=== PATIENT | male | born 1940 | race Caucasian/White ===

== ENCOUNTER 2019-06-22 11:25 | Outpatient (CLI) | payer MEDICARE, OTHER, SELFPAY ==
[2019-06-22 12:07] LABS: Alanine Aminotransferase 13 U/L (0-41); Albumin Level 4.4 g/dL (3.5-5.2); Alkaline Phosphatase 106 IU/L (40-130); Anion Gap 17.8 (5-19); Aspartate Amino Transferase 15 U/L (0-40); Blood Urea Nitrogen 29 mg/dL (8-23); Calcium 11.6 mg/Dl (8.8-10.2); Carbon Dioxide 26 mmol/L (22-29); Chloride 102 mmol/L (98-107); Globulin 2.3 g/dL (1.3-4.6); Glucose 126 mg/dL (74-106); Potassium 4.8 mmol/L (3.5-5.1); Sodium 141 mmol/L (136-145); Total Bilirubin 0.5 mg/dL (0.15-1.2); Total Protein 6.7 g/dL (6.6-8.7)
== END 2019-06-22 11:26 | disposition home or self-care (01) ==
LOC: LAB 11:32
PROVIDERS: Family Provider Family Medicine; PCP Family Medicine; Visit Provider Internal Medicine Critical Care Medicine
DX: J44.9 Chronic obstructive pulmonary disease, unspecified (principal)
CPT/HCPCS: 80053

== ENCOUNTER 2019-06-30 13:15 | Outpatient (CLI) | payer MEDICARE, SELFPAY ==
--- NOTE | 2019-06-30 13:30 | USCV_ITS ---
Henrik Kraus Age: 79 Gender: M : 1940 Exam Date: 06/30/2019 13:41 Ordering Phys: Jody Mendosa MD ([email or web address]) Technologist: GINO MIRANDA [place] [facility] [place]: ATHERSCLEROSIS OF [place] CORONARY ARTERY BP: 117 / 50 HR: 70 Rhythm: Sinus Technical Quality: Technically difficult study MEASUREMENTS (Male / Female) Normal Values 2D ECHO LVOT Diameter 2.0 cm LV Ejection Fraction MOD 2C 62.7 % LV Ejection Fraction 2C AL 62.1 % LA Diameter 4.9 cm LA Width 4.4 cm LA Height 6.8 cm RA Width 4.1 cm RA Height 6.4 cm M-MODE Aortic Annulus Diameter 3.0 cm LA Ao Ratio MM 1.6 DOPPLER AV Peak Velocity 191.0 cm/s LVOT Peak Velocity 85.0 cm/s AV Area Cont Eq vti 1.6 cm squared AV Area Cont Eq pk 1.4 cm squared MV Peak Velocity 147.0 cm/s MV Area PHT 3.5 cm squared Mitral E to A Ratio 1.1 MV E' Velocity 9.0 cm/s Mitral E to MV E' Ratio 17.6 Mitral E to LV E' Lateral Ratio 16.4 Mitral E to LV E' Septal Ratio 19.2 TV Peak E Velocity 68.0 cm/s Right Atrial Pressure 3.0 mmHg FINDINGS Left Ventricle Normal left ventricular size and systolic function, EF 61 %. No regional wall motion abnormalities. Grade II/IV diastolic dysfunction, moderately elevated filling pressures. Right Ventricle Normal right ventricular size and systolic function. Right Atrium Mildly increased right atrial size. Left Atrium Mildly increased left atrial size. Mitral Valve Moderate mitral annular calcification. Mild-moderate mitral valve regurgitation. Aortic Valve Thickened aortic valve. Tricuspid Valve Trace tricuspid valve regurgitation. Pulmonic Valve Pulmonic valve not well visualized. Pericardium No pericardial effusion. Aorta Normal aortic annulus size. CONCLUSIONS Normal left ventricular size and systolic function, EF 61 %. No regional wall motion abnormalities. Grade II/IV diastolic dysfunction, moderately elevated filling pressures. Mild biatrial enlargement Moderate mitral annular calcification. Mild-moderate mitral valve regurgitation. Features of aortic valve sclerosis Trace tricuspid valve regurgitation. There is no pericardial effusion. There are no intracardiac masses. No previous study is available for comparison. Dr Jody Mendosa MD [facility] (Electronically Signed) Final Date: 01 July 2019 00:29 S
--- NOTE | 2019-06-30 14:15 | USCV_ITS ---
Henrik Kraus Age: 79 Gender: M : 1940 Exam Date: 06/30/2019 14:42 Ordering Phys: Jody Mendosa MD ([email or web address]) Technologist: Mary Ellen Day Exam Location: [facility] [place] Indication: CAROTID STENOSIS Risk Factors: Previous Vascular Surgery: R CEA, L CEA Right Brachial BP: / Left Brachial BP: / Right Left Velocity (cm/s) Spectral Plaque Velocity (cm/s) Spectral Plaque Syst/Diast Broadening Syst/Diast Broadening 78.30/ 7.70 Prox CCA 83.60 / 12.30 87.10/ 13.20 Mid CCA 97.00 / 12.10 80.50/ 12.10 Distal CCA 87.10 / 14.30 65.10/ 18.70 Prox ICA 53.80 / 11.10 89.30/ 22.10 Mid ICA 74.30 / 21.40 87.10/ 23.20 Distal ICA 59.30 / 13.00 118.00 ECA 150.80 1.03 ICA/CCA 0.77 Not Vertebral Antegrade Visualized / cm/s 85.30/ 17.80 cm/s Bi Subclavian Bi 101.1 96.20 0 FINDINGS Moderate heterogeneous plaques at the bifurcations and proximal internal carotid arteries bilaterally. Mild diffuse plaques in the common carotid arteries bilaterally. Antegrade flow in the vertebral arteries bilaterally. 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 Mild diffuse plaques in the common carotid arteries bilaterally. 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
--- NOTE | 2019-06-30 15:00 | USCV_ITS ---
EfraHenrik cabezas Age: 79 Gender: M : 1940 Exam Date: 06/30/2019 14:14 Ordering Phys: Jody Mendosa MD ([email or web address]) Technologist: Mary Ellen Day [place] [facility] [place]: LEG PAIN, BILATERAL Risk Factors: Previous Vascular Surgery: RIGHT LEFT BP: 148.0 / BP: 153.0/ 0 0 Waveform Velocity (cm/s) Velocity (cm/s) Waveform Monophasic 44.5 Iliac Prox 107.4 Triphasic Monophasic 38.9 Iliac Mid 109.6 Triphasic Monophasic 32.6 Iliac Distal 99.5 Triphasic Monophasic 52.0 AGENT TICKETING GATE 88.3 Biphasic Monophasic 38.1 SFA Prox 40.4 Biphasic Monophasic 38.1 SFA Mid 37.3 Triphasic Monophasic 33.0 SFA Dist 132.2 Biphasic Monophasic 38.8 POP 29.7 Monophasic COMPONENT INSPECTOR 44.3 Monophasic Monophasic DPA 36.3 Monophasic KOFI 0.6 0.5 FINDINGS Monophasic Doppler waveforms in the right side. No Doppler flow signals in the right posterior tibial artery. Monophasic, low velocity continuous Doppler waveforms in the popliteal and dorsalis pedis artery on the right side. Diminished resting KOFI of 0.5 on the right and 0.6 in the left side. CONCLUSIONS 1. Abnormal resting ABIs bilaterally, consistent with the peripheral artery disease, in the range of exertional claudication. 2. Features of total occlusion of the posterior tibial artery on the right side. 3. Abnormal Doppler waveforms in the right popliteal and dorsalis pedis artery, suggestive of collateral filling 4. Appears to have some progression of disease on the right side, compared to the study from 01/23/2014 Dr Jody Mendosa MD [facility] (Electronically Signed) Final Date: 01 July 2019 00:36 S
== END 2019-06-30 13:16 | disposition home or self-care (01) ==
LOC: RAD 13:16
PROVIDERS: Family Provider Family Medicine; PCP Family Medicine; Visit Provider Internal Medicine Cardiovascular Disease
DX: I65.23 Occlusion and stenosis of bilateral carotid arteries (principal); M79.604 Pain in right leg; M79.605 Pain in left leg; I25.10 Atherosclerotic heart disease of native coronary artery without angina pectoris; I08.3 Combined rheumatic disorders of mitral, aortic and tricuspid valves
CPT/HCPCS: 93306; 93880; 93925

== ENCOUNTER 2019-07-05 09:13 | Inpatient (IN) | payer MEDICARE, SELFPAY ==
[2019-07-05] VITALS (10 sets, daily range): BP systolic 113–156; BP diastolic 54–72; PULSE 69–75; RESP 16–20; TEMP 26.5–37.1; O2SAT 94–97; BMI 33.4
--- NOTE | 2019-07-05 09:30 | ED_ITS ---
Entered by Darleen Romo, acting as scribe for HPI - Extremity Problem General: Chief complaint: Extremity Injury, Lower Stated complaint: right foot pain Time Seen by Provider: 07/05/19 09:19 History of Present Illness: HPI Narrative: 79 yo male presents with right foot injury. Pt states that he has been dealing with this pain in his right foot for 6 months, he had an US last week. Pt states that he hasn't heard the results. Pt states that his foot is red. Pt states that he has issues with ingrown toe nails. MD Complaint: extremity pain Associated symptoms: Reports rash; Deny chest pain or fever(s) Review of Systems General: Reports: 10 or more systems reviewed and unremarkable except in HPI and below Const: Denies: fever, chills, body aches or change in appetite Eyes: Denies: change in vision, blurry vision, blind spots or photophobia ENMT: Denies: throat pain, uvular edema, enlarged tonsils or painful swallowing Card: Denies: chest pain, palpitations, irregular heart rhythm or edema Resp: Denies: shortness of breath, productive cough or non-productive cough GI: Denies: abdominal pain, nausea, vomiting or vomiting blood : Denies: flank pain, difficulty urinating or painful urination Musc: Reports: extremity pain, extremity swelling and redness; Denies: neck pain or back pain Skin/Breast: Reports: rash and sores; Denies: redness or skin tenderness Neuro: Denies: headache or numbness in extremities Psych: Denies: anxiety, depression or mood swings Endo: Denies: excessive urination or excessive thirst Oj/Lymph: Denies: easy bruising, easy bleeding or tender lymph nodes All/Imm: Denies: throat swelling, tongue swelling, seasonal allergies or food intolerance PFSH ED PFSH: Statuses (acute, chronic, etc) shown below reflect problem list status as previously entered and may not be historically accurate Medical History Afib (Acute) 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) Chronic hypoxemic respiratory failure (Acute) COPD (chronic obstructive pulmonary disease) (Acute) Diabetes (Acute) Hyperlipemia (Acute) Hypoxemia (Acute) Non-pressure chronic ulcer of other part of right foot with fat layer exposed (Acute) Obesity (Acute) ZEHRA (obstructive sleep apnea) (Acute) Pacemaker (Acute) PVD (peripheral vascular disease) (Acute) 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) Surgical History H/O eye surgery (Acute) H/O prior ablation treatment (Acute) H/O rotator cuff surgery (Acute) H/O total knee replacement (Acute) History of appendectomy (Acute) History of back surgery (Acute) Social History Smoking and tobacco status: former smoker Quit status (tobacco): has quit using tobacco Year quit tobacco: 2008 Year 1.5 PPD Hx Alcohol intake: never History of recent travel: No Current gender identity: Male Physical Exam Const: COMMON NORMALS: no apparent distress, average body habitus, oriented x3, no limitations, healthy appearing, alert and well nourished HENMT: COMMON NORMALS: normocephalic, head/scalp atraumatic, hearing grossly normal bilaterally, external ears normal, EAC's normal, TM's normal bilaterally, external nose normal, nasal mucous membranes and turbinates normal, moist oral mucous membranes, oropharynx normal, dentition normal and gingiva normal HEAD & SCALP: normocephalic and atraumatic NOSE: external nose normal and nasal mucous membranes and turbinates normal EXTERNAL EAR: Yes external ears normal EXTERNAL AUDITORY CANAL: EAC's normal TYMPANIC MEMBRANE: TM's normal bilaterally THROAT: no uvular edema Eye: COMMON NORMALS: PERRL, EOMs intact bilaterally, conjunctivae normal, no scleral icterus, no papilledema, normal visual adrian by confrontation and fundi normal bilaterally CONJUNCTIVA: Yes conjunctivae normal PUPIL: Yes PERRL DIRECT OPHTHALMOSCOPY: Yes no papilledema and Yes fundi normal bilaterally Neck/C-Spine: COMMON NORMALS: full ROM, no lymphadenopathy, supple, no meningeal signs, no JVD, thyroid normal and no carotid bruits THYROID: thyroid normal Chest: COMMONS NORMALS: inspection of chest normal and palpation of chest normal Resp: COMMON NORMALS: normal respiratory effort, no retractions, no use of accessory muscles, clear to auscultation bilaterally and percussion normal AUSCULTATION: clear to auscultation bilaterally PERCUSSION: percussion normal Cardio: COMMON NORMALS: no JVD, regular rate, regular rhythm, S1 normal heart sound, S2 normal heart sound, no gallops, no clicks, no murmurs, no rub and peripheral pulses 2+ throughout RATE: regular rate RHYTHM: regular rhythm HEART SOUNDS: S1 normal and S2 normal PERIPHERAL PULSES: pulses 2+ throughout GI: COMMON NORMALS: normal to inspection, nondistended, normoactive bowel sounds, soft to palpation, non-tender, no hepatosplenomegaly, no masses and no bruits PALPATION: Yes soft and Yes no hepatosplenomegaly : COMMON NORMALS: Yes no CVA tenderness BLADDER/KIDNEY EXAM: Yes no CVA tenderness Back/Pelvis: COMMON NORMALS: no CVA tenderness, thoracic and lumbar spine normal to inspection, no thoracic nor lumbar tenderness, thoraco-lumbar ROM normal and straight leg raise negative bilaterally Extremity: COMMON NORMALS: full ROM; negative for normal to inspection, negative for normal capillary refill and negative for no clubbing, cyanosis or edema GENERAL: Yes cyanosis RIGHT LOWER EXTREMITY: Yes foot & digits Neuro: COMMON NORMALS: oriented x3 SENSORIUM/ORIENTATION: Yes alert MENINGEAL SIGNS: Yes no meningeal signs Skin: COMMON NORMALS: no rashes or lesions noted, no wounds, skin turgor normal, no jaundice, no petechiae and no mottling GENERAL SKIN EXAM: no rashes or lesions noted and turgor normal Course Vital Signs: Vital signs: Vital Signs Temperature 79.7 F L 07/05/19 09:19 Pulse Rate 71 07/05/19 09:19 Respiratory Rate 20 H 07/05/19 09:19 Blood Pressure 136/54 07/05/19 09:19 Pulse Oximetry 94 07/05/19 09:19 Discharge Plan Discharge Clinical Impression: Arterial occlusion, lower extremity, PVD (peripheral vascular disease) Condition: Fair Prescriptions: No Action azithromycin 250 mg tablet 250 mg PO DAILY 90 Days Qty: 90 RF: 1 albuterol sulfate [ProAir HFA] 90 mcg/actuation HFA aerosol inhaler 2 puff INHALATION Q6H PRNRF: 0 hydrocodone-acetaminophen [[place]] 7.5-325 mg tablet 1 tab PO Q6H PRNRF: 0 nitroglycerin [Nitrostat] 0.4 mg tablet, sublingual 0.4 mg SUBLINGUAL Q5M PRNRF: 0 metformin 500 mg tablet 500 mg PO BID RF: 0 Eliquis 5 mg tablet 5 mg PO BID RF: 0 Brovana 15 mcg/2 mL solution for nebulization 2 ml INHALATION BID RF: 0 Yupelri 175 mcg/3 mL solution for nebulization 175 mcg INHALATION ONCE RF: 0 budesonide 0.5 mg/2 mL suspension for nebulization 0.25 mg INHALATION BID RF: 0 alfuzosin 10 mg tablet extended release 24 hr 10 mg PO ONCE RF: 0 finasteride 5 mg tablet 5 mg PO ONCE RF: 0 atorvastatin 20 mg tablet 20 mg PO ONCE RF: 0 pantoprazole 40 mg tablet,delayed release (DR/EC) 40 mg PO ONCE RF: 0 cholecalciferol (vitamin D3) 50 mcg (2,000 unit) capsule 50 mcg PO ONCE RF: 0 furosemide 40 mg tablet 40 mg PO BID RF: 0 Referrals: Bernice Acevedo MD [Primary Care Provider] - Coding Level of Care Code ED Rest Room Matron for Chg Fwd Exam Problem Focused The documentation recorded by the Demetrius kumar Kialy, accurately reflects the service I personally performed and the decisions made by Jenni dasilva Donald P, DO Jul 05, 2019 09:13
--- NOTE | 2019-07-05 09:48 | USCV_ITS ---
Henrik Kraus Age: 79 Gender: M : 1940 Exam Date: 07/05/2019 09:57 Ordering Phys: Henrik Arteaga DO Technologist: Saravanan Cohen [place] [facility] [place] Indication: ARTERIAL OCCLUSION Risk Factors: Previous Vascular Surgery: RIGHT LEFT BP: 136.0 / 67.00 BP: 134.0/ 61.00 0 0 Waveform Velocity (cm/s) Velocity (cm/s) Waveform Monophasic 28.1 Iliac Prox Monophasic 23.9 Iliac Mid Monophasic 30.3 Iliac Distal Monophasic 32.6 BUILD AUTOMATION ENGINEER Monophasic 36.1 SFA Prox Monophasic 43.8 SFA Mid Monophasic 34.2 SFA Dist Monophasic 8.0 POP Monophasic 16.0 SOLE INKER Monophasic 14.8 DPA 0.4 KOFI FINDINGS Markedly diminished resting KOFI on the right side. Monophasic and low velocity Doppler waveforms in the iliac and femoral artery Low velocity continuous waveforms in the infrapopliteal vessels. Resting KOFI was 0.4 CONCLUSIONS Features of severe obstructive arterial disease on the right side, possibly multisegmental. Features of collateral filling in the infrapopliteal vessels Dr Jody Mendosa MD [facility] (Electronically Signed) Final Date: 06 July 2019 09:08 S
--- NOTE | 2019-07-05 09:58 | PC.NURSE ---
Ultrasound at bedside.
--- NOTE | 2019-07-05 10:04 | PC.NURSE ---
PHYSICAL ASSESSMENT GENERAL / NEURO / PSYCH: Oriented X 4. Alert. EXTREMITIES: Right foot: normal ROM. Extremity pulses are within normal limits. Neuro-vascular status intact to the extremity. Some mild lower extremity edema noted. Great toe: Eschar noted on tip of toe. Patient reports this was caused by clipping the toe nail one month ago. SKIN: Skin intact. Skin is warm and dry.
--- NOTE | 2019-07-05 15:05 | PM.HP ---
Providers/Chief Complaint Admitting Physician: Mary Grace Mcclellan MD Primary Care Provider: Bernice Acevedo MD Chief Complaint: arterial occlusion R lower ext History of Present Illness Henrik Kraus is a 79 year old male with a past medical history of coronary artery disease, COPD, diabetes and atrial fibrillation that presented to the emergency department today due to increasing right lower extremity pain. He reported that the pain has been ongoing for the past 6 months, stated that he recently changed his pharmacy data analyst to our facility and has been followed by podiatry. He stated that he had some testing done last week and had not heard results of the testing and due to increased pain came into the ER for evaluation today. Patient was seen and evaluated in the emergency department noted to have concern for abnormal lower extremity arterial duplex from last week and admitted for further evaluation and treatment. Surgery Specialist, Dr. Stout was consulted from the ED. Review of Systems Const: Denies: fever or chills Eyes: Denies: change in vision ENMT: Denies: nasal congestion Card: Denies: chest pain or palpitations Resp: Denies: shortness of breath, productive cough or coughing up blood GI: Reports: black tarry stool; Denies: abdominal pain, nausea, vomiting, diarrhea, constipation or blood in stool : Denies: painful urination or blood in urine (no current blood in his urine but reported passing blood clot last week) Musc: Reports: extremity pain; Denies: muscle cramps Skin/Breast: Denies: rash or new lesion Neuro: Denies: headache or dizziness Psych: Denies: anxiety or depression Endo: Denies: excessive urination or hot flashes Oj/Lymph: Denies: easy bruising Medications/Allergies Home Medications Medication Instructions Recorded Confirmed Last Taken Type apixaban PO BID 07/05/19 07/05/19 History 07 azithromycin [Zithromax] 250 mg PO DAILY 07/05/19 07/05/19 07/05/19 History 07 Allergies Allergy/AdvReac Type Severity Reaction Status Date / Time medical tape Allergy Unknown Uncoded 06/22/19 09:47 PFSH Acute PFSH: Statuses (acute, chronic, etc) shown below reflect problem list status as previously entered and may not be historically accurate Medical History (Updated 07/05/19 @ 15:23 by Mary Grace Mcclellan, DO) Afib (Acute) 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) Chronic hypoxemic respiratory failure (Acute) COPD (chronic obstructive pulmonary disease) (Acute) Diabetes (Acute) Hyperlipemia (Acute) Hypoxemia (Acute) Non-pressure chronic ulcer of other part of right foot with fat layer exposed (Acute) Obesity (Acute) ZEHRA (obstructive sleep apnea) (Acute) Pacemaker (Acute) PVD (peripheral vascular disease) (Acute) 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) Surgical History (Updated 07/05/19 @ 15:15 by Mary Grace Mcclellan DO) H/O eye surgery (Acute) detached retina H/O prior ablation treatment (Acute) H/O rotator cuff surgery (Acute) H/O total knee replacement (Acute) Bilateral History of appendectomy (Acute) History of back surgery (Acute) Hx of CABG (Acute) Status post placement of cardiac pacemaker (Acute) Social History Smoking and tobacco status: former smoker Quit status (tobacco): has quit using tobacco Year quit tobacco: 2008 Year 1.5 PPD Hx Alcohol intake: never History of recent travel: No Current gender identity: Male Vitals/I&O/Wt Last Vital Signs Temp 98.1 F 07/05/19 12:00 Pulse 70 07/05/19 14:45 Resp 16 07/05/19 12:05 BP 156/70 07/05/19 12:05 Pulse Ox 96 07/05/19 14:45 07/05/19 07/05/19 07/05/19 06:59 14:59 22:59 Output Total 100 / 100 Balance -100 / -100 Weight last 48 hrs Weight 99.79 kg Physical Exam Const: COMMON NORMALS: oriented x3 and alert GENERAL APPEARANCE: cooperative ORIENTATION/CONSCIOUSNESS: Yes awake, Yes oriented to person, Yes oriented to place and Yes oriented to time HENMT: COMMON NORMALS: normocephalic and head/scalp atraumatic HEAD & SCALP: normocephalic and atraumatic Eye: COMMON NORMALS: PERRL PUPIL: Yes PERRL Neck/C-Spine: COMMON NORMALS: supple GENERAL: Yes normal visual inspection Resp: EFFORT & INSPECTION: Yes able to speak in complete sentences AUSCULTATION: no rhonchi and no wheezes OTHER: Diminished breath sounds bilaterally and prolonged expiratory phase Cardio: COMMON NORMALS: regular rate, regular rhythm and no murmurs RATE: regular rate RHYTHM: regular rhythm GI: COMMON NORMALS: soft to palpation and non-tender INSPECTION: No abdominal distension PALPATION: Yes soft Back/Pelvis: COMMON NORMALS: no CVA tenderness Extremity: NARRATIVE EXTREMITY EXAM: Right lower extremity with mild erythema and edema, unable to palpate dorsalis pedis pulse Neuro: COMMON NORMALS: oriented x3, CN's II-XII intact bilaterally, moves all extremities and no focal motor deficits SENSORIUM/ORIENTATION: Yes alert, Yes oriented to person, Yes oriented to place and Yes oriented to time SPEECH: speech normal Psych: COMMON NORMALS: mental status grossly normal and cooperative Data US Vascular: Radiologist's impression: Performed on 06/30/2019 CONCLUSIONS 1. Abnormal resting ABIs bilaterally, consistent with the peripheral artery disease, in the range of exertional claudication. 2. Features of total occlusion of the posterior tibial artery on the right side. 3. Abnormal Doppler waveforms in the right popliteal and dorsalis pedis artery, suggestive of collateral filling 4. Appears to have some progression of disease on the right side, compared to the study from 01/23/2014 A&P Assessment and plan (1) Arterial occlusion, lower extremity: Concern for arterial occlusion of the right lower extremity with abnormal imaging as noted above last week. ER physician discussed with Dr. Stout for consultation. Will follow up with recommendations, appreciate consultation We will continue home statin medication, start on aspirin Status: Acute Code(s): I70.209 - Unspecified atherosclerosis of [place] arteries of extremities, unspecified extremity (2) COPD (chronic obstructive pulmonary disease): Without acute exacerbation, followed in the outpatient setting by Dr. Franklin Chronic oxygen dependence of 3 to 5 L of oxygen by nasal cannula at baseline with home CPAP at night Status: Acute Code(s): J44.9 - Chronic obstructive pulmonary disease, unspecified (3) Type 2 diabetes mellitus with diabetic polyneuropathy: Scale insulin as needed and hold home metformin due to anticipated contrast use Status: Acute Code(s): E11.42 - Type 2 diabetes mellitus with diabetic polyneuropathy (4) Non-pressure chronic ulcer of other part of right foot limited to breakdown of skin: No evidence of any acute infectious process at this time, will continue to monitor closely Status: Acute Code(s): L96.105 - Non-pressure chronic ulcer of other part of right foot limited to breakdown of skin Additional A&P Information Other chronic medical problems: Coronary artery disease: Continue home atorvastatin, not on a beta-magda Atrial fibrillation: Status post pacemaker placement, hold Eliquis due to anticipated angiogram On chronic antibiotic therapy due to COPD, a azithromycin Chronic pain on daily opioids: Continue home [place] GERD: Continue home PPI DVT prophylaxis: Lovenox Diet: Carbohydrate consistent, cardiac diet CODE STATUS: Full code Attestations Medical Necessity Statement*: Patient requires hospitalization due to concern for arterial occlusion of the right lower extremity, expected stay greater than 2 midnights Coding Level of Care Code [facility] Arterial occlusion, lower extremity I70.209 COPD (chronic obstructive pulmonary disease) J44.9 Type 2 diabetes mellitus with diabetic polyneuropathy E11.42 Non-pressure chronic ulcer of other part of right foot limited to breakdown of skin L91.112
[2019-07-05] MEDS: pantoprazole DR 40 mg Tablet PO (15:51)
[2019-07-05] MEDS: HYDROcodone-acetaminophen 7.5-325 mg Tablet 1 TAB PO ×2 (15:51→20:16)
[2019-07-05 17:01] LABS: Glucose Point of Care 112 mg/dL (70-110)
[2019-07-05 17:15] LABS: Anion Gap 14.4 (5-19); Blood Urea Nitrogen 28 mg/dL (8-23); Calcium 11.2 mg/Dl (8.8-10.2); Carbon Dioxide 29 mmol/L (22-29); Chloride 100 mmol/L (98-107); Glucose 108 mg/dL (74-106); Potassium 4.4 mmol/L (3.5-5.1); Sodium 139 mmol/L (136-145)
[2019-07-05] MEDS: FUROsemide 40 mg Tablet PO (17:48)
[2019-07-05] MEDS: atorvastatin 40 mg Tablet 20 MG PO (17:48)
[2019-07-05] MEDS: docusate sodium 100 mg Capsule PO (17:48)
[2019-07-05 18:19] LABS: Add Urine Microscopic? YES; Bilirubin Urine Neg (NEGATIVE); Blood Urine 3+ (Negative); Glucose Urine UA Norm (Normal); Ketones Urine Negative (Negative); Leukocyte Esterase Urine Negative (Negative); Nitrate Urine Negative (Negative); Protein Urine Neg (Negative); Specific Gravity, Urine 1.005 (1.005-1.030); Urine Appearance SL Hazy (CLEAR); Urine Color Yellow (Yellow); Urobilinogen Urine Norm (Negative); pH Urine 7 (5-7)
[2019-07-05 18:24] LABS: Bacteria Urine 2+; RBC Urine 15-25 /hpf (0-2); Squamous Epithelial Cell Urine 0-4 (0-5)
[2019-07-05 18:25] LABS: Add Urine Culture? Yes
--- NOTE | 2019-07-05 19:31 | PM.CONSULT ---
Providers/Reason For Consult Consulting Physican/Specialty*: Cardiology Reason for Consult*: Critical limb ischemia of right leg with nonhealing toe ulcer and pain at rest Requesting Physcian: Dr. Jc Mcclellan Attending Physician: Mary Grace Mcclellan MD Primary Care Provider: Bernice Acevedo MD History of Present Illness History of Present Illness Henrik Kraus is a 79 year old male past medical history significant for ischemic cardiomyopathy status post CABG, status post pacemaker status post multiple stents, chronic kidney disease stage III, hypertension, hyperlipidemia, diabetes mellitus, history of carotid artery disease and history of carotid artery surgery presented with right leg and foot pain at rest going on for past 1 week. 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 Mendosa. Due to lifestyle limiting claudication ABIs were performed which showed moderate to severely depressed results in both legs. Patient was going through further investigation until yesterday when pain become unbearable he decided to come to ER today. He is also following up with Dr. Decker for nonhealing right toe ulcer which he contracted during doing his nail. His creatinine today is 1.3. He does not know his ejection fraction. He denies PND orthopnea presyncope or syncope. He uses diuretics as needed basis. Review of Systems General: Reports: 10 or more systems reviewed and unremarkable except in HPI and below Const: Denies: fever or chills Eyes: Denies: change in vision ENMT: Denies: throat pain, uvular edema, enlarged tonsils, painful swallowing or nasal congestion Card: Denies: chest pain, palpitations or irregular heart rhythm Resp: Reports: shortness of breath GI: Denies: abdominal pain, nausea or vomiting : Denies: flank pain, difficulty urinating, painful urination or blood in urine (no current blood in his urine but reported passing blood clot last week) Musc: Reports: extremity pain, extremity swelling and redness; Denies: neck pain, back pain or muscle cramps Skin/Breast: Reports: sores; Denies: rash, redness, skin tenderness or new lesion Neuro: Denies: headache, numbness in extremities or weakness in extremities Psych: Denies: anxiety, depression or mood swings Endo: Denies: excessive urination, excessive thirst or hot flashes Oj/Lymph: Denies: easy bruising, easy bleeding or tender lymph nodes All/Imm: Denies: throat swelling, tongue swelling, seasonal allergies or food intolerance Meds/Allergies Home Medications and Allergies Home Medications Medication Instructions Recorded Confirmed Type albuterol sulfate 90 mcg/actuation 2 puff INHALATION Q6H PRN 06/20/19 07/05/19 History aerosol inhaler alfuzosin 10 mg tablet,extended 10 mg PO ONCE 06/20/19 07/05/19 History release 24 hr arformoterol 15 mcg/2 mL solution 2 ml INHALATION BID 06/20/19 07/05/19 History for nebulization atorvastatin 20 mg tablet 20 mg PO ONCE 06/20/19 07/05/19 History budesonide 0.5 mg/2 mL suspension 0.25 mg INHALATION BID 06/20/19 07/05/19 History for nebulization cholecalciferol (vitamin D3) 50 50 mcg PO ONCE 06/20/19 07/05/19 History mcg (2,000 unit) capsule finasteride 5 mg tablet 5 mg PO ONCE 06/20/19 07/05/19 History furosemide 40 mg tablet 40 mg PO BID 06/20/19 07/05/19 History hydrocodone 7.5 mg-acetaminophen 1 tab PO Q6H PRN 06/20/19 07/05/19 History 325 mg tablet metformin 500 mg tablet 500 mg PO BID 06/20/19 07/05/19 History nitroglycerin 0.4 mg sublingual 0.4 mg SUBLINGUAL Q5M PRN 06/20/19 07/05/19 History tablet pantoprazole 40 mg tablet,delayed 40 mg PO ONCE 06/20/19 07/05/19 History release revefenacin 175 mcg/3 mL solution 175 mcg INHALATION ONCE 06/20/19 07/05/19 History for nebulization apixaban 2.5 mg PO BID 07/05/19 07/05/19 History azithromycin [Zithromax] 250 mg PO DAILY 07/05/19 07/05/19 History Allergies Allergy/AdvReac Type Severity Reaction Status Date / Time medical tape Allergy Unknown Uncoded 06/22/19 09:47 Current Medications Current Medications Generic Name Dose Route Start Last Admin Trade Name Freq PRN Reason Stop Dose Admin Hydrocodone Bitart/Acetaminophen 1 tab 07/05/19 14:50 07/05/19 15:51 Hugo 7.5-325 Mg PO 1 tab Q4H PRN Administration MODERATE PAIN Atorvastatin Calcium 20 mg 07/05/19 17:00 07/05/19 17:48 Lipitor PO 20 mg DAILY KRISTINA Administration Docusate Sodium 100 mg 07/05/19 18:00 07/05/19 17:48 Colace PO 100 mg BID KRISTINA Administration Furosemide 40 mg 07/05/19 18:00 07/05/19 17:48 Lasix PO 40 mg BID KRISTINA Administration Insulin Aspart 0 unit 07/05/19 18:00 07/05/19 18:36 Novolog SUBCUT Not Given TIDWM KRISTINA Protocol Pantoprazole Sodium 40 mg 07/05/19 16:00 07/05/19 15:51 Protonix PO 40 mg DAILY KRISTINA Administration PFSH Acute PFSH: Statuses (acute, chronic, etc) shown below reflect problem list status as previously entered and may not be historically accurate Medical History (Updated 07/05/19 @ 19:40 by Herminio Stout MD) Afib (Acute) 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) Chronic hypoxemic respiratory failure (Acute) CKD (chronic kidney disease) (Acute) COPD (chronic obstructive pulmonary disease) (Acute) Diabetes (Acute) Hyperlipemia (Acute) Hypoxemia (Acute) Non-pressure chronic ulcer of other part of right foot with fat layer exposed (Acute) Obesity (Acute) ZEHRA (obstructive sleep apnea) (Acute) Pacemaker (Acute) PVD (peripheral vascular disease) (Acute) 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) Surgical History H/O eye surgery (Acute) detached retina H/O prior ablation treatment (Acute) H/O rotator cuff surgery (Acute) H/O total knee replacement (Acute) Bilateral History of appendectomy (Acute) History of back surgery (Acute) Hx of CABG (Acute) Status post placement of cardiac pacemaker (Acute) Family History Sister Diabetes Brother Diabetes CAD (coronary artery disease) Mother Heart attack Father Heart attack Social History Smoking and tobacco status: former smoker Quit status (tobacco): has quit using tobacco Year quit tobacco: 2008 Year 1.5 PPD Hx Alcohol intake: never History of recent travel: No Current gender identity: Male Vitals/I&O/Wt Last Vital Signs Temp 98.7 F 07/05/19 18:57 Pulse 70 07/05/19 18:57 Resp 18 07/05/19 18:57 BP 119/62 07/05/19 18:57 Pulse Ox 97 07/05/19 18:57 07/05/19 07/05/19 07/05/19 06:59 14:59 22:59 Output Total 100 / 100 200 / 300 Balance -100 / -100 -200 / -300 Weight last 48 hrs Weight 220 lb Physical Exam Narrative: EXAM NARRATIVE: GENERAL: Patient is alert, awake and oriented x3. Mild discomfort NECK: No jugular vein distension. HEENT: No cyanosis. No icterus. No pallor. HEART: Regular S1 and S2. No murmur, rub or gallop. LUNGS: Decreased breath sound bilaterally. ABDOMEN: Soft, nontender and nondistended. Positive bowel sounds. No guarding, rebound or tenderness. CENTRAL NERVOUS SYSTEM: Grossly nonfocal. EXTREMITIES: Lower extremities without edema bilaterally. Pulses not palpable in both feet. Right femoral pulse minimally palpable left femoral pulse 1+. Right toe small black eschar-like wound HENMT: THROAT: no uvular edema A&P Assessment and plan (1) CKD (chronic kidney disease): Baseline creatinine 1.3. I will give patient IV fluid 100mL/h for next 12 hours. Will check Chem-7 in the morning. Patient is aware of contrast-induced nephropathy and risk of dialysis. Status: Acute Code(s): N18.9 - Chronic kidney disease, unspecified Coding Level of Care Code Acute Planning Management It Specialist for [facility] Fwd History Comprehensive Exam Detailed Medical Decision Making High Complexity Diagnoses CKD (chronic kidney disease) N18.9
[2019-07-05] MEDS: sodium chloride 0.9% 1,000 ML 100 ML IV (19:39)
[2019-07-05] MEDS: enoxaparin 100 mg/mL Syringe 90 MG SUBCUT (20:16)
[2019-07-05] MEDS: budesonide 0.5 mg/2 mL Neb INHALATION (20:29)
[2019-07-05 21:24] LABS: Glucose Point of Care 124 mg/dL (70-110)
[2019-07-06] VITALS (19 sets, daily range): BP systolic 96–179; BP diastolic 52–96; PULSE 69–95; RESP 15–24; TEMP 36.3–36.7; O2SAT 90–99
[2019-07-06] MEDS: HYDROcodone-acetaminophen 7.5-325 mg Tablet 1 TAB PO ×5 (00:50→22:04)
[2019-07-06 04:33] LABS: Anion Gap 16.3 (5-19); Blood Urea Nitrogen 28 mg/dL (8-23); Calcium 10.4 mg/Dl (8.8-10.2); Carbon Dioxide 25 mmol/L (22-29); Chloride 104 mmol/L (98-107); Glucose 101 mg/dL (74-106); Potassium 4.3 mmol/L (3.5-5.1); Sodium 141 mmol/L (136-145)
[2019-07-06] MEDS: sodium chloride 0.9% 1,000 ML 100 ML IV ×2 (05:05→15:29)
--- NOTE | 2019-07-06 06:30 | PC.NURSE ---
I pulled some morphine for patient but patient wanted to try PO medication first. Patient ended up not needing the morphine and I was unable to return it to the pyxus so me and another nurse, Ginger Brunson, brought it to the pharmacy.
[2019-07-06 06:59] LABS: Glucose Point of Care 95 mg/dL (70-110)
[2019-07-06] MEDS: budesonide 0.5 mg/2 mL Neb INHALATION ×2 (08:43→23:01)
[2019-07-06] MEDS: cholecalciferol (vitamin D3) 1,000 unit Tablet 2000 UNIT PO (09:24)
[2019-07-06] MEDS: pantoprazole DR 40 mg Tablet PO (09:24)
[2019-07-06] MEDS: docusate sodium 100 mg Capsule PO (09:24)
[2019-07-06] MEDS: azithromycin 250 mg Tablet PO (09:25)
[2019-07-06] MEDS: finasteride 5 mg Tablet PO (09:25)
[2019-07-06] MEDS: atorvastatin 40 mg Tablet 20 MG PO ×2 (09:25→22:05)
[2019-07-06 09:26] LABS: Basophils % 0.5 %; Eosinophils # 0.2 10^3/uL (0.0-0.8); Hematocrit 36.6 % (42.0-52.0); Hemoglobin 11.1 g/dL (11.7-16.6); Lymphocytes # 1.5 10^3/uL (0.8-4.8); Lymphocytes % 24.4 %; Mean Corpuscular HGB Conc 30.3 g/dL (30.0-36.0); Mean Corpuscular Hemoglobin 27.1 pg (28.0-34.0); Mean Corpuscular Volume 89.5 fL (80-94); Mean Platelet Volume 8.5 fL (7.4-10.4); Monocytes # 0.6 10^3/uL (0.2-0.9); Monocytes % 9.7 %; Neutrophils # 3.7 10^3/uL (1.8-7.7); Neutrophils % 61.1 %; Nucleated Red Blood Cells % 0 %; Platelet Count 193 10^3/cmm (130-400); Red Blood Count 4.09 10^6/uL (4.1-5.3); Red Cell Distribution Width 13.9 % (12.1-15.1); White Blood Count 6.1 10^3/uL (4.0-10.0)
[2019-07-06] MEDS: alfuzosin 10 mg ER Tablet PO (09:26)
[2019-07-06] MEDS: diphenhydrAMINE 50 mg Capsule PO ×2 (09:39→09:41)
[2019-07-06] MEDS: sodium chloride 0.9% 1,000 ML 50 ML IV (09:41)
--- NOTE | 2019-07-06 10:02 | PM.PN ---
Subjective Subjective: Interval history: Patient awake in bed at time of exam this morning. He reported some slight discomfort in the right lower extremity. Denied any chest pain or shortness of breath. Vitals/I&O/Wt Last Vital Signs Temp 97.8 F 07/06/19 07:14 Pulse 77 07/06/19 08:51 Resp 18 07/06/19 08:51 BP 98/63 07/06/19 07:14 Pulse Ox 98 07/06/19 08:51 07/05/19 07/06/19 07/06/19 22:59 06:59 14:59 Intake Total 480 / 480 943.333 / 1423.333 Output Total 200 / 300 710 / 1010 200 / 200 Balance 280 / 180 233.333 / 413.333 -200 / -200 Weight last 48 hrs Weight 102.285 kg Weight 99.79 kg Physical Exam Const: COMMON NORMALS: oriented x3 and alert GENERAL APPEARANCE: cooperative ORIENTATION/CONSCIOUSNESS: Yes awake, Yes oriented to person, Yes oriented to place and Yes oriented to time HENMT: COMMON NORMALS: normocephalic and head/scalp atraumatic HEAD & SCALP: normocephalic and atraumatic Eye: COMMON NORMALS: PERRL PUPIL: Yes PERRL Neck/C-Spine: COMMON NORMALS: supple GENERAL: Yes normal visual inspection Resp: EFFORT & INSPECTION: Yes able to speak in complete sentences AUSCULTATION: no rhonchi and no wheezes OTHER: Diminished breath sounds bilaterally and prolonged expiratory phase Cardio: COMMON NORMALS: regular rate and regular rhythm RATE: regular rate RHYTHM: regular rhythm GI: COMMON NORMALS: soft to palpation and non-tender INSPECTION: No abdominal distension PALPATION: Yes soft : COMMON NORMALS: Yes no CVA tenderness BLADDER/KIDNEY EXAM: Yes no CVA tenderness Back/Pelvis: COMMON NORMALS: no CVA tenderness Extremity: NARRATIVE EXTREMITY EXAM: Right lower extremity with mild erythema and edema, unable to palpate dorsalis pedis pulse Neuro: COMMON NORMALS: oriented x3, CN's II-XII intact bilaterally, moves all extremities and no focal motor deficits SENSORIUM/ORIENTATION: Yes alert, Yes oriented to person, Yes oriented to place and Yes oriented to time SPEECH: speech normal Psych: COMMON NORMALS: mental status grossly normal and cooperative Data : 07/06/19 04:20 07/06/19 03:20 A&P Assessment and plan (1) Arterial occlusion, lower extremity: Concern for arterial occlusion of the right lower extremity with abnormal imaging Dr. Stout consulted, appreciate recommendations and assistance in patient's care Plan for patient to undergo angiogram today Status: Acute Code(s): I70.209 - Unspecified atherosclerosis of jackson arteries of extremities, unspecified extremity (2) COPD (chronic obstructive pulmonary disease): Without acute exacerbation, followed in the outpatient setting by Dr. Franklin Chronic oxygen dependence of 3 to 5 L of oxygen by nasal cannula at baseline with home CPAP at night Status: Acute Code(s): J44.9 - Chronic obstructive pulmonary disease, unspecified (3) Type 2 diabetes mellitus with diabetic polyneuropathy: Sliding scale insulin as needed and hold home metformin due to anticipated contrast use Status: Acute Code(s): E11.42 - Type 2 diabetes mellitus with diabetic polyneuropathy (4) Non-pressure chronic ulcer of other part of right foot limited to breakdown of skin: No evidence of any acute infectious process at this time, will continue to monitor closely Continue close follow-up with podiatry Status: Acute Code(s): L97.511 - Non-pressure chronic ulcer of other part of right foot limited to breakdown of skin Additional A&P Information Other chronic medical problems: Coronary artery disease: Continue home atorvastatin, not on a beta-magda Atrial fibrillation: Status post pacemaker placement, hold Eliquis due to anticipated angiogram On chronic antibiotic therapy due to COPD, azithromycin Chronic pain on daily opioids: Continue home Roca GERD: Continue home PPI DVT prophylaxis: Lovenox Diet: Carbohydrate consistent, cardiac diet CODE STATUS: Full code Attestations Medical Necessity Statement*: Patient requires continued hospitalization due to right lower extremity arterial occlusion Coding Level of Care Code Acute 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
[2019-07-06 11:40] LABS: Glucose Point of Care 97 mg/dL (70-110)
--- NOTE | 2019-07-06 15:32 | PC.RESP ---
Patient given Pulmonary Rehab information.
--- NOTE | 2019-07-06 16:08 | XACV_ITS ---
Ht: 173 cm Wt: 100 kg BSA: 2.22 m2 Any Known Allergies: Other Gender: Male : 1940 Exam Type: Invasive Peripheral Vascular Procedure(s): Procedure Description: Peripheral Cath Diagnostic Procedure Procedure Description: Abdominal aortic angiography Procedure Description: Lower extremities' angiography Exam Priority: Routine Conclusions Severe claudication of Right leg and foot despite of optimization of medical therapySevere claudication ( Dixon grade II, category 4:Jen stage IIII. )Procedure SummaryLeft common femoral artery was used to performed peripheral angiogram.#1 Abdominal aorta: Luminal irregularities#2 Left and right renal artery has luminal irregularities. #3 Right common iliac artery has luminal irregularity#4 Left common iliac artery luminal #5 Left and right internal iliac artery has luminal irregularity#7 Right external iliac artery is 100% occluded reconstitute in the distal with collaterals#8 Left and right common femoral artery has luminal irregularity#9 Right profunda femoral artery has luminal irregularity#10 Right SFA has luminal irregularity #11 right popliteal artery has luminal irregularities#12 no below the knee arteries on the right side of visualized due to very scant flow from collaterals. Access Site Site: Left Femoral artery Sheath Size: 6 Fr Hemost... Method: Suture Hemost... Success: Successful Procedure Details Findings Hand injection X2. hand injection performed. [place] wire inserted. oxygen increasd to 6lpm. Trailblazer catheter removed. Long glide catheter inserted. glide wire removed, catheter still inserted. Right leg run off 10mL for 30 seconds. IM guide removed. [facility] time/date stamo having technical issues. All documentation and procedure done between [id number] on 07/06/2019. Procedure Consent Obtained. Admit Source: In Patient. Pre-Procedure Time Out. Identified patient by full name and date of as verbalized by the patient/guarantor. Does the consent match the physician's order: Yes. Accurate & Complete Informed Consent: Yes. Inpatient/Outpatient History & Physical on Chart: Yes. If H&P is completed, is and addenduem needed: N/A; If yes, is the addendum complete: N/A. Visualize and Verify Site with Patient/Guarantor: N/A. Relevant Radiology Images available: N/A. Pre-op teaching completed and patient verbalized understanding. The risks, benefits, and alternatives of sedation and/or procedure were discussed by physician. The patient agrees to continue. Procedure started. Correct patient, site and procedure confirmed by cath team. PERRLA. Strong, equal hand turn down worker bilaterally. Lungs clear x 5 lobes. IV Site on Arrival: 20 gauge in the left anticubital. Oxygen started at 3liters/min via nasal canula. bilateral groins was prepped with chloroprep then draped in the usual sterile fashion. Physician notified. Baseline sample Acquired. HR: 70 BPM. Physician arrived. Physician scrubbed in. Time out performed with cath team. Lidocaine 1% infiltrated to the left groin. Arterial access obtained with micropuncture set. A 6FrFr UF catheter in over wire. Abdominal aortogram performed in AP @ 10 mL/sec for a total of 30 mL. Catheter out. A 6FrFr RIM catheter in over wire. A 6FrFr IM catheter in over wire. Ginger Borden RT was relieved by Thiago Izquierdo as monitoring person. Trailblazer catheter inserted over the wire. Sheath(s) sutured into position with 2-0 silk and sterile 4x4's and Op-site applied over the site. No oozing or signs and symptoms of hematoma noted. Arterial sheath flushed and connected to tranducer and pressure bag with heparinized saline. Post Procedure: Pulses reassessed and unchanged. Medication's Wasted: Heparin = 4000 units. Total IV fluids: 100 mL. Post-op diagnosis: severe peripheral vascular disease. Complications: None. Estimated blood loss: 5mL-10mL. Procedure completed. Patient transferred by bed to 1st floor. A Suture was successful obtaining hemostatsis at the Left Femoral artery insertion site. Vital chart was stopped. Procedure Medications Start: 6:09 PM Stop: 6:09 PM Medication: Versed Amount: 1 mg Route: I.V. Start: 6:09 PM Stop: 6:09 PM Medication: Fentanyl Amount: 50 mcg Route: I.V. Start: 6:11 PM Stop: 6:11 PM Medication: Versed Amount: 1 mg Route: I.V. Start: 6:12 PM Stop: 6:12 PM Medication: Fentanyl Amount: 50 mcg Route: I.V. Start: 6:47 PM Stop: 6:47 PM Medication: Versed Amount: 1 mg Route: I.V. Start: 6:47 PM Stop: 6:47 PM Medication: Fentanyl Amount: 50 mcg Route: I.V. Start: 7:11 PM Stop: 7:11 PM Medication: Versed Amount: 1 mg Route: I.V. Start: 7:11 PM Stop: 7:11 PM Medication: Fentanyl Amount: 50 mcg Route: I.V. I, the attending physician, have reviewed and verified all procedure medications. Yes, all medications given per verbal order History/Risk Factors Hypertension: Yes Dyslipidemia: Yes Peripheral Arterial Disease (PAD): Yes Myocardial Infarction (WA): No Obesity: Yes Renal Disease: Yes Tobacco Use: Former Prior Interventions PCI: Yes CABG: No Valve Surgery: No Report Signatures Finalized by:Herminio Stout MD on 07/19/2019 8:10:14 PM
[2019-07-06 16:55] LABS: Glucose Point of Care 127 mg/dL (70-110)
--- NOTE | 2019-07-06 19:33 | PM.PN ---
Subjective Subjective: Interval history: Patient underwent peripheral angiogram found to have chronically occluded mid right external iliac SFA was filled with collaterals no flow was noted below the knee. We will try to cross the lesion from common iliac approach which remains unsuccessful due to angle of the vessel and high-grade calcified stenosis. Patient will be brought back after assessing anatomy below the knee through CTA for below the knee possible tibial approach in retrograde fashion. He is scheduled to undergo peripheral angiogram day after tomorrow since we will be reviewing CTA tomorrow. Vitals/I&O/Wt Last Vital Signs Temp 97.7 F 07/06/19 15:16 Pulse 70 07/06/19 15:16 Resp 18 07/06/19 15:16 BP 98/57 07/06/19 15:16 Pulse Ox 96 07/06/19 15:16 07/06/19 07/06/19 07/06/19 06:59 14:59 22:59 Intake Total 943.333 / 1423.333 360 / 360 1000 / 1360 Output Total 710 / 1010 440 / 440 Balance 233.333 / 413.333 -80 / -80 1000 / 920 Weight last 48 hrs Weight 225 lb 8 oz Weight 220 lb Physical Exam Narrative: EXAM NARRATIVE: GENERAL: Patient is alert, awake and oriented x3. Mild discomfort NECK: No jugular vein distension. HEENT: No cyanosis. No icterus. No pallor. HEART: Regular S1 and S2. No murmur, rub or gallop. LUNGS: Decreased breath sound bilaterally. ABDOMEN: Soft, nontender and nondistended. Positive bowel sounds. No guarding, rebound or tenderness. CENTRAL NERVOUS SYSTEM: Grossly nonfocal. EXTREMITIES: Lower extremities without edema bilaterally. Pulses not palpable in both feet. Right femoral pulse minimally palpable left femoral pulse 1+. Right toe small black eschar-like wound HENMT: THROAT: no uvular edema Data : 07/06/19 04:20 07/06/19 03:20 A&P Assessment and plan (1) CKD (chronic kidney disease): Creatinine has improved to 1.2 which is his baseline. Continue holding Lasix. Status: Acute Code(s): N18.9 - Chronic kidney disease, unspecified (2) Critical limb ischemia with history of revascularization of same extremity: As defined above we were unsuccessful in crossing right external iliac artery highly calcified totally occluded lesion. We will reassess his anatomy through CTA below the knee for retrograde approach. We will bring patient back Thursday morning for retrograde approach in order to cross the lesion. Status: Acute Code(s): I99.8 - Other disorder of circulatory system; Z95.9 - Presence of cardiac and vascular implant and graft, unspecified (3) COPD (chronic obstructive pulmonary disease): Stable. 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 Continue current Status: Acute Code(s): I25.810 - Atherosclerosis of coronary artery bypass graft(s) without angina pectoris (5) Diabetes: As per medicine. Status: Acute Code(s): E11.9 - Type 2 diabetes mellitus without complications Attestations Medical Necessity Statement*: Patient require continuation hospitalization for above defined problem. 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
[2019-07-06 21:30] LABS: Glucose Point of Care 118 mg/dL (70-110)
--- NOTE | 2019-07-06 23:14 | PC.NURSE ---
See V/S flowsheet for vital signs.
[2019-07-07] VITALS (8 sets, daily range): BP systolic 107–146; BP diastolic 49–71; PULSE 70–78; RESP 13–20; TEMP 36.6–36.9; O2SAT 92–95
[2019-07-07] MEDS: HYDROcodone-acetaminophen 7.5-325 mg Tablet 1 TAB PO ×5 (02:23→20:03)
[2019-07-07 05:58] LABS: Anion Gap 13.4 (5-19); Blood Urea Nitrogen 22 mg/dL (8-23); Carbon Dioxide 27 mmol/L (22-29); Chloride 104 mmol/L (98-107); Glucose 105 mg/dL (74-106); Osmolality Calculated 287 mOsm/kg (285-295); Potassium 4.4 mmol/L (3.5-5.1); Sodium 140 mmol/L (136-145)
[2019-07-07 06:33] LABS: Glucose Point of Care 95 mg/dL (70-110)
[2019-07-07] MEDS: budesonide 0.5 mg/2 mL Neb INHALATION ×2 (07:52→19:45)
--- NOTE | 2019-07-07 08:18 | PC.NURSE ---
Assisting patient's primary nurse ROHITH Hsu with med pass and rounding. Dr. Mcclellan is at bedside now rounding with patient. RT at bedside performing treatments at present time as well.
[2019-07-07] MEDS: finasteride 5 mg Tablet PO (08:57)
[2019-07-07] MEDS: pantoprazole DR 40 mg Tablet PO (08:57)
[2019-07-07] MEDS: alfuzosin 10 mg ER Tablet PO (08:58)
--- NOTE | 2019-07-07 08:59 | PC.NURSE ---
Call placed to dairy lab technician to verify whether Dr. Stout wants patient to have morning dose of eliquis or not. Awaiting call back.
--- NOTE | 2019-07-07 09:17 | PC.NURSE ---
Phone call with Dr. Stout. Instructions to cancel eliquis and put in orders for lovenox instead. Also received instruction to order US of right leg.
--- NOTE | 2019-07-07 09:25 | USCV_ITS ---
Henrik Kraus Age: 79 Gender: M : 1940 Exam Date: 07/07/2019 09:31 Ordering Phys: Herminio Stout MD ([email or web address]) Technologist: Gabriel Griffith Exam [place] [facility] [place]ication: POOR BLOOD FLOW IN RT LEG Risk Factors: Smoker DIABETIC Previous Vascular Surgery: RIGHT LEFT BP: 140.0 / 72.00 BP: 130.0/ 70.00 0 0 Waveform Velocity (cm/s) Velocity (cm/s) Waveform Monophasic 30.3 Iliac Prox Monophasic 30.2 Iliac Mid Monophasic 24.8 Iliac Distal Monophasic 26.6 BATTERY REPAIRER Monophasic 19.3 SFA Prox Monophasic 33.2 SFA Mid Monophasic 35.0 SFA Dist Monophasic 36.9 POP Monophasic 26.0 FISHING BOAT MATE Monophasic 12.0 DPA 0.5 KOFI FINDINGS GOOD VESSELS BELOW RT KNEE FOR ACESS Diminished resting KOFI on the right side of 0.5 Monophasic, continuous low velocity Doppler waveforms throughout the right lower extremity CONCLUSIONS The above features may suggest severe peripheral artery disease, with collateral filling of the distal vessels. Compared to the study from 07/05/2019, there may not be a significant change Dr Jody Mendosa MD [facility] (Electronically Signed) Final Date: 07 July 2019 19:30 S
--- NOTE | 2019-07-07 10:12 | P.PN_ITS ---
Subjective Subjective: Interval history: Patient awake and sitting at the edge of bed this morning. He denied any chest pain or shortness of breath. Noted continued discomfort in the right lower extremity, discussed with him plan of care and he denied any concerns or questions. Vitals/I&O/Wt Last Vital Signs Temp 98.4 F 07/07/19 07:12 Pulse 78 07/07/19 07:57 Resp 18 07/07/19 07:57 BP 107/55 07/07/19 07:12 Pulse Ox 92 07/07/19 07:57 07/06/19 07/07/19 07/07/19 22:59 06:59 14:59 Intake Total 1300 / 1660 300 / 1960 240 / 240 Output Total 375 / 815 450 / 1265 Balance 925 / 845 -150 / 695 240 / 240 Weight last 48 hrs Weight 105.052 kg Weight 104.961 kg Weight 102.285 kg Physical Exam Const: COMMON NORMALS: oriented x3 and alert GENERAL APPEARANCE: cooperative ORIENTATION/CONSCIOUSNESS: Yes awake, Yes oriented to person, Yes oriented to place and Yes oriented to time HENMT: COMMON NORMALS: normocephalic and head/scalp atraumatic HEAD & SCALP: normocephalic and atraumatic Neck/C-Spine: COMMON NORMALS: supple GENERAL: Yes normal visual inspection Resp: EFFORT & INSPECTION: Yes able to speak in complete sentences AUSCULTATION: no rhonchi and no wheezes OTHER: Diminished breath sounds bilaterally and prolonged expiratory phase Cardio: COMMON NORMALS: regular rate and regular rhythm RATE: regular rate RHYTHM: regular rhythm GI: INSPECTION: No abdominal distension Extremity: NARRATIVE EXTREMITY EXAM: Right lower extremity with mild erythema and edema, unable to palpate dorsalis pedis pulse Neuro: COMMON NORMALS: oriented x3, CN's II-XII intact bilaterally, moves all extremities and no focal motor deficits SENSORIUM/ORIENTATION: Yes alert, Yes oriented to person, Yes oriented to place and Yes oriented to time SPEECH: speech normal Psych: COMMON NORMALS: mental status grossly normal and cooperative Data : 07/06/19 04:20 07/07/19 03:58 A&P Assessment and plan (1) Arterial occlusion, lower extremity: Dr. Stout consulted, appreciate recommendations and assistance in patient's care. Patient had peripheral angiogram performed on 1-22-20, noted to have chronically occluded mid right external iliac SFA was filled with collaterals with no flow noted below the knee. Plan for CTA below the knee today and possible tibial approach tomorrow, will follow up with recommendations from cardiology. Status: Acute Code(s): I70.209 - Unspecified atherosclerosis of [place] arteries of extremities, unspecified extremity (2) COPD (chronic obstructive pulmonary disease): Without acute exacerbation, followed in the outpatient setting by Dr. Franklin Chronic oxygen dependence of 3 to 5 L of oxygen by nasal cannula at baseline with home CPAP at night Status: Acute Code(s): J44.9 - Chronic obstructive pulmonary disease, unspecified (3) Type 2 diabetes mellitus with diabetic polyneuropathy: Sliding scale insulin as needed and hold home metformin due to anticipated contrast use Status: Acute Code(s): E11.42 - Type 2 diabetes mellitus with diabetic polyneuropathy (4) Non-pressure chronic ulcer of other part of right foot limited to breakdown of skin: No evidence of any acute infectious process at this time, will continue to monitor closely Continue close follow-up with podiatry Status: Acute Code(s): L97.511 - Non-pressure chronic ulcer of other part of right foot limited to breakdown of skin Additional A&P Information Other chronic medical problems: Coronary artery disease: Continue home atorvastatin, not on a beta-magda Atrial fibrillation: Status post pacemaker placement, restart home Eliquis On chronic antibiotic therapy due to COPD, azithromycin Chronic pain on daily opioids: Continue home [place] GERD: Continue home PPI Chronic kidney disease: Creatinine appears to be at baseline DVT prophylaxis: Home Eliquis Diet: Carbohydrate consistent, cardiac diet CODE STATUS: Full code Attestations Medical Necessity Statement*: Patient requires further hospitalization due to right lower extremity pain with arterial occlusion Coding Level of Care Code Acute 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
[2019-07-07 11:22] LABS: Glucose Point of Care 108 mg/dL (70-110)
[2019-07-07 15:39] LABS: Glucose Point of Care 126 mg/dL (70-110)
--- NOTE | 2019-07-07 18:26 | P.PN_ITS ---
Subjective Subjective: Interval history: Patient right leg And foot remained warm. He has baseline pain in the leg. Vitals/I&O/Wt Last Vital Signs Temp 97.8 F 07/07/19 15:02 Pulse 70 07/07/19 15:02 Resp 13 07/07/19 15:02 BP 146/71 07/07/19 15:02 Pulse Ox 93 07/07/19 15:02 07/07/19 07/07/19 07/07/19 06:59 14:59 22:59 Intake Total 300 / 1960 600 / 600 240 / 840 Output Total 450 / 1265 200 / 200 Balance -150 / 695 400 / 400 240 / 640 Weight last 48 hrs Weight 231 lb 9.6 oz Weight 231 lb 6.4 oz Weight 225 lb 8 oz Physical Exam Narrative: EXAM NARRATIVE: GENERAL: Patient is alert, awake and oriented x3. Mild discomfort NECK: No jugular vein distension. HEENT: No cyanosis. No icterus. No pallor. HEART: Regular S1 and S2. No murmur, rub or gallop. LUNGS: Decreased breath sound bilaterally. ABDOMEN: Soft, nontender and nondistended. Positive bowel sounds. No guarding, rebound or tenderness. CENTRAL NERVOUS SYSTEM: Grossly nonfocal. EXTREMITIES: Lower extremities without edema bilaterally. Pulses not palpable in both feet. Right femoral pulse minimally palpable left femoral pulse 1+. Right toe small black eschar-like wound HENMT: THROAT: no uvular edema Data : 07/06/19 04:20 07/07/19 03:58 Micro: Microbiology 07/05/19 17:44 Urine Culture - Final Urine,Clean Catch A&P Assessment and plan (1) CKD (chronic kidney disease): Creatinine has improved to 1.2 which is his baseline. We will continue to hold Lasix. Status: Acute Code(s): N18.9 - Chronic kidney disease, unspecified (2) Critical limb ischemia with history of revascularization of same extremity: As defined above we were unsuccessful in crossing right external iliac artery highly calcified totally occluded lesion. We will try to approach from tibial vessels in the morning. Patient has been explained all risks benefits and alternative for the procedure. Would like to proceed with it. Status: Acute Code(s): I99.8 - Other disorder of circulatory system; Z95.9 - Presence of cardiac and vascular implant and graft, unspecified (3) COPD (chronic obstructive pulmonary disease): Stable. 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 Continue current Status: Acute Code(s): I25.810 - Atherosclerosis of coronary artery bypass graft(s) without angina pectoris (5) Diabetes: As per medicine. Status: Acute Code(s): E11.9 - Type 2 diabetes mellitus without complications Attestations Medical Necessity Statement*: Patient about continuation hospitalization for above defined care. 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
[2019-07-07 19:43] LABS: Anion Gap 13.5 (5-19); Blood Urea Nitrogen 23 mg/dL (8-23); Carbon Dioxide 26 mmol/L (22-29); Chloride 101 mmol/L (98-107); Glucose 142 mg/dL (74-106); Osmolality Calculated 281 mOsm/kg (285-295); Potassium 4.5 mmol/L (3.5-5.1); Sodium 136 mmol/L (136-145)
[2019-07-07] MEDS: atorvastatin 40 mg Tablet 20 MG PO (20:03)
[2019-07-07 21:34] LABS: Glucose Point of Care 132 mg/dL (70-110)
[2019-07-08] VITALS (13 sets, daily range): BP systolic 101–170; BP diastolic 51–81; PULSE 70–72; RESP 12–28; TEMP 36.6–37.1; O2SAT 88–98
--- NOTE | 2019-07-08 | USCV_ITS ---
Henrik Kraus Age: 79 Gender: M : 1940 Exam Date: 07/08/2019 07:40 Ordering Phys: Herminio Stout MD Technologist: Gabriel Griffith [place] [facility] [place]: Findings Vascular guidance provided in the laboratory apparatus glass grinder. This study was performed to identify the posterior tibial artery There was no arterial flow dictated Conclusions The posterior tibial artery patency could not be established based on the above study Dr Jody Mendosa MD [facility] (Electronically Signed) Final Date: 11 July 2019 14:06 S
[2019-07-08] MEDS: HYDROcodone-acetaminophen 7.5-325 mg Tablet 1 TAB PO ×4 (00:06→20:36)
[2019-07-08 04:24] LABS: Anion Gap 12.3 (5-19); Blood Urea Nitrogen 21 mg/dL (8-23); Calcium 10.3 mg/dL (8.5-10.5); Carbon Dioxide 26 mmol/L (22-29); Chloride 102 mmol/L (98-107); Glucose 110 mg/dL (74-106); Osmolality Calculated 279 mOsm/kg (285-295); Potassium 4.3 mmol/L (3.5-5.1); Sodium 136 mmol/L (136-145)
--- NOTE | 2019-07-08 07:00 | XACV_ITS ---
Ht: 173 cm Wt: 102 kg BSA: 2.25 m2 Any Known Allergies: Other Gender: Male : 1940 Exam Type: Invasive Peripheral Vascular Procedure(s): Procedure Description: Peripheral Cath Diagnostic Procedure Procedure Description: Lower extremities' angiography Procedure Description: Peripheral vascular Intervention Procedure Description: PV Balloon Procedure Description: PV Stent Procedure Description: PV Atherectomy Exam Priority: Routine Lower Extremity Interventional Findings Please note that patient was brought next day to approach from retrograde right common femoral artery in order to open up right 100% occluded common iliac artery which be were failed to cross from contralateral approach yesterday.Indication for procedure: Severe claudication ( [place] grade II, category 4:Jen stage IIII. ) Failed medical managementRight external iliac complete occlusion was approached through right common femoral artery. With the help of hydrophilic wire and cecum were able to cross the lesion. 2.0 bur/CSI atherectomy device was used to modified the lesion through multiple low to high speed runs ordered by balloon angioplasty. Lesion was then treated with non drug-eluting stent with stent. Please see [place] for the details of balloon and stent. Excellent angiographic result was achieved and confirmed. No complication was noted.Angiogram of right leg not showed patent right side common/internal/external iliac arteries, patent common femoral artery, patent profunda femoral artery and patent SFA from proximal to mid segment while it is subtotally occluded in the distal segment. Right popliteal artery is subtotally occluded. Tibioperoneal trunk noted to obtain collaterals. 2 vessel runoff was visualized below the knee with a sluggish flow through collaterals.Plan: Since we were able to open up right external iliac artery. Patient will be brought back in couple of weeks to go through contralateral approach for intervention on the distal right SFA and tibio peroneal trunk. Recommendations 1-Return to inpatient for close monitoring and routine cath care2-Risk factor modification for secondary prevention3-Statin and aspirin 81 mg life-long, if tolerated4-Continue Plavix 75mg p.o. daily for one month5-Continue optimal medical management, Stage intervention to distal right SFA and below the knee in two weeks6-Follow up with Dr. Stout in 2 weeks and your primary care in 10 days. Hemodynamic Data Phase:Rest AO : 66.0 mmHg / 41.0 mmHg ( 52.0 mmHg ) @ 2:36:00 AM 125.0 mmHg / 80.0 mmHg ( 104.0 mmHg ) @ 3:07:00 AM Access Site Site: Right Femoral artery Sheath Size: 6 Fr Hemost... Method: Surgical Closure Required Hemost... Success: Successful Procedure Details Findings [facility] [place] time/date stamp having techinal issues. All documentation and procedure done on 07/08/2019. start time 0705. Gabriel from ultrasound in to assist with case. Seeker removed over viper wire. 6FR sheath inserted into the posterial right tibial artery. glidewire inserted. glidewire and sheath removed. Hand injection through sheath. glide wire inserted. seeker inserted over glide wire. glide wire removed. hand injection performed. glidewire inserted seeker removed. glide wire removed. hand injection performed. OR notified of intervention. Hand injection performed. Glidewire removed. viper wire inserted. ruben inserted. orbital atherectomy performed. ruben removed. seeker inserted over viper wire. Viper wire removed. glide wire inserted. seeker removed. right leg runoff 10ml/sec for a total of 30ml. Medication's Wasted: Other = fentanyl 75 mcg. IV Fluids: 0.9% NaCl at KVO. 500 mL infused prior to seed laboratory assistant. [id number]. Procedure Consent Obtained. Pre-Procedure Time Out. Identified patient by full name and date of as verbalized by the patient/guarantor. Does the consent match the physician's order: Yes. Accurate & Complete Informed Consent: Yes. Inpatient/Outpatient History & Physical on Chart: Yes. If H&P is completed, is and addenduem needed: N/A; If yes, is the addendum complete: N/A. Visualize and Verify Site with Patient/Guarantor: N/A. Relevant Radiology Images available: Yes. Pre-op teaching completed and patient verbalized understanding. The risks, benefits, and alternatives of sedation and/or procedure were discussed by physician. The patient agrees to continue. Procedure started. PERRLA. Strong, equal hand manager paid bilaterally. Lungs clear x 5 lobes. Oxygen started at 2liters/min via nasal canula. IV Site on Arrival: 20 gauge in the left anticubital. right tibial was prepped with chloroprep then draped in the usual sterile fashion. Physician notified. Physician arrived. Baseline sample Acquired. HR: 60 BPM. Physician scrubbed in. Immediate Pre-Procedure Time Out. Correct Patient: Yes; Correct Procedure: Yes; Correct Site: Yes; Correct Patient Position: Yes; Correct Supplies: Yes; Dried Flammable Prep: Yes; Blood Products Available: No;. Lidocaine 1% infiltrated to the right tibial. Arterial access obtained with micropuncture set. right groin was prepped with chloroprep then draped in the usual sterile fashion. Lidocaine 1% infiltrated to the right groin. Patient's family unavailable. Side port of sheath attached to Normal Saline flush at KVO to maintain patency. A 5FrFr UF catheter in over wire. Catheter removed over the glide wire. A 5FrFr Trailblazer catheter in over wire. Results checked. Inflation number : 1 A AB ARMADA 35 OTW [id number] was prepped and advanced across the External Iliac, Right , then inflated to 8 JORGE for 1:00 seconds. Inflation number: 2 The AB ARMADA 35 OTW [id number] was reinflated across the External Iliac, Right, to 8 JORGE for 0:30 seconds. Balloon out. Inflation number: 3 The AB ARMADA 35 OTW [id number] was reinflated across the External Iliac, Right, to 8 JORGE for 0:08 seconds. Inflation number: 4 The AB ARMADA 35 OTW [id number] was reinflated across the External Iliac, Right, to 8 JORGE for 0:12 seconds. Inflation number: 5 The AB ARMADA 35 OTW [id number] was reinflated across the External Iliac, Right, to 8 JORGE for 0:26 seconds. Inflation number: 6 The AB ARMADA 35 OTW [id number] was reinflated across the External Iliac, Right, to 8 JORGE for 0:30 seconds. Inflation Number : 7 A AB OMNILINK STENT [id number] -Lot Number#[id number] exp 04-14-2022 was prepped and advanced across the External Iliac, Right. The stent was deployed at 11 JORGE for 0:30 seconds. Stent balloon out over wire. Wire out. A Surgical Closure Required was successful obtaining hemostatsis at the Right Femoral artery insertion site. Sheath(s) sutured into position with 2-0 silk and sterile 4x4's and Op-site applied over the site. No oozing or signs and symptoms of hematoma noted. Arterial sheath flushed and connected to tranducer and pressure bag with heparinized saline. PERRLA. Strong, equal hand manager paid bilaterally. No VTE prophylaxis required. Fluoro: 13:50. Contrast type used: Visipaque 320 mgI/mL, 200 mL bottle. Complications: none. Estimated blood loss: 5mL-10mL. Procedure completed. Patient transferred by bed to 1st floor. Post-op diagnosis: severe PAD. Total IV fluids: 140 mL. Medication's Wasted: Heparin = 4000 units. Medication's Wasted: Nitro = 49.9 mg. Medication's Wasted: Other = verapamil 4 mg. Vital chart was stopped. Procedure Medications Start: 7:33 AM Stop: 7:33 AM Medication: Versed Amount: 1 mg Route: I.V. Start: 7:33 AM Stop: 7:33 AM Medication: Fentanyl Amount: 25 mcg Route: I.V. Start: 7:44 AM Stop: 7:44 AM Medication: Fentanyl Amount: 25 mcg Route: I.V. Start: 8:01 AM Stop: 8:01 AM Medication: Versed Amount: 1 mg Route: I.V. Start: 8:02 AM Stop: 8:02 AM Medication: Versed Amount: 1 mg Route: I.V. Start: 8:02 AM Stop: 8:02 AM Medication: Fentanyl Amount: 25 mcg Route: I.V. Start: 8:20 AM Stop: 8:20 AM Medication: Versed Amount: 1 mg Route: I.V. Start: 8:20 AM Stop: 8:20 AM Medication: Fentanyl Amount: 25 mcg Route: I.V. Start: 8:50 AM Stop: 8:50 AM Medication: Heparin Amount: 5000 units Route: I.V. Start: 8:59 AM Stop: 8:59 AM Medication: Versed Amount: 1 mg Route: I.V. Start: 9:07 AM Stop: 9:07 AM Medication: Versed Amount: 1 mg Route: I.V. Start: 9:08 AM Stop: 9:08 AM Medication: Fentanyl Amount: 25 mcg Route: I.V. I, the attending physician, have reviewed and verified all procedure medications. Yes, all medications given per verbal order History/Risk Factors Hypertension: Yes Dyslipidemia: Yes Peripheral Arterial Disease (PAD): Yes Myocardial Infarction (DE): No Obesity: Yes Renal Disease: Yes Tobacco Use: Former Prior Interventions PCI: Yes CABG: No Valve Surgery: No Report Signatures Finalized by:Herminio Stout MD on 07/24/2019 10:20:32 PM
[2019-07-08 07:53] LABS: Glucose Point of Care 93 mg/dL (70-110)
--- NOTE | 2019-07-08 08:57 | PC.NURSE ---
at the rn labor and delivery
--- NOTE | 2019-07-08 09:42 | PC.NURSE ---
Patient returned to room from dental laboratory worker. Patient was educated on bedrest and post-cath activity restrictions and verbalized understanding. VSS. Dressing to right groin with sheath c/d/i. no hematoma. dressing to right lower leg c/d/i.
[2019-07-08 10:54] LABS: Glucose Point of Care 79 mg/dL (70-110)
[2019-07-08 12:01] LABS: Partial Thromboplastin Time 48.2 SECONDS (23.9-36.7)
[2019-07-08] MEDS: fentaNYL 50 mcg/mL INJ 2mL IVP (13:20)
--- NOTE | 2019-07-08 14:12 | P.PN_ITS ---
Subjective Subjective: Interval history: Patient reports slightly improved pain in the right lower extremity, denies any chest pain or shortness of breath. Noted occasional cough. Vitals/I&O/Wt Last Vital Signs Temp 987 F H 07/08/19 10:30 Pulse 70 07/08/19 10:30 Resp 21 H 07/08/19 10:30 BP 149/76 07/08/19 10:30 Pulse Ox 98 07/08/19 10:30 07/07/19 07/08/19 07/08/19 22:59 06:59 14:59 Intake Total 360 / 960 Output Total 500 / 700 400 / 400 Balance 360 / 760 -500 / 260 -400 / -400 Weight last 48 hrs Weight 101.741 kg Weight 105.143 kg Weight 105.052 kg Weight 104.961 kg Physical Exam Const: COMMON NORMALS: oriented x3 and alert GENERAL APPEARANCE: cooperative ORIENTATION/CONSCIOUSNESS: Yes awake, Yes oriented to person, Yes oriented to place and Yes oriented to time HENMT: COMMON NORMALS: normocephalic and head/scalp atraumatic HEAD & SCALP: normocephalic and atraumatic Eye: COMMON NORMALS: PERRL PUPIL: Yes PERRL Neck/C-Spine: COMMON NORMALS: supple GENERAL: Yes normal visual inspection Resp: EFFORT & INSPECTION: Yes able to speak in complete sentences AUSCULTATION: no rhonchi and no wheezes OTHER: Diminished breath sounds bilaterally and prolonged expiratory phase Cardio: COMMON NORMALS: regular rate and regular rhythm RATE: regular rate RHYTHM: regular rhythm GI: COMMON NORMALS: soft to palpation and non-tender INSPECTION: No abdominal distension PALPATION: Yes soft Extremity: NARRATIVE EXTREMITY EXAM: Right lower extremity with mild erythema Neuro: COMMON NORMALS: oriented x3, CN's II-XII intact bilaterally, moves all extremities and no focal motor deficits SENSORIUM/ORIENTATION: Yes alert, Yes oriented to person, Yes oriented to place and Yes oriented to time SPEECH: speech normal Psych: COMMON NORMALS: mental status grossly normal and cooperative Data : 07/06/19 04:20 07/08/19 03:30 Micro: Microbiology 07/05/19 17:44 Urine Culture - Final Urine,Clean Catch A&P Assessment and plan (1) Arterial occlusion, lower extremity: Dr. Stout consulted, appreciate recommendations and assistance in patient's care. Peripheral angiogram performed today with stent placement to the right iliac Loading dose of Plavix today 300 mg then start on Plavix 75 mg daily Hold off on aspirin at this time but continue on atorvastatin daily Continue home Eliquis 2.5 mg twice daily Status: Acute Code(s): I70.209 - Unspecified atherosclerosis of [place] arteries of extremities, unspecified extremity (2) COPD (chronic obstructive pulmonary disease): Without acute exacerbation, followed in the outpatient setting by Dr. Franklin Chronic oxygen dependence of 3 to 5 L of oxygen by nasal cannula at baseline with home CPAP at night Status: Acute Code(s): J44.9 - Chronic obstructive pulmonary disease, unspecified (3) Type 2 diabetes mellitus with diabetic polyneuropathy: Sliding scale insulin as needed and hold home metformin due to contrast, restart on 07/10/2019 Status: Acute Code(s): E11.42 - Type 2 diabetes mellitus with diabetic polyneuropathy (4) Non-pressure chronic ulcer of other part of right foot limited to breakdown of skin: No evidence of any acute infectious process at this time, will continue to monitor closely Continue close follow-up with podiatry Status: Acute Code(s): L97.511 - Non-pressure chronic ulcer of other part of right foot limited to breakdown of skin Additional A&P Information Other chronic medical problems: Coronary artery disease: Continue home atorvastatin, not on a beta-magda Atrial fibrillation: Status post pacemaker placement, restart home Eliquis On chronic antibiotic therapy due to COPD, azithromycin Chronic pain on daily opioids: Continue home [place] GERD: Continue home PPI Chronic kidney disease: Creatinine appears to be at baseline DVT prophylaxis: Home Eliquis Diet: Carbohydrate consistent, cardiac diet CODE STATUS: Full code Attestations Medical Necessity Statement*: Requires further hospitalization due to arterial occlusion of the right lower extremity Coding Level of Care Code Acute 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
--- NOTE | 2019-07-08 14:20 | PC.SOCIAL ---
Pg 2 IMM Explained to pt Pg 2 IMM. Pt verbally understands & signed. Provided a copy to pt. Signed, dated, & timed, then placed in chart.
[2019-07-08 15:38] LABS: Glucose Point of Care 88 mg/dL (70-110)
[2019-07-08] MEDS: clopidogrel 300 mg Tablet PO (16:06)
--- NOTE | 2019-07-08 17:15 | P.PN_ITS ---
Subjective Subjective: Interval history: Patient underwent peripheral angiogram through retrograde approach right common femoral Artery. Were able to cross right external iliac complete occlusion treated with CSI atherectomy followed by balloon angioplasty and placement of Omni link [id number] stent. It was also learned that patient has distal subtotally occluded SFA and popliteal vesse l on the right side. He was also noted to have severe stenosis of tibioperoneal trunk however there was reasonable to vessel run off noted through collaterals now up to the foot. Post intervention his foot looks better pink warm with good anterior and posterior tibial dopplerable pulses. Vitals/I&O/Wt Last Vital Signs Temp 98.7 F 07/08/19 15:17 Pulse 70 07/08/19 15:17 Resp 19 H 07/08/19 15:17 BP 170/77 07/08/19 15:17 Pulse Ox 98 07/08/19 15:17 07/08/19 07/08/19 07/08/19 06:59 14:59 22:59 Output Total 500 / 700 400 / 400 Balance -500 / 260 -400 / -400 Weight last 48 hrs Weight 224 lb 4.8 oz Weight 231 lb 12.8 oz Weight 231 lb 9.6 oz Weight 231 lb 6.4 oz Physical Exam Narrative: EXAM NARRATIVE: GENERAL: Patient is alert, awake and oriented x3. Mild discomfort NECK: No jugular vein distension. HEENT: No cyanosis. No icterus. No pallor. HEART: Regular S1 and S2. No murmur, rub or gallop. LUNGS: Decreased breath sound bilaterally. ABDOMEN: Soft, nontender and nondistended. Positive bowel sounds. No guarding, rebound or tenderness. CENTRAL NERVOUS SYSTEM: Grossly nonfocal. EXTREMITIES: Lower extremities without edema bilaterally. Dopplerable right foot anterior and posterior tibial pulse with good pinkish and warm foot HENMT: THROAT: no uvular edema Data : 07/06/19 04:20 07/08/19 03:30 Micro: Microbiology 07/05/19 17:44 Urine Culture - Final Urine,Clean Catch A&P Assessment and plan (1) CKD (chronic kidney disease): Creatinine has improved to 1.2 which is his baseline. We will continue to hold Lasix. Status: Acute Code(s): N18.9 - Chronic kidney disease, unspecified (2) Critical limb ischemia with history of revascularization of same extremity: Patient underwent peripheral angiogram through retrograde approach right c ommon femoral Artery. Were able to cross right external iliac complete occlusion treated with CSI atherectomy followed by balloon angioplasty and placement of Omni link [id number] stent. It was also learned that patient has distal subtotally occluded SFA and popliteal vessel on the right side. He was also noted to have severe stenosis of tibioperoneal trunk however there was reasonable to vessel run off noted through collaterals now up to the foot. Post intervention his foot looks better pink warm with good anterior and posterior tibial dopplerable pulses. We will bring him back in 2 weeks for distal SFA and tibial peroneal trunk intervention since now we have opened up right external iliac artery occlusion and he has good flow. I will resume Apixaban he will be loaded with 300 milligrams of Plavix Now and 75 mg of Plavix Daily For 1 month. We will not start him on aspirin Status: Acute Code(s): I99.8 - Other disorder of circulatory system; Z95.9 - Presence of cardiac and vascular implant and graft, unspecified (3) COPD (chronic obstructive pulmonary disease): Resume inhalers. 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 Continue current Status: Acute Code(s): I25.810 - Atherosclerosis of coronary artery bypass graft(s) without angina pectoris (5) Diabetes: As per medicine. Status: Acute Code(s): E11.9 - Type 2 diabetes mellitus without complications (6) CHF (congestive heart failure): Appeared to be slightly volume overloaded. Discontinue IV fluid given 40 mg of IV Lasix. 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
--- NOTE | 2019-07-08 17:49 | PC.RESP ---
Pt had been gone from room this am-then medications were dc'd. Unable to give pt any respiratory medications,nursing and dr notified.
[2019-07-08] MEDS: apixaban 5 mg Tablet 2.5 MG PO (18:41)
[2019-07-08] MEDS: FUROsemide 10 mg/mL SDV 4mL 40 MG IVP (18:42)
[2019-07-08] MEDS: atorvastatin 40 mg Tablet 20 MG PO (20:36)
[2019-07-08] MEDS: budesonide 0.5 mg/2 mL Neb INHALATION (20:47)
[2019-07-08 21:08] LABS: Glucose Point of Care 190 mg/dL (70-110)
[2019-07-09 04:00] VITALS: BP 150/73; PULSE 70; RESP 29; TEMP 36.8; O2SAT 96
[2019-07-09] MEDS: HYDROcodone-acetaminophen 7.5-325 mg Tablet 1 TAB PO ×3 (04:06→08:09)
[2019-07-09 05:48] LABS: Basophils % 0.3 %; Eosinophils # 0.2 10^3/uL (0.0-0.8); Eosinophils % 3.1 %; Hematocrit 33.3 % (42.0-52.0); Hemoglobin 10.5 g/dL (11.7-16.6); Lymphocytes # 1.2 10^3/uL (0.8-4.8); Lymphocytes % 20.3 %; Mean Corpuscular HGB Conc 31.5 g/dL (30.0-36.0); Mean Corpuscular Hemoglobin 27.1 pg (28.0-34.0); Mean Corpuscular Volume 85.8 fL (80-94); Mean Platelet Volume 8.6 fL (7.4-10.4); Monocytes # 0.8 10^3/uL (0.2-0.9); Monocytes % 13.1 %; Neutrophils # 3.6 10^3/uL (1.8-7.7); Neutrophils % 62.7 %; Nucleated Red Blood Cells % 0 %; Platelet Count 159 10^3/cmm (130-400); Red Blood Count 3.88 10^6/uL (4.1-5.3); Red Cell Distribution Width 13.8 % (12.1-15.1); White Blood Count 5.7 10^3/uL (4.0-10.0)
[2019-07-09 05:53] LABS: Anion Gap 15.1 (5-19); Blood Urea Nitrogen 20 mg/dL (8-23); Calcium 10.6 mg/dL (8.5-10.5); Carbon Dioxide 26 mmol/L (22-29); Chloride 101 mmol/L (98-107); Glucose 100 mg/dL (74-106); Osmolality Calculated 283 mOsm/kg (285-295); Potassium 4.1 mmol/L (3.5-5.1); Sodium 138 mmol/L (136-145)
[2019-07-09 07:08] VITALS: BP 95/75; PULSE 70; RESP 17; TEMP 36.6; O2SAT 92
[2019-07-09] MEDS: pantoprazole DR 40 mg Tablet PO (08:09)
[2019-07-09] MEDS: apixaban 5 mg Tablet 2.5 MG PO (08:10)
[2019-07-09] MEDS: alfuzosin 10 mg ER Tablet PO (08:10)
[2019-07-09] MEDS: azithromycin 250 mg Tablet PO (08:11)
[2019-07-09 08:12] LABS: Glucose Point of Care 100 mg/dL (70-110)
[2019-07-09] MEDS: clopidogrel 75 mg Tablet PO (08:13)
[2019-07-09] MEDS: finasteride 5 mg Tablet PO (08:16)
--- NOTE | 2019-07-09 09:07 | P.PN_ITS ---
Subjective Subjective: Interval history: Patient denies any pain in the leg and foot. He has dopplerable anterior and posterior tibial pulse. He has somewhat swelling of the right foot which is expected. Vitals/I&O/Wt Last Vital Signs Temp 97.8 F 07/09/19 07:08 Pulse 70 07/09/19 07:08 Resp 17 07/09/19 07:08 BP 95/75 07/09/19 07:08 Pulse Ox 92 07/09/19 07:08 07/08/19 07/09/19 07/09/19 22:59 06:59 14:59 Intake Total 480 / 480 150 / 630 596 / 596 Output Total 475 / 875 650 / 1525 275 / 275 Balance 5 / -395 -500 / -895 321 / 321 Weight last 48 hrs Weight 223 lb 14.4 oz Weight 224 lb 4.8 oz Weight 231 lb 12.8 oz Physical Exam Narrative: EXAM NARRATIVE: GENERAL: Patient is alert, awake and oriented x3. Mild discomfort NECK: No jugular vein distension. HEENT: No cyanosis. No icterus. No pallor. HEART: Regular S1 and S2. No murmur, rub or gallop. LUNGS: Decreased breath sound bilaterally. ABDOMEN: Soft, nontender and nondistended. Positive bowel sounds. No guarding, rebound or tenderness. CENTRAL NERVOUS SYSTEM: Grossly nonfocal. EXTREMITIES: Lower extremities without edema bilaterally. Dopplerable right foot anterior and posterior tibial pulse with good pinkish and warm foot With 1+ swelling of the right foot HENMT: THROAT: no uvular edema Data : 07/09/19 04:25 07/09/19 04:25 A&P Assessment and plan (1) CKD (chronic kidney disease): Creatinine has improved to 1.2 which is his baseline. We will continue to hold Lasix. Status: Acute Code(s): N18.9 - Chronic kidney disease, unspecified (2) Critical limb ischemia with history of revascularization of same extremity: Patient underwent peripheral angiogram through retrograde approach right common femoral Artery. Were able to cross right external iliac complete occlusion treated with CSI atherectomy followed by balloon angioplasty and placement of Omni link [id number]-[id number] stent. It was also learned that patient has distal subtotally occluded SFA and popliteal vessel on the right side. He was also noted to have severe stenosis of tibioperoneal trunk however there was reasonable two vessel run off noted through collaterals now up to the foot. 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 We will bring him back in 2 weeks for right distal SFA and tibial peroneal trunk intervention through left leg approach since now we have opened up right external iliac artery occlusion and he has good flow. I will resume Apixaban he will be loaded with 300 milligrams of Plavix Now and 75 mg of Plavix Daily For 1 month. We will not start him on aspirin for high risk of bleeding on triple therapy. As defined above patient underwent intervention yesterday. He is feeling much better he is pain-free. Right foot and leg looks good. He has dopplerable dorsalis pedis and posterior tibial arteries. I will continue Plavix for 1 month continue apixaban without aspirin. We are planning to add Protonix. He will be seen by a primary care physician Dr. Acevedo next week. He will also be seen by Dr. Decker on coming Thursday. He will see us in cardiology in 7 days. We are planning to bring him back in 2 weeks for stage percutaneous intervention of distal right SFA and tibial vessels through left leg approach since we have opened up right external iliac. 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 Continue current Status: Acute Code(s): I25.810 - Atherosclerosis of coronary artery bypass graft(s) without angina pectoris (5) Diabetes: As per medicine. Status: Acute Code(s): E11.9 - Type 2 diabetes mellitus without complications (6) CHF (congestive heart failure): Feeling better after diuresis. Status: Acute Code(s): I50.9 - Heart failure, unspecified Attestations Medical Necessity Statement*: From a vascular perspective patient can be d ischarged. Discussed with Dr. 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
[2019-07-09 09:17] VITALS: PULSE 73; RESP 18; O2SAT 92
[2019-07-09] MEDS: budesonide 0.5 mg/2 mL Neb INHALATION (09:17)
--- NOTE | 2019-07-09 09:30 | PM.DCS ---
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 ER physician discussed with Dr. Stout for consultation. Will follow up with recommendations, appreciate consultation We will continue home statin medication, start on aspirin Status: Acute Code(s): I70.209 - Unspecified atherosclerosis of [place] arteries of extremities, unspecified extremity (2) COPD (chronic obstructive pulmonary disease): Without acute exacerbation, followed in the outpatient setting by Dr. Franklin Chronic oxygen dependence of 3 to 5 L of oxygen by nasal cannula at baseline with home CPAP at night Status: Acute Code(s): J44.9 - Chronic obstructive pulmonary disease, unspecified (3) Type 2 diabetes mellitus with diabetic polyneuropathy: Scale insulin as needed and hold home metformin due to anticipated contrast use Status: Acute Code(s): E11.42 - Type 2 diabetes mellitus with diabetic polyneuropathy (4) Non-pressure chronic ulcer of other part of right foot limited to breakdown of skin: No evidence of any acute infectious process at this time, will continue to monitor closely Status: Acute Code(s): L97.511 - Non-pressure chronic ulcer of other part of right foot limited to breakdown of skin Additional A&P Information Other chronic medical problems: Coronary artery disease: Continue home atorvastatin, not on a beta-magda Atrial fibrillation: Status post pacemaker placement, hold Eliquis due to anticipated angiogram On chronic antibiotic therapy due to COPD, a azithromycin Chronic pain on daily opioids: Continue home [place] GERD: Continue home PPI DVT prophylaxis: Lovenox Diet: Carbohydrate consistent, cardiac diet CODE STATUS: Full code Patient is admitted to the hospital due to an occlusion in his lower extremity. Dr. Vizcarra was consulted. After several attempts he was successful placing a stent that provided some revascularization. Patient done well with this. He will need further procedures done on this extremity. He will have follow-up with podiatry, primary care and Dr. Vizcarra in the next week. Plan is for further attempts at revascularization in the next 2 weeks. Physical Exam Narrative: EXAM NARRATIVE: General: No acute distress, Alert. Well nourished. Heart: Regular rate and rhythm. No murmurs, rubs or gallops. Normal capillary refill. Lungs: Clear to auscultation. No wheezes, rhonchi or rales. Abdomen: Positive bowel sounds. Non-tender, non-distended. No hepatosplenomegaly. No gaurding. Extremities: Erythema in right lower extremity as expected Discharge Data Data Completed and Pending: Completed Studies During Hospitalization Category Date Time Status BEHAVIORAL PSYCHOLOGIST request for service Routin e Exams 07/06/19 16:08 [place] [id number] Rout ine Ultrasound 07/07/19 09:25 [place] [id number] Urge nt Ultrasound 07/05/19 09:48 Completed Pending at discharge Category Date Time Status BEHAVIORAL PSYCHOLOGIST request for service Routin e Exams 07/08/19 07:00 Stop Req CV guide vascular access [id number] Rout ine Ultrasound 07/08/19 07:18 Taken Labs from last 24 hours 07/09/19 07/09/19 07/09/19 07:10 04:25 04:25 WBC 5.7 RBC 3.88 L Hgb 10.5 L Hct 33.3 L MCV 85.8 MCH 27.1 L MCHC 31.5 RDW 13.8 Plt Count 159 MPV 8.6 Neut % (Auto) 62.7 Lymph % (Auto) 20.3 [place] % (Auto) 13.1 Eos % (Auto) 3.1 Baso % (Auto) 0.3 Neut # (Auto) 3.6 Lymph # (Auto) 1.2 [place] # (Auto) 0.8 Eos # (Auto) 0.2 Baso # (Auto) 0.0 Nucleated RBC % (a uto) 0 Nucleated RBCs # 0.0 APTT Sodium 138 Potassium 4.1 Chloride 101 Carbon Dioxide 26 Anion Gap 15.1 BUN 20 Creatinine 1.2 Glucose 100 POC Glucose 100 Calculated Osmolal ity 283 L Calcium 10.6 H 07/08/19 07/08/19 07/08/19 20:20 15:15 11:32 WBC RBC Hgb Hct MCV MCH MCHC RDW Plt Count MPV Neut % (Auto) Lymph % (Auto) [place] % (Auto) Eos % (Auto) Baso % (Auto) Neut # (Auto) Lymph # (Auto) [place] # (Auto) Eos # (Auto) Baso # (Auto) Nucleated RBC % (a uto) Nucleated RBCs # APTT 48.2 H Sodium Potassium Chloride Carbon Dioxide Anion Gap BUN Creatinine Glucose POC Glucose 190 88 Calculated Osmolal ity Calcium 07/08/19 10:28 WBC RBC Hgb Hct MCV MCH MCHC RDW Plt Count MPV Neut % (Auto) Lymph % (Auto) [place] % (Auto) Eos % (Auto) Baso % (Auto) Neut # (Auto) Lymph # (Auto) [place] # (Auto) Eos # (Auto) Baso # (Auto) Nucleated RBC % (a uto) Nucleated RBCs # APTT Sodium Potassium Chloride Carbon Dioxide Anion Gap BUN Creatinine Glucose POC Glucose 79 Calculated Osmolal ity Calcium Vitals: Last Vital Signs Temp 97.8 F 07/09/19 07:08 Pulse 73 07/09/19 09:17 Resp 18 07/09/19 09:17 BP 95/75 07/09/19 07:08 Pulse Ox 92 07/09/19 09:17 Discharge Plan Discharge Patient Disposition: Home, Self-Care Condition: Fair Prescriptions: New clopidogrel 75 mg Tablet 75 mg PO DAILY Qty: 30 RF: 0 pantoprazole 40 mg Tablet,Delayed Release (Dr/Ec) 40 mg PO DAILY Qty: 30 RF: 3 Continued albuterol sulfate [ProAir HFA] 90 mcg/actuation HFA aerosol inhaler 2 puff INHALATION Q6H PRN (Reason: shortness of breath) RF: 0 hydrocodone-acetaminophen [[place]] 7.5-325 mg tablet 1 tab PO Q6H PRN (Reason: Pain, Mild) RF: 0 nitroglycerin [Nitrostat] 0.4 mg tablet, sublingual 0.4 mg SUBLINGUAL Q5M PRN (Reason: Pain) RF: 0 metformin 500 mg tablet 500 mg PO BID RF: 0 Brovana 15 mcg/2 mL solution for nebulization 2 ml INHALATION BID RF: 0 Yupelri 175 mcg/3 mL solution for nebulization 175 mcg INHALATION ONCE RF: 0 budesonide [Pulmicort] 0.5 mg/2 mL suspension for nebulization 0.25 mg INHALATION BID RF: 0 alfuzosin 10 mg tablet extended release 24 hr 10 mg PO ONCE RF: 0 finasteride [Proscar] 5 mg tablet 5 mg PO ONCE RF: 0 atorvastatin 20 mg tablet 20 mg PO ONCE RF: 0 cholecalciferol (vitamin D3) [Vitamin D3] 50 mcg (2,000 unit) capsule 50 mcg PO ONCE RF: 0 furosemide 40 mg tablet 40 mg PO BID RF: 0 apixaban 2.5 mg tablet 2.5 mg PO BID RF: 0 Zithromax 250 mg tablet 250 mg PO DAILY RF: 0 Discontinued pantoprazole 40 mg tablet,delayed release (DR/EC) 40 mg PO ONCE RF: 0 Discharge Orders: Discharge Order (Routine); Ordered 07/09/19 Ordered By: Herminio Stout [facility] Bernice Acevedo MD [Primary Care Provider] - Herminio Stout MD [Physician] - 4-7 days Discharge Diet: Diabetic Discharge Activity: Increase activity as tolerated Activity Restrictions/Additional Instructions: No lifting of more than gallon of milk for next 3 days. Cover year groin wound with small Band-Aid for next 3 days. Follow-up with primary care physician Dr. Acevedo,Your muck miner blasting Dr. Decker As scheduled. You will be seen in cardiology by cardiology nurse practitioner Faviola Mckeon in 7 days. You will be scheduled for stage intervention of right distal SFA, tibioperoneal trunk and tibial arteries through left groin approach in 2 weeks. If you have any questions please call Dr. Stout's office. 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
[2019-07-09 09:37] VITALS: PULSE 72
[2019-07-09 11:40] VITALS: PULSE 72
== END 2019-07-09 10:45 | disposition home or self-care (01) | DRG 301 ==
LOC: ER 12:06 → MEDSURG 12:12 → CSU 07-06 18:23
PROVIDERS: Internal Medicine Cardiovascular Disease; Admitting Provider Family Medicine; Emergency Provider Family Medicine; Family Provider Family Medicine; PCP Family Medicine; Visit Provider Family Medicine
PROC: B4101ZZ Fluoroscopy of Abdominal Aorta using Low Osmolar Contrast (ICD-10-PCS; principal; 2019-07-06 11:30)
DX: I70.209 Unspecified atherosclerosis of native arteries of extremities, unspecified extremity (principal); J44.9 Chronic obstructive pulmonary disease, unspecified; E11.42 Type 2 diabetes mellitus with diabetic polyneuropathy; L97.511 Non-pressure chronic ulcer of other part of right foot limited to breakdown of skin; N18.3 Chronic kidney disease, stage 3 (moderate); E11.22 Type 2 diabetes mellitus with diabetic chronic kidney disease; I48.91 Unspecified atrial fibrillation; E78.5 Hyperlipidemia, unspecified; G47.33 Obstructive sleep apnea (adult) (pediatric); Z95.0 Presence of cardiac pacemaker; E11.51 Type 2 diabetes mellitus with diabetic peripheral angiopathy without gangrene; Z95.1 Presence of aortocoronary bypass graft; Z87.891 Personal history of nicotine dependence; Z99.81 Dependence on supplemental oxygen; G89.29 Other chronic pain; Z79.891 Long term (current) use of opiate analgesic
CPT/HCPCS: 12345; 36415; 36416; 37227; 75625; 75710; 76937; 80048; 81003; 82962; 85025; 85730; 87086; 93926; 94640; 94664; 96372; 96375; 99281; C1724; C1725; C1769; C1876; C1887; C1894; J1644; J1650; J1940; J2001; J2250; J3010; J3490; J7030; J7611; J7626; Q0144; Q0163; Q9967

== ENCOUNTER → 2019-07-14 14:27 | Outpatient (BNVA) | payer MEDICARE, SELFPAY | PROVIDERS: Family Provider Family Medicine; PCP Family Medicine; Visit Provider Nurse Practitioner Family | DX: I73.9 Peripheral vascular disease, unspecified (principal) | CPT/HCPCS: 80048 ==

== ENCOUNTER 2019-07-23 11:08 | Emergency (ER) | payer MEDICARE, SELFPAY ==
[2019-07-23 11:28] VITALS: BP 123/59; PULSE 72; RESP 16; TEMP 36.7; O2SAT 96; BMI 33.4
--- NOTE | 2019-07-23 11:44 | ED_ITS ---
Entered by Amanda Cunha, acting as scribe for Zulay Loomis Mata Jul 23, 2019 11:08 HPI - Male Genitourinary General: Chief complaint: Urogenital-Male Stated complaint: BLOOD IN URINE Time Seen by Provider: 07/23/19 11:44 Source: patient Mode of arrival: ambulatory Limitations: no limitations History of Present Illness: HPI Narrative: 79 yo Male presents to ED with co mplaint of blood in his urine. Pt states yesterday afternoon he had a little pink tinge to his urine. Pt stats that his urine had darker blood in it. Pt states that a couple of weeks ago he had a blood clot come out with his urine and then his urine was normal. Pt states he never fully empties his bladder. Pt states that he is taking Eliquis and Plavix because he just had a stent put in his leg . Complaint: other (hematuria) Onset (ago): day(s) Duration: intermittent Relieving factors: none Exacerbating factors: none Context: new medication Associated symptoms: Reports hematuria and urinary retention; Deny nausea or vomiting Review of Systems General: Reports: other (negative unless marked) Const: Denies: fever, chills, body aches, fatigue, malaise or diaphoresis Eyes: Denies: change in vision or blurry vision ENMT: Denies: throat pain, painful swallowing, hoarseness, ear pain, ear discharge, Change in hearing or nasal discharge Card: Denies: chest pain, palpitations, irregular heart rhythm, syncope, pre- syncope, shortness of breath on exertion or shortness of breath when lying down Resp: Denies: shortness of breath, productive cough, non-productive cough, w heezing, coughing up blood or chest congestion GI: Denies: abdominal pain, nausea, vomiting, vomiting blood, coffee grounds in vomit, diarrhea, constipation, cramping, blood in stool or black tarry stool : Reports: blood in urine Musc: Denies: neck pain, back pain, extremity pain, extremity swelling, joint pain, joint swelling, joint warmth or joint stiffness Skin/Breast: Denies: rash, skin tenderness or yellow skin Neuro: Denies: headache, numbness in extremities, weakness in extremities, changes in sensation, lack of coordination, difficulty walking, dizziness, vertigo or confusion Endo: Denies: excessive thirst, tired all the time, cold intolerance, excessiv e sweating, flushing or hot flashes Oj/Lymph: Denies: easy bruising, easy bleeding, petechiae or enlarged lymph nodes All/Imm: Denies: hives, throat swelling, tongue swelling, facial swelling or acute wheezing PFSH ED PFSH: Statuses (acute, chronic, etc) shown below reflect problem list status as previously entered and may not be historically accurate Medical History Afib (Acute) 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) CHF (congestive heart failure) (Resolved) Chronic hypoxemic respiratory failure (Acute) CKD (chronic kidney disease) (Acute) COPD (chronic obstructive pulmonary disease) (Acute) Diabetes (Acute) Hyperlipemia (Acute) Hypoxemia (Acute) Non-pressure chronic ulcer of other part of right foot with fat layer exposed (Acute) Obesity (Acute) ZEHRA (obstructive sleep apnea) (Acute) Pacemaker (Acute) PVD (peripheral vascular disease) (Resolved) 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) Surgical History H/O eye surgery (Acute) detached retina H/O prior ablation treatment (Acute) H/O rotator cuff surgery (Acute) H/O total knee replacement (Acute) Bilateral History of appendectomy (Acute) History of back surgery (Acute) Hx of CABG (Acute) Status post placement of cardiac pacemaker (Acute) Family History Sister Diabetes Brother Diabetes CAD (coronary artery disease) Mother Heart attack Father Heart attack Social History Smoking and tobacco status: former smoker Quit status (tobacco): has quit using tobacco Year quit tobacco: 2008 Year 1.5 PPD Hx Alcohol intake: never History of recent travel: No Current gender identity: Male Physical Exam Const: COMMON NORMALS: no apparent distress, oriented x3, no limitations, healthy appearing and well nourished EXAM LIMITATIONS: no altered mental status GENERAL APPEARANCE: cooperative, well kempt and well developed ORIENTATION/CONSCIOUSNESS: Yes awake HENMT: COMMON NORMALS: normocephalic, head/scalp atraumatic, hearing grossly normal bilaterally, external ears normal, EAC's normal, external nose normal and moist oral mucous membranes HEAD & SCALP: normal to inspection, normocephalic and atraumatic FACE & SINUS: normal facial exam and face symmetric NOSE: external nose normal and nares normal EXTERNAL EAR: Yes external ears normal EXTERNAL AUDITORY CANAL: EAC's normal MOUTH: oral and palatal mucosa normal and tongue normal Eye: COMMON NORMALS: PERRL, EOMs intact bilaterally, conjunctivae normal and no scleral icterus GENERAL EYE: normal appearance of both eyes and normal light reflex CONJUNCTIVA: Yes conjunctivae normal SCLERA: sclerae normal CORNEA: Yes corneas normal PUPIL: Yes PERRL DIRECT OPHTHALMOSCOPY: Yes normal light reflex Neck/C-Spine: COMMON NORMALS: full ROM, no lymphadenopathy, supple, no meningeal signs and no JVD GENERAL: Yes normal visual inspection and Yes trachea midline CERVICAL SPINE: Yes cervical ROM normal Chest: COMMONS NORMALS: inspection of chest normal and palpation of chest normal Resp: COMMON NORMALS: normal respiratory effort, no retractions, no use of accessory muscles and clear to auscultation bilaterally EFFORT & INSPECTION: Yes able to speak in complete sentences AUSCULTATION: clear to auscultation bilaterally Cardio: COMMON NORMALS: no JVD, regular rate, regular rhythm, S1 normal heart sound, S2 normal heart sound, no gallops, no clicks, no murmurs and no rub JUGULAR VENOUS DISTENTION: no JVD RATE: regular rate RHYTHM: regular rhythm HEART SOUNDS: S1 normal and S2 normal GI: COMMON NORMALS: soft to palpation, non-tender, no hepatosplenomegaly and no masses INSPECTION: Yes normal to inspection PALPATION: Yes soft and Yes no hepatosplenomegaly : COMMON NORMALS: Yes no CVA tenderness BLADDER/KIDNEY EXAM: Yes no CVA tenderness Back/Pelvis: COMMON NORMALS: no CVA tenderness, thoracic and lumbar spine normal to inspection, no thoracic nor lumbar tenderness and thoraco-lumbar ROM normal Extremity: COMMON NORMALS: normal to inspection, full ROM, normal capillary refill, no joint enlargement, no clubbing, cyanosis or edema and no calf ten derness Neuro: COMMON NORMALS: oriented x3, CN's II-XII intact bilaterally, moves all extremities, no focal motor deficits and no sensory deficits noted MENINGEAL SIGNS: Yes no meningeal signs Psych: COMMON NORMALS: mental status grossly normal, thought process normal, cooperative, affect normal, speech normal and activity/motor behavior normal APPEARANCE: Yes well kempt SPEECH: Yes normal speech THOUGHT PROCESS: normal thought process Skin: COMMON NORMALS: no rashes or lesions noted, skin turgor normal, no jaundice, no petechiae and no mottling GENERAL SKIN EXAM: no rashes or lesions noted and turgor normal Course Vital Signs: Vital signs: Vital Signs Temperature 98.0 F 07/23/19 11:28 Pulse Rate 70 07/23/19 13:23 Respiratory Rate 18 07/23/19 13:23 Blood Pressure 105/61 07/23/19 13:23 Pulse Oximetry 97 07/23/19 13:23 MDM - Male MDM Narrative: Medical decision making narrative: Henrik is a nice 79-year-old male who comes in complaining of hematuria. It started last night. He currently is on Eliquis and 2 weeks ago had Plavix added after having a stent placed in his leg. He denies any fever, hematuria, abdominal pain, back pain or otherwise. He has had similar symptoms in the past he states secondary to his prostate. He is refusing a Douglas catheter. Bladder scan reveals though he only has approximately 200 cc of urine in his bladder and he was able to freely urinate here. I think his symptoms are likely due to a mild to moderate UTI/prostatitis and the blood thinners are making the hematuria worse. The patient again declines having a catheter placed. He is not having any signs of sepsis, renal colic or otherwise. His kidney function is at its baseline and he is not anemic and actually improved from when he was most recently hospitalized. I reviewed at length with him the reasons for which to return to the ER and he understands these. He declines wanting anything further done and would like to go home. I did instruct him to not take Zithromax and Cipro at the same time but he is not believed to be on the Zithromax any longer. He will follow-up with Dr. Osborn for further evaluation and care she understands if this does not clear he may have to have more invasive studies performed. I see no evidence of acute life-threatening problem at this time. He does again agree to return though if his symptoms change or worsen Lab Data: Labs: Lab Results 07/23/19 07/23/19 07/23/19 Range/Units 12:11 12:25 12:25 WBC 5.2 (4.0-10.0) 10^3/ uL RBC 4.13 (4.1-5.3) 10^6/u L Hgb 11.2 L (11.7-16.6) g/dL Hct 35.6 L (42.0-52.0) % MCV 86.2 (80-94) fL MCH 27.1 L (28.0-34.0) pg MCHC 31.5 (30.0-36.0) g/dL RDW 14.1 (12.1-15.1) % Plt Count 198 (130-400) 10^3/c mm MPV 7.8 (7.4-10.4) fL Neut % (Auto) 68.9 % Lymph % (Auto) 19.0 % Wallace % (Auto) 7.1 % Eos % (Auto) 3.8 % Baso % (Auto) 0.6 % Neut # (Auto) 3.6 (1.8-7.7) 10^3/u L Lymph # (Auto) 1.0 (0.8-4.8) 10^3/u L Wallace # (Auto) 0.4 (0.2-0.9) 10^3/u L Eos # (Auto) 0.2 (0.0-0.8) 10^3/u L Baso # (Auto) 0.0 (0.0-0.1) 10^3/u L Nucleated RBC % (a uto) 0 % Nucleated RBCs # 0.0 /100WBC Sodium 141 (136-145) mmol/L Potassium 4.4 (3.5-5.1) mmol/L Chloride 98 (98-107) mmol/L Carbon Dioxide 31 H (22-29) mmol/L Anion Gap 16.4 (5-19) BUN 25 H (8-23) mg/dL Creatinine 1.3 H (0.7-1.2) mg/dL Glucose 125 H (65-115) mg/dL Calcium 11.4 H (8.5-10.5) mg/dL Total Bilirubin 0.4 (0.15-1.2) mg/dL AST 18 (0-40) U/L ALT 16 (0-41) U/L Alkaline Phosphata se 101 (40-130) IU/L Total Protein 7.3 (6.6-8.7) g/dL Albumin 4.2 (3.5-5.2) g/dL Globulin 3.1 (1.3-4.6) g/dL Urine Color Red (Yellow) Urine Appearance Bloody A (CLEAR) Urine pH 5 (5-7) Ur Specific Gravit y 1.015 (1.005-1.030) Urine Protein 2+ H (Negative) Urine Glucose (UA) Norm (Normal) Urine Ketones 1+ H (Negative) Urine Occult Blood 3+ H (Negative) Urine Nitrate Negative (Negative) Urine Bilirubin Neg (NEGATIVE) Urine Urobilinogen Norm (Negative) mg/dL Ur Leukocyte Sunitha ase Negative (Negative) Urine RBC >100 H (0-2) /hpf Urine WBC 5-10 H (0-5) /hpf Ur Squamous Epith Cells 5-10 H (0-5) Urine Bacteria 1+ H (NONE) Urine Mucus Trace Discharge Plan Discharge Patient Disposition: Home, Self-Care Clinical Impression: Hematuria Qualifiers: Hematuria type: gross Qualified Code(s): R31.0 - Gross hematuria Condition: Stable Prescriptions: New Cipro 500 mg tablet 500 mg PO Q12H Qty: 20 RF: 0 No Action albuterol sulfate [ProAir HFA] 90 mcg/actuation HFA aerosol inhaler 2 puff INHALATION Q6H PRN (Reason: shortness of breath) RF: 0 hydrocodone-acetaminophen [Somerset] 7.5-325 mg tablet 1 tab PO Q6H PRN (Reason: Pain, Mild) RF: 0 nitroglycerin [Nitrostat] 0.4 mg tablet, sublingual 0.4 mg SUBLINGUAL Q5M PRN (Reason: Pain) RF: 0 metformin 500 mg tablet 500 mg PO BID RF: 0 Brovana 15 mcg/2 mL solution for nebulization 2 ml INHALATION BID RF: 0 budesonide [Pulmicort] 0.5 mg/2 mL suspension for nebulization 0.25 mg INHALATION BID RF: 0 alfuzosin 10 mg tablet extended release 24 hr 10 mg PO ONCE RF: 0 finasteride [Proscar] 5 mg tablet 5 mg PO ONCE RF: 0 atorvastatin 20 mg tablet 20 mg PO ONCE RF: 0 cholecalciferol (vitamin D3) [Vitamin D3] 50 mcg (2,000 unit) capsule 50 mcg PO ONCE RF: 0 furosemide 40 mg tablet 40 mg PO BID RF: 0 Yupelri 175 mcg/3 mL solution for nebulization 175 mcg INHALATION ONCE Qty: 90 RF: 3 apixaban 2.5 mg tablet 2.5 mg PO BID RF: 0 Zithromax 250 mg tablet 250 mg PO DAILY RF: 0 clopidogrel 75 mg Tablet 75 mg PO DAILY Qty: 30 RF: 0 pantoprazole 40 mg Tablet,Delayed Release (Dr/Ec) 40 mg PO DAILY Qty: 30 RF: 3 Discharge Orders: Discharge Order (Routine); Ordered 07/23/19 Ordered By: Zulay Loomis Referrals: Bernice Acevedo MD [Primary Care Provider] - Jeffy Osborn MD [Physician] - 1-3 days Patient Instructions: Prostatitis (ED), Urinary Tract Infection in Men (ED), Acute Hematuria (ED) Activity Restrictions/Additional Instructions: Please return to the ER immediately for any of the signs or symptoms listed on your discharge instruction sheets, worsening/changing of your symptoms, you are not getting better as quickly as expected, or for ANY other cause or concerns. Be certain to follow-up with Dr. Osborn as further evaluation needs to be per formed including a possible cystoscopy or imaging to rule out a tumor or other disorder which could be causing her symptoms. Stop taking Zithromax while you are on Cipro. Return to the ER if you feel like you cannot empty your bladder, you develop abdominal pain, you develop flank or back pain, or for any other cause for concern. Discharge Date/Time: 07/23/19 13:23 Coding Level of Care Code ED Experimental Aircraft Mechanic for Chg Fwd Exam Problem Focused The documentation recorded by the Guerline kumar Carmen, accurately reflects the service I personally performed and the decisions made by , Zulay Loomis Jul 23, 2019 11:08
--- NOTE | 2019-07-23 12:17 | PC.NURSE ---
Bladder scanned patient before having patient giving urine sample. 277 mL of urine noted on scan. Patient was able to void 50mL of dark red urine. Doctor notified.
[2019-07-23 12:19] VITALS: BP 117/54; PULSE 71; RESP 18; O2SAT 95
[2019-07-23 12:35] LABS: Basophils % 0.6 %; Eosinophils # 0.2 10^3/uL (0.0-0.8); Eosinophils % 3.8 %; Hematocrit 35.6 % (42.0-52.0); Hemoglobin 11.2 g/dL (11.7-16.6); Mean Corpuscular HGB Conc 31.5 g/dL (30.0-36.0); Mean Corpuscular Hemoglobin 27.1 pg (28.0-34.0); Mean Corpuscular Volume 86.2 fL (80-94); Mean Platelet Volume 7.8 fL (7.4-10.4); Monocytes # 0.4 10^3/uL (0.2-0.9); Monocytes % 7.1 %; Neutrophils # 3.6 10^3/uL (1.8-7.7); Neutrophils % 68.9 %; Nucleated Red Blood Cells % 0 %; Platelet Count 198 10^3/cmm (130-400); Red Blood Count 4.13 10^6/uL (4.1-5.3); Red Cell Distribution Width 14.1 % (12.1-15.1); White Blood Count 5.2 10^3/uL (4.0-10.0)
[2019-07-23] MEDS: ciprofloxacin 500 mg Tablet PO (12:35)
[2019-07-23 12:51] LABS: Alanine Aminotransferase 16 U/L (0-41); Albumin Level 4.2 g/dL (3.5-5.2); Alkaline Phosphatase 101 IU/L (40-130); Anion Gap 16.4 (5-19); Aspartate Amino Transferase 18 U/L (0-40); Blood Urea Nitrogen 25 mg/dL (8-23); Calcium 11.4 mg/dL (8.5-10.5); Carbon Dioxide 31 mmol/L (22-29); Chloride 98 mmol/L (98-107); Globulin 3.1 g/dL (1.3-4.6); Glucose 125 mg/dL (65-115); Potassium 4.4 mmol/L (3.5-5.1); Sodium 141 mmol/L (136-145); Total Bilirubin 0.4 mg/dL (0.15-1.2); Total Protein 7.3 g/dL (6.6-8.7)
[2019-07-23 13:23] VITALS: BP 105/61; PULSE 70; RESP 18; O2SAT 97
[2019-07-23 13:27] LABS: Bilirubin Urine Neg (NEGATIVE); Blood Urine 3+ (Negative); Glucose Urine UA Norm (Normal); Ketones Urine 1+ (Negative); Leukocyte Esterase Urine Negative (Negative); Nitrate Urine Negative (Negative); Protein Urine 2+ (Negative); Specific Gravity, Urine 1.015 (1.005-1.030); Urine Appearance Bloody (CLEAR); Urine Color Red (Yellow); Urobilinogen Urine Norm (Negative); pH Urine 5 (5-7)
[2019-07-23 13:29] LABS: RBC Urine >100 /hpf (0-2)
[2019-07-23 13:30] LABS: Bacteria Urine 1+; Mucus Urine TRACE
[2019-07-23 13:31] LABS: Add Urine Culture? No
--- NOTE | 2019-07-25 15:50 | DCPLANNER ---
harvesting manager had message to schedule a follow up appointment for patient with Dr. Lopez office. harvesting manager called the office of Dr. Osborn, spoke with Delmis. harvesting manager gave clinic patients information, was told that patients information will be printed and given to Faviola for review. Clinic will call patient with appointment information. harvesting manager will call for appointment information.
--- NOTE | 2019-07-28 10:39 | DCPLANNER ---
Patient has an appointment scheduled for Saturday, August 10, 2019 at 2:00. Clinic will call patient with appointment information.
--- NOTE | 2019-08-12 17:26 | DCPLANNER ---
Patient did attend appointment scheduled for 08.10.[address] Osborn.
== END 2019-07-23 13:23 | disposition home or self-care (01) ==
PROVIDERS: Emergency Provider Emergency Medicine; Family Provider Family Medicine; PCP Family Medicine
DX: R31.9 Hematuria, unspecified (principal); I48.91 Unspecified atrial fibrillation; I50.9 Heart failure, unspecified; J44.9 Chronic obstructive pulmonary disease, unspecified; E11.22 Type 2 diabetes mellitus with diabetic chronic kidney disease; N18.9 Chronic kidney disease, unspecified; E78.5 Hyperlipidemia, unspecified; Z79.01 Long term (current) use of anticoagulants; Z79.02 Long term (current) use of antithrombotics/antiplatelets; Z95.820 Peripheral vascular angioplasty status with implants and grafts; Z95.1 Presence of aortocoronary bypass graft; E66.9 Obesity, unspecified; Z95.0 Presence of cardiac pacemaker; E11.51 Type 2 diabetes mellitus with diabetic peripheral angiopathy without gangrene; E11.42 Type 2 diabetes mellitus with diabetic polyneuropathy; Z87.891 Personal history of nicotine dependence; Z79.84 Long term (current) use of oral hypoglycemic drugs; Z79.51 Long term (current) use of inhaled steroids; Z68.33 Body mass index [BMI] 33.0-33.9, adult
CPT/HCPCS: 36415; 51798; 80053; 81001; 85025; 87086; 99282; 99283

== ENCOUNTER 2019-07-25 15:35 | Outpatient (CLI) | payer MEDICARE, SELFPAY ==
--- NOTE | 2019-07-25 15:44 | XR_ITS ---
WS: [id number] RIGHT FOOT: 3 VIEW(S) TECHNIQUE: PA, oblique and lateral. HISTORY: PAIN REDNESS NON HEALING ULCER COMPARISON: None available. No acute fracture or dislocation. Normal tarsal/metatarsal alignment. Soft tissue ulceration is not definitely seen radiographically. No osteomyelitis. Peripheral arterial calcification. XR/XR foot RT min 3V* [id number] IMPRESSION: Soft tissue ulceration is not seen radiographically. No osteomyelitis.
== END 2019-07-25 15:36 | disposition home or self-care (01) ==
LOC: RADWPI 15:40
PROVIDERS: Family Provider Family Medicine; PCP Family Medicine; Visit Provider Nurse Practitioner Family
DX: L98.499 Non-pressure chronic ulcer of skin of other sites with unspecified severity (principal); M79.671 Pain in right foot; L53.9 Erythematous condition, unspecified
CPT/HCPCS: 73630

== ENCOUNTER 2019-07-26 09:22 | Outpatient (CLI) | payer MEDICARE, SELFPAY ==
--- NOTE | 2019-07-26 09:36 | USCV_ITS ---
Henrik Kraus Age: 79 Gender: M : 1940 Exam Date: 07/26/2019 10:02 Ordering Phys: Hyun Morel Technologist: Gabriel Griffith [place]am Location[place] [facility] [place] Indication: HISTORY: Ulcers. PROCEDURES: Bilateral duplex Venous Insufficiency study of the Deep and Superficial systems was carried out according to normal protocol with the patient in supine positon for deep system and dependent position for the superficial system. FINDINGS: All deep veins demonstrated compressibility without evidence of intraluminal thrombus or increased echogenicity. Spectral analysis of Doppler signals demonstrates normal response to compression maneuvers indicating patency without obstruction. Reflux determinations were made with the patient in the dependent position, the weight being on the contralateral leg. Vein measurements and reflux times are listed below were applicable. MOST OF THE RT GSAPH WAS HARVESTED NO REFLUX ON RT LEG. THERE IS DEEP VENOUS REFLUX ON RT CFV AND FEMERAL VEIN AND SAPH REFLUX IN DISTAL AND BELOW KNEE. The veins were found to be easily compressible with spontaneous blood flow. Non pulsatile flow pattern. CONCLUSIONS No evidence of DVT in the above-mentioned identifiable veins. The right distal and below-knee greater saphenous vein was found to be removed for harvesting Significant venous reflux of greater than 1000 ms were noted in the left common femoral and femoral veins Significant venous reflux of greater than 500 ms were noted at the saphenofemoral junction, distal greater saphenous vein and below-knee greater saphenous vein segments. No significant venous reflux on the right side , either in the deep or superficial veins. Dr Jody Mendosa MD [facility] (Electronically Signed) Final Date: 28 July 2019 13:29 S
== END 2019-07-26 09:23 | disposition home or self-care (01) ==
PROVIDERS: Family Provider Family Medicine; PCP Family Medicine; Visit Provider Nurse Practitioner Family
DX: L98.499 Non-pressure chronic ulcer of skin of other sites with unspecified severity (principal); R52 Pain, unspecified; L53.9 Erythematous condition, unspecified
CPT/HCPCS: 93970; 99212; 99213

== ENCOUNTER 2019-08-03 10:34 | Outpatient (RCR) | payer MEDICARE, SELFPAY | END 2019-08-13 23:59 | disposition home or self-care (01) | LOC: RAD 10:34 | PROVIDERS: Family Provider Family Medicine; PCP Family Medicine; Visit Provider Nurse Practitioner Family | DX: E11.621 Type 2 diabetes mellitus with foot ulcer (principal); L97.512 Non-pressure chronic ulcer of other part of right foot with fat layer exposed | CPT/HCPCS: 11042; 87070; 87077; 87106; 87176; 87186; 87205; G0463 ==

== ENCOUNTER 2019-08-08 13:30 | Observation (INO) | payer MEDICARE, SELFPAY ==
[2019-08-08] VITALS (7 sets, daily range): BP systolic 139–164; BP diastolic 60–84; PULSE 70–78; RESP 16–22; TEMP 36.3–36.9; O2SAT 93–97; BMI 33.4
--- NOTE | 2019-08-08 09:47 | XACV_ITS ---
Wt: 100 kg BSA: 2.22 m2 Any Known Allergies: Other Gender: Male : 1940 Exam Type: Invasive Peripheral Vascular Procedure(s): Procedure Description: Peripheral Cath Diagnostic Procedure Procedure Description: Lower extremities' angiography Procedure Description: Peripheral vascular Intervention Procedure Description: PV Balloon Procedure Description: PV Atherectomy Exam Priority: Routine Lower Extremity Interventional Findings Left common femoral artery approach was adopted. After somewhat difficulty with the help of seeker and Glidewire we were able to cross SFA popliteal and tibioperoneal trunk of the right leg. Viper wire was exchanged through the seeker over which using 2.0 mm bur CSI orbital atherectomy was performed with different runs in right SFA popliteal and tibioperoneal trunk. All these lesions were treated with balloon angioplasties. Drug-coated lutonix balloon was applied in popliteal and distal SFA. Please see the inventory for all these equipments. Excellent angiographic result with good roman catholic of blood flow was achieved in the right SFA popliteal tibioperoneal trunk anterior tibial and peroneal artery up to the foot arch. Right posterior tibial artery was chronically occluded in the proximal segment. In the distal segment near the arch through collaterals. At the end of the test good anterior and posterior tibial pulse. Conclusions Peripheral Procedure Description: Lifestyle limiting claudication of both legs and foot , Hailey grade V :Jen stage IV. ProcedureLeft common femoral approach was adopted. #1 Left and right common iliac artery has luminal irregularity#2 Left external iliac artery has luminal irregularity, right common iliac artery is patent previously placed stent with good flow#3 Left and right Profunda femoral artery has luminal irregularity#5 Left and right internal iliac artery has luminal irregularities#6 Left and right common femoral artery has luminal irregularities. Right and left SFA are Mid to distal total occlusion these are highly calcified arteries which reconstitute at the distal tibioperoneal trunk with faint collaterals#9 Right and left SFA are Mid to distal total occlusion these are highly calcified arteries which reconstitute at the distal tibioperoneal trunk with faint collaterals#10 right and left Left popliteal arteries are highly calcified 100% totally occluded. #12 right tibioperoneal trunk is 100% occluded, left tibioperoneal trunk is patent and obtain supply from collaterals. Below the left knee no flow noted on the right side however left side has reasonable to vessel faint flow. Recommendations 1-Return to inpatient for close monitoring and routine cath care2-Risk factor modification for secondary prevention3-Statin and aspirin 81 mg life-long, if tolerated4-Continue Plavix 75mg p.o. daily for at least one month. 5-Continue optimal medical management, for lifestyle limiting claudication and chronically occluded mid to distal left SFA patient will be brought in for left leg intervention.6-Follow up with Dr. Stout in four weeks and your primary care in 10 days. Hemodynamic Data Phase:Rest AO : 135.0 mmHg / 52.0 mmHg ( 83.0 mmHg ) @ 5:32:00 AM 141.0 mmHg / 53.0 mmHg ( 87.0 mmHg ) @ 6:09:00 AM 127.0 mmHg / 53.0 mmHg ( 80.0 mmHg ) @ 6:45:00 AM Access Site Site: Left Femoral artery Sheath Size: 6 Fr Hemost... Method: Suture Hemost... Success: Successful Procedure Details Findings Procedure Consent Obtained. Pre-Procedure Time Out. Identified patient by full name and date of as verbalized by the patient/guarantor. Does the consent match the physician's order: Yes. Accurate & Complete Informed Consent: Yes. Inpatient/Outpatient History & Physical on Chart: Yes. If H&P is completed, is and addenduem needed: No; If yes, is the addendum complete: N/A. Visualize and Verify Site with Patient/Guarantor: N/A. Relevant Radiology Images available: N/A. Pre-op teaching completed and patient verbalized understanding. The risks, benefits, and alternatives of sedation and/or procedure were discussed by physician. The patient agrees to continue. Procedure started. Correct patient, site and procedure confirmed by cath team. PERRLA. Strong, equal hand charge aide bilaterally. Lungs clear x 5 lobes. Pre op diagnosis: PAD. IV Site on Arrival: 20 gauge in the left forearm. IV Fluids: 0.9% NaCl at KVO. 0 mL infused prior to microbiology lab assistant. Pre Procedural Pulses: bilateral dorsalis pedis was Doppled. Pre Procedural Pulses: bilateral posterior tibial was Doppled. Pre Procedural Pulses: bilateral radial was 1+. Oxygen started at 3liters/min via nasal canula. bilateral groins was prepped with chloroprep then draped in the usual sterile fashion. Physician notified. Baseline sample Acquired. HR: 40 BPM. Equipment: Peripheral. Physician arrived. Cardiac Cath Pack. ACIST Manifold Kit Model BT 2000. Heparinized Saline (2 units/mL), 1000 mL bag. Patient's family unavailable. Physician scrubbed in. Time out performed with cath team. Lidocaine 1% infiltrated to the left groin. Arterial access obtained with micropuncture set. A JJ 5F RIM 65 cm Diagnostic Catheter was advanced over the wire and used for Abdominal aortogram with runoff. RIM catheter removed. A 5Fr IM catheter in over wire. Wire out. Hand injection performed. Glidewire inserted. IM catheter out. SEEKER support catheter inserted over Glidewire. Wire and SEEKER catheter out. Glidewire out. Hand injection. Command Wire inserted. Catheter out. SEEKER catheter inserted over the Command Wire. Command Wire and Seeker catheter out. IM catheter inserted. Catheter out over glidewire. Short 6 fr sheath exchanged for long 45 cm 6fr Flexor sheath. Side port of sheath attached to Normal Saline flush at KVO to maintain patency. SEEKER support catheter inserted. Glidewire out. Hand injection performed throught the SEEKER. Glidewire out. Command wire inserted. Command wire out. VIPER wire inserted. SEEKER catheter removed over VIPER wire. 2.0 mm Diamondback 360 atherectomy device inserted over VIPER wire in right SFA.. Orbital atherectomy performed in right SFA. Atherectomy device removed over VIPER wire. Inflation number : 1 A AB [place] 35 OTW [id number] was prepped and advanced across the Tibial Peroneal Trunk, Right , then inflated to 8 JORGE for 2:02 seconds. Inflation number: 2 The AB [place] 35 OTW [id number] was reinflated across the Tibial Peroneal Trunk, Right, to 8 JORGE for 2:01 seconds. out with the balloon, Seeker going in over Viper wire. VIPER wire out. Glidewire inserted. SEEKER out over glidewire. Inflation number : 1 A AB [place] 35 MECHANICAL DESIGN ENGINEER Catheter [id number] was prepped and advanced across the Superficial Femoral, Right , then inflated to 6 JORGE for 1:03 seconds. Inflation number: 2 The AB [place] 35 MECHANICAL DESIGN ENGINEER Catheter [id number] was reinflated across the Superficial Femoral, Right, to 10 JORGE for 2:03 seconds. Inflation number: 3 The AB [place] 35 MECHANICAL DESIGN ENGINEER Catheter [id number] was reinflated across the Superficial Femoral, Right, to 10 JORGE for 2:02 seconds. balloon out. Results checked with right leg runoff. Inflation number : 4 A BARD 6FR Lutinox [id number] drug coated balloon was prepped and advanced across the Superficial Femoral, Right , then inflated to 10 JORGE for 2:00 seconds. Balloon out. Results checked. Long 45 cm 6 fr flexor sheath exchanged for short 6 fr sheath. Left leg runoff 10 ml for total of 30 ml. IV fluids stopped. Sheath upsized to a 7 Fr. Physician scrubbed out. A Suture was successful obtaining hemostatsis at the Left Femoral artery insertion site. Sheath(s) sutured into position with 2-0 silk and sterile 4x4's and Op-site applied over the site. No oozing or signs and symptoms of hematoma noted. Arterial sheath flushed and connected to tranducer and pressure bag with heparinized saline. Post Procedure: Pulses reassessed and unchanged. PERRLA. Strong, equal hand charge aide bilaterally. No VTE prophylaxis required. Medication's Wasted: Lidocaine 1% = 5 mL. Medication's Wasted: Nitro = 49.9 mg. Total IV fluids: 650 mL. Complications: none. Estimated blood loss: 5mL-10mL. Post-op diagnosis: critical limb ischemia, PVD. Procedure completed. Patient transferred by bed to ICU. Vital chart was stopped. Procedure Medications Start: 10:25 AM Stop: 10:25 AM Medication: 0.9% Saline Amount: 250 ml Route: I.V. bolus Start: 10:27 AM Stop: 10:27 AM Medication: Versed Amount: 1 mg Route: I.V. Start: 10:27 AM Stop: 10:27 AM Medication: Fentanyl Amount: 50 mcg Route: I.V. Start: 11:16 AM Stop: 11:16 AM Medication: Versed Amount: 1 mg Route: I.V. Start: 11:16 AM Stop: 11:16 AM Medication: Fentanyl Amount: 50 mcg Route: I.V. Start: 11:33 AM Stop: 11:33 AM Medication: Heparin Amount: 5000 units Route: I.V. Start: 11:46 AM Stop: 11:46 AM Medication: Versed Amount: 1 mg Route: I.V. Start: 11:46 AM Stop: 11:46 AM Medication: Fentanyl Amount: 50 mcg Route: I.V. Start: 11:57 AM Stop: 11:57 AM Medication: Versed Amount: 1 mg Route: I.V. Start: 11:57 AM Stop: 11:57 AM Medication: Fentanyl Amount: 50 mcg Route: I.V. Start: 12:01 PM Stop: 12:01 PM Medication: Heparin Amount: 2000 units Route: I.V. Start: 12:08 PM Stop: 12:08 PM Medication: Versed Amount: 2 mg Route: I.V. Start: 12:13 PM Stop: 12:13 PM Medication: Fentanyl Amount: 50 mcg Route: I.V. Start: 12:25 PM Stop: 12:25 PM Medication: Versed Amount: 1 mg Route: I.V. Start: 12:27 PM Stop: 12:27 PM Medication: Heparin Amount: 2000 units Route: I.V. Start: 12:29 PM Stop: 12:29 PM Medication: Morphine Amount: 2 mg Route: I.V. Start: 12:47 PM Stop: 12:47 PM Medication: Morphine Amount: 2 mg Route: I.V. Start: 12:56 PM Stop: 12:56 PM Medication: Versed Amount: 1 mg Route: I.V. Start: 12:56 PM Stop: 12:56 PM Medication: Fentanyl Amount: 50 mcg Route: I.V. Start: 1:04 PM Stop: 1:04 PM Medication: Versed Amount: 1 mg Route: I.V. Start: 1:04 PM Stop: 1:04 PM Medication: Morphine Amount: 2 mg Route: I.V. Start: 1:15 PM Stop: 1:15 PM Medication: Versed Amount: 1 mg Route: I.V. Start: 1:15 PM Stop: 1:15 PM Medication: Morphine Amount: 2 mg Route: I.V. I, the attending physician, have reviewed and verified all procedure medications. Yes, all medications given per verbal order History/Risk Factors Hypertension: Yes Dyslipidemia: Yes Diabetic Therapy: Oral Peripheral Arterial Disease (PAD): Yes Myocardial Infarction (IN): Yes Obesity: Yes Renal Disease: Yes Tobacco Use: Former Prior Interventions PCI: Yes CABG: Yes Valve Surgery: No Report Signatures Finalized by:Herminio Stout MD on 08/23/2019 1:53:34 PM
[2019-08-08] MEDS: diphenhydrAMINE 50 mg Capsule PO (09:52)
--- NOTE | 2019-08-08 14:37 | PC.NURSE ---
Recieived patient from cathlab awake and alert, research laboratory specialist report received saying plavix given in research laboratory specialist and orderd to PIID IV and stop all fluids.
[2019-08-08 16:13] LABS: Partial Thromboplastin Time 37.2 SECONDS (23.9-36.7)
[2019-08-08 17:14] LABS: Glucose Point of Care 90 mg/dL (70-110)
[2019-08-08] MEDS: FUROsemide 40 mg Tablet PO (18:29)
[2019-08-08] MEDS: HYDROcodone-acetaminophen 7.5-325 mg Tablet 1 TAB PO (20:09)
[2019-08-08] MEDS: albuterol 8 gm MDI 2 PUFF INHALATION (20:36)
[2019-08-09] MEDS: HYDROcodone-acetaminophen 7.5-325 mg Tablet 1 TAB PO ×2 (02:25→09:25)
[2019-08-09 04:10] LABS: Basophils % 0.5 %; Eosinophils # 0.1 10^3/uL (0.0-0.8); Eosinophils % 1.9 %; Hematocrit 30.8 % (42.0-52.0); Hemoglobin 9.6 g/dL (11.7-16.6); Lymphocytes # 0.9 10^3/uL (0.8-4.8); Lymphocytes % 15.9 %; Mean Corpuscular HGB Conc 31.2 g/dL (30.0-36.0); Mean Corpuscular Hemoglobin 26.7 pg (28.0-34.0); Mean Corpuscular Volume 85.8 fL (80-94); Mean Platelet Volume 8.1 fL (7.4-10.4); Monocytes # 0.6 10^3/uL (0.2-0.9); Monocytes % 9.9 %; Neutrophils # 4.2 10^3/uL (1.8-7.7); Neutrophils % 71.5 %; Nucleated Red Blood Cells % 0 %; Platelet Count 145 10^3/cmm (130-400); Red Blood Count 3.59 10^6/uL (4.1-5.3); Red Cell Distribution Width 14.1 % (12.1-15.1); White Blood Count 5.8 10^3/uL (4.0-10.0)
[2019-08-09 04:25] LABS: Anion Gap 15.5 (5-19); Blood Urea Nitrogen 16 mg/dL (8-23); Calcium 10.1 mg/dL (8.5-10.5); Carbon Dioxide 27 mmol/L (22-29); Chloride 101 mmol/L (98-107); Creatinine Clr Calc Pharmacy 69.7121; Glucose 98 mg/dL (65-115); Osmolality Calculated 284 mOsm/kg (285-295); Potassium 4.5 mmol/L (3.5-5.1); Sodium 139 mmol/L (136-145)
[2019-08-09] MEDS: apixaban 5 mg Tablet 2.5 MG PO (08:03)
[2019-08-09] MEDS: atorvastatin 40 mg Tablet 20 MG PO (08:04)
[2019-08-09] MEDS: FUROsemide 40 mg Tablet PO (08:04)
[2019-08-09] MEDS: pantoprazole DR 40 mg Tablet PO (08:04)
[2019-08-09] MEDS: finasteride 5 mg Tablet PO (08:04)
[2019-08-09] MEDS: clopidogrel 75 mg Tablet PO (08:04)
[2019-08-09] MEDS: albuterol 8 gm MDI 2 PUFF INHALATION (08:39)
[2019-08-09 08:40] VITALS: PULSE 70; RESP 18; O2SAT 93
--- NOTE | 2019-08-09 08:44 | P.SS_ITS ---
Short Stay Summary Providers Date of Admit/Discharge: 08/09/19 Attending Provider: Herminio Stout MD Primary Care Provider: Bernice Acevedo MD HPI History of Present Illness Henrik Kraus is a 79 year old male who is patient of Dr. Mendosa past medical history significant for ischemic cardiomyopathy, CHF, hypertension, hyperlipidemia, severe peripheral vascular disease with critical limb ischemia and gangrenous right foot with toes. He underwent stage percutaneous intervention of right totally occluded highly calcified SFA, popliteal, tibioperoneal trunk. CSI atherectomy followed by balloon angioplasty with compliant [id number] and lutonix drug-eluting balloon angioplasties. Patient has been explained in detail all risk benefit and alternative for the procedure. Patient has been explained warning for potential side effects increase in mortality in regards to using drug coated balloon. He gave us permission to proceed with it. Post procedure course was uneventful. Both dorsalis pedis and posterior tibial pulse are dopplerable in the right foot. He has good left groin wound, No hematoma. His creatinine is normal at 1.0 pos tprocedure. He was hydrated with IV fluid before and during procedure. He is being discharged home. He is going to follow-up with Faviola Arauz in [address] Mendosa as scheduled. He will brought back in 2 to 3 weeks for left SFA intervention for critical limb ischemia. He is instructed to follow-up with wound care regularly Review of Systems Eyes: Denies: photophobia ENMT: Denies: enlarged tonsils Musc: Denies: joint warmth All/Imm: Denies: acute wheezing Home Meds/Allergies Home Medications and Allergies Home Medications Medication Instructions Recorded Confirmed Type albuterol sulfate 90 mcg/actuation 2 puff INHALATION Q6H PRN 06/20/19 08/08/19 History aerosol inhaler alfuzosin 10 mg tablet,extended 10 mg PO DAILY 06/20/19 08/08/19 History release 24 hr arformoterol 15 mcg/2 mL solution 2 ml INHALATION BID 06/20/19 08/08/19 History for nebulization atorvastatin 20 mg tablet 20 mg PO DAILY 06/20/19 08/08/19 History budesonide 0.5 mg/2 mL suspension 0.25 mg INHALATION BID 06/20/19 08/08/19 H istory for nebulization cholecalciferol (vitamin D3) 50 50 mcg PO DAILY 06/20/19 08/08/19 History mcg (2,000 unit) capsule finasteride 5 mg tablet 5 mg PO DAILY 06/20/19 08/08/19 History hydrocodone 7.5 mg-acetaminophen 1 tab PO Q6H PRN 06/20/19 08/05/19 History 325 mg tablet metformin 500 mg tablet 500 mg PO BID 06/20/19 08/08/19 History apixaban 2.5 mg PO BID 07/05/19 08/08/19 History azithromycin [Zithromax] 250 mg PO DAILY 07/05/19 08/08/19 History furosemide 40 mg tablet 40 mg PO BID tab 07/14/19 08/08/19 History calcium carbonate 500 mg calcium 500 mg PO BID 08/03/19 08/08/19 History (1,250 mg) capsule ferrous sulfate 325 mg (65 mg 325 mg PO BID 08/03/19 08/08/19 History iron) tablet magnesium oxide 400 mg PO BID 08/03/19 08/08/19 History vitamin B complex 1 tab PO DAILY 08/03/19 08/08/19 History Yupelri 175 mcg INHALATION DAILY 08/05/19 08/08/19 History Allergies Allergy/AdvReac Type Severity Reaction Status Date / Time medical tape Allergy Unknown Uncoded 06/22/19 09:47 PFSH Acute PFSH: Medical History Afib 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 CHF (congestive heart failure) Chronic hypoxemic respiratory failure CKD (chronic kidney disease) COPD (chronic obstructive pulmonary disease) Diabetes Hypercalcemia Hyperlipemia Hypoxemia Microscopic hematuria Non-pressure chronic ulcer of other part of right foot with fat layer exposed Obesity ZEHRA (obstructive sleep apnea) Pacemaker PVD (peripheral vascular disease) Type 2 diabetes mellitus with diabetic polyneuropathy Surgical History H/O eye surgery detached retina H/O prior ablation treatment H/O rotator cuff surgery H/O total knee replacement Bilateral History of appendectomy History of back surgery Hx of CABG Status post placement of cardiac pacemaker Family History Sister Diabetes Brother Diabetes CAD (coronary artery disease) Mother Heart attack Father Heart attack Social History Smoking and tobacco status: former smoker Quit status (tobacco): has quit using tobacco Year quit tobacco: 2008 Year 1.5 PPD Hx Alcohol intake: never History of recent travel: No Current gender identity: Male Dietary Habits: Current diet type/program: regular Exercise: What type of physical activity do you participate in?: none Safety: Seatbelt use: never Home Safety: Working smoke detector in home: Yes Fire extinguisher in home: Yes Carbon monoxide detector in home: No Vitals/I&O/Wt Last Vital Signs Temp 97.3 F L 08/08/19 13:57 Pulse 78 08/08/19 20:36 Resp 18 08/08/19 20:36 BP 161/77 08/08/19 14:30 Pulse Ox 93 08/08/19 20:36 08/08/19 08/09/19 08/09/19 22:59 06:59 14:59 Intake Total 480 / 480 480 / 960 Output Total 1500 / 1500 200 / 200 Balance -1020 / -1020 480 / -540 -200 / -200 Weight last 48 hrs Weight 220 lb Physical Exam Narrative: EXAM NARRATIVE: GENERAL: Patient is alert, awake and oriented x3. NECK: No jugular vein distension. HEENT: No cyanosis. No icterus. No pallor. HEART: Regular S1 and S2. No murmur, rub or gallop. LUNGS: Decreased breath sound bilaterally. CENTRAL NERVOUS SYSTEM: Grossly nonfocal. EXTREMITIES: Lower extremities with 1+ edema right leg. No dopplerable dorsalis pedis and posterior tibial. Right foot toes has dry gangrene. Hospital Course Admission Diagnoses: Critical limb ischemia of right foot with gangrenous toe Ischemic cardiomyopathy Heart failure Hypertension Hyperlipidemia Hospital Course: As above Discharge Summary: As above SSS Data Data Completed and Pending: Pending at discharge Category Date Time Status BOILER TESTER request for service Routin e Exams 08/08/19 09:47 Taken Discharge Plan Discharge Patient Disposition: Home, Self-Care Condition: Stable Prescriptions: Continued albuterol sulfate [ProAir HFA] 90 mcg/actuation HFA aerosol inhaler 2 puff INHALATION Q6H PRN (Reason: shortness of breath) RF: 0 hydrocodone-acetaminophen [[place]] 7.5-325 mg tablet 1 tab PO Q6H PRN (Reason: Pain, Mild) RF: 0 metformin 500 mg tablet 500 mg PO BID RF: 0 Brovana 15 mcg/2 mL solution for nebulization 2 ml INHALATION BID RF: 0 budesonide [Pulmicort] 0.5 mg/2 mL suspension for nebulization 0.25 mg INHALATION BID RF: 0 alfuzosin 10 mg tablet extended release 24 hr 10 mg PO DAILY RF: 0 finasteride [Proscar] 5 mg tablet 5 mg PO DAILY RF: 0 atorvastatin 20 mg tablet 20 mg PO DAILY RF: 0 cholecalciferol (vitamin D3) [Vitamin D3] 50 mcg (2,000 unit) capsule 50 mcg PO DAILY RF: 0 furosemide 40 mg tablet 40 mg PO BID RF: 0 magnesium oxide 400 mg magnesium tablet 400 mg PO BID RF: 0 calcium carbonate 500 mg calcium (1,250 mg) capsule 500 mg PO BID RF: 0 ferrous sulfate 325 mg (65 mg iron) tablet 325 mg PO BID RF: 0 vitamin B complex [B Complex-Vitamin B12] Tablet 1 tab PO DAILY RF: 0 clopidogrel 75 mg tablet 75 mg PO DAILY Qty: 30 RF: 0 apixaban 2.5 mg tablet 2.5 mg PO BID RF: 0 azithromycin [Zithromax] 250 mg tablet 250 mg PO DAILY RF: 0 pantoprazole 40 mg Tablet,Delayed Release (Dr/Ec) 40 mg PO DAILY Qty: 30 RF: 3 Yupelri 175 mcg/3 mL Solution For Nebulization 175 mcg INHALATION DAILY RF: 0 Discharge Orders: Discharge Order (Routine); Ordered 08/09/19 Ordered By: Herminio Stout Discharge Diet: Cardiac and Low Salt Discharge Activity: Resume usual activity Patient Instructions: Peripheral Vascular Angioplasty (DC) Activity Restrictions/Additional Instructions: No lifting of more than gallon of milk for next 3 days. Faviola Arauz cardiology nurse practitioner in 7 days. Please schedule for left lower extremity intervention for chronically occluded mid left SFA for critical limb ischemia in 2 to 3 weeks. Follow-up with Dr. Mendosa as scheduled. Follow-up with wound care as scheduled Attestations Medical Necessity Statement*: Patient can be discharged home today. Time Spent in Patient Care*: greater than 30 min Specific Discharge Activities: Specific discharge activities: educating patient Quality Metrics Clinical Quality Measures: During this hospital stay, did patient experience: None Coding Level of Care Code New Pt Acute Registered Nurses for Chg Fwd Patient Type New History Expanded Problem Focused Exam Expanded Problem Focused Medical Decision Making Moderate Complexity
[2019-08-09 08:53] VITALS: PULSE 76
--- NOTE | 2019-08-09 10:02 | PC.CHAP ---
Pastoral Care Encounter/Spiritual Assessment Type of Contact [] Declined dehydrogenation supervisor visit [] Patient/Family/Request visit [] Outpatient visit [] Follow-up visit [] Physician referral [] Code/Alert [x] Routine visit [] Staff referral [] Actively dying [] Patient sleeping [] Family support [] [] Out of room [] Palliative care [] [] Receiving care in room [] Pre-surgical visit [] Trauma [] Long length of stay [x] ICU visit [] Other: Relational/Emotional Strength [] Patient feels connected with others/family/visitors/staff [] Distress [] Loneliness/isolation [] Abandonment Spirituality of Patient [] Person of Miranda [] Attends Restorationist of their Miranda [x] Believes in Prayer [] Reads Bible or Scientologist materials [] There are Spiritual issues to be addressed Thermoscrew Operator Interventions [x] Prayer [] Active listening [] Non-anxious presence [] Spiritual/emotional support [] Crisis/trauma care [] Spiritual counseling [] Bereavement support [] Provided bereavement packet [] Provided Bible/devotional materials [] Provided toy/stuffed animal, coloring book to patient or family member [] Provided Communion [] Anointing/[place] [] Salvation [x] Completed spiritual assessment [] Other: Impact on Illness or Injury [] Angry [] Fearful [] Anxious [] Often cries [] Exhaustion [] Unable to work [] Unable to attend mandaen [] Unable to walk/stand [] Unable to read [] Unable to drive [] Unable to eat/drink [] Unable to sleep [] Unable to be with family [] Patient intubated [] Other: Summary patient has a desire for food. patient trying to relax. Time spent with patient 10min
== END 2019-08-09 10:31 | disposition home or self-care (01) ==
LOC: ICU 14:12
PROVIDERS: Admitting Provider Internal Medicine Cardiovascular Disease; Family Provider Family Medicine; PCP Family Medicine; Visit Provider Internal Medicine Cardiovascular Disease
DX: I70.261 Atherosclerosis of native arteries of extremities with gangrene, right leg (principal); I25.5 Ischemic cardiomyopathy; I11.0 Hypertensive heart disease with heart failure; I50.9 Heart failure, unspecified; E78.5 Hyperlipidemia, unspecified; I48.91 Unspecified atrial fibrillation; Z95.1 Presence of aortocoronary bypass graft; I25.10 Atherosclerotic heart disease of native coronary artery without angina pectoris; E11.22 Type 2 diabetes mellitus with diabetic chronic kidney disease; N18.9 Chronic kidney disease, unspecified; J44.9 Chronic obstructive pulmonary disease, unspecified; G47.33 Obstructive sleep apnea (adult) (pediatric); Z95.0 Presence of cardiac pacemaker; E11.42 Type 2 diabetes mellitus with diabetic polyneuropathy; Z82.49 Family history of ischemic heart disease and other diseases of the circulatory system; Z83.3 Family history of diabetes mellitus; Z87.891 Personal history of nicotine dependence
CPT/HCPCS: 12345; 36415; 36416; 37225; 75716; 80048; 82962; 85025; 85730; 94640; C1724; C1725; C1769; C1887; C1894; C2623; G0378; J1644; J2001; J2250; J2270; J3010; J3490; J3535; J7030; Q0163; Q9967

== ENCOUNTER → 2019-08-15 15:40 | Outpatient (BNVA) | payer MEDICARE, SELFPAY | PROVIDERS: Family Provider Family Medicine; PCP Family Medicine; Visit Provider Nurse Practitioner Family | DX: I73.9 Peripheral vascular disease, unspecified (principal) | CPT/HCPCS: 80048 ==

== ENCOUNTER 2019-08-19 13:58 | Outpatient (CLI) | payer MEDICARE, SELFPAY ==
--- NOTE | 2019-08-19 14:38 | PFTS_ITS ---
Date of Study:08/19/2019 Date of Dictation: MECHANICS: Forced vital capacity (FVC) is normal. Forced expiratory volume in one second (FEV1) is reduced. FEV1/FVC is reduced. FLOW VOLUME LOOP: Reduced flow at all lung volumes with significant scooping. LUNG VOLUMES: Total lung capacity (TLC) is normal. Residual volume (RV) is increased. DIFFUSING CAPACITY FOR CARBON MONOXIDE: Severely reduced. INTERPRETATION: The pulmonary function tests are consistent with moderate airflow obstruction. There is air trapping. Gas exchange (DLCO) is severely reduced. MTDD
== END 2019-08-19 13:59 | disposition home or self-care (01) ==
LOC: RT 14:03
PROVIDERS: Family Provider Family Medicine; PCP Family Medicine; Visit Provider Internal Medicine Critical Care Medicine
DX: J44.9 Chronic obstructive pulmonary disease, unspecified (principal); F17.210 Nicotine dependence, cigarettes, uncomplicated
CPT/HCPCS: 94010; 94060; 94726; 94729

== ENCOUNTER 2019-08-24 09:46 | Outpatient (CLI) | payer MEDICARE, SELFPAY ==
[2019-08-24] MEDS: iodixanol 320 mg/mL 100mL Btl IV (10:17)
--- NOTE | 2019-08-24 11:00 | CT_ITS ---
WS: [id number] CT ABDOMEN PELVIS TECHNIQUE: Noncontrast CT of the abdomen and contrast-enhanced CT of the abdomen and pelvis with nilda nal and sagittal reformatted images. CLINICAL INFORMATION: Bladder mass COMPARISON: None. DLP: 2621.[address] scans at [facility] use at least one of these dose optimization techniques: automat ed exposure control; mA and/or kV adjustment per patient size (includes targeted exams where dose is matched to clinical indication); or iterative reconstruction. FINDINGS: Heterogeneously enhancing mass involving the right lateral bladder wall measuring 4.0 x 1.5 x 3.3 cm AP x transverse x craniocaudal. Mild associated bladder wall thickening along the peripheral margins of the mass. Bladder is otherwise normal in appearance. Normal seminal vesicles. No perirectal or pelvic sidewall lymphadenopathy. Peripheral enhancing low-a ttenuation inguinal lymph nodes slightly enlarged measuring 11 mm in the right and 13 mm on the left with some surrounding inflammation. These are nonspecific and may be reactive but metastatic disease not excluded. No abdominal or pelvis lymphadenopathy. Normal renal parenchymal enhancement. No hydronephrosis. Normal adrenal glands. Tiny left renal cysts . Ureters are decompressed. Pelvic phleboliths. Normal liver. Normal portal vein and splenic vein. Normal spleen. Normal GE junction. Calcified granu chai left lung base. Diffuse fatty atrophy of the pancreas. Normal caliber abdominal aorta. Dense vas cular calcification. Sigmoid diverticulosis. No evidence of acute diverticulitis. Incidental fat-cont aining umbilical hernia. CT/CT abdomen pelvis [id number] IMPRESSION: 1. Heterogeneous enhancing right bladder wall mass measuring 4.0 x 1.5 x 3.3cm . Findings consistent with known bladder carcinoma. 2. Peripheral enhancing low-attenuation inguinal lymph nodes slightly enlarged with some surrounding inflammation measuring 11 mm in the right and 13 mm on t he left. These are nonspecific and may be reactive but metastatic disease not e xcluded. 3. Normal seminal vesicles. No evidence of periprosthetic or pelvic sidewall l ymphadenopathy. 4. Normal renal parenchymal enhancement. No hydronephrosis. Tiny left renal cy sts. 5. Fatty atrophy of the pancreas. 6. Small esophageal hiatal hernia. 7. Sigmoid diverticulosis.
== END 2019-08-24 09:47 | disposition home or self-care (01) ==
LOC: CT 09:47
PROVIDERS: Family Provider Family Medicine; PCP Family Medicine; Visit Provider Urology
DX: N32.89 Other specified disorders of bladder (principal); K86.89 Other specified diseases of pancreas; K44.9 Diaphragmatic hernia without obstruction or gangrene; K57.30 Diverticulosis of large intestine without perforation or abscess without bleeding
CPT/HCPCS: 74178; 81001; 99212

== ENCOUNTER 2019-08-25 09:17 | Outpatient (RCR) | payer MEDICARE, SELFPAY | END 2019-09-13 23:59 | disposition home or self-care (01) | LOC: WOUND 09:17 | PROVIDERS: Family Provider Family Medicine; PCP Family Medicine; Visit Provider Nurse Practitioner Family | DX: Z09 Encounter for follow-up examination after completed treatment for conditions other than malignant neoplasm (principal) | CPT/HCPCS: 74178; 81001; 99212; 99213; A6545 ==

== ENCOUNTER 2019-09-02 15:09 | Observation (INO) | payer MEDICARE, SELFPAY ==
[2019-09-01 11:38] VITALS: BMI 34.4
--- NOTE | 2019-09-01 11:43 | ECG_ITS ---
Measurements Intervals [place] Rate: 70 P: 149 FL: 242 QRS: -69 QRSD: 182 T: 62 QT: 457 QTc: 494 ELECTRONIC ATRIAL PACEMAKER AV axel pacing with normal capture ELECTRONIC VENTRICULAR PACEMAKER ABNORMAL RHYTHM ECG Compared to ECG 05/13/2019 18:56:58 No significant changes Electronically Signed On 09-01-2019 12:44:46 CDT by Wang Stout [id number]
--- NOTE | 2019-09-01 12:06 | ANES.PREANE2 ---
Pre-Anesthetic Assessment Pre-Anesthetic Assessment: Height/Weight: Height 1.7 m Weight 99.79 kg Preop Diagnosis: Newly diagnosed bladder tumor (lateral) Proposed Procedure: Operation Date: 09/02/19 13:10 Proposed Procedures s Transurethral Resection Bladder Tumor 18267 C67.2(Not Applicable) - Jeffy Osborn MD p Cystoscopy 92093 C67.2(Not Applicable) - Jeffy Osborn MD Social: Social History: Tobacco (quit 2008) and No alcohol Exam: Pre-Anes Outpt Exam: alert, oriented x 3, clear to auscultation bilaterally (bilat wheezes) and regular rate & rhythm (paced) Airway: Submandibular: WNL Cervical ROM: Other (limited) MP: 2 Dentition: Other (ok) History/ROS: No significant history except as noted Pulmonary: Pulmonary: COPD, [place], Orthopnea and Sleep apnea Comments: O2 dep CV/HEM: CV/HEM: Afib, CAD, CHF, HTN, TN and PVD : : Chronic renal Insufficiency Hepatic: Hepatic: None reported GI: GI: None reported Metabolic: Metabolic: DM and Hyperlipidemia Musc/skel: Musc/skel: OA/DJD and Weakness (gen) Neuropsych: Neuropsych: CVA (1994 No risidual) and Neuropathy (hands and feet) Anesthetic Plan: ASA status: 4 Anesthesia: Anesthesia Evaluation and General Risk of > 500 ml blood loss (7ml/kg in children): No PFSH Anesthesia PFSH: Medical History Afib 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 Atherosclerotic heart disease of [place] coronary artery without angina pectoris CHF (congestive heart failure) Chronic hypoxemic respiratory failure CKD (chronic kidney disease) COPD (chronic obstructive pulmonary disease) Diabetes Gross hematuria Hypercalcemia Hyperlipemia Hypoxemia 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 Obesity ZEHRA (obstructive sleep apnea) Pacemaker PVD (peripheral vascular disease) Type 2 diabetes mellitus with diabetic polyneuropathy Surgical History H/O eye surgery detached retina H/O prior ablation treatment H/O rotator cuff surgery H/O total knee replacement Bilateral History of appendectomy History of back surgery Hx of CABG Status post placement of cardiac pacemaker Family History Sister Diabetes Brother Diabetes CAD (coronary artery disease) Mother , AT AGE 81 Heart attack Father , AT AGE 82 Heart attack Social History Smoking and tobacco status: former smoker Quit status (tobacco): has quit using tobacco Year quit tobacco: 2008 Year 1.5 PPD Hx Alcohol intake: never Lives independently: Yes Household members: significant other Marital status: / Current occupational status: retired History of recent travel: No Current gender identity: Male Data Anesthesia Cardiac Studies: No Data to Display
[2019-09-01 12:24] LABS: Basophils % 0.6 %; Eosinophils # 0.2 10^3/uL (0.0-0.8); Eosinophils % 3.1 %; Hematocrit 33.6 % (42.0-52.0); Hemoglobin 10.3 g/dL (11.7-16.6); Lymphocytes # 1.3 10^3/uL (0.8-4.8); Mean Corpuscular HGB Conc 30.7 g/dL (30.0-36.0); Mean Corpuscular Hemoglobin 27.2 pg (28.0-34.0); Mean Corpuscular Volume 88.9 fL (80-94); Monocytes # 0.5 10^3/uL (0.2-0.9); Monocytes % 8.3 %; Neutrophils # 4.3 10^3/uL (1.8-7.7); Neutrophils % 67.4 %; Nucleated Red Blood Cells % 0 %; Platelet Count 174 10^3/cmm (130-400); Red Blood Count 3.78 10^6/uL (4.1-5.3); Red Cell Distribution Width 14.4 % (12.1-15.1); White Blood Count 6.4 10^3/uL (4.0-10.0)
[2019-09-01 12:41] LABS: Alanine Aminotransferase 15 U/L (0-41); Alkaline Phosphatase 90 IU/L (40-130); Anion Gap 14.3 (5-19); Aspartate Amino Transferase 16 U/L (0-40); Blood Urea Nitrogen 32 mg/dL (8-23); Calcium 11.3 mg/dL (8.5-10.5); Carbon Dioxide 33 mmol/L (22-29); Chloride 99 mmol/L (98-107); Globulin 2.8 g/dL (1.3-4.6); Glucose 122 mg/dL (65-115); Osmolality Calculated 293 mOsm/kg (285-295); Potassium 4.3 mmol/L (3.5-5.1); Sodium 142 mmol/L (136-145); Total Bilirubin 0.3 mg/dL (0.15-1.2); Total Protein 6.8 g/dL (6.6-8.7)
[2019-09-02] VITALS (14 sets, daily range): BP systolic 123–167; BP diastolic 58–84; PULSE 68–72; RESP 16–23; TEMP 36.4–37; O2SAT 84–100
--- NOTE | 2019-09-02 12:48 | ANES.PAUD2 ---
Pre-Anesthetic Update Pre-Anesthetic Assessment: Date of Surgery/Procedure: 09/02/19 Preop Diagnosis: Newly diagnosed bladder tumor (lateral) Proposed Procedure: Operation Date: 09/02/19 13:10 Proposed Procedures s Transurethral Resection Bladder Tumor 79328 C67.2(Not Applicable) - Jeffy Osborn MD p Cystoscopy 06648 C67.2(Not Applicable) - Jeffy Osborn MD Last Intake: Intake Last Liquid Date 09/02/19 Last Liquid Time 08:00 Last Solid Date 09/01/19 Last Solid Time 21:00 Labs Last 48hrs: Laboratory Results - last 48 hr 09/01/19 09/01/19 11:42 11:42 WBC 6.4 RBC 3.78 L Hgb 10.3 L Hct 33.6 L MCV 88.9 MCH 27.2 L MCHC 30.7 RDW 14.4 Plt Count 174 MPV 8.0 Neut % (Auto) 67.4 Lymph % (Auto) 20.0 [place] % (Auto) 8.3 Eos % (Auto) 3.1 Baso % (Auto) 0.6 Neut # (Auto) 4.3 Lymph # (Auto) 1.3 [place] # (Auto) 0.5 Eos # (Auto) 0.2 Baso # (Auto) 0.0 Nucleated RBC % (a uto) 0 Nucleated RBCs # 0.0 Sodium 142 Potassium 4.3 Chloride 99 Carbon Dioxide 33 H Anion Gap 14.3 BUN 32 H Creatinine 1.3 H Glucose 122 H Calculated Osmolal ity 293 Calcium 11.3 H Total Bilirubin 0.3 AST 16 ALT 15 Alkaline Phosphata se 90 Total Protein 6.8 Albumin 4.0 Globulin 2.8 Vitals: Temperature 98.6 F 09/02/19 12:30 Temperature Source Temporal Artery S can 09/02/19 12:30 Pulse Rate 71 09/02/19 12:30 Pulse Rhythm 09/02/19 12:33 Pulse Strength 3+ Normal 09/02/19 12:33 Respiratory Rate 22 H 09/02/19 12:30 Blood Pressure 123/58 09/02/19 12:30 Blood Pressure Jennifer n 79 09/02/19 12:30 Pulse Oximetry 98 09/02/19 12:30 Oxygen Delivery Me thod 09/02/19 12:33 Oxygen Flow Rate 4 09/02/19 12:33 Cardiac Studies: No Data to Display
[2019-09-02] MEDS: sodium chloride 0.9% 1,000 ML 30 ML IV ×2 (13:04→17:49)
--- NOTE | 2019-09-02 14:06 | W.PM.OPSUD ---
Surgery/Procedure H&P Update DATE OF PROCEDURE: September 02, 2019 DATE H&P PERFORMED: 08/24/19 H&P UPDATE INFORMATION: I have reviewed H&P completed within last 30 days, I have examined patient prior to procedure and No changes to prior documentation PREOP DIAGNOSIS: Newly diagnosed bladder tumor (lateral) PLANNED PROCEDURE: Operation Date: 09/02/19 13:10 Proposed Procedures s Transurethral Resection Bladder Tumor 04534 C67.2(Not Applicable) - Jeffy Osborn MD p Cystoscopy 22684 C67.2(Not Applicable) - Jeffy Osborn MD
--- NOTE | 2019-09-02 14:07 | PM.OP ---
Operative Report Date of procedure: September 02, 2019 Pre-op Diagnosis: Newly diagnosed bladder tumor (lateral) Post-op diagnosis: same Procedure Done: Cystoscopy, transurethral resection of bladder tumor large Pathology: Bladder tumor resection chips Surgeon: Anurag Anesthesia: General Estimated blood loss: <50 cc Urine output: Not measured Complications: None
--- NOTE | 2019-09-02 15:06 | SUR.PHASEI ---
SITE IDENTIFICATION SPECIALIST STATES NO BOBBY STRAP FOR CATHETER
--- NOTE | 2019-09-02 15:07 | PM.OP ---
Operative Report Date of procedure: September 02, 2019 Pre-op Diagnosis: Newly diagnosed bladder tumor (lateral) Post-op diagnosis: same Procedure Done: Cystoscopy, transurethral resection of bladder tumor medium Pathology: other Pathology: Draw String Knotter sample of bladder tumor and deep resection Surgeon: Anurag Anesthesia: General Estimated blood loss: Less than 50 cc Urine output: Not measured Complications: None Findings: Large wide-based nodular right lateral wall bladder tumor with extensive very friable. Partial resection completed primarily to obtain tissue and staging depth assessment. Due to the friable characteristics significant fulguration around the edges of the resection area was performed for hemostatic purposes. Patient's overall poor health due to multiple comorbidities felt to be a significant impediment to curative therapy options. Has had radiation therapy in the past for prostate cancer Condition: stable Disposition: PACU Brief History: Mr. Kraus is a very pleasant 79-year-old white male recently evaluated for hematuria and was found to have a large right lateral bladder wall mass suspicious for muscle invasive disease. Nodular component, deeply invasive characteristics, and friable. CT scan showed findings consistent with that but no evidence of obvious metastatic disease. Admitted now for TURBT for primarily diagnostic purposes and to assess the depth of penetration. He is status post previous radiation therapy for prostate cancer which apparently was effective. Has significant comorbidities including diminished pulmonary function and previously was told that he would not be a good candidate for back surgery due to significant comorbidities. We did review the option of simply holding on any further diagnostic or therapeutic approach due to the above variables but the patient and family carefully consider these options and wanted to have diagnostic information to help understand his choices. Procedure: After routine preoperative evaluation examination and obtaining of informed consent he was taken to the operating suite on 09/02/2019 where general anesthesia was administered without difficulty after appropriate timeout was performed, SCDs confirmed to be functioning, preoperative antibiotics administered, beta-magda protocol confirmed. Prepped and draped in the usual sterile fashion in dorsolithotomy position pain careful attention to avoiding pressure points. 21 [place] cystoscope with 30 degree lens introduced into urethral meatus and advanced to the bladder under videoscopy. Bladder was systematically examined. The above findings were identified consistent with what was seen in the clinic. This was a very aggressive appearing tumor involving almost all of the right lateral wall with nodular wide-based infiltrative appearance. Did not involve the right ureteral orifice. The urethra was calibrated with [place] sounds and easily accommodated 30 [place]. 25 [place] continuous flow resectoscope sheath with visual obturator in place was advanced into the well-lubricated urethra into the bladder without difficulty. The gyrus bipolar system with super loop was utilized for the resection that was performed. Hemostasis was obtained with button probe. The tumor was actively bleeding but not severely so. The nodular most invasive appearing area was deeply resected in the middle aspect of the tumor deep into the muscle wall. Even at that level hemostasis was not easily obtained. Adequate resection for what was felt to be diagnostic both as an tissue characteristic and depth of penetration was performed. The button probe was then utilized to fulgurate the deep resected areas and even with the button probe it with took us some work to have meticulous hemostasis. The friable edges around the resection site were also fulgurated for hemostatic purposes. The specimens were evacuated from the bladder with an Ell[place] evacuator. The area of resection and previous bleeding was carefully inspected and found to be hemostatic. The bladder was then drained with a 22 [place] three-way Douglas catheter with 20 cc placed in the balloon and efflux was clear. Low flow continuous bladder irrigation with normal saline was initiated prophylactically. He tolerated the procedure well without complications. He was extubated easily. Returned to recovery room in stable condition. PLANS: 1. Maintain Douglas catheter overnight with tapering off of CBI as capable. 2. Anticipate discharge from hospital tomorrow most likely with Douglas catheter in place for further healing 3. I have consulted Dr. Patel of the hospitalist service for assistance with medical management as needed given his multiple comorbidities. 4. Results discussed with family.
--- NOTE | 2019-09-02 15:10 | SUR.PHASEI ---
RN IN OR REPORTS NO BOBBY STRAP TO SECURE CATHETER
--- NOTE | 2019-09-02 15:48 | P.CONIM_ITS ---
Providers/Reason For Consult Consulting Physican/Specialty*: Gertrude Patel MD, Hospitalist Reason for Consult*: Medical management Requesting Physcian: Dr. Osborn Attending Physician: Jeffy Osborn MD Primary Care Provider: Bernice Acevedo MD History of Present Illness History of Present Illness Henrik Kraus is a 79 year old male with PMHx of Oxygen dependent COPD (3 L at rest, 5 L with exertion), Morbid obesity, HTN, Atrial fibrillation/flutter, s/p ablation (previously on AC with Eliquis), NIDDM type II complicated by peripheral neuropathy, PVD with recent critical RLE ischemia s/p balloon angioplasty, CKD stage 2, Multiple pulmonary nodules (stable per last imaging), Chronic intermittent normocytic anemia, ZEHRA (on CPAP qhs), Prostate cancer s/p radiation therapy, CAD s/p stenting, CABG, Chronic back pain; presents from home for scheduled cystoscopy and TURP for newly diagnosed R bladder wall mass. Patient is known to me from previous admission. Hospitalist consult is requested for medical management given patient's underlying multiple comorbidities. He is seen following procedure, sitting up in bed, no apparent distress, family at bedside, CBI started. VSS. Has some pain in his legs, otherwise comfortable. Reports having been off his blood thinners x 2 weeks. Review of Systems Const: Denies: fever or chills Eyes: Denies: change in vision ENMT: Reports: dry mouth Card: Denies: chest pain, swelling of feet/ankles or lightheadedness Resp: Denies: shortness of breath GI: Denies: abdominal pain, nausea, vomiting, vomiting blood or blood in stool : Reports: urinary frequency and blood in urine; Denies: painful urination Musc: Reports: extremity pain (bilateral lower extremities); Denies: back pain Skin/Breast: Denies: rash Neuro: Denies: numbness in extremities or weakness in extremities Psych: Denies: anxiety Meds/Allergies Home Medications and Allergies Home Medications Medication Instructions Recorded Confirmed Type albuterol sulfate 90 mcg/actuation 2 puff INHALATION Q6H PRN 06/20/19 09/02/19 History aerosol inhaler alfuzosin 10 mg tablet,extended 10 mg PO DAILY 06/20/19 09/02/19 History release 24 hr arformoterol 15 mcg/2 mL solution 2 ml INHALATION BID 06/20/19 09/02/19 History for nebulization atorvastatin 20 mg tablet 20 mg PO DAILY 06/20/19 09/02/19 History budesonide 0.5 mg/2 mL suspension 0.25 mg INHALATION BID 06/20/19 09/02/19 History for nebulization cholecalciferol (vitamin D3) 50 50 mcg PO DAILY 06/20/19 09/02/19 History mcg (2,000 unit) capsule finasteride 5 mg tablet 5 mg PO DAILY 06/20/19 09/02/19 History hydrocodone 7.5 mg-acetaminophen 1 tab PO Q6H PRN 06/20/19 09/02/19 History 325 mg tablet metformin 500 mg tablet 500 mg PO BID 06/20/19 09/02/19 History pantoprazole 40 mg PO DAILY #30 tab 07/09/19 09/02/19 Rx furosemide 40 mg tablet 40 mg PO BID tab 07/14/19 09/02/19 History calcium carbonate 500 mg calcium 500 mg PO BID 08/03/19 09/02/19 History (1,250 mg) capsule ferrous sulfate 325 mg (65 mg 325 mg PO BID 08/03/19 09/02/19 History iron) tablet magnesium oxide 400 mg PO BID 08/03/19 09/02/19 History vitamin B complex 1 tab PO DAILY 08/03/19 09/02/19 History Yupelri 175 mcg INHALATION DAILY 08/05/19 09/02/19 History acetylcysteine (bulk) 1,000 each MISCELLANEOUS BID gm 08/10/19 09/02/19 History Allergies Allergy/AdvReac Type Severity Reaction Status Date / Time adhesive tape Allergy ALGY-Rash Verified 09/01/19 11:30 perfume Allergy ALGY-Difficulty Verified 09/01/19 11:30 Breathing PFSH Acute PFSH: Medical History (Updated 09/02/19 @ 16:03 by Gertrude Patel MD) Afib 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 Atherosclerotic heart disease of [place] coronary artery without angina pectoris CHF (congestive heart failure) Chronic hypoxemic respiratory failure CKD (chronic kidney disease) COPD (chronic obstructive pulmonary disease) oxygen dependent, 3-5 L at baseline Diabetes Gross hematuria Hypercalcemia Hyperlipemia Hypoxemia 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 Stout on 08/08/19 for LLE PVD with balloon angioplasty Status post placement of cardiac pacemaker Family History Sister Diabetes Brother Diabetes CAD (coronary artery disease) Mother , AT AGE 81 Heart attack Father , AT AGE 82 Heart attack Social History Smoking and tobacco status: former smoker Quit status (tobacco): has quit using tobacco Year quit tobacco: 2008 Year 1.5 PPD Hx Alcohol intake: never Lives independently: Yes Household members: significant other Marital status: / Current occupational status: retired History of recent travel: No Current gender identity: Male Vitals/I&O/Wt Last Vital Signs Temp 98 F 09/02/19 15:15 Pulse 72 09/02/19 15:15 Resp 16 09/02/19 15:15 BP 144/72 09/02/19 15:15 Pulse Ox 97 09/02/19 15:15 09/02/19 09/02/19 09/02/19 06:59 14:59 22:59 Intake Total 0 / 0 Output Total 0 / 0 Balance 0 / 0 Weight last 48 hrs Weight 99.79 kg Physical Exam Const: COMMON NORMALS: no apparent distress and oriented x3 GENERAL APPEARANCE: cooperative and comfortable NUTRITIONAL APPEARANCE: obese ORIENTATION/CONSCIOUSNESS: Yes awake HENMT: COMMON NORMALS: normocephalic, head/scalp atraumatic, hearing grossly normal bilaterally and moist oral mucous membranes HEAD & SCALP: normocephalic and atraumatic Eye: COMMON NORMALS: PERRL, EOMs intact bilaterally and conjunctivae normal CONJUNCTIVA: Yes conjunctivae normal PUPIL: Yes PERRL Neck/C-Spine: COMMON NORMALS: full ROM GENERAL: Yes normal visual inspection and Yes trachea midline Resp: COMMON NORMALS: normal respiratory effort, no retractions and no use of accessory muscles EFFORT & INSPECTION: Yes able to speak in complete sentences, Yes symmetric chest movement, No tachypneic and Yes pursed lip breathing AUSCULTATION: diminished lung sounds bilateral OTHER: -on 4 L NC, saturating at 95% Cardio: COMMON NORMALS: regular rate, regular rhythm, S1 normal heart sound, S2 normal heart sound and no murmurs RATE: regular rate RHYTHM: regular rhythm HEART SOUNDS: S1 normal and S2 normal GI: COMMON NORMALS: normal to inspection, nondistended, normoactive bowel sounds, soft to palpation and non-tender INSPECTION: Yes central obesity PALPATION: Yes soft : BLADDER/KIDNEY EXAM: Yes catheter in place OTHER: -noted hematuria Extremity: COMMON NORMALS: normal to inspection, full ROM and no clubbing, cyanosis or edema; negative for no pedal edema Neuro: COMMON NORMALS: oriented x3, moves all extremities, no focal motor deficits and no sensory deficits noted Psych: COMMON NORMALS: mental status grossly normal, thought process normal, cooperative, affect normal and speech normal SPEECH: Yes normal speech THOUGHT PROCESS: normal thought process Skin: COMMON NORMALS: no rashes or lesions noted, no jaundice, no petechiae and no mottling GENERAL SKIN EXAM: no rashes or lesions noted Urinary Catheter Management^: 3-way Urethral CBI: Cath Placed During This Visit: yes Urethral Indwelling: Yes Reason for Continuing Indwelling Catheter: Other (s/p TURP) Urinary Catheter Date of Insertion: 09/02/19 Urinary Catheter Time of Insertion: 14:45 A&P Assessment and plan (1) Malignant neoplasm of lateral wall of bladder: -initially presented with hematuria, noted R bladder wall mass -s/p cystoscopy and TURP by Dr. Osborn today -has Douglas catheter in place, CBI, monitor output -EBL <50 mL -has had chronic normocytic anemia, baseline Hg 10-11; monitor H/H post-op -received dose of Levaquin periop -pain control, antiemetics as needed Status: Acute Code(s): C67.2 - Malignant neoplasm of lateral wall of bladder (2) COPD (chronic obstructive pulmonary disease): -has known oxygen-dependent COPD, 3-5 L NC requirement at baseline -has been following up with Dr. Rigoberto -monitor respiratory status, supplemental oxygen as needed, wean to baseline as tolerated -Neb treatments as needed -no evidence of exacerbation currently -had recent PFTs earlier this month, severely reduced DLCO, consistent with moderate airflow obstruction Status: Chronic Qualifiers: COPD type: unspecified COPD Qualified Code(s): J44.9 - Chronic obstructive pulmonary disease, unspecified Code(s): J44.9 - Chronic obstructive pulmonary disease, unspecified (3) Type 2 diabetes mellitus with diabetic polyneuropathy: -last A1c-6.3 -Acchecks, ISS -cardiac diabetic diet as tolerated Status: Chronic Qualifiers: Diabetes mellitus terminal supervisor insulin use: without terminal supervisor use Qualified Code(s): E11.42 - Type 2 diabetes mellitus with diabetic polyneuropathy Code(s): E11.42 - Type 2 diabetes mellitus with diabetic polyneuropathy (4) Peripheral arterial disease: -has known PVD with RLE critical limb ischemia in 07/2019 now s/p peripheral angiography with balloon angioplasty, done by Dr. Stout -resume statin -may need to hold Plavix, ASA due to recent procedure and hematuria Status: Chronic Code(s): I73.9 - Peripheral vascular disease, unspecified (5) ZEHRA (obstructive sleep apnea): -CPAP qhs Status: Acute Code(s): G47.33 - Obstructive sleep apnea (adult) (pediatric) Additional A&P Information -Former smoker -hx of ischemic cardiomyopathy, CAD s/p CABG; has pacemaker -Chronic diastolic CHF; Echo (06/2019): EF=61%, G2DD, no RWMA, mild-moderate MR, trace TR, mild biatrial enlargement; no exacerbation -HTN; monitor vital signs, continue antihypertensives -Hyperlipidemia; continue statin -Morbid obesity: BMI-35 kg/m2 -Chronic atrial fibrillation s/p ablation, previously on AC with Eliquis, now discontinued likely due to hematuria; telemetry monitoring -Chronic back pain -known hx of pulmonary nodules, stable per last imaging -PRAMOD on CKD stage 2; baseline Cr wnl; monitor renal function -GI ppx with PPI -DVT ppx with SCDs, no AC due to bleeding risk -Dispo: home -Code status: FULL code -Thank you for this consult, will continue to follow along with you. Consult Attestations Medical Necessity Statement: Henrik Kraus's hospital stay will be less than 2 midnights for management of newly diagnosed R bladder wall mass s/p TURP. Time Spent in Patient Care: Greater than 35 minutes (>than 50% of time spent in counselling and/or direct pt care on unit) . Coding Level of Care Code Acute Head Banquet Waiter/Waitress for Chg Fwd Exam Comprehensive Diagnoses Malignant neoplasm of lateral wall of bladder C67.2 COPD (chronic obstructive pulmonary disease) J44.9 COPD type: unspecified COPD Type 2 diabetes mellitus with diabetic polyneuropathy E11.42 Diabetes mellitus custodial insulin use: without custodial use Peripheral arterial disease I73.9 ZEHRA (obstructive sleep apnea) G47.33
[2019-09-02] MEDS: HYDROcodone-acetaminophen 7.5-325 mg Tablet 1 TAB PO ×2 (15:54→21:36)
[2019-09-02] MEDS: albuterol 8 gm MDI 2 PUFF INHALATION ×2 (16:03→20:01)
[2019-09-02 17:50] LABS: Glucose Point of Care 92 mg/dL (70-110)
--- NOTE | 2019-09-02 17:58 | PC.NURSE ---
[place] color is light pink with 1300ml out of [place]
[2019-09-02] MEDS: metformin 500 mg Tablet PO (18:23)
[2019-09-02] MEDS: magnesium oxide 400 mg tablet PO (18:23)
[2019-09-02] MEDS: FUROsemide 40 mg Tablet PO (18:23)
[2019-09-02] MEDS: budesonide 0.5 mg/2 mL Neb 0.25 MG INHALATION (20:01)
[2019-09-02 21:45] LABS: Glucose Point of Care 136 mg/dL (70-110)
[2019-09-03 00:20] VITALS: BP 126/60; PULSE 68; RESP 18; TEMP 36.8; O2SAT 96
[2019-09-03] MEDS: HYDROcodone-acetaminophen 7.5-325 mg Tablet 1 TAB PO ×2 (03:28→08:24)
[2019-09-03 04:00] VITALS: BP 99/50; PULSE 68; RESP 18; TEMP 37.1; O2SAT 91
--- NOTE | 2019-09-03 05:36 | PC.NURSE ---
CBI Pt. has had CBI running extremely slowly all shift. Only 250mL CBI fluid ran through tonight. Urine is light yellow to clear with occasional light pink tinge, though very little pink this AM. No clots out in catheter this shift. Patient has received two Hydrocodone for complaints of leg pain, no complaints of lower abdominal pain.
[2019-09-03 06:27] LABS: Basophils % 0.1 %; Eosinophils # 0.2 10^3/uL (0.0-0.8); Eosinophils % 2.7 %; Hematocrit 32.8 % (42.0-52.0); Hemoglobin 10.1 g/dL (11.7-16.6); Lymphocytes # 1.1 10^3/uL (0.8-4.8); Lymphocytes % 16.2 %; Mean Corpuscular HGB Conc 30.8 g/dL (30.0-36.0); Mean Corpuscular Hemoglobin 26.8 pg (28.0-34.0); Mean Platelet Volume 8.2 fL (7.4-10.4); Monocytes # 0.7 10^3/uL (0.2-0.9); Monocytes % 9.6 %; Neutrophils % 71.1 %; Nucleated Red Blood Cells % 0 %; Platelet Count 172 10^3/cmm (130-400); Red Blood Count 3.77 10^6/uL (4.1-5.3); Red Cell Distribution Width 14.1 % (12.1-15.1)
[2019-09-03 06:38] LABS: Glucose Point of Care 104 mg/dL (70-110)
[2019-09-03 06:43] LABS: Estmated Average Glucose 117; Hemoglobin A1C 5.7 % (4.0-6.0)
[2019-09-03 06:48] LABS: Anion Gap 10.5 (5-19); Blood Urea Nitrogen 24 mg/dL (8-23); Calcium 10.5 mg/dL (8.5-10.5); Carbon Dioxide 35 mmol/L (22-29); Chloride 99 mmol/L (98-107); Glucose 99 mg/dL (65-115); Osmolality Calculated 287 mOsm/kg (285-295); Potassium 4.5 mmol/L (3.5-5.1); Sodium 140 mmol/L (136-145)
[2019-09-03 07:22] VITALS: BP 151/71; PULSE 70; RESP 17; TEMP 37.2; O2SAT 93
[2019-09-03] MEDS: atorvastatin 40 mg Tablet 20 MG PO (08:18)
[2019-09-03] MEDS: finasteride 5 mg Tablet PO (08:18)
[2019-09-03] MEDS: metformin 500 mg Tablet PO (08:18)
[2019-09-03] MEDS: magnesium oxide 400 mg tablet PO (08:19)
[2019-09-03] MEDS: FUROsemide 40 mg Tablet PO (08:19)
[2019-09-03] MEDS: alfuzosin 10 mg ER Tablet PO (08:19)
--- NOTE | 2019-09-03 08:22 | P.PN_ITS ---
Subjective Subjective: Interval history: Patient seen and examined, with Dr. Osborn, required little CBI overnight, urine cleared. Will be going home with Douglas catheter. On 2 L NC and saturating at 92%, no apparent distress. Eager to go home. Medications: Reviewed: Yes Medication Review Details: Active Medications Generic Name Dose Route Start Last Admin Trade Name Freq PRN Reason Stop Dose Admin Hydrocodone Bitart /Acetaminophen 1 tab 09/02/19 15:39 09/03/19 03:28 [place] 7.5-325 Mg PO 1 tab Q6H PRN Administration Pain, Mild Albuterol Sulfate 2 puff 09/02/19 15:39 09/02/19 20:01 Ventolin INHALATION 2 puff Q6H PRN Administration shortness of david th Alfuzosin HCl 10 mg 09/03/19 09:00 09/03/19 08:19 Uroxatral PO 10 mg DAILY KRISTINA Administration Atorvastatin Calci um 20 mg 09/03/19 09:00 09/03/19 08:18 Lipitor PO 20 mg DAILY KRISTINA Administration Budesonide 0.25 mg 09/02/19 18:00 09/02/19 20:01 Pulmicort INHALATION 0.25 mg BID KRISTINA Administration Dextrose 25 ml 09/02/19 16:07 D50w IVP ONCE PRN hypoglycemia prot ocol Protocol Dextrose 50 ml 09/02/19 16:07 D50w IVP PRN PRN hypoglycemia prot ocol Protocol Finasteride 5 mg 09/03/19 09:00 09/03/19 08:18 Proscar PO 5 mg DAILY KRISTINA Administration Furosemide 40 mg 09/02/19 18:00 09/03/19 08:19 Lasix PO 40 mg BID KRISTINA Administration Glucagon 1 mg 09/02/19 16:07 Glucagen IM ONCE PRN Adult Acute Hypog lycemia Prot. Protocol Sodium Chloride 1,000 mls @ 30 ml s/hr 09/02/19 15:39 09/02/19 17:49 Sodium Chloride 0.9% IV 30 mls/hr .Q24H KRISTINA Administration Dextrose 500 mls @ 100 mls /hr 09/02/19 16:07 D5w IV ONCE PRN Adult Acute Hypog lycemia Prot Protocol Insulin Aspart 0 unit 09/02/19 18:00 09/03/19 07:44 Novolog SUBCUT Not Given WM&BEDTIME KRISTINA Protocol Magnesium Oxide 400 mg 09/02/19 18:00 09/03/19 08:19 Magox PO 400 mg BID KRISTINA Administration Metformin HCl 500 mg 09/02/19 18:00 09/03/19 08:18 Glucophage PO 500 mg BID KRISTINA Administration Non-Formulary Medi cation 1,000 each 09/02/19 18:00 09/03/19 08:21 Acetylcysteine ( Bulk) miscellaneous Not Given BID KRISTINA Non-Formulary Medi cation 2 ml 09/02/19 18:00 09/02/19 20:02 Arformoterol [Br ovana] INHALATION 2 ml BID KRISTINA Administration Non-Formulary Medi cation 175 mcg 09/03/19 09:00 Revefenacin [Yup elri] INHALATION DAILY [facility] Pantoprazole Sodiu m 40 mg 09/03/19 09:00 Protonix PO DAILY [facility] adhesive tape Allergy (Verified 09/01/19 11:30) ALGY-Rash perfume Allergy (Verified 09/01/19 11:30) ALGY-Difficulty Breathing Vitals/I&O/Wt Last Vital Signs Temp 99.0 F 09/03/19 07:22 Pulse 70 09/03/19 07:22 Resp 17 09/03/19 07:22 BP 151/71 09/03/19 07:22 Pulse Ox 93 09/03/19 07:22 09/02/19 09/03/19 09/03/19 22:59 06:59 14:59 Intake Total 480 / 480 370 / 850 Output Total 1300 / 1300 2550 / 3850 Balance -820 / -820 -2180 / -3000 Weight last 48 hrs Weight 99.79 kg Physical Exam Const: COMMON NORMALS: no apparent distress and oriented x3 GENERAL APPEARANCE: cooperative and comfortable NUTRITIONAL APPEARANCE: obese OR IENTATION/CONSCIOUSNESS: Yes awake HENMT: COMMON NORMALS: normocephalic, head/scalp atraumatic, hearing grossly normal bilaterally and moist oral mucous membranes HEAD & SCALP: normoc ephalic and atraumatic Eye: COMMON NORMALS: PERRL, EOMs intact bilaterally and conjunctivae normal CONJUNCTIVA: Yes conjunctivae normal PUPIL: Yes PERRL Neck/C-Spine: COMMON NORMALS: full ROM GENERAL: Yes normal visual inspection and Yes trachea midline Resp: COMMON NORMALS: normal respiratory effort, no retractions and no use of accessory muscles EFFORT & INSPECTION: Yes able to speak in complete sentences, Yes symmetric chest movement, No tachypneic and Yes pursed lip breathing AUSCULTATION: diminished lung sounds bilateral OTHER: -on 2 L NC, saturating at 92% Cardio: COMMON NORMALS: regular rate, regular rhythm, S1 normal heart sound, S2 normal heart sound and no murmurs RATE: regular rate RHYTHM: regular rhythm HEART SOUNDS: S1 normal and S2 normal GI: COMMON NORMALS: normal to inspection, nondistended, normoactive bowel sounds, soft to palpation and non-tender INSPECTION: Yes central obesity PALPATION: Yes soft : BLADDER/KIDNEY EXAM: Yes catheter in place OTHER: -urine with no noted hematuria/clots Extremity: COMMON NORMALS: normal to inspection, full ROM and no clubbing, cyanosis or edema; negative for no pedal edema Neuro: COMMON NORMALS: oriented x3, moves all extremities, no focal motor deficits and no sensory deficits noted Psych: COMMON NORMALS: mental status grossly normal, thought process normal, cooperative, affect normal and speech normal SPEECH: Yes normal speech THOUGHT PROCESS: normal thought process Skin: COMMON NORMALS: no rashes or lesions noted, no jaundice, no petechiae and no mottling GENERAL SKIN EXAM: no rashes or lesions noted Urinary Catheter Management^: 3-way Urethral CBI: Cath Placed During This Visit: yes Urethral Indwelling: Yes Reason for Continuing Indwelling Catheter: Perioperative Use in Selected Surgeries Urinary Catheter Date of Insertion: 09/02/19 Urinary Catheter Time of Insertion: 14:45 Data : 09/03/19 05:19 09/03/19 05:19 A&P Assessment and plan (1) Malignant neoplasm of lateral wall of bladder: -initially presented with hematuria, noted R bladder wall mass -s/p cystoscopy and TURP by Dr. Osborn; POD # 1 -has Douglas catheter in place, CBI, monitor output; will be discharged with Douglas catheter in place. Follow up with Dr. Osborn on 09/07/19 -EBL <50 mL -has had chronic normocytic anemia, baseline Hg 10-11; H/H post-op stable -received dose of Levaquin periop -pain control, antiemetics as needed Status: Acute Code(s): C67.2 - Malignant neoplasm of lateral wall of bladder (2) COPD (chronic obstructive pulmonary disease): -has known oxygen-dependent COPD, 3-5 L NC requirement at baseline -has been following up with Dr. Franklin -monitor respiratory status, supplemental oxygen as needed, wean to baseline as tolerated -Neb treatments as needed -no evidence of exacerbation currently -had recent PFTs earlier this month, severely reduced DLCO, consistent with moderate airflow obstruction Status: Chronic Qualifiers: COPD type: unspecified COPD Qualified Code(s): J44.9 - Chronic obstructive pulmonary disease, unspecified Code(s): J44.9 - Chronic obstructive pulmonary disease, unspecified (3) Type 2 diabetes mellitus with diabetic polyneuropathy: -last A1c-6.3 -Acchecks, ISS -cardiac diabetic diet as tolerated Status: Chronic Qualifiers: Diabetes mellitus chcf insulin use: without continuous churn buttermaker use Qualified Code(s): E11.42 - Type 2 diabetes mellitus with diabetic polyneuropathy Code(s): E11.42 - Type 2 diabetes mellitus with diabetic polyneuropathy (4) Peripheral arterial disease: -has known PVD with RLE critical limb ischemia in 07/2019 now s/p peripheral angiography with balloon angioplasty, done by Dr. Stout -resume statin -may need to hold Plavix, ASA due to recent procedure and hematuria Status: Chronic Code(s): I73.9 - Peripheral vascular disease, unspecified (5) ZEHRA (obstructive sleep apnea): -CPAP qhs Status: Acute Code(s): G47.33 - Obstructive sleep apnea (adult) (pediatric) Additional A&P Information -Former smoker -hx of ischemic cardiomyopathy, CAD s/p CABG; has pacemaker -Chronic diastolic CHF; Echo (06/2019): EF=61%, G2DD, no RWMA, mild-moderate MR, trace TR, mild biatrial enlargement; no exacerbation -HTN; monitor vital signs, continue antihypertensives -Hyperlipidemia; continue statin -Morbid obesity: BMI-35 kg/m2 -Chronic atrial fibrillation s/p ablation, previously on AC with Eliquis, now discontinued likely due to hematuria; telemetry monitoring -Chronic back pain -known hx of pulmonary nodules, stable per last imaging -PRAMOD on CKD stage 2; baseline Cr wnl; stable renal function -GI ppx with PPI -DVT ppx with SCDs, no AC due to bleeding risk -Dispo: home -Code status: FULL code Attestations Medical Necessity Statement*: Discharge home today. Time Spent in Patient Care: 16 - 35 minutes (>than 50% of time spent in counselling and/or direct pt care on unit) . Coding Level of Care Code Acute Mobile Application Development Lead for Chg Fwd Diagnoses Malignant neoplasm of lateral wall of bladder C67.2 COPD (chronic obstructive pulmonary disease) J44.9 COPD type: unspecified COPD Type 2 diabetes mellitus with diabetic polyneuropathy E11.42 Diabetes mellitus chcf insulin use: without continuous churn buttermaker use Peripheral arterial disease I73.9 ZEHRA (obstructive sleep apnea) G47.33
--- NOTE | 2019-09-03 08:45 | P.DS_ITS ---
Discharge Providers Date of Admission: 09/02/19 15:09 Date of Discharge: September 03, 2019 Attending Provider at Admission: Jeffy Osborn MD Attending Provider at Discharge: Jeffy Osborn MD Consults: Dr. Patel Primary Care Provider: Bernice Acevedo MD Diagnoses at Discharge Discharge Diagnosis (1) Malignant neoplasm of lateral wall of bladder: Status: Acute Problem details: Clinically consistent with muscle invasive disease and cystoscopic exam. TURBT on 09/02/2019. 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 The resection was not complete due to the extensive nature of the disease, its friable characteristics putting him at increased risk for significant bleeding, and the certainty on examination that this could not be cured with transurethral section alone. Postoperatively his course was unremarkable. He was maintained on light CBI which was weaned off on hospital day #1 and by postoperative day #1 his status was adequate for continued convalescence at home. Due to the depth of resection it was decided to maintain Douglas catheter in place for further healing prior to removal. Was discharged with Douglas catheter in place. Leg and night bag provided with instructions. Plan for return to clinic on 09/07/2019 for path check, voiding trial, SCIC instruction for as needed usage. Physical Exam Const: COMMON NORMALS: no apparent distress and alert Resp: COMMON NORMALS: no retractions OTHER: O2 per nasal cannula Neuro: SENSORIUM/ORIENTATION: Yes alert Psych: COMMON NORMALS: mental status grossly normal, thought process normal and cooperative ATTITUDE: Yes calm and Yes engaged THOUGHT PROCESS: normal thought process Urinary Catheter Management^: 3-way Urethral CBI: Cath Placed During This Visit: yes Urethral Indwelling: Yes Reason for Continuing Indwelling Catheter: Perioperative Use in Selected Surgeries Urinary Catheter Date of Insertion: 09/02/19 Urinary Catheter Time of Insertion: 14:45 Discharge Data Data Completed and Pending: Pending at discharge Category Date Time Status Pathology: Surgic al [PTH] Routine Pth 09/02/19 15:06 Ordered Labs from last 24 hours 09/03/19 09/03/19 09/03/19 06:33 05:19 05:19 WBC RBC Hgb Hct MCV MCH MCHC RDW Plt Count MPV Neut % (Auto) Lymph % (Auto) [place] % (Auto) Eos % (Auto) Baso % (Auto) Neut # (Auto) Lymph # (Auto) [place] # (Auto) Eos # (Auto) Baso # (Auto) Nucleated RBC % (a uto) Nucleated RBCs # Sodium 140 Potassium 4.5 Chloride 99 Carbon Dioxide 35 H Anion Gap 10.5 BUN 24 H Creatinine 1.4 H Glucose 99 POC Glucose 104 Estimat Average Gl ucose 117 Hemoglobin A1c 5.7 Calculated Osmolal ity 287 Calcium 10.5 09/03/19 09/02/19 09/02/19 05:19 21:32 17:41 WBC 7.0 RBC 3.77 L Hgb 10.1 L Hct 32.8 L MCV 87.0 MCH 26.8 L MCHC 30.8 RDW 14.1 Plt Count 172 MPV 8.2 Neut % (Auto) 71.1 Lymph % (Auto) 16.2 [place] % (Auto) 9.6 Eos % (Auto) 2.7 Baso % (Auto) 0.1 Neut # (Auto) 5.0 Lymph # (Auto) 1.1 [place] # (Auto) 0.7 Eos # (Auto) 0.2 Baso # (Auto) 0.0 Nucleated RBC % (a uto) 0 Nucleated RBCs # 0.0 Sodium Potassium Chloride Carbon Dioxide Anion Gap BUN Creatinine Glucose POC Glucose 136 92 Estimat Average Gl ucose Hemoglobin A1c Calculated Osmolal ity Calcium Vitals: Last Vital Signs Temp 99.0 F 09/03/19 07:22 Pulse 70 09/03/19 07:22 Resp 17 09/03/19 07:22 BP 151/71 09/03/19 07:22 Pulse Ox 93 09/03/19 07:22 Discharge Plan Discharge Patient Disposition: Home, Self-Care Condition: Stable Prescriptions: Continued albuterol sulfate [ProAir HFA] 90 mcg/actuation HFA aerosol inhaler 2 puff INHALATION Q6H PRN (Reason: shortness of breath) RF: 0 hydrocodone-acetaminophen [[place]] 7.5-325 mg tablet 1 tab PO Q6H PRN (Reason: Pain, Mild) RF: 0 metformin 500 mg tablet 500 mg PO BID RF: 0 Brovana 15 mcg/2 mL solution for nebulization 2 ml INHALATION BID RF: 0 budesonide [Pulmicort] 0.5 mg/2 mL suspension for nebulization 0.25 mg INHALATION BID RF: 0 alfuzosin 10 mg tablet extended release 24 hr 10 mg PO DAILY RF: 0 finasteride [Proscar] 5 mg tablet 5 mg PO DAILY RF: 0 atorvastatin 20 mg tablet 20 mg PO DAILY RF: 0 cholecalciferol (vitamin D3) [Vitamin D3] 50 mcg (2,000 unit) capsule 50 mcg PO DAILY RF: 0 furosemide 40 mg tablet 40 mg PO BID RF: 0 magnesium oxide 400 mg magnesium tablet 400 mg PO BID RF: 0 calcium carbonate 500 mg calcium (1,250 mg) capsule 500 mg PO BID RF: 0 ferrous sulfate 325 mg (65 mg iron) tablet 325 mg PO BID RF: 0 vitamin B complex [B Complex-Vitamin B12] Tablet 1 tab PO DAILY RF: 0 lidocaine HCl 2 % jelly 1 applic INTRA-URET ONCE Qty: 1 RF: 0 acetylcysteine (bulk) Powder 1,000 each miscellaneous BID RF: 0 pantoprazole 40 mg Tablet,Delayed Release (Dr/Ec) 40 mg PO DAILY Qty: 30 RF: 3 Yupelri 175 mcg/3 mL Solution For Nebulization 175 mcg INHALATION DAILY RF: 0 Discharge Orders: Discharge Order (Routine); Ordered 09/03/19 Ordered By: Jeffy Osborn Referrals: Jeffy Osborn MD [Physician] - 09/07/19 (PLEASE CALL THURSDAY TO SET UP A FOLLOW UP APPOINTMENT FOR A VOIDING TRIAL, SELF CATH TRAINING, AND PATHOLOGY CHECK.) Discharge Diet: Usual diet Discharge Activity: Limit activity as instructed Activity Restrictions/Additional Instructions: No lifting over 10 lbs. Thursday appt to be arranged for cath removal, pathology check and self cath training. 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
[2019-09-03] MEDS: pantoprazole DR 40 mg Tablet PO (08:56)
[2019-09-03] MEDS: REVEFENACIN 175 MCG 175 EACH INHALATION (08:57)
[2019-09-03] MEDS: albuterol 8 gm MDI 2 PUFF INHALATION (08:57)
[2019-09-03] MEDS: budesonide 0.5 mg/2 mL Neb 0.25 MG INHALATION (08:57)
[2019-09-03 08:58] VITALS: PULSE 70; RESP 17; O2SAT 92
[2019-09-03 09:04] VITALS: PULSE 72
--- NOTE | 2019-09-03 09:21 | PC.NURSE ---
EDUCATION EDUCATED PT TO CARE OF CHANG, EMPTYING CHANG AND CHANGING INTO LEG BAG - VERBALIZED UNDERSTANDING
[2019-09-03 10:10] VITALS: PULSE 72
== END 2019-09-03 10:27 | disposition home or self-care (01) ==
LOC: MEDSURG 15:09
PROVIDERS: Family Medicine; Admitting Provider Urology; Family Provider Family Medicine; PCP Family Medicine; Visit Provider Urology
PROC: 0TBB8ZZ Excision of Bladder, Via Natural or Artificial Opening Endoscopic (ICD-10-PCS; CPT 52235; principal; 2019-09-02 13:10)
PROC: 0TJB8ZZ Inspection of Bladder, Via Natural or Artificial Opening Endoscopic (ICD-10-PCS; CPT 52000; 2019-09-02 13:10)
DX: C67.2 Malignant neoplasm of lateral wall of bladder (principal); J44.9 Chronic obstructive pulmonary disease, unspecified; Z99.81 Dependence on supplemental oxygen; I73.9 Peripheral vascular disease, unspecified; E11.42 Type 2 diabetes mellitus with diabetic polyneuropathy; G47.33 Obstructive sleep apnea (adult) (pediatric); Z79.84 Long term (current) use of oral hypoglycemic drugs; Z87.891 Personal history of nicotine dependence; Z95.1 Presence of aortocoronary bypass graft; Z95.0 Presence of cardiac pacemaker; I13.0 Hypertensive heart and chronic kidney disease with heart failure and stage 1 through stage 4 chronic kidney disease, or unspecified chronic kidney disease; I50.42 Chronic combined systolic (congestive) and diastolic (congestive) heart failure; N18.2 Chronic kidney disease, stage 2 (mild); E11.22 Type 2 diabetes mellitus with diabetic chronic kidney disease; E78.5 Hyperlipidemia, unspecified; E66.01 Morbid (severe) obesity due to excess calories; Z68.35 Body mass index [BMI] 35.0-35.9, adult; I48.20 Chronic atrial fibrillation, unspecified
CPT/HCPCS: 52235; 12345; 36415; 36416; 80048; 80053; 82962; 83036; 85025; 88305; 93005; 93010; 94640; G0378; J1100; J2001; J2405; J2704; J2710; J3010; J3490; J3535; J7030; J7626

== ENCOUNTER 2019-09-19 08:24 | Outpatient (CLI) | payer MEDICARE, SELFPAY ==
--- NOTE | 2019-09-19 10:27 | ONC CON_ITS ---
Dr. Mann New Patient Note Patient: Henrik Kraus Unit #: [id number]: [id number] Dicatated By: Robert Mann M.D.Date of Visit: Sep 19, 2019 Onc MED New Patient/Consult Referring Physician: Dr. Jeffy Osborn M.D. History of Present Illness: Mr. 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 Follow-up with urology, confirmed no recurrence. But about 4 years ago noted hematuria, underwent cystoscopy, as per patient, he was found to have enlarged prostate and was given prostrate medicine probably finasteride. Patient continued to have hematuria off and on, and but recently more often since he was started on anticoagulation with Eliquis and Plavix due to peripheral vascular stent placement. And on 09/02/2019, he underwent cystoscopy which showed right lateral bladder wall tumor, underwent partial TURBT and pathology confirmed papillary urothelial carcinoma, high-grade. Invasion to lamina propria and muscularis propria. Patient was evaluated by Dr. Osborn, as per his note, due to patient's comorbid conditions including severe COPD, patient is on home oxygen. And atherosclerotic coronary vascular disease, hypertension, diabetes mellitus, peripheral vascular disease, patient was not a candidate for cystectomy and as patient has already received radiation therapy to pelvic for prostrate cancer, not a candidate for further radiation therapy. Now being evaluated for palliative systemic therapy. Patient denies any specific complaints, except chronic constipation, and generalized weakness and fatigue. Otherwise No fever or chills, no nausea or vomiting, no recent hematuria. Use urinary catheter on as-needed basis per obstruction. Also has peripheral neuropathy involving lower extremities. Past Medical History: Mr. Kraus'marylou medical history consists of arthritis, chronic kidney disease, chronic obstructive pulmonary disease, congestive heart failure, coronary vascular disease, hypercholesterolemia, hypertension, obstructive sleep apnea, peripheral vascular disease, stroke, and type II diabetes. Past Surgical History: Mr. Vela surgical/procedural history consists of appendectomy, back surgery, bilateral total knee replacement, carotid endarterectomy, coronary artery bypass, pacemaker placement, peripheral artery angioplasty, repair of detached retina, rotator cuff repair, and TURBT. Medications: Albuterol Sulfate (sensor) 2 Puff(s) (of 108 (90 base) mcg/act) Aerosol Powder, Breath Activated Inhalation PRN, Albuterol Sulfate (sensor) 1 (108 (90 base) mcg/act) Aerosol Powder, Breath Activated Inhalation daily, Alfuzosin HCl ER 1 Tablet (of 10 mg) Tablet SR 24 HR Oral daily, Atorvastatin Calcium 1 Tablet (of 20 mg) Oral daily, Azithromycin 1 Tablet (of 250 mg) Oral on Every Other Day, B-12 1 Tablet (of 50 mcg) Oral daily, Brovana 1 Inhalation (of 15 mcg/2mL) Nebulization solution Inhalation b.i.d., Budesonide 1 Inhalation (of 0.5 mg/2mL) Suspension Inhalation b.i.d., Calcium 1 Capsule (of 500 mg) Oral b.i.d., Docusate Calcium 1 Capsule (of 240 mg) Oral daily, DULoxetine HCl 1 Capsule (of 60 mg) Capsule Delayed Release Particles Oral b.i.d., Eliquis 0.5 Tablet (of 5 mg) Oral on Every Other Day, Finasteride 1 Tablet (of 5 mg) Oral daily, HYDROcodone-Acetaminophen 1 Tablet (of 7.5-325 mg) Oral t.i.d., Magnesium 1 Capsule (of 400 mg) Oral daily, metFORMIN HCl 1 Tablet (of 500 mg) Oral b.i.d., NAC 2 Capsule (of 500 mg) Oral b.i.d., Pantoprazole Sodium 1 Tablet (of 40 mg) Tablet, enteric coated Oral daily, Revefenacin 1 (175 mcg/3mL) Solution Inhalation daily, Vitamin D3 1 Tablet (of 2000 Units) Oral daily Allergies: No Known Allergies. Social History: Mr. Kraus is single and he is retired. Mr. Kraus quit smoking 10 years ago but had smoked for 30 years. He has no history of drinking. Mr. Kraus reports the following support systems: lives with spouse, significant other, family, or friends, lives in own house, supportive family/friends willing to assist with needs, and adequate transportation available for expected visits. His diet consists of regular meals. He indicates his activity level as: light exercise. Family History: Mr. Kraus's mother at age 81: myocardial infarction. Mr. Kraus's father at age 82: myocardial infarction. Mr. Kraus's maternal grandmother is : cancer of unknown primary. His maternal grandfather is : cancer of unknown primary. Review Of Symptoms: Constitutional - Appetite is diminished and weight is stable. No fever, chills, hot flashes, or night sweats. Energy level is poor, ENMT - No sinus congestion/drainage. No mouth sores. No sore throat or difficulty swallowing, Hematologic/Lymphatic - Positive for easy bruising and bleeding, Respiratory - Positive for shortness of breath and cough. No pleuritic pain or hemoptysis, Cardiovascular - No angina pain. No palpitations, Gastrointestinal - No nausea or vomiting. No heartburn or acid reflux. No diarrhea. Positive for constipation. Positive for dark stools (Pt is on iron supplements), Genitourinary (M) - No dysuria or hematuria. Positive for urinary frequency. No urgency or incontinence, Musculoskeletal - Positive for joint pain, Neurologic - No headache or dizziness. Positive for numbness and tingling in hands and feet, Psychiatric - No anxiety or depression. No insomnia. Vital Signs: Performed on Sep 19, 2019 08:30: 3, 33.92 (HIGH), 2.09 sq.m, 67.00 in, 94 % (LOW), 70 /min, 24 /min, 140/57 mm(hg), 97.8 F (LOW), and 216.6 lbs (HIGH). Performance Status: 2 - Ambulatory/capable of all self-care, unable to perform any work activities. Up and about more than 50% of waking hours. (ECOG) Physical Examination: ENMT - No oral exudates, ulcers, masses, thrush or mucositis. Oropharynx clear. Tongue normal, Respiratory - Lungs are clear to auscultation without rhonchi or wheezing, Cardiovascular - Regular rate and rhythm of heart, Abdomen - Non-tender, non-distended, Good bowel sounds. No guarding or rebound tenderness. No pulsatile masses, Extremities - 1+ edema bilaterally. Lab/Imaging: Most recent lab results are not available for this patient. 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 History of low risk prostrate cancer e.g. small volume, Ted score 3+2, PSA 3.1, diagnosed in 2002 status post radiation therapy Severe COPD, on home oxygen Peripheral neuropathy involving lower extremities Peripheral vascular disease status post peripheral vascular stent placement , On anticoagulation with Eliquis/Plavix Plan: Discussed with patient regarding his disease status and treatment options. Considering patient's age, comorbid conditions and associated complications, as per urology note, patient is not a candidate for surgical option and patient has received pelvic radiation therapy for prostrate cancer in 2002, may not be a candidate for radiation therapy. As far as systemic therapy is concern, considering his comorbid condition and risk versus benefits, he is not a candidate for chemotherapy and moreover patient is not interested in chemotherapy but may consider immunotherapy. In that case we will consider trial with immunotherapy and goal is to improve quality of life, minimize risk of hematuria/clots thus urinary obstruction. We will consider pembrolizumab 200 mg every 3 weeks. All the side effects possible benefits associated with pembrolizumab including but not limited to risk of pneumonitis, colitis, endocrinopathy, skin rash, generalized weakness and fatigue, mentioned further teaching will be done by chemotherapy nurse. We will also consider next generation sequencing to find targetable tumor expression for target therapy Patient will return to clinic 1 week after initiation of immunotherapy with CBC CMP and TSH Signed By: Robert Mann M.D. <<Signature on File>>
== END 2019-09-19 08:25 | disposition home or self-care (01) ==
LOC: ONCMED 08:24
PROVIDERS: Family Provider Family Medicine; PCP Family Medicine; Referring Provider Urology; Visit Provider Internal Medicine Hematology & Oncology
DX: C67.2 Malignant neoplasm of lateral wall of bladder (principal); J44.9 Chronic obstructive pulmonary disease, unspecified; M19.90 Unspecified osteoarthritis, unspecified site; N18.9 Chronic kidney disease, unspecified; I50.9 Heart failure, unspecified; I25.10 Atherosclerotic heart disease of native coronary artery without angina pectoris; E78.00 Pure hypercholesterolemia, unspecified; I13.0 Hypertensive heart and chronic kidney disease with heart failure and stage 1 through stage 4 chronic kidney disease, or unspecified chronic kidney disease; G47.33 Obstructive sleep apnea (adult) (pediatric); Z86.73 Personal history of transient ischemic attack (TIA), and cerebral infarction without residual deficits; E11.42 Type 2 diabetes mellitus with diabetic polyneuropathy; E11.51 Type 2 diabetes mellitus with diabetic peripheral angiopathy without gangrene; E11.22 Type 2 diabetes mellitus with diabetic chronic kidney disease; Z99.81 Dependence on supplemental oxygen; Z79.01 Long term (current) use of anticoagulants; Z79.02 Long term (current) use of antithrombotics/antiplatelets; Z79.51 Long term (current) use of inhaled steroids; Z79.891 Long term (current) use of opiate analgesic; Z79.899 Other long term (current) drug therapy; Z87.891 Personal history of nicotine dependence; Z85.46 Personal history of malignant neoplasm of prostate; Z92.3 Personal history of irradiation; Z95.828 Presence of other vascular implants and grafts; Z96.653 Presence of artificial knee joint, bilateral; Z95.1 Presence of aortocoronary bypass graft; Z95.0 Presence of cardiac pacemaker; Z98.62 Peripheral vascular angioplasty status
CPT/HCPCS: 99205

== ENCOUNTER 2019-09-25 22:57 | Emergency (ER) | payer OTHER, SELFPAY ==
[2019-09-25 23:01] VITALS: BP 138/44; PULSE 89; RESP 20; TEMP 36.7; O2SAT 94; BMI 32.8
--- NOTE | 2019-09-25 23:15 | ED_ITS ---
HPI - Male Genitourinary General: Chief complaint: Urogenital-Male Stated complaint: unable to pee Time Seen by Provider: 09/25/19 23:11 History of Present Illness: HPI Narrative: Patient with history of bladder cancer recently seen by Dr. Osborn. Patient been placed on self cath. Patient tried 610 times a night to try to cath himself and just kept getting blood back and no urine coming out he said his bladder feels full and desires relief. Complaint: other (Bladder distention) Onset (ago): hour(s) Duration: constant and progressively worsening Severity: moderate Severity scale (1-10): 5 Quality: aching Relieving factors: none Associated symptoms: Reports hematuria; Deny nausea or vomiting Review of Systems Const: Denies: fever, chills or body aches Eyes: Denies: change in vision or blurry vision ENMT: Denies: throat pain or nasal congestion Card: Denies: chest pain or shortness of breath on exertion Resp: Denies: shortness of breath, productive cough or non-productive cough GI: Denies: abdominal pain, nausea or vomiting : Reports: difficulty urinating (Unable to self cath and drain bladder due to blood clots), decreased urine ouput and blood in urine Musc: Denies: extremity pain Skin/Breast: Denies: rash Neuro: Denies: headache Psych: Denies: anxiety or depression Oj/Lymph: Denies: easy bruising PFSH ED PFSH: Social History Smoking and tobacco status: former smoker Quit status (tobacco): has quit using tobacco Year quit tobacco: 2008 Year 1.5 PPD Hx Alcohol intake: never Lives independently: Yes Household members: significant other Marital status: / Current occupational status: retired History of recent travel: No Current gender identity: Male Physical Exam Const: COMMON NORMALS: no apparent distress, average body habitus and oriented x3 HENMT: COMMON NORMALS: normocephalic HEAD & SCALP: normal to inspection and normocephalic FACE & SINUS: normal facial exam Eye: COMMON NORMALS: conjunctivae normal GENERAL EYE: normal appearance of both eyes CONJUNCTIVA: Yes conjunctivae normal Neck/C-Spine: COMMON NORMALS: no JVD Chest: COMMONS NORMALS: inspection of chest normal Resp: COMMON NORMALS: normal respiratory effort and clear to auscultation bilaterally AUSCULTATION: clear to auscultation bilaterally Cardio: COMMON NORMALS: no JVD, regular rate and regular rhythm RATE: regular rate RHYTHM: regular rhythm GI: COMMON NORMALS: normal to inspection, nondistended, normoactive bowel sounds AUSCULTATION: Yes normoactive bowel sounds OTHER: Tenderness bladder area distention Extremity: COMMON NORMALS: normal to inspection and full ROM Neuro: COMMON NORMALS: oriented x3 Course Vital Signs: Vital signs: Vital Signs Temperature 98.0 F 09/25/19 23:01 Pulse Rate 91 09/26/19 01:33 Respiratory Rate 18 09/26/19 01:33 Blood Pressure 92/52 09/26/19 01:33 Pulse Oximetry 98 09/26/19 01:33 MDM - Male MDM Narrative: Medical decision making narrative: On 3 different kinds size catheters were attempted in the left and #22 CBI and hand irrigation was per formed and Return clots and Clotting off. Spoke with the urologist up at [facility] and said that he would accept the patient on consult who probably have to go to surgery to get the bleeding stopped. Spoke with hospitalist they agreed to accept patient with consult urology patient will be transferred as a life- threatening cause of the bleeding and urinary retention to [facility] by ground ambulance. Lab Data: Labs: Lab Results 09/25/19 09/26/19 09/26/19 Range/Units 23:28 00:53 00:53 WBC 7.3 (4.0-10.0) 10^3/ uL RBC 3.83 L (4.1-5.3) 10^6/u L Hgb 10.0 L (11.7-16.6) g/dL Hct 33.1 L (42.0-52.0) % MCV 86.4 (80-94) fL MCH 26.1 L (28.0-34.0) pg MCHC 30.2 (30.0-36.0) g/dL RDW 14.0 (12.1-15.1) % Plt Count 192 (130-400) 10^3/c mm MPV 8.1 (7.4-10.4) fL Neut % (Auto) 67.3 % Lymph % (Auto) 20.6 % [place] % (Auto) 8.2 % Eos % (Auto) 3.0 % Baso % (Auto) 0.4 % Neut # (Auto) 4.9 (1.8-7.7) 10^3/u L Lymph # (Auto) 1.5 (0.8-4.8) 10^3/u L [place] # (Auto) 0.6 (0.2-0.9) 10^3/u L Eos # (Auto) 0.2 (0.0-0.8) 10^3/u L Baso # (Auto) 0.0 (0.0-0.1) 10^3/u L Nucleated RBC % (a uto) 0 % Nucleated RBCs # 0.0 /100WBC PT 14.10 H (10.5-13.3) SECO NDS INR 1.08 (0.8-1.2) APTT 31.0 (23.9-36.7) SECO NDS Sodium (136-145) mmol/L Potassium (3.5-5.1) mmol/L Chloride (98-107) mmol/L Carbon Dioxide (22-29) mmol/L Anion Gap (5-19) BUN (8-23) mg/dL Creatinine (0.7-1.2) mg/dL Glucose (65-115) mg/dL Calculated Osmolal ity (285-295) mOsm/k g Calcium (8.5-10.5) mg/dL Total Bilirubin (0.15-1.2) mg/dL AST (0-40) U/L ALT (0-41) U/L Alkaline Phosphata se (40-130) IU/L Total Protein (6.6-8.7) g/dL Albumin (3.5-5.2) g/dL Globulin (1.3-4.6) g/dL Urine Color Red (Yellow) Urine Appearance Cloudy (CLEAR) Urine pH 8 H (5-7) Ur Specific Gravit y 1.015 (1.005-1.030) Urine Protein 3+ H (Negative) Urine Glucose (UA) Norm (Normal) Urine Ketones Negative (Negative) Urine Blood 3+ H (Negative) Urine Nitrate Negative (Negative) Urine Bilirubin Neg (NEGATIVE) Urine Urobilinogen Norm (Negative) mg/dL Ur Leukocyte Sunitha ase Negative (Negative) Urine RBC >100 H (0-2) /hpf Urine WBC 0-4 H (0-5) /hpf Ur Squamous Epith Cells 0-4 H (0-5) Urine Bacteria 2+ H (NONE) 09/26/19 Range/Units 00:53 WBC (4.0-10.0) 10^3/ uL RBC (4.1-5.3) 10^6/u L Hgb (11.7-16.6) g/dL Hct (42.0-52.0) % MCV (80-94) fL MCH (28.0-34.0) pg MCHC (30.0-36.0) g/dL RDW (12.1-15.1) % Plt Count (130-400) 10^3/c mm MPV (7.4-10.4) fL Neut % (Auto) % Lymph % (Auto) % [place] % (Auto) % Eos % (Auto) % Baso % (Auto) % Neut # (Auto) (1.8-7.7) 10^3/u L Lymph # (Auto) (0.8-4.8) 10^3/u L [place] # (Auto) (0.2-0.9) 10^3/u L Eos # (Auto) (0.0-0.8) 10^3/u L Baso # (Auto) (0.0-0.1) 10^3/u L Nucleated RBC % (a uto) % Nucleated RBCs # /100WBC PT (10.5-13.3) SECO NDS INR (0.8-1.2) APTT (23.9-36.7) SECO NDS Sodium 137 (136-145) mmol/L Potassium 4.6 (3.5-5.1) mmol/L Chloride 94 L (98-107) mmol/L Carbon Dioxide 26 (22-29) mmol/L Anion Gap 21.6 H (5-19) BUN 26 H (8-23) mg/dL Creatinine 1.8 H (0.7-1.2) mg/dL Glucose 161 H (65-115) mg/dL Calculated Osmolal ity 284 L (285-295) mOsm/k g Calcium 11.9 H (8.5-10.5) mg/dL Total Bilirubin 0.7 (0.15-1.2) mg/dL AST 15 (0-40) U/L ALT 10 (0-41) U/L Alkaline Phosphata se 124 (40-130) IU/L Total Protein 7.5 (6.6-8.7) g/dL Albumin 4.1 (3.5-5.2) g/dL Globulin 3.4 (1.3-4.6) g/dL Urine Color (Yellow) Urine Appearance (CLEAR) Urine pH (5-7) Ur Specific Gravit y (1.005-1.030) Urine Protein (Negative) Urine Glucose (UA) (Normal) Urine Ketones (Negative) Urine Blood (Negative) Urine Nitrate (Negative) Urine Bilirubin (NEGATIVE) Urine Urobilinogen (Negative) mg/dL Ur Leukocyte Sunitha ase (Negative) Urine RBC (0-2) /hpf Urine WBC (0-5) /hpf Ur Squamous Epith Cells (0-5) Urine Bacteria (NONE) Discharge Plan Discharge Patient Disposition: Xfer Other Clinical Impression: Acute urinary retention, Acute UTI Hematuria Qualifiers: Hematuria type: gross Qualified Code(s): R31.0 - Gross hematuria Bladder cancer Qualifiers: Bladder location: posterior wall Qualified Code(s): C67.4 - Malignant neoplasm of posterior wall of bladder Condition: Stable Referrals: Bernice Acevedo MD [Primary Care Provider] - Discharge Diet: Usual diet Discharge Activity: Resume usual activity Patient Instructions: Urinary Retention in Men (ED) Activity Restrictions/Additional Instructions: Follow-up Dr. Osborn when he re turns. Keep keep catheter clean with soap and water. Attempt to remove catheter. Follow-up PCP if unable to get into Dr. Osborn's office. Coding Level of Care Code ED Home Care Nurse for Chg Fwd Exam Comprehensive
[2019-09-25 23:56] LABS: Add Urine Culture? Yes; Add Urine Microscopic? YES; Bacteria Urine 2+; Bilirubin Urine Neg (NEGATIVE); Blood Urine 3+ (Negative); Glucose Urine UA Norm (Normal); Ketones Urine Negative (Negative); Leukocyte Esterase Urine Negative (Negative); Nitrate Urine Negative (Negative); Protein Urine 3+ (Negative); RBC Urine >100 /hpf (0-2); Specific Gravity, Urine 1.015 (1.005-1.030); Squamous Epithelial Cell Urine 0-4 (0-5); Urine Appearance Cloudy (CLEAR); Urine Color Red (Yellow); Urobilinogen Urine Norm (Negative); WBC Urine 0-4 /hpf (0-5); pH Urine 8 (5-7)
--- NOTE | 2019-09-26 00:02 | PC.NURSE ---
Catheter flushed, with no return. Spoke with provider, instructed to replace current catheter with bigger size one.
[2019-09-26 01:14] VITALS: RESP 16
[2019-09-26] MEDS: HYDROmorphone 1 mg/mL INJ 1 mL 0.5 MG IVP ×2 (01:14→03:15)
[2019-09-26] MEDS: cephALEXin 500 mg Capsule PO (01:14)
[2019-09-26 01:15] LABS: Basophils % 0.4 %; Eosinophils # 0.2 10^3/uL (0.0-0.8); Hematocrit 33.1 % (42.0-52.0); Lymphocytes # 1.5 10^3/uL (0.8-4.8); Lymphocytes % 20.6 %; Mean Corpuscular HGB Conc 30.2 g/dL (30.0-36.0); Mean Corpuscular Hemoglobin 26.1 pg (28.0-34.0); Mean Corpuscular Volume 86.4 fL (80-94); Mean Platelet Volume 8.1 fL (7.4-10.4); Monocytes # 0.6 10^3/uL (0.2-0.9); Monocytes % 8.2 %; Neutrophils # 4.9 10^3/uL (1.8-7.7); Neutrophils % 67.3 %; Nucleated Red Blood Cells % 0 %; Platelet Count 192 10^3/cmm (130-400); Red Blood Count 3.83 10^6/uL (4.1-5.3); White Blood Count 7.3 10^3/uL (4.0-10.0)
[2019-09-26 01:29] LABS: Alanine Aminotransferase 10 U/L (0-41); Albumin Level 4.1 g/dL (3.5-5.2); Alkaline Phosphatase 124 IU/L (40-130); Anion Gap 21.6 (5-19); Aspartate Amino Transferase 15 U/L (0-40); Blood Urea Nitrogen 26 mg/dL (8-23); Calcium 11.9 mg/dL (8.5-10.5); Carbon Dioxide 26 mmol/L (22-29); Chloride 94 mmol/L (98-107); Globulin 3.4 g/dL (1.3-4.6); Glucose 161 mg/dL (65-115); Osmolality Calculated 284 mOsm/kg (285-295); Potassium 4.6 mmol/L (3.5-5.1); Sodium 137 mmol/L (136-145); Total Bilirubin 0.7 mg/dL (0.15-1.2); Total Protein 7.5 g/dL (6.6-8.7)
[2019-09-26 01:33] VITALS: BP 92/52; PULSE 91; RESP 18; O2SAT 98
[2019-09-26 01:33] LABS: INR 1.08 (0.8-1.2)
--- NOTE | 2019-09-26 02:15 | PC.NURSE ---
Patient catheter clogged with blood clots, manually pulled 60ml of fluid and clots out of bladder. Patient hatfield catheter draining at this time.
[2019-09-26 02:17] VITALS: BP 187/98; PULSE 87; RESP 18; O2SAT 98
[2019-09-26 02:49] VITALS: BP 131/71; PULSE 98; RESP 22; TEMP 36.7; O2SAT 98
[2019-09-26 03:15] VITALS: RESP 20
--- NOTE | 2019-09-27 12:57 | DCPLANNER ---
medical laboratory manager had message to schedule a follow up appointment for patient with Dr. Osborn. medical laboratory manager called the office of Dr. Osborn, spoke with [facility]. medical laboratory manager gave clinic patients information, was told that patients information would be printed and given to Faviola for review. Clinic will call patient with appointment information. medical laboratory manager will call for appointment information.
--- NOTE | 2019-10-06 09:42 | DCPLANNER ---
Patient had a follow up appointment scheduled for 10.05.[address] Osborn, and patient did attend the appointment.
== END 2019-09-26 03:16 | disposition other institution (70) ==
PROVIDERS: Emergency Provider Nurse Practitioner Family; Family Provider Family Medicine; PCP Family Medicine
DX: C67.4 Malignant neoplasm of posterior wall of bladder (principal); N39.0 Urinary tract infection, site not specified; R31.0 Gross hematuria; J44.9 Chronic obstructive pulmonary disease, unspecified; E11.42 Type 2 diabetes mellitus with diabetic polyneuropathy; E11.22 Type 2 diabetes mellitus with diabetic chronic kidney disease; N18.9 Chronic kidney disease, unspecified; E83.52 Hypercalcemia; I25.10 Atherosclerotic heart disease of native coronary artery without angina pectoris; I73.9 Peripheral vascular disease, unspecified; Z87.891 Personal history of nicotine dependence
CPT/HCPCS: 12345; 51702; 80053; 81001; 85025; 85610; 85730; 87086; 96374; 96375; 99283; J1170

== ENCOUNTER 2019-10-02 12:28 | Emergency (ER) | payer OTHER, MEDICARE, SELFPAY ==
[2019-10-02 12:34] VITALS: BP 129/56; PULSE 73; RESP 18; TEMP 36.7; O2SAT 93; BMI 32.8
--- NOTE | 2019-10-02 12:42 | W.ED.MALEGU ---
HPI - Male Genitourinary General: Chief complaint: Urogenital-Male Stated complaint: urination probs Time Seen by Provider: 10/02/19 12:34 History of Present Illness: HPI Narrative: Patient states he got back from [place] on Thursday they cauterize a bleeding S area in his bladder and is now having to self cath to get urine out and he feels that he did not want take a chance of interview and infections would like to have a Douglas put in place and he will follow-up with Dr. Osborn tomorrow and he is scheduled for radiation or chemotherapy on Thursday for his bladder cancer. Denies any blood in his urine denies any pain Complaint: other (Urinary retention) Onset (ago): day(s) Duration: constant Associated symptoms: Reports urinary retention; Deny nausea or vomiting Review of Systems Const: Denies: fever, chills or body aches Eyes: Denies: change in vision or blurry vision ENMT: Denies: throat pain or nasal congestion Card: Denies: chest pain or shortness of breath on exertion Resp: Reports: shortness of breath (Chronic); Denies: productive cough or non-productive cough GI: Denies: abdominal pain, nausea or vomiting : Reports: difficulty urinating (Having to self cath last couple days) Musc: Denies: extremity pain Skin/Breast: Denies: rash Neuro: Denies: headache Psych: Denies: anxiety or depression Oj/Lymph: Denies: easy bruising PFSH ED PFSH: Social History Smoking and tobacco status: former smoker Quit status (tobacco): has quit using tobacco Year quit tobacco: 2008 Year 1.5 PPD Hx Alcohol intake: never Lives independently: Yes Household members: significant other Marital status: / Current occupational status: retired History of recent travel: No Current gender identity: Male Physical Exam Const: COMMON NORMALS: no apparent distress, average body habitus and oriented x3 HENMT: COMMON NORMALS: normocephalic HEAD & SCALP: normal to inspection and normocephalic FACE & SINUS: normal facial exam Eye: COMMON NORMALS: conjunctivae normal GENERAL EYE: normal appearance of both eyes CONJUNCTIVA: Yes conjunctivae normal Neck/C-Spine: COMMON NORMALS: no JVD Chest: COMMONS NORMALS: inspection of chest normal Resp: COMMON NORMALS: normal respiratory effort AUSCULTATION: diminished lung sounds Cardio: COMMON NORMALS: no JVD, regular rate and regular rhythm RATE: regular rate RHYTHM: regular rhythm GI: COMMON NORMALS: normal to inspection, nondistended, normoactive bowel sounds Extremity: COMMON NORMALS: normal to inspection and full ROM Neuro: COMMON NORMALS: oriented x3 Course Vital Signs: Vital signs: Vital Signs Temperature 98.1 F 10/02/19 12:34 Pulse Rate 70 10/02/19 13:57 Respiratory Rate 18 10/02/19 13:57 Blood Pressure 134/61 10/02/19 13:57 Pulse Oximetry 97 10/02/19 13:57 MDM - Male Lab Data: Labs: Lab Results 10/02/19 Range/Units 13:06 Urine Color Yellow (Yellow) Urine Appearance Hazy A (CLEAR) Urine pH 7 (5-7) Ur Specific Gravit y 1.005 (1.005-1.030) Urine Protein 1+ H (Negative) Urine Glucose (UA) Norm (Normal) Urine Ketones Negative (Negative) Urine Blood 3+ H (Negative) Urine Nitrate Negative (Negative) Urine Bilirubin Neg (NEGATIVE) Urine Urobilinogen Norm (Negative) mg/dL Ur Leukocyte Sunitha ase 2+ H (Negative) Urine RBC >100 H (0-2) /hpf Urine WBC 55-80 H (0-5) /hpf Ur Squamous Epith Cells Rare (0-5) Urine Bacteria 1+ H (NONE) Urine Mucus Trace Discharge Plan Discharge Patient Disposition: Home, Self-Care Clinical Impression: Acute urinary retention Condition: Stable Prescriptions: No Action albuterol sulfate [ProAir HFA] 90 mcg/actuation HFA aerosol inhaler 2 puff INHALATION Q6H PRN (Reason: shortness of breath) RF: 0 hydrocodone-acetaminophen [[place]] 7.5-325 mg tablet 1 tab PO Q6H PRN (Reason: Pain, Mild) RF: 0 metformin 500 mg tablet 500 mg PO BID RF: 0 Brovana 15 mcg/2 mL solution for nebulization 2 ml INHALATION BID RF: 0 budesonide [Pulmicort] 0.5 mg/2 mL suspension for nebulization 0.25 mg INHALATION BID RF: 0 alfuzosin 10 mg tablet extended release 24 hr 10 mg PO DAILY RF: 0 finasteride [Proscar] 5 mg tablet 5 mg PO DAILY RF: 0 atorvastatin 20 mg tablet 20 mg PO DAILY RF: 0 cholecalciferol (vitamin D3) [Vitamin D3] 50 mcg (2,000 unit) capsule 50 mcg PO DAILY RF: 0 furosemide 40 mg tablet 40 mg PO BID RF: 0 magnesium oxide 400 mg magnesium tablet 400 mg PO BID RF: 0 calcium carbonate 500 mg calcium (1,250 mg) capsule 500 mg PO BID RF: 0 ferrous sulfate 325 mg (65 mg iron) tablet 325 mg PO BID RF: 0 vitamin B complex [B Complex-Vitamin B12] Tablet 1 tab PO DAILY RF: 0 lidocaine HCl 2 % jelly 1 applic INTRA-URET ONCE Qty: 1 RF: 0 acetylcysteine (bulk) Powder 1,000 each miscellaneous BID RF: 0 Keflex 500 mg capsule 500 mg PO TID 7 Days Qty: 21 RF: 0 pantoprazole 40 mg Tablet,Delayed Release (Dr/Ec) 40 mg PO DAILY Qty: 30 RF: 3 Yupelri 175 mcg/3 mL Solution For Nebulization 175 mcg INHALATION DAILY RF: 0 Discharge Orders: Discharge Order (Routine); Ordered 10/02/19 Ordered By: Ashvin Stuart Referrals: Bernice Acevedo MD [Primary Care Provider] - Discharge Diet: Usual diet Discharge Activity: Resume usual activity Patient Instructions: Douglas Catheter Placement and Care (ED) Activity Restrictions/Additional Instructions: Follow-up with appointments as scheduled Discharge Date/Time: 10/02/19 13:59 Coding Level of Care Code ED Deputy Treasurer for Chg Fwd Exam Comprehensive
[2019-10-02 13:28] LABS: Add Urine Microscopic? YES; Bilirubin Urine Neg (NEGATIVE); Blood Urine 3+ (Negative); Glucose Urine UA Norm (Normal); Ketones Urine Negative (Negative); Leukocyte Esterase Urine 2+ (Negative); Nitrate Urine Negative (Negative); Protein Urine 1+ (Negative); Specific Gravity, Urine 1.005 (1.005-1.030); Urine Appearance Hazy (CLEAR); Urine Color Yellow (Yellow); Urobilinogen Urine Norm (Negative); pH Urine 7 (5-7)
[2019-10-02 13:31] LABS: RBC Urine >100 /hpf (0-2); WBC Urine 55-80 /hpf (0-5)
[2019-10-02 13:32] LABS: Add Urine Culture? Yes; Bacteria Urine 1+; Mucus Urine TRACE; Squamous Epithelial Cell Urine RARE (0-5)
[2019-10-02 13:57] VITALS: BP 134/61; PULSE 70; RESP 18; O2SAT 97
--- NOTE | 2019-10-02 16:39 | ED_ITS ---
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 Stout on 08/08/19 for LLE PVD with balloon angioplasty Status post placement of cardiac pacemaker Social History Smoking and tobacco status: former smoker Quit status (tobacco): has quit using tobacco Year quit tobacco: 2008 Year 1.5 PPD Hx Alcohol intake: never Lives independently: Yes Household members: significant other Marital status: / Current occupational status: retired History of recent travel: No Current gender identity: Male Course Vital Signs: Vital signs: Vital Signs Temperature 98.1 F 10/02/19 12:34 Pulse Rate 70 10/02/19 13:57 Respiratory Rate 18 10/02/19 13:57 Blood Pressure 134/61 10/02/19 13:57 Pulse Oximetry 97 10/02/19 13:57 MDM - Male Lab Data: Labs: Lab Results 10/02/19 Range/Units 13:06 Urine Color Yellow (Yellow) Urine Appearance Hazy A (CLEAR) Urine pH 7 (5-7) Ur Specific Gravit y 1.005 (1.005-1.030) Urine Protein 1+ H (Negative) Urine Glucose (UA) Norm (Normal) Urine Ketones Negative (Negative) Urine Blood 3+ H (Negative) Urine Nitrate Negative (Negative) Urine Bilirubin Neg (NEGATIVE) Urine Urobilinogen Norm (Negative) mg/dL Ur Leukocyte Sunitha ase 2+ H (Negative) Urine RBC >100 H (0-2) /hpf Urine WBC 55-80 H (0-5) /hpf Ur Squamous Epith Cells Rare (0-5) Urine Bacteria 1+ H (NONE) Urine Mucus Trace Discharge Plan Discharge Patient Disposition: Home, Self-Care Clinical Impression: Acute urinary retention Condition: Stable Prescriptions: No Action albuterol sulfate [ProAir HFA] 90 mcg/actuation HFA aerosol inhaler 2 puff INHALATION Q6H PRN (Reason: shortness of breath) RF: 0 hydrocodone-acetaminophen [[place]] 7.5-325 mg tablet 1 tab PO Q6H PRN (Reason: Pain, Mild) RF: 0 metformin 500 mg tablet 500 mg PO BID RF: 0 Brovana 15 mcg/2 mL solution for nebulization 2 ml INHALATION BID RF: 0 budesonide [Pulmicort] 0.5 mg/2 mL suspension for nebulization 0.25 mg INHALATION BID RF: 0 alfuzosin 10 mg tablet extended release 24 hr 10 mg PO DAILY RF: 0 finasteride [Proscar] 5 mg tablet 5 mg PO DAILY RF: 0 atorvastatin 20 mg tablet 20 mg PO DAILY RF: 0 cholecalciferol (vitamin D3) [Vitamin D3] 50 mcg (2,000 unit) capsule 50 mcg PO DAILY RF: 0 furosemide 40 mg tablet 40 mg PO BID RF: 0 magnesium oxide 400 mg magnesium tablet 400 mg PO BID RF: 0 calcium carbonate 500 mg calcium (1,250 mg) capsule 500 mg PO BID RF: 0 ferrous sulfate 325 mg (65 mg iron) tablet 325 mg PO BID RF: 0 vitamin B complex [B Complex-Vitamin B12] Tablet 1 tab PO DAILY RF: 0 acetylcysteine (bulk) Powder 1,000 each miscellaneous BID RF: 0 duloxetine 30 mg capsule,delayed release(DR/EC) 90 mg PO DAILY RF: 0 Keytruda 25 mg/mL solution IVP RF: 0 pantoprazole 40 mg Tablet,Delayed Release (Dr/Ec) 40 mg PO DAILY Qty: 30 RF: 3 Yupelri 175 mcg/3 mL Solution For Nebulization 175 mcg INHALATION DAILY RF: 0 Discharge Orders: Discharge Order (Routine); Ordered 10/02/19 Ordered By: Ashvin Stuart Referrals: Bernice Acevedo MD [Primary Care Provider] - Discharge Diet: Usual diet Discharge Activity: Resume usual activity Patient Instructions: Douglas Catheter Placement and Care (ED) Activity Restrictions/Additional Instructions: Follow-up with appointments as scheduled Discharge Date/Time: 10/02/19 13:59 Coding Level of Care Code ED Supervisor [employer] for Chan Álvarez
== END 2019-10-02 13:59 | disposition home or self-care (01) ==
PROVIDERS: Emergency Provider Nurse Practitioner Family; Family Provider Family Medicine; PCP Family Medicine
DX: R33.9 Retention of urine, unspecified (principal); C67.9 Malignant neoplasm of bladder, unspecified; Z87.891 Personal history of nicotine dependence
CPT/HCPCS: 12345; 51702; 81001; 87077; 87086; 87186; 99282; 99283; A9270

== ENCOUNTER 2019-10-04 14:11 | Outpatient (CLI) | payer MEDICARE, SELFPAY | END 2019-10-04 14:12 | disposition home or self-care (01) | LOC: ONCMED 14:12 | PROVIDERS: Family Provider Family Medicine; PCP Family Medicine; Visit Provider Internal Medicine Hematology & Oncology | DX: Z51.12 Encounter for antineoplastic immunotherapy (principal); C67.2 Malignant neoplasm of lateral wall of bladder; Z85.46 Personal history of malignant neoplasm of prostate | CPT/HCPCS: 96413; J7050; J9271 ==

== ENCOUNTER 2019-10-12 14:15 | Outpatient (CLI) | payer MEDICARE, SELFPAY ==
[2019-10-12 20:08] LABS: Basophils % 0.4 %; Eosinophils # 0.2 10^3/uL (0.0-0.8); Eosinophils % 3.5 %; Hematocrit 26.5 % (42.0-52.0); Hemoglobin 7.7 g/dL (11.7-16.6); Lymphocytes % 18.2 %; Mean Corpuscular HGB Conc 29.1 g/dL (30.0-36.0); Mean Corpuscular Hemoglobin 26.1 pg (28.0-34.0); Mean Corpuscular Volume 89.8 fL (80-94); Monocytes # 0.6 10^3/uL (0.2-0.9); Monocytes % 9.7 %; Neutrophils # 3.8 10^3/uL (1.8-7.7); Neutrophils % 67.7 %; Nucleated Red Blood Cells % 0 %; Platelet Count 261 10^3/cmm (130-400); Red Blood Count 2.95 10^6/uL (4.1-5.3); Red Cell Distribution Width 14.3 % (12.1-15.1); White Blood Count 5.7 10^3/uL (4.0-10.0)
[2019-10-12 21:22] LABS: Alanine Aminotransferase 22 U/L (0-41); Albumin Level 3.4 g/dL (3.5-5.2); Alkaline Phosphatase 106 IU/L (40-130); Anion Gap 16.5 (5-19); Aspartate Amino Transferase 16 U/L (0-40); Blood Urea Nitrogen 22 mg/dL (8-23); Calcium 10.9 mg/dL (8.5-10.5); Carbon Dioxide 28 mmol/L (22-29); Chloride 99 mmol/L (98-107); Globulin 3.3 g/dL (1.3-4.6); Glucose 104 mg/dL (65-115); Osmolality Calculated 285 mOsm/kg (285-295); Potassium 4.5 mmol/L (3.5-5.1); Sodium 139 mmol/L (136-145); Thyroid Stimulating Hormone 1.52 uIU/mL (0.27-4.20); Total Bilirubin 0.3 mg/dL (0.15-1.2); Total Protein 6.7 g/dL (6.6-8.7)
== END 2019-10-12 14:16 | disposition home or self-care (01) ==
LOC: ONCMED 16:23
PROVIDERS: Family Provider Family Medicine; PCP Family Medicine; Visit Provider Internal Medicine Hematology & Oncology
DX: C67.2 Malignant neoplasm of lateral wall of bladder (principal); E07.9 Disorder of thyroid, unspecified; Z85.46 Personal history of malignant neoplasm of prostate
CPT/HCPCS: 36415; 80053; 84443; 85025

== ENCOUNTER → 2019-10-19 14:23 | Outpatient (BNVA) | payer MEDICARE, SELFPAY | PROVIDERS: Family Provider Family Medicine; PCP Family Medicine; Visit Provider Urology | DX: C67.2 Malignant neoplasm of lateral wall of bladder (principal); N30.01 Acute cystitis with hematuria | CPT/HCPCS: 80053; 81001 ==

== ENCOUNTER 2019-11-01 06:43 | Outpatient (RCR) | payer MEDICARE, SELFPAY ==
--- NOTE | 2019-10-14 12:32 | ONC FU_ITS ---
Dr. Mann follow up note Patient: Henrik Kraus Unit #: [id number]: 1940 Dicatated By: Robert Mann M.D.Date of Visit:October 14, 2019 Onc Med Follow-up/Prog Note History of Present Illness: Mr. 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 Follow-up with urology, confirmed no recurrence. But about 4 years ago noted hematuria, underwent cystoscopy, as per patient, he was found to have enlarged prostate and was given prostrate medicine probably finasteride. Patient continued to have hematuria off and on, and but recently more often since he was started on anticoagulation with Eliquis and Plavix due to peripheral vascular stent placement. And on 09/02/2019, he underwent cystoscopy which showed right lateral bladder wall tumor, underwent partial TURBT and pathology confirmed papillary urothelial carcinoma, high-grade. Invasion to lamina propria and muscularis propria. Patient was evaluated by Dr. Osborn, as per his note, due to patient's comorbid conditions including severe COPD, patient is on home oxygen. And atherosclerotic coronary vascular disease, hypertension, diabetes mellitus, peripheral vascular disease, patient was not a candidate for cystectomy and as patient has already received radiation therapy to pelvic for prostrate cancer, not a candidate for further radiation therapy. Now being evaluated for palliative systemic therapy. Patient denies any specific complaints, except chronic constipation, and generalized weakness and fatigue. Otherwise No fever or chills, no nausea or vomiting, no recent hematuria. Use urinary catheter on as-needed basis per obstruction. Also has peripheral neuropathy involving lower extremities.Started on 3 weekly Keytruda on 10/04/2019 Came for follow-up, denies any specific complaints except chronic constipation, epigastric discomfort , now with progressive dyspnea on exertion and patient on home oxygen and his oxygen requirement has gone up. Denies any melena or hematochezia but off and on hematuria. And occasionally lower abdominal pain. No lightheadedness or dizziness, no chest pain. No melena or hematochezia. No wheezing, no skin rash, no jaundice. Tolerated first cycle of immunotherapy with Keytruda well Medications: Albuterol Sulfate (sensor) 2 Puff(s) (of 108 (90 base) mcg/act) Aerosol Powder, Breath Activated Inhalation PRN, Alfuzosin HCl ER 1 Tablet (of 10 mg) Tablet SR 24 HR Oral daily, Atorvastatin Calcium 1 Tablet (of 20 mg) Oral daily, Azithromycin 1 Tablet (of 250 mg) Oral on Every Other Day, B-12 1 Tablet (of 50 mcg) Oral daily, Brovana 1 Inhalation (of 15 mcg/2mL) Nebulization solution Inhalation b.i.d., Budesonide 1 Inhalation (of 0.5 mg/2mL) Suspension Inhalation b.i.d., Calcium 1 Capsule (of 500 mg) Oral b.i.d., Docusate Calcium 1 Capsule (of 240 mg) Oral daily, DULoxetine HCl 1 Capsule (of 60 mg) Capsule Delayed Release Particles Oral b.i.d., Ferrous Sulfate 2 Tablet (of 325 (65 fe) mg) Oral daily, Finasteride 1 Tablet (of 5 mg) Oral daily, Furosemide 1 Tablet (of 40 mg) Oral daily, HYDROcodone-Acetaminophen 1 Tablet (of 7.5-325 mg) Oral t.i.d., Magnesium 1 Capsule (of 400 mg) Oral daily, metFORMIN HCl 1 Tablet (of 500 mg) Oral b.i.d., NAC 2 Capsule (of 500 mg) Oral b.i.d., Pantoprazole Sodium 1 Tablet (of 40 mg) Tablet, enteric coated Oral daily, Potassium Gluconate 2 Capsule (of 595 mg) Oral daily, ProAir HFA Aerosol, solution Inhalation, Vitamin D3 1 Tablet (of 2000 Units) Oral daily, Yupelri Solution Inhalation Allergies: No Known Allergies. Review of Systems: Constitutional - Appetite is diminished and weight is stable. No fever, chills, hot flashes, or night sweats. Energy level is poor, ENMT - No sinus congestion/drainage. No mouth sores. No sore throat or difficulty swallowing, Hematologic/Lymphatic - Positive for easy bruising and bleeding, Respiratory - Positive for shortness of breath and cough. No pleuritic pain or hemoptysis, Cardiovascular - No angina pain. No palpitations, Gastrointestinal - No nausea or vomiting. No heartburn or acid reflux. No diarrhea. Positive for constipation. Positive for dark stools (Pt is on iron supplements), Genitourinary (M) - No dysuria. Occasional hematuria. Positive for urinary frequency. No urgency or incontinence, Musculoskeletal - Positive for joint pain, Neurologic - No headache or dizziness. Positive for numbness and tingling in hands and feet, Psychiatric - No anxiety or depression. No insomnia. Vital Signs: Performed on October 14, 2019 11:23 Height - 67.00 in Weight - 218.6 lbs (HIGH) BSA - 2.10 sq.m BMI - 34.24 (HIGH) Temperature - 98.5 F Pulse - 69 /min Respiration - 20 /min BP - 123/47 mm(hg) O2 Sat - 92 % (LOW) Pain - 5 Performance Status: 2 - Ambulatory/capable of all self-care, unable to perform any work activities. Up and about more than 50% of waking hours. (ECOG) Physical Examination: ENMT - no mouth sores, Respiratory - Lungs are clear, Cardiovascular - Regular rate and rhythm of heart, Abdomen - bowel sounds present, nontender, Extremities - no visible edema. Lab/Imaging: Most recent lab results are not available for this patient. 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 History of low risk prostrate cancer e.g. small volume, Ted score 3+2, PSA 3.1, diagnosed in 2002 status post radiation therapy Severe COPD, on home oxygen Peripheral neuropathy involving lower extremities Peripheral vascular disease status post peripheral vascular stent placement , On anticoagulation with Eliquis/Plavix Plan: Discussed with patient regarding his labs white blood count 5.7 hemoglobin 7.7 hematocrit 26.5 platelets 261,000 CMP within normal limits TSH 1.5 Clinically, patient is doing reasonably well, now symptomatic probably due to progressive anemia, hemoglobin is 7.7 g today compared to around 11 g in April 2019. Probably due to recurrent hematuria. Patient is on oral iron 2 tablets daily for long time now with constipation and epigastric discomfort, could be noncompliant. Patient was advised to discontinue oral iron, we'll check his iron studies if he has persistent iron deficiency, may consider parenteral iron. As patient is symptomatic due to aggressive anemia, and his hemoglobin is below 8 g, we will consider packed RBC. Patient return to clinic on Thursday for type and cross and for 2 units of packed RBC. Hopefully that will improve his symptoms and reduce his oxygen consumption. He will return to clinic in 2 weeks for next dose of Keytruda. Signed By: Robert Mann M.D. <<Signature on File>>
[2019-10-14 12:44] LABS: Ferritin 159 ng/mL (30-400); Iron 20 ug/dL (59-158); Percent Saturation 8.5 % (20-50); Total Iron Binding Capacity 233 mcg/dl; Unsaturated Iron Binding 213 ug/dL (112-347)
[2019-10-14 12:58] LABS: Vitamin B12 1037 pg/mL (232-1245)
[2019-10-17] VITALS (11 sets, daily range): BP systolic 102–163; BP diastolic 56–70; PULSE 69–71; RESP 18; TEMP 36.4–36.9; O2SAT 92–98
[2019-10-17 08:38] LABS: Basophils % 0.6 %; Eosinophils # 0.3 10^3/uL (0.0-0.8); Eosinophils % 4.3 %; Hematocrit 26.5 % (42.0-52.0); Hemoglobin 7.7 g/dL (11.7-16.6); Mean Corpuscular HGB Conc 29.1 g/dL (30.0-36.0); Mean Corpuscular Hemoglobin 25.3 pg (28.0-34.0); Mean Corpuscular Volume 87.2 fL (80-94); Mean Platelet Volume 7.7 fL (7.4-10.4); Monocytes # 0.5 10^3/uL (0.2-0.9); Monocytes % 8.1 %; Neutrophils # 4.5 10^3/uL (1.8-7.7); Neutrophils % 70.5 %; Nucleated Red Blood Cells % 0 %; Platelet Count 224 10^3/cmm (130-400); Red Blood Count 3.04 10^6/uL (4.1-5.3); Red Cell Distribution Width 14.2 % (12.1-15.1); White Blood Count 6.3 10^3/uL (4.0-10.0)
[2019-10-17] MEDS: diphenhydrAMINE 25 mg Capsule PO (11:45)
[2019-10-17] MEDS: acetaminophen 325 mg Tablet 650 MG PO (11:45)
[2019-10-17] MEDS: sodium chloride 0.9% 250 ML 999 ML IV (11:52)
[2019-10-17] MEDS: FUROsemide 10 mg/mL SDV 2mL 20 MG IV (13:36)
[2019-10-25 15:27] LABS: Basophils % 0.5 %; Eosinophils # 0.2 10^3/uL (0.0-0.8); Hematocrit 29.8 % (42.0-52.0); Hemoglobin 8.8 g/dL (11.7-16.6); Lymphocytes # 1.1 10^3/uL (0.8-4.8); Lymphocytes % 17.2 %; Mean Corpuscular HGB Conc 29.5 g/dL (30.0-36.0); Mean Corpuscular Hemoglobin 25.7 pg (28.0-34.0); Mean Corpuscular Volume 86.9 fL (80-94); Mean Platelet Volume 7.8 fL (7.4-10.4); Monocytes # 0.5 10^3/uL (0.2-0.9); Monocytes % 8.2 %; Neutrophils # 4.5 10^3/uL (1.8-7.7); Neutrophils % 70.2 %; Nucleated Red Blood Cells % 0 %; Platelet Count 239 10^3/cmm (130-400); Red Blood Count 3.43 10^6/uL (4.1-5.3); Red Cell Distribution Width 15.2 % (12.1-15.1); White Blood Count 6.3 10^3/uL (4.0-10.0)
[2019-10-25 16:10] LABS: Alanine Aminotransferase 19 U/L (0-41); Albumin Level 3.7 g/dL (3.5-5.2); Alkaline Phosphatase 132 IU/L (40-130); Aspartate Amino Transferase 19 U/L (0-40); Blood Urea Nitrogen 24 mg/dL (8-23); Calcium 11.3 mg/dL (8.5-10.5); Carbon Dioxide 27 mmol/L (22-29); Chloride 96 mmol/L (98-107); Ferritin 297 ng/mL (30-400); Globulin 3.3 g/dL (1.3-4.6); Glucose 100 mg/dL (65-115); Iron 36 ug/dL (59-158); Osmolality Calculated 283 mOsm/kg (285-295); Percent Saturation 14.8 % (20-50); Sodium 138 mmol/L (136-145); Total Bilirubin 0.4 mg/dL (0.15-1.2); Total Iron Binding Capacity 243 mcg/dl; Unsaturated Iron Binding 207 ug/dL (112-347); Vitamin B12 863 pg/mL (232-1245)
--- NOTE | 2019-10-26 18:17 | ONC FU_ITS ---
Dr. Mann follow up note Patient: Henrik Kraus Unit #: [id number]: [id number] Dicatated By: Robert Mann M.D.Date of Visit:October 26, 2019 Onc Med Follow-up/Prog Note History of Present Illness: Mr. 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 Follow-up with urology, confirmed no recurrence. But about 4 years ago noted hematuria, underwent cystoscopy, as per patient, he was found to have enlarged prostate and was given prostrate medicine probably finasteride. Patient continued to have hematuria off and on, and but recently more often since he was started on anticoagulation with Eliquis and Plavix due to peripheral vascular stent placement. And on 09/02/2019, he underwent cystoscopy which showed right lateral bladder wall tumor, underwent partial TURBT and pathology confirmed papillary urothelial carcinoma, high-grade. Invasion to lamina propria and muscularis propria. Patient was evaluated by Dr. Osborn, as per his note, due to patient's comorbid conditions including severe COPD, patient is on home oxygen. And atherosclerotic coronary vascular disease, hypertension, diabetes mellitus, peripheral vascular disease, patient was not a candidate for cystectomy and as patient has already received radiation therapy to pelvic for prostrate cancer, not a candidate for further radiation therapy. Now being evaluated for palliative systemic therapy. Patient denies any specific complaints, except chronic constipation, and generalized weakness and fatigue. Otherwise No fever or chills, no nausea or vomiting, no recent hematuria. Use urinary catheter on as-needed basis per obstruction. Also has peripheral neuropathy involving lower extremities.Started on 3 weekly Keytruda on 10/04/2019 Came for follow-up, denies any specific complaint except feeling better since blood transfusion otherwise still having gross hematuria, now scheduled to see Dr. Osborn on 11/04/2019. Denies any fever chills denies any nausea vomiting denies any skin rash denies any diarrhea constipation denies any wheezing, now on home oxygen far advanced stage COPD being monitored by pulmonology. Also take Lasix 40 mg twice a day along with potassium for congestive heart failure. Otherwise tolerating immunotherapy with Keytruda well Medications: Albuterol Sulfate (sensor) 2 Puff(s) (of 108 (90 base) mcg/act) Aerosol Powder, Breath Activated Inhalation PRN, Alfuzosin HCl ER 1 Tablet (of 10 mg) Tablet SR 24 HR Oral daily, Atorvastatin Calcium 1 Tablet (of 20 mg) Oral daily, Azithromycin 1 Tablet (of 250 mg) Oral on Every Other Day, B-12 1 Tablet (of 50 mcg) Oral daily, Brovana 1 Inhalation (of 15 mcg/2mL) Nebulization solution Inhalation b.i.d., Budesonide 1 Inhalation (of 0.5 mg/2mL) Suspension Inhalation b.i.d., Calcium 1 Capsule (of 500 mg) Oral b.i.d., Docusate Calcium 1 Capsule (of 240 mg) Oral daily, DULoxetine HCl 1 Capsule (of 60 mg) Capsule Delayed Release Particles Oral b.i.d., Ferrous Sulfate 2 Tablet (of 325 (65 fe) mg) Oral daily, Finasteride 1 Tablet (of 5 mg) Oral daily, Furosemide 1 Tablet (of 40 mg) Oral daily, HYDROcodone-Acetaminophen 1 Tablet (of 10-325 mg) Oral four times a day, Levaquin 1 Tablet (of 250 mg) Oral daily for 10 days, Magnesium 1 Capsule (of 400 mg) Oral daily, metFORMIN HCl 1 Tablet (of 500 mg) Oral b.i.d., NAC 2 Capsule (of 500 mg) Oral b.i.d., Pantoprazole Sodium 1 Tablet (of 40 mg) Tablet, enteric coated Oral daily, Potassium Gluconate 2 Capsule (of 595 mg) Oral daily, ProAir HFA Aerosol, solution Inhalation, Vitamin D3 1 Tablet (of 2000 Units) Oral daily, Yupelri Solution Inhalation Allergies: No Known Allergies. Review of Systems: Constitutional - Appetite is diminished and weight is stable. No fever, chills, hot flashes, or night sweats. Energy level is poor, ENMT - No sinus congestion/drainage. No mouth sores. No sore throat or difficulty swallowing, Hematologic/Lymphatic - Positive for easy bruising and bleeding, Respiratory - Positive for shortness of breath and cough. Pt is on portable Oxygen today. No pleuritic pain or hemoptysis, Cardiovascular - No angina pain. No palpitations, Gastrointestinal - No nausea or vomiting. No heartburn or acid reflux. No diarrhea. Positive for constipation. Positive for dark stools (Pt is on iron supplements), Genitourinary (M) - Pt states that he has an indwelling catheter now, Musculoskeletal - Positive for joint pain, as well as bladder/stomach pain that Pt states is almost constant, Neurologic - No headache or dizziness. Positive for numbness and tingling in hands and feet, Psychiatric - No anxiety or depression. No insomnia. Vital Signs: Performed on October 26, 2019 08:13 Height - 67.00 in Weight - 217.2 lbs (LOW) BSA - 2.09 sq.m BMI - 34.02 (HIGH) Temperature - 97.8 F (LOW) Pulse - 93 /min Respiration - 16 /min BP - 142/60 mm(hg) (HIGH) O2 Sat - 96 % Pain - 5 Performance Status: 2 - Ambulatory/capable of all self-care, unable to perform any work activities. Up and about more than 50% of waking hours. (ECOG) Physical Examination: ENMT - no mouth sores, no jaundice, no thrush, Respiratory - poor air entry, mild wheezing, Cardiovascular - Regular rate and rhythm of heart, Abdomen - soft, bowel sounds present, Extremities - 1+ edema bilaterally. Lab/Imaging: Test performed on October 25, 2019 11:00 Ferritin 297 ng/mL Iron 36 mcg/dL Sodium 138 mmol/L TSH 1.40 uIU/mL Vitamin B12 863 pg/mL Iron Binding Capacity (TIBC) 243 mcg/dl Potassium 5.0 mmol/L % Iron Saturation 14.8 % Chloride 96 mmol/L CO2 27 mmol/L UIBC 207 mcg/dL Anion Gap 20.0 BUN 24 mg/dL Creatinine 1.8 mg/dL Cr Clearance (Est) 47.13 mL/min Glucose 100 mg/dL Calcium 11.3 mg/dL Protein, Total 7.0 g/dL Albumin 3.7 g/dL Globulin 3.3 g/dL Bilirubin, Total 0.4 mg/dL ALT (SGPT) 19 U/L AST (SGOT) 19 U/L Alkaline Phosphatase 132 IU/L WBC 6.3 10 3/uL RBC 3.43 10 6/uL HGB 8.8 g/dL HCT 29.8 % MCV 86.9 fL MCH 25.7 pg MCHC 29.5 g/dL RDW 15.2 % Platelet Count 239 10 3/cmm MPV 7.8 fL Neutrophils 4.5 10 3/uL Lymphocytes 1.1 10 3/uL Monocytes 0.5 10 3/uL Eosinophils 0.2 10 3/uL Basophils 0.0 10 3/uL Neutrophil % 70.2 % Lymphocyte % 17.2 % Monocyte % 8.2 % Eosinophil % 3.0 % Basophils % 0.5 % Impression: Papillary urothelial carcinoma, high-grade with invasion into lamina propria and muscularis propria status post TURBT with partial resection done on 09/02/2019. History of low risk prostrate cancer e.g. small volume, Ted score 3+2, PSA 3.1, diagnosed in 2002 status post radiation therapy Severe COPD, on home oxygen Peripheral neuropathy involving lower extremities Peripheral vascular disease status post peripheral vascular stent placement , On anticoagulation with Eliquis/Plavix Plan: Discussed with patient regarding his labs white blood count 6.3 hemoglobin 8.8 hematocrit 29.8 platelets 239,000 CMP within normal limit except creatinine 1.8 compared to 1.2 on 10/12/2019 and iron 36, iron saturation 14.8, both are low, ferritin 297, TSH 1.40, B12 863 Clinically, patient doing reasonably well, tolerating Keytruda well, we'll proceed with next 3 weekly dose today and then return to clinic in 3 weeks with CBC CMP and Keytruda. As far as persistent gross hematuria is concern, patient is scheduled see Dr. Osborn next week. Progressive renal insufficiency could be due to dehydration due to diuretics, patient will discuss with Dr. Mendosa, his sanitor regarding dose adjustment. Chronic back pain and pelvic pain, on narcotics Narco 10/325 Constipation, is improving since he is off oral iron supplements, we will consider parenteral iron Injectafer 750 mg IV weekly ???2 as his anemia workup shows low iron and saturation but ferritin is elevated that could be due to acute phase reactant. Signed By: Robert Mann M.D. <<Signature on File>>
[2019-11-01] MEDS: ferric carboxy (IVPB) 750 MG in sodium chloride 0.9% (100 ml) 100 ML 460 MG IV (10:21)
[2019-11-01] MEDS: sodium chloride 0.9% (100 ml) 100 ML 300 ML (10:21)
[2019-11-01 10:48] LABS: Basophils % 0.6 %; Eosinophils # 0.3 10^3/uL (0.0-0.8); Eosinophils % 4.8 %; Hematocrit 29.8 % (42.0-52.0); Hemoglobin 8.7 g/dL (11.7-16.6); Lymphocytes # 1.1 10^3/uL (0.8-4.8); Mean Corpuscular HGB Conc 29.2 g/dL (30.0-36.0); Mean Corpuscular Hemoglobin 25.4 pg (28.0-34.0); Mean Corpuscular Volume 86.9 fL (80-94); Mean Platelet Volume 7.8 fL (7.4-10.4); Monocytes # 0.5 10^3/uL (0.2-0.9); Monocytes % 7.2 %; Neutrophils # 4.7 10^3/uL (1.8-7.7); Neutrophils % 70.4 %; Nucleated Red Blood Cells % 0 %; Platelet Count 204 10^3/cmm (130-400); Red Blood Count 3.43 10^6/uL (4.1-5.3); Red Cell Distribution Width 15.5 % (12.1-15.1); White Blood Count 6.7 10^3/uL (4.0-10.0)
[2019-11-01 11:48] LABS: Add Urine Culture? Yes; Add Urine Microscopic? YES; Bacteria Urine 1+; Bilirubin Urine Neg (NEGATIVE); Blood Urine 3+ (Negative); Glucose Urine UA Norm (Normal); Ketones Urine Negative (Negative); Leukocyte Esterase Urine 2+ (Negative); Nitrate Urine Negative (Negative); Protein Urine 2+ (Negative); RBC Urine >100 /hpf (0-2); Specific Gravity, Urine 1.015 (1.005-1.030); Squamous Epithelial Cell Urine 0-4 (0-5); Urine Appearance Cloudy (CLEAR); Urine Color Red (Yellow); Urobilinogen Urine Norm (Negative); WBC Urine 15-25 /hpf (0-5)
== END 2019-11-13 23:59 | disposition home or self-care (01) ==
LOC: ONCMED 06:43
PROVIDERS: Family Provider Family Medicine; PCP Family Medicine; Visit Provider Internal Medicine Hematology & Oncology
DX: Z51.12 Encounter for antineoplastic immunotherapy (principal); C67.2 Malignant neoplasm of lateral wall of bladder; D64.9 Anemia, unspecified; Z85.46 Personal history of malignant neoplasm of prostate; I73.9 Peripheral vascular disease, unspecified; J44.9 Chronic obstructive pulmonary disease, unspecified; G62.9 Polyneuropathy, unspecified; Z92.3 Personal history of irradiation; Z79.01 Long term (current) use of anticoagulants; Z95.828 Presence of other vascular implants and grafts; Z79.899 Other long term (current) drug therapy; Z99.81 Dependence on supplemental oxygen
CPT/HCPCS: 36415; 36430; 80053; 81001; 82607; 82728; 83540; 83550; 84443; 85025; 86850; 86900; 86920; 87086; 96365; 96413; 99214; J1439; J1940; J7050; J9271; P9016

== ENCOUNTER 2019-12-13 06:52 | Outpatient (RCR) | payer OTHER, MEDICARE, SELFPAY ==
[2019-11-15 09:28] LABS: Basophils % 0.6 %; Eosinophils # 0.4 10^3/uL (0.0-0.8); Hematocrit 28.5 % (42.0-52.0); Hemoglobin 8.2 g/dL (11.7-16.6); Lymphocytes # 1.1 10^3/uL (0.8-4.8); Lymphocytes % 15.4 %; Mean Corpuscular HGB Conc 28.8 g/dL (30.0-36.0); Mean Corpuscular Hemoglobin 25.5 pg (28.0-34.0); Mean Corpuscular Volume 88.5 fL (80-94); Mean Platelet Volume 7.9 fL (7.4-10.4); Monocytes # 0.6 10^3/uL (0.2-0.9); Monocytes % 8.5 %; Neutrophils # 4.9 10^3/uL (1.8-7.7); Neutrophils % 69.9 %; Nucleated Red Blood Cells % 0 %; Platelet Count 195 10^3/cmm (130-400); Red Blood Count 3.22 10^6/uL (4.1-5.3); Red Cell Distribution Width 16.4 % (12.1-15.1)
[2019-11-15 10:00] LABS: Alanine Aminotransferase 10 U/L (0-41); Albumin Level 3.3 g/dL (3.5-5.2); Alkaline Phosphatase 112 IU/L (40-130); Anion Gap 16.6 (5-19); Aspartate Amino Transferase 13 U/L (0-40); Blood Urea Nitrogen 32 mg/dL (8-23); Carbon Dioxide 27 mmol/L (22-29); Chloride 96 mmol/L (98-107); Globulin 3.5 g/dL (1.3-4.6); Glucose 151 mg/dL (65-115); Osmolality Calculated 280 mOsm/kg (285-295); Potassium 4.6 mmol/L (3.5-5.1); Sodium 135 mmol/L (136-145); Thyroid Stimulating Hormone 1.75 uIU/mL (0.27-4.20); Total Bilirubin 0.3 mg/dL (0.15-1.2); Total Protein 6.8 g/dL (6.6-8.7)
[2019-11-15] MEDS: ferric carboxy (IVPB) 750 MG in sodium chloride 0.9% (100 ml) 100 ML 460 MG IV (12:05)
--- NOTE | 2019-11-15 16:46 | ONC FU_ITS ---
Dr. aMnn follow up note Patient: Henrik Kraus Unit #: [id number]: 1940 Dicatated By: Robert Mann M.D.Date of Visit:Nov 15, 2019 Onc Med Follow-up/Prog Note History of Present Illness: Mr. 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 Follow-up with urology, confirmed no recurrence. But about 4 years ago noted hematuria, underwent cystoscopy, as per patient, he was found to have enlarged prostate and was given prostrate medicine probably finasteride. Patient continued to have hematuria off and on, and but recently more often since he was started on anticoagulation with Eliquis and Plavix due to peripheral vascular stent placement. And on 09/02/2019, he underwent cystoscopy which showed right lateral bladder wall tumor, underwent partial TURBT and pathology confirmed papillary urothelial carcinoma, high-grade. Invasion to lamina propria and muscularis propria. Patient was evaluated by Dr. Osborn, as per his note, due to patient's comorbid conditions including severe COPD, patient is on home oxygen. And atherosclerotic coronary vascular disease, hypertension, diabetes mellitus, peripheral vascular disease, patient was not a candidate for cystectomy and as patient has already received radiation therapy to pelvic for prostrate cancer, not a candidate for further radiation therapy. Now being evaluated for palliative systemic therapy. Patient denies any specific complaints, except chronic constipation, and generalized weakness and fatigue. Otherwise No fever or chills, no nausea or vomiting, no recent hematuria. Use urinary catheter on as-needed basis per obstruction. Also has peripheral neuropathy involving lower extremities.Started on 3 weekly Keytruda on 10/04/2019 Came for follow-up, denies any specific complaint except persistent hematuria, has seen Dr. Osborn recently, as per patient he urinary cath was replaced but no cystoscopy was done, maybe next time, patient is scheduled to see follow with on 11/21/2019 Denies any fever chills, denies any nausea or vomiting denies diarrhea constipation denies any skin rash denies any shortness of breath denies any melena or hematochezia. Tolerating Keytruda well otherwise Medications: Albuterol Sulfate (sensor) 2 Puff(s) (of 108 (90 base) mcg/act) Aerosol Powder, Breath Activated Inhalation PRN, Alfuzosin HCl ER 1 Tablet (of 10 mg) Tablet SR 24 HR Oral daily, Atorvastatin Calcium 1 Tablet (of 20 mg) Oral daily, Azithromycin 1 Tablet (of 250 mg) Oral on Every Other Day, B-12 1 Tablet (of 50 mcg) Oral daily, Brovana 1 Inhalation (of 15 mcg/2mL) Nebulization solution Inhalation b.i.d., Budesonide 1 Inhalation (of 0.5 mg/2mL) Suspension Inhalation b.i.d., Calcium 1 Capsule (of 500 mg) Oral b.i.d., Docusate Calcium 1 Capsule (of 240 mg) Oral daily, DULoxetine HCl 1 Capsule (of 60 mg) Capsule Delayed Release Particles Oral b.i.d., Ferrous Sulfate 2 Tablet (of 325 (65 fe) mg) Oral daily, Finasteride 1 Tablet (of 5 mg) Oral daily, Furosemide 1 Tablet (of 40 mg) Oral daily, HYDROcodone-Acetaminophen 1 Tablet (of 10-325 mg) Oral four times a day, Levaquin 1 Tablet (of 250 mg) Oral daily for 10 days, Magnesium 1 Capsule (of 400 mg) Oral daily, metFORMIN HCl 1 Tablet (of 500 mg) Oral b.i.d., NAC 2 Capsule (of 500 mg) Oral b.i.d., Pantoprazole Sodium 1 Tablet (of 40 mg) Tablet, enteric coated Oral daily, Potassium Gluconate 2 Capsule (of 595 mg) Oral daily, ProAir HFA Aerosol, solution Inhalation, Vitamin D3 1 Tablet (of 2000 Units) Oral daily, Yupelri Solution Inhalation Allergies: No Known Allergies. Review of Systems: Constitutional - Appetite is diminished and weight is stable. No fever, chills, hot flashes, or night sweats. Energy level is poor, ENMT - No sinus congestion/drainage. No mouth sores. No sore throat or difficulty swallowing, Hematologic/Lymphatic - Positive for easy bruising and bleeding, Respiratory - Positive for shortness of breath and cough. Pt is on portable Oxygen today. No pleuritic pain or hemoptysis, Cardiovascular - No angina pain. No palpitations, Gastrointestinal - No nausea or vomiting. No heartburn or acid reflux. No diarrhea. Positive for constipation. Positive for dark stools (Pt is on iron supplements), Genitourinary (M) - Pt states that he has an indwelling catheter now, Musculoskeletal - Positive for joint pain, as well as bladder/stomach pain that Pt states is almost constant, Neurologic - No headache or dizziness. Positive for numbness and tingling in hands and feet, Psychiatric - No anxiety or depression. No insomnia. Vital Signs: Vitals are not available for this patient. Performance Status: 2 - Ambulatory/capable of all self-care, unable to perform any work activities. Up and about more than 50% of waking hours. (ECOG) Physical Examination: ENMT - , no mouth sores, Respiratory - poor air entry otherwise clear, Cardiovascular - Regular rate and rhythm of heart, Abdomen - soft, bowel sounds present, Extremities - 1+ edema bilaterally. Lab/Imaging: Test performed on November 01, 2019 11:09 Ua Micro: WBC 15-25 /hpf Ua Micro: RBC >100 /hpf Ua Micro: Squam Epith Cells 0-4 Ua Micro: Bacteria 1+ Test performed on November 01, 2019 10:10 WBC 6.7 10 3/uL RBC 3.43 10 6/uL HGB 8.7 g/dL HCT 29.8 % MCV 86.9 fL MCH 25.4 pg MCHC 29.2 g/dL RDW 15.5 % Platelet Count 204 10 3/cmm MPV 7.8 fL Neutrophils 4.7 10 3/uL Lymphocytes 1.1 10 3/uL Monocytes 0.5 10 3/uL Eosinophils 0.3 10 3/uL Basophils 0.0 10 3/uL Neutrophil % 70.4 % Lymphocyte % 16.0 % Monocyte % 7.2 % Eosinophil % 4.8 % Basophils % 0.6 % Test performed on October 25, 2019 11:00 Ferritin 297 ng/mL Iron 36 mcg/dL Sodium 138 mmol/L TSH 1.40 uIU/mL Vitamin B12 863 pg/mL Iron Binding Capacity (TIBC) 243 mcg/dl Potassium 5.0 mmol/L % Iron Saturation 14.8 % Chloride 96 mmol/L CO2 27 mmol/L UIBC 207 mcg/dL Anion Gap 20.0 BUN 24 mg/dL Creatinine 1.8 mg/dL Cr Clearance (Est) 47.13 mL/min Glucose 100 mg/dL Calcium 11.3 mg/dL Protein, Total 7.0 g/dL Albumin 3.7 g/dL Globulin 3.3 g/dL Bilirubin, Total 0.4 mg/dL ALT (SGPT) 19 U/L AST (SGOT) 19 U/L Alkaline Phosphatase 132 IU/L Impression: Papillary urothelial carcinoma, high-grade with invasion into lamina propria and muscularis propria status post TURBT with partial resection done on 09/02/2019. History of low risk prostrate cancer e.g. small volume, Ted score 3+2, PSA 3.1, diagnosed in 2002 status post radiation therapy Severe COPD, on home oxygen Peripheral neuropathy involving lower extremities Peripheral vascular disease status post peripheral vascular stent placement , On anticoagulation with Eliquis/Plavix Plan: Discussed with patient regarding her labs white blood count 7, hemoglobin 8.2 hematocrit 28.5 platelets 195,000 CMP within normal limits TSH 1.75 Clinically, patient is doing well, tolerating Keytruda well but with expected side effects. We'll proceed with the next 3 weekly dose of Keytruda and also second and final weekly dose of Injectafer oral iron deficiency anemia due to persistent hematuria. His follow-up CBC shows stable hemoglobin around 8 gm As for his persistent hematuria is concern, if there is a no improvement with Keytruda, and patient required frequent blood transfusion, we may consult radiation oncology for evaluation for possible palliative radiation therapy to the bladder to control this persistent hematuria.Return to clinic in 3 weeks with CBC and CMP Signed By: Robert Mann M.D. <<Signature on File>>
[2019-12-05 18:45] LABS: Basophils % 0.4 %; Eosinophils # 0.4 10^3/uL (0.0-0.8); Hematocrit 29.9 % (42.0-52.0); Hemoglobin 8.8 g/dL (11.7-16.6); Lymphocytes # 1.2 10^3/uL (0.8-4.8); Lymphocytes % 17.2 %; Mean Corpuscular HGB Conc 29.4 g/dL (30.0-36.0); Mean Corpuscular Hemoglobin 25.9 pg (28.0-34.0); Mean Corpuscular Volume 87.9 fL (80-94); Mean Platelet Volume 7.8 fL (7.4-10.4); Monocytes # 0.5 10^3/uL (0.2-0.9); Monocytes % 7.8 %; Neutrophils # 4.7 10^3/uL (1.8-7.7); Nucleated Red Blood Cells % 0 %; Platelet Count 208 10^3/cmm (130-400); Red Cell Distribution Width 16.2 % (12.1-15.1)
[2019-12-05 19:11] LABS: Alanine Aminotransferase 14 U/L (0-41); Albumin Level 3.6 g/dL (3.5-5.2); Alkaline Phosphatase 116 IU/L (40-130); Anion Gap 19.1 (5-19); Aspartate Amino Transferase 14 U/L (0-40); Blood Urea Nitrogen 31 mg/dL (8-23); Calcium 10.5 mg/dL (8.5-10.5); Carbon Dioxide 28 mmol/L (22-29); Chloride 97 mmol/L (98-107); Globulin 3.5 g/dL (1.3-4.6); Glucose 107 mg/dL (65-115); Osmolality Calculated 286 mOsm/kg (285-295); Potassium 5.1 mmol/L (3.5-5.1); Sodium 139 mmol/L (136-145); Thyroid Stimulating Hormone 1.32 uIU/mL (0.27-4.20); Total Bilirubin 0.3 mg/dL (0.15-1.2); Total Protein 7.1 g/dL (6.6-8.7)
--- NOTE | 2019-12-06 18:26 | ONC FU_ITS ---
Dr. Mann follow up note Patient: Henrik Kraus Unit #: [id number]: 1940 Dicatated By: Robert Mann M.D.Date of Visit:Dec 06, 2019 Onc Med Follow-up/Prog Note History of Present Illness: Mr. 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 Follow-up with urology, confirmed no recurrence. But about 4 years ago noted hematuria, underwent cystoscopy, as per patient, he was found to have enlarged prostate and was given prostrate medicine probably finasteride. Patient continued to have hematuria off and on, and but recently more often since he was started on anticoagulation with Eliquis and Plavix due to peripheral vascular stent placement. And on 09/02/2019, he underwent cystoscopy which showed right lateral bladder wall tumor, underwent partial TURBT and pathology confirmed papillary urothelial carcinoma, high-grade. Invasion to lamina propria and muscularis propria. Patient was evaluated by Dr. Osborn, as per his note, due to patient's comorbid conditions including severe COPD, patient is on home oxygen. And atherosclerotic coronary vascular disease, hypertension, diabetes mellitus, peripheral vascular disease, patient was not a candidate for cystectomy and as patient has already received radiation therapy to pelvic for prostrate cancer, not a candidate for further radiation therapy. Now being evaluated for palliative systemic therapy. Patient denies any specific complaints, except chronic constipation, and generalized weakness and fatigue. Otherwise No fever or chills, no nausea or vomiting, no recent hematuria. Use urinary catheter on as-needed basis per obstruction. Also has peripheral neuropathy involving lower extremities.Started on 3 weekly Keytruda on 10/04/2019 Came for follow-up, still complaining of persistent gross hematuria, not much improvement, recently seen by Dr. Osborn, underwent cystoscopy and found to have extensive gross hematuria, no further evaluation was possible. Patient was given parenteral Injectafer, tolerated well. Otherwise no fever chills no nausea vomiting, no abdominal pain Tolerating Keytruda well otherwise Medications: Albuterol Sulfate (sensor) 2 Puff(s) (of 108 (90 base) mcg/act) Aerosol Powder, Breath Activated Inhalation PRN, Alfuzosin HCl ER 1 Tablet (of 10 mg) Tablet SR 24 HR Oral daily, Atorvastatin Calcium 1 Tablet (of 20 mg) Oral daily, Azithromycin 1 Tablet (of 250 mg) Oral on Every Other Day, B-12 1 Tablet (of 50 mcg) Oral daily, Brovana 1 Inhalation (of 15 mcg/2mL) Nebulization solution Inhalation b.i.d., Budesonide 1 Inhalation (of 0.5 mg/2mL) Suspension Inhalation b.i.d., Calcium 1 Capsule (of 500 mg) Oral b.i.d., Docusate Calcium 1 Capsule (of 240 mg) Oral daily, DULoxetine HCl 1 Capsule (of 60 mg) Capsule Delayed Release Particles Oral b.i.d., Ferrous Sulfate 2 Tablet (of 325 (65 fe) mg) Oral daily, Finasteride 1 Tablet (of 5 mg) Oral daily, Furosemide 1 Tablet (of 40 mg) Oral daily, HYDROcodone-Acetaminophen 1 Tablet (of 10-325 mg) Oral four times a day, Levaquin 1 Tablet (of 250 mg) Oral daily for 10 days, Magnesium 1 Capsule (of 400 mg) Oral daily, metFORMIN HCl 1 Tablet (of 500 mg) Oral b.i.d., NAC 2 Capsule (of 500 mg) Oral b.i.d., Pantoprazole Sodium 1 Tablet (of 40 mg) Tablet, enteric coated Oral daily, Potassium Gluconate 2 Capsule (of 595 mg) Oral daily, ProAir HFA Aerosol, solution Inhalation, Vitamin D3 1 Tablet (of 2000 Units) Oral daily, Yupelri Solution Inhalation Allergies: No Known Allergies. Review of Systems: Constitutional - Appetite is diminished and weight is stable. No fever, chills, hot flashes, or night sweats. Energy level is poor, ENMT - No sinus congestion/drainage. No mouth sores. No sore throat or difficulty swallowing, Hematologic/Lymphatic - Positive for easy bruising and bleeding, Respiratory - Positive for shortness of breath and cough. Pt is on portable Oxygen today. No pleuritic pain or hemoptysis, Cardiovascular - No angina pain. No palpitations, Gastrointestinal - No nausea or vomiting. No heartburn or acid reflux. No diarrhea. Positive for constipation. Positive for dark stools (Pt is on iron supplements), Genitourinary (M) - Pt states that he has an indwelling catheter now, Musculoskeletal - Positive for joint pain, as well as bladder/stomach pain that Pt states is almost constant, Neurologic - No headache or dizziness. Positive for numbness and tingling in hands and feet, Psychiatric - No anxiety or depression. No insomnia. Vital Signs: Performed on Dec 06, 2019 13:03 Height - 67.00 in Weight - 214.0 lbs (LOW) BSA - 2.08 sq.m BMI - 33.52 (HIGH) Temperature - 98.2 F (LOW) Pulse - 70 /min Respiration - 24 /min BP - 123/56 mm(hg) O2 Sat - 97 % Pain - 3 Performance Status: 2 - Ambulatory/capable of all self-care, unable to perform any work activities. Up and about more than 50% of waking hours. (ECOG) Physical Examination: ENMT - No mouth sores, no thrush, no jaundice, Respiratory - Lungs are clear, Cardiovascular - Regular rate and rhythm of heart, Abdomen - Soft, bowel sounds present, Extremities - 1+ edema bilaterally. Lab/Imaging: Test performed on Nov 15, 2019 08:57 Sodium 135 mmol/L TSH 1.75 uIU/mL Potassium 4.6 mmol/L Chloride 96 mmol/L CO2 27 mmol/L Anion Gap 16.6 BUN 32 mg/dL Creatinine 1.5 mg/dL Cr Clearance (Est) 56.5600 mL/min Glucose 151 mg/dL Calcium 11.0 mg/dL Protein, Total 6.8 g/dL Albumin 3.3 g/dL Globulin 3.5 g/dL Bilirubin, Total 0.3 mg/dL ALT (SGPT) 10 U/L AST (SGOT) 13 U/L Alkaline Phosphatase 112 IU/L WBC 7.0 10 3/uL RBC 3.22 10 6/uL HGB 8.2 g/dL HCT 28.5 % MCV 88.5 fL MCH 25.5 pg MCHC 28.8 g/dL RDW 16.4 % Platelet Count 195 10 3/cmm MPV 7.9 fL Neutrophils 4.9 10 3/uL Lymphocytes 1.1 10 3/uL Monocytes 0.6 10 3/uL Eosinophils 0.4 10 3/uL Basophils 0.0 10 3/uL Neutrophil % 69.9 % Lymphocyte % 15.4 % Monocyte % 8.5 % Eosinophil % 5.0 % Basophils % 0.6 % Test performed on November 01, 2019 11:09 Ua Micro: WBC 15-25 /hpf Ua Micro: RBC >100 /hpf Ua Micro: Squam Epith Cells 0-4 Ua Micro: Bacteria 1+ Test performed on October 25, 2019 11:00 Ferritin 297 ng/mL Iron 36 mcg/dL Vitamin B12 863 pg/mL Iron Binding Capacity (TIBC) 243 mcg/dl % Iron Saturation 14.8 % UIBC 207 mcg/dL Impression: Papillary urothelial carcinoma, high-grade with invasion into lamina propria and muscularis propria status post TURBT with partial resection done on 09/02/2019. History of low risk prostrate cancer e.g. small volume, Ted score 3+2, PSA 3.1, diagnosed in 2002 status post radiation therapy Severe COPD, on home oxygen Peripheral neuropathy involving lower extremities Peripheral vascular disease status post peripheral vascular stent placement , On anticoagulation with Eliquis/Plavix Plan: Discussed with patient regarding his labs white blood count 7 hemoglobin 8.8 hematocrit 29.9 platelets 208,000 CMP within normal limit except creatinine 1.8 calcium 10.5 TSH 1.32. Clinically, patient doing reasonably well, and mild to moderate distress due to persistent gross hematuria and generalized weakness and fatigue. Otherwise tolerating immunotherapy with Keytruda well. Case was discussed with Dr. Osborn today, as patient recently underwent cystoscopy to assess tumor response to immunotherapy but due to gross hematuria evaluation was not possible. And clinically it appears immunotherapy is not controlling his hematuria, case was discussed with radiation oncology today and we will refer him to radiation oncology for evaluation regarding palliative radiation therapy to control persistent gross hematuria. Patient has history of external beam radiation therapy to prostate gland for history of prostate cancer in 2002. And if with radiation therapy he has gross hematuria improves then will request Dr. Osborn to consider cystoscopy to assess tumor response to immunotherapy and if there is response then will continue otherwise we will discontinue immunotherapy and may consider palliative chemo if patient wishes to. We will proceed with his next dose of immunotherapy with Keytruda today and then he will return to clinic in 3 weeks with CBC CMP. Signed By: Robert Mann M.D. <<Signature on File>>
--- NOTE | 2019-12-08 16:32 | N.ONRAD NP_ITS ---
Radiation Oncology New Patient Visit Patient: Henrik Kraus MR#: [id number] : 1940> Age: 79> Sex: Male> Dictated by: Dr. Manuel Mcnamara Date of Service: 12/08/2019 Referring Physician(s) : Dr. Jeffy Osborn Diagnosis: C67.2 - malignant neoplasm of lateral wall of bladder, Diagnosed 09/19/2019 (active) and Z85.46 - personal history of malignant neoplasm of prostate, Diagnosed 09/19/2019 (active). Radiotherapy to date: Summary > No prior radiation therapy at [facility] [place]. Prior radiation for prostate cancer in [place]. We are in the process of trying to identify the institution and obtain records. [facility] 7300 [facility] at 180 cGy per treatment. These treatments occurred in the late summer 2002. The patient cannot tell us the institution where he received the radiation. Chief Complaint / History of Present Illness: Mr. Kraus is a 79-year-old man referred for evaluation for palliative radiation because of a bleeding, highly vascular tumor involving the right wall of the bladder. Mr. Kraus was found to have prostate cancer in 2002. The specific path report is not available but the summary in his record indicates that he had a [place] 3+3 cancer involving the left lobe and a [place] 3+2 cancer involving the right lobe. He was treated through the [place] at an institution in [place]. As noted above we are trying to identify the institution and get records. Mr. Kraus has done well with the prostate cancer. However, he presented with intermittent hematuria because of anticoagulation related to cardiovascular disease. He developed worsening hematuria and on 09/02/2019 he underwent a cystoscopy. He was discovered to have a very vascular tumor involving the right lateral wall of the bladder. Because of the bleeding and highly vascular nature of the tumor a complete TURBT was not accomplished. Invasion into muscle was documented. The pathology shows a papillary urothelial carcinoma. Dr. Osborn has evaluated Mr. Kraus. He does not feel that he is a candidate for surgery because of his numerous medical problems. His performance status is very poor and the patient indicates that he sometimes sleeps up to 20 hours/day. He is also a very questionable candidate for additional radiation. Certainly additional radiation would entail risk that is difficult to estimate in terms of a percentage risk, but it is known that complications could be severe and even deadly in a feeble chronically ill patient. Mr. Kraus has undergone immunotherapy. He has continued to have bleeding and has required a large bore catheter be placed. He underwent a repeat cystoscopy and continues to have fairly bulky tumor on the right lateral wall of the bladder. He is referred to discuss palliative radiation, with all realizing it is a risky option. Current Medications: Albuterol Sulfate (sensor), alfuzosin HCl ER, atorvastatin Calcium, azithromycin, b-12, brovana, budesonide, calcium, docusate Calcium, dULoxetine HCl, ferrous Sulfate, finasteride, furosemide, hYDROcodone-Acetaminophen, keytruda, levaquin, magnesium, metFORMIN HCl, nAC, pantoprazole Sodium, potassium Gluconate, proAir HFA, vitamin D3, yupelri. Allergies: No Known Allergies Medical History: - Arthritis, - chronic kidney disease, - chronic obstructive pulmonary disease, - congestive heart failure, - coronary vascular disease, - hypercholesterolemia, - hypertension, - obstructive sleep apnea, - peripheral vascular disease, - stroke, - type II diabetes. No history of collagen vascular disease. No previous radiation therapy. Surgical History: Appendectomy, back surgery, bilateral total knee replacement, carotid endarterectomy, coronary artery bypass, pacemaker placement, peripheral artery angioplasty, repair of detached retina, rotator cuff repair and tURBT. Family History: Father is at age 82 having experienced myocardial infarction. Mother is at age 81 having experienced myocardial infarction. Maternal Grandmother is having experienced cancer of unknown primary. Maternal Grandfather is having experienced cancer of unknown primary. Social History: Last screened on 12/06/2019 - Yes - but has quit for 10 years. Smoked for 30 years. Last screened on 12/06/2019 - Never drank. Patient indicated access to the following support systems: lives with spouse, significant other, family, or friends, lives in own house, supportive family/friends willing to assist with needs, and adequate transportation available for expected visits. Patient indicated the following nutritional habits: regular meals. Patient indicated participation in the following forms of activity: light exercise. Current Complaints / Review of Systems: . Vital Signs: Physical Exam: Alert, oriented, no acute distress. He is confined to a wheelchair. He appears chronically ill. Although he cannot remember the institution where he received radiation for the prostate cancer, he is very coherent and discusses his disease with good incite. No cervical or supraclavicular lymphadenopathy. Lungs clear to percussion. On auscultation breath sounds are diminished bilaterally but completely clear with no rales rhonchi or wheezes. Heart sounds were distant. The rhythm was difficult to evaluate due to the the distant sounds, but no irregular beats were heard. No murmur or gallop noted. Abdomen no distention. No organomegaly or mass or tenderness. He has mild tenderness over the bladder. Performance Status: KPS: 40 Pathology: Primary, c67.2 - malignant neoplasm of lateral wall of bladder, Diagnosed 09/19/2019 (active) and Primary, z85.46 - personal history of malignant neoplasm of prostate, Diagnosed 09/19/2019 (active). Lab: Test performed on 10/25/2019 11:00 AM Iron - 36 mcg/dl (low), % Iron Saturation - 14.8 % (low), Test performed on 11/15/2019 8:57 AM RBC - 3.22 10 6/ul (low), HGB - 8.2 g/dl (low), HCT - 28.5 % (low), MCH - 25.5 pg (low), MCHC - 28.8 g/dl (low), RDW - 16.4 % (high), Sodium - 135 mmol/l (low), Chloride - 96 mmol/l (low), BUN - 32 mg/dl (high), Creatinine - 1.5 mg/dl (high), Cr Clearance (Est) - 56.5600 ml/min (low), Glucose - 151 mg/dl (high), Calcium - 11.0 mg/dl (high) and Albumin - 3.3 g/dl (low). Imaging: See HPI Impression: Bleeding bladder cancer in a patient who is a poor candidate for surgery because of his poor performance status and multiple medical problems, and at the same time a poor candidate for radiation because of previously receiving radiation for prostate cancer. I discussed the situation with Mr. Kraus. I told him if radiation is done we will need to give enough treatment to have a chance to be of benefit to him. I told him that giving radiation in an area that has already received a full course of treatment can be very hazardous. I discussed that he could develop scarring of the bladder wall that could be painful and that the damaged tissue could bleed as much as the tumor is bleeding. I discussed he could experience a perforation in the wall that could spill urine into the pelvis and possibly even be deadly. Under the best of circumstances he would wind up with a permanent ileostomy. Also discussed that the bowel in the pelvis received radiation in the past. Even if we are able to obtain accurate records with good dosimetry, there would still be significant risk for chronic pain, bleeding, perforation, and emergency surgery requiring an ostomy. I reviewed these issues in detail with Mr. Kraus. He was not alarmed by the possibility. He said what is being done now is not working and he would like to go through a course of palliative radiation. I discussed 5 weeks of treatment. He says he would not have trouble getting to the radiation center. He does live about 25 miles away. Plan: We will schedule simulation. Signed by: 12/08/2019 4:31:42 PM <<Signature on File>> Time spent with patient: CPT Code: CPT Code:
--- NOTE | 2019-12-12 | CT_ITS ---
Radiation Therapy Planning CT images; total exam DLP: 804.20 mGy-cm MTDD
== END 2019-12-13 23:59 | disposition home or self-care (01) ==
LOC: ONCMED 06:52
PROVIDERS: Internal Medicine Hematology & Oncology; Family Provider Family Medicine; PCP Family Medicine; Visit Provider Specialist
DX: Z51.12 Encounter for antineoplastic immunotherapy (principal); Z51.0 Encounter for antineoplastic radiation therapy; C67.2 Malignant neoplasm of lateral wall of bladder; D64.9 Anemia, unspecified; N13.5 Crossing vessel and stricture of ureter without hydronephrosis; N13.30 Unspecified hydronephrosis; I50.30 Unspecified diastolic (congestive) heart failure; G47.33 Obstructive sleep apnea (adult) (pediatric); I25.10 Atherosclerotic heart disease of native coronary artery without angina pectoris
CPT/HCPCS: 77334; 80053; 84443; 85025; 96367; 96413; 99204; 99214; J1439; J7050; J9271

== ENCOUNTER 2019-12-16 22:04 | Inpatient (IN) | payer OTHER, MEDICARE, SELFPAY ==
[2019-12-16 22:16] VITALS: BP 159/75; PULSE 104; RESP 20; TEMP 36.8; O2SAT 97; BMI 32.8
[2019-12-16 22:54] LABS: Basophils # 0.1 10^3/uL (0.0-0.1); Basophils % 0.5 %; Hematocrit 27.4 % (42.0-52.0); Hemoglobin 8.1 g/dL (11.7-16.6); Lymphocytes # 1.2 10^3/uL (0.8-4.8); Lymphocytes % 9.3 %; Mean Corpuscular HGB Conc 29.6 g/dL (30.0-36.0); Mean Corpuscular Hemoglobin 25.6 pg (28.0-34.0); Mean Corpuscular Volume 86.4 fL (80-94); Mean Platelet Volume 7.7 fL (7.4-10.4); Monocytes # 0.9 10^3/uL (0.2-0.9); Monocytes % 6.7 %; Neutrophils # 10.5 10^3/uL (1.8-7.7); Neutrophils % 82.9 %; Nucleated Red Blood Cells % 0 %; Platelet Count 233 10^3/cmm (130-400); Red Blood Count 3.17 10^6/uL (4.1-5.3); Red Cell Distribution Width 15.9 % (12.1-15.1); White Blood Count 12.7 10^3/uL (4.0-10.0)
[2019-12-16 23:11] LABS: Alanine Aminotransferase 14 U/L (0-41); Albumin Level 3.7 g/dL (3.5-5.2); Alkaline Phosphatase 113 IU/L (40-130); Anion Gap 19.3 (5-19); Aspartate Amino Transferase 15 U/L (0-40); Blood Urea Nitrogen 39 mg/dL (8-23); Calcium 11.1 mg/dL (8.5-10.5); Carbon Dioxide 24 mmol/L (22-29); Chloride 96 mmol/L (98-107); Globulin 3.6 g/dL (1.3-4.6); Glucose 172 mg/dL (65-115); Osmolality Calculated 280 mOsm/kg (285-295); Potassium 5.3 mmol/L (3.5-5.1); Sodium 134 mmol/L (136-145); Total Bilirubin 0.3 mg/dL (0.15-1.2); Total Protein 7.3 g/dL (6.6-8.7)
[2019-12-17] VITALS (26 sets, daily range): BP systolic 89–148; BP diastolic 18–65; PULSE 62–92; RESP 16–20; TEMP 36.4–37.3; O2SAT 91–100
[2019-12-17] MEDS: HYDROcodone-acetaminophen 10-325 mg Tablet 1 TAB PO ×4 (01:54→22:33)
--- NOTE | 2019-12-17 02:08 | ECG_ITS ---
[facility] Test Date: 2019-12-17 Pat Name: Henrik Kraus Department: Room: Gender: Male Reimbursement Director: : 1940 Requested By: Dany Conway Order Number: [id number] Jac MD: Jody Mendosa M.D. Measurements Intervals [place] Rate: 76 P: ID: [id number] QRS: -88 QRSD: 194 T: 75 QT: 439 QTc: 495 Interpretive Statements ELECTRONIC VENTRICULAR PACEMAKER ABNORMAL RHYTHM ECG INTERPRETATION BASED ON A DEFAULT AGE OF 40 YEARS Compared to ECG 09/01/2019 12:00:19 Atrial-paced complex(es) or rhythm no longer present Electronically Signed On 12-17-2019 13:52:43 CDT by Jody Mendosa M.D. [email or web address]
--- NOTE | 2019-12-17 02:51 | CTR_ITS ---
PROCEDURE INFORMATION: Exam: CT Abdomen And Pelvis Without Contrast Exam date and time: 12/17/2019 3:29 AM Age: 79 years old Clinical indication: Other: Hematuria; Abdominal pain; Generalized; Prior surgery; Surgery type: Appy; Patient HX: PT has bladder CA, HX prostate CA; Additional info: Abd pain hematuria TECHNIQUE: Imaging protocol: Computed tomography of the abdomen and pelvis without contrast. Radiation optimization: All CT scans at this facility use at least one of these dose optimization techniques: automated exposure control; mA and/or kV adjustment per patient size (includes targeted exams where dose is matched to clinical indication); or iterative reconstruction. COMPARISON: CT abdomen pelvis wo/w [id number] 2019-08-24 10:31 RADIATION DOSE METRICS: Total DLP (mGy-cm): 1781.38 FINDINGS: Tubes, catheters and devices: A balloon bladder catheter is present. Lungs: Fibrosis in the lung bases with left posterior basilar consolidation. Scattered bronchial wall thickening. The interstitial thickening, bronchial wall thickening is increased since the comparison study. Heart: Mitral annulus calcifications, cardiac enlargement, and ICD leads are noted. Mild cardiac enlargement. Mediastinal space: Small gastroesophageal sliding type hiatal hernia. Liver: Small, less than 5 mm, liver hypodensity. Highly likely to be benign and does not require follow-up imaging or biopsy per ACR. Gallbladder and bile ducts: Normal. No calcified stones. No ductal dilation. Pancreas: Pancreas atrophy. Pancreas atrophy. Spleen: Borderline mild splenic enlargement. Adrenals: Normal. No mass. Kidneys and ureters: Moderate right hydronephrosis and hydroureter, likely related to obstruction at the right vesicoureteral junction due to mass, recommend urology follow-up. Unchanged 1 cm left renal simple cyst in the superior pole. Stomach and bowel: Moderate diverticulosis coli. Appendix: No evidence of appendicitis. Intraperitoneal space: Unremarkable. No free air. No significant fluid collection. Vasculature: Moderate aortic and iliac artery atherosclerotic calcification. Lymph nodes: Unremarkable. No enlarged lymph nodes. Bladder: Irregular bladder wall thickening with suspected mass involving the bladder wall. There is some frothy gas foci within the bladder. Bladder wall thickening and mild adjacent stranding. Question associated cystitis or emphysematous cystitis versus gas introduced from [place]. Bladder mass appears to extend outside of the bladder wall along the right posterior lateral margin where it measures approximately 3.5 cm. Mild bladder distension. Reproductive: Unremarkable as visualized. Bones/joints: Moderate to severe bilateral hip degenerative joint disease. Chronic L3 mild compression fracture deformity. Multilevel moderate to severe lumbar spinal stenosis. Evidence of suspected laminotomy in the lower lumbar spine. No visualized lytic or blastic bone lesions. Moderate left sacroiliac degenerative joint disease. Chronic healed rib fractures. Soft tissues: Appears more advanced than the comparison study with loss of fat planes between the obturator internus indicating tumor. Small fat protruding umbilical hernia. Small fat protruding inguinal hernias. CT/CT kidney stone 93601 IMPRESSION: 1. Irregular bladder wall thickening with suspected mass involving the bladder wall. Moderate right hydronephrosis and hydroureter, likely related to obstruction at the right vesicoureteral junction due to mass, recommend urology follow-up. 2. Bladder mass appears to extend outside of the bladder wall along the right posterior lateral margin where it measures approximately 3.5 cm. Appears more advanced than the comparison study with loss of fat planes between the obturator internus indicating tumor. 3. There is some frothy gas foci within the bladder. Bladder wall thickening and mild adjacent stranding. Question associated cystitis or emphysematous cystitis versus gas introduced from [place]. 4. Fibrosis in the lung bases with left posterior basilar consolidation. Scattered bronchial wall thickening. The interstitial thickening, bronchial wall thickening is increased since the comparison study. Left posterior basilar consolidation could reflect infection, or scarring and round atelectasis. Radiation Dose CTDIVOL = (mGy): DLP = 1781.38 (mGy-cm)
--- NOTE | 2019-12-17 02:54 | PM.HP ---
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 Status post large bore catheter placement. He is currently waiting for initiation of palliative radiotherapy. Not a surgical candidate because of multiple comorbid conditions. Because of vascular nature/high-grade invasive bladder tumor he has been having gross hematuria with clots. Dr. Osborn did cystoscopy on 09/01 which showed very friable extensive nature of the disease hence resection was withheld. Since then he has a chronic indwelling catheter. 22 [place] catheter gets changed every month. Patient decided to come to the hospital today because of urine retention and abdominal discomfort. At baseline he experiences a lot of passage of clots on daily basis, today after supper he started experiencing urinary retention with worsening of abdominal discomfort. He tried to irrigate himself for 2 to 3 hours but was unable to do so. He did not experience any nausea, vomiting, fever at home. In the ED he was irrigated profusely, after first 2 L lots of clots were retracted in the bag, when I saw him he was on second bag, his urinary bag contained blood-tinged urine without any clots. Patient was not complaining of any abdominal discomfort at that point. Diagnosis in the ER revealed leukocytosis, PRAMOD, anemia, I have requested CT with out contrast Review of Systems Const: Reports: change in appetite, fatigue and malaise; Denies: fever(s), chills or body aches Eyes: Denies: change in vision ENMT: Denies: throat pain Card: Denies: chest pain Resp: Denies: dyspnea GI: Reports: abdominal pain; Denies: nausea, vomiting, diarrhea or constipation : Reports: difficulty urinating, urinary dribbling and difficulty starting urination; Denies: flank pain, dysuria or urinary urgency Musc: Denies: neck pain Skin/Breast: Denies: rash Neuro: Denies: headache(s) Psych: Denies: anxiety Endo: Denies: polyuria Oj/Lymph: Denies: easy bruising All/Imm: Denies: urticaria Medications/Allergies Home Medications Medication Instructions Recorded Confirmed Last Taken Type albuterol sulfate 90 mcg/actuation 2 puff INHALATION Q6H PRN 06/20/19 11/23/19 09/02/19 08:00 History aerosol inhaler alfuzosin 10 mg tablet,extended 10 mg PO DAILY 06/20/19 11/23/19 09/02/19 08:00 History release 24 hr arformoterol 15 mcg/2 mL solution 2 ml INHALATION BID 06/20/19 11/23/19 09/02/19 08:00 History for nebulization atorvastatin 20 mg tablet 20 mg PO DAILY 06/20/19 11/23/19 09/01/19 20:00 History budesonide 0.5 mg/2 mL suspension 0.25 mg INHALATION BID 06/20/19 11/23/19 09/02/19 08:00 History for nebulization cholecalciferol (vitamin D3) 50 50 mcg PO DAILY 06/20/19 11/23/19 09/02/19 08:00 History mcg (2,000 unit) capsule finasteride 5 mg tablet 5 mg PO DAILY 06/20/19 11/23/19 09/02/19 08:00 History metformin 500 mg tablet 500 mg PO BID 06/20/19 11/23/19 09/01/19 20:00 History pantoprazole 40 mg PO DAILY #30 tab 07/09/19 11/23/19 09/02/19 08:00 Rx furosemide 40 mg tablet 40 mg PO BID tab 07/14/19 11/23/19 09/02/19 08:00 History calcium carbonate 500 mg calcium 500 mg PO BID 08/03/19 11/23/19 09/02/19 08:00 History (1,250 mg) capsule ferrous sulfate 325 mg (65 mg 325 mg PO BID 08/03/19 11/23/19 09/02/19 08:00 History iron) tablet magnesium oxide 400 mg PO BID 08/03/19 11/23/19 09/02/19 08:00 History vitamin B complex 1 tab PO DAILY 08/03/19 11/23/19 09/02/19 08:00 History acetylcysteine (bulk) 1,000 each MISCELLANEOUS BID gm 08/10/19 11/23/1920 History duloxetine 30 mg capsule,delayed 90 mg PO DAILY cap 10/05/19 11/23/19 Unknown History release pembrolizumab 25 mg/mL intravenous IVP 10/05/19 11/23/19 Unknown History solution levofloxacin 500 mg tablet 500 mg PO DAILY #10 tab 10/24/19 11/23/19 Unknown Rx revefenacin 175 mcg/3 mL solution 175 mcg INHALATION DAILY #90 ml 11/09/19 11/23/19 Unknown Rx for nebulization hydrocodone-acetaminophen 1 tab PO Q6H PRN 12/17/19 12/17/19 12/17/19 01:56 History Allergies Allergy/AdvReac Type Severity Reaction Status Date / Time adhesive tape Allergy ALGY-Rash Verified 11/23/19 10:16 perfume Allergy ALGY-Difficulty Verified 11/23/19 10:16 Breathing PFSH Acute PFSH: Medical History Afib 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 Stout on 08/08/19 for LLE PVD with balloon angioplasty Status post placement of cardiac pacemaker Family History Sister Diabetes Brother Diabetes CAD (coronary artery disease) Mother , AT AGE 81 Heart attack Father , AT AGE 82 Heart attack Social History Smoking and tobacco status: former smoker Quit status (tobacco): has quit using tobacco Year quit tobacco: 2008 Year 1.5 PPD Hx Alcohol intake: never Lives independently: Yes Household members: significant other Marital status: / Current occupational status: retired History of recent travel: No Current gender identity: Male Vitals/I&O/Wt Last Vital Signs Temp 98.2 F 12/16/19 22:16 Pulse 82 12/17/19 02:09 Resp 18 12/17/19 02:09 BP 117/55 12/17/19 02:09 Pulse Ox 98 12/17/19 02:09 Weight last 48 hrs Weight 95.254 kg Physical Exam Narrative: EXAM NARRATIVE: Head to toe examination Patient lying comfortably in his bed without any active discomfort Elderly frail male S1, S2 no tachycardia Abdomen soft nontender nondistended bowel sounds present no CVA tenderness Douglas catheter draining blood-tinged urine without any clots Lower extremity without any signs of edema gangrene ulcer Neurologically nonfocal exam EOMI, PERRLA Appropriate mood and affect Alert oriented x3 GCS 15 Data : 12/16/19 22:31 12/16/19 22:31 A&P Assessment and plan (1) Clot retention of urine: Status: Acute (2) ZEHRA (obstructive sleep apnea): Status: Acute (3) Malignant neoplasm of lateral wall of bladder: Status: Acute (4) Type 2 diabetes mellitus with diabetic polyneuropathy: Status: Chronic Qualifiers: 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 Osborn is consulted might plan to resect tumor to control bleeding Patient has a large bore [place] catheter, which gets changed every month No signs of UTI Acute on chronic kidney disease stage II progressing to 3 Hyperkalemia 5.3 with creatinine 2.2, baseline creatinine seems to be around 1.5-1.8 This seems secondary to post renal obstructive uropathy Acute on chronic blood loss anemia due to hematuria We will order 2 units of PRBC Obstructive sleep apnea: CPAP overnight Chronic hypoxic respiratory failure currently saturating well on 3 to nasal cannula DNR/DNI npo No need of DVT prophylaxis as a contraindicated because of persistent hematuria: Would use SCDs Attestations Medical Necessity Statement*: During stay in the hospital cross more than 2 midnight currently might need urological intervention to control bleeding currently need blood transfusion as well Time Spent in Patient Care: (>than 50% of time spent in counselling and/or direct pt care on unit). 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
--- NOTE | 2019-12-17 04:32 | PM.CONSULT ---
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 His story: I first evaluated Mr. Kraus in January 2015 approximately 12 years post completion of radiation therapy for prostate cance; no evidence of recurrence. He was placed on a return to clinic as needed basis. In July of this year he presented with gross hematuria and clots and was seen in the emergency department. He was on both Eliquis and Plavix for peripheral vascular disease with planned interventions. (He reported a previous cystoscopy about 4 years prior for gross hematuria and it was felt apparently according to his report, that this was related to prostate bleeding. He was placed on FINASTERIDE and apparently did well until July 2019 with recurrent gross hematuria and clot passage.) Work-up in July included: - PSA of 0.32 with no evidence of prostate cancer recurrence - Severe lower urinary tract symptoms with symptom score of 26, and overall debilitated state due to chronic pulmonary disease and vascular disease. - CYSTOSCOPY revealed a large right lateral wall bladder tumor consistent with muscle invasion with significant intramural thickening and edema. Tumor was wide based, sessile, and nodular. There was not a lot of papillary component to it. - CT scan confirmed these findings but did not appear to be extravesical at that point. Acknowledging significant risk he was allowed by cardiology to stop both the Plavix and Eliquis due to the significant bleeding and because of the impending nerve ablation procedure for chronic lower extremity pain. A TURBT was planned. On 09/02/2019 he underwent TURBT. Cystoscopic findings confirmed previous impression of obvious muscle involvement. The tumor was extremely vascular and even with just partial resection it was hard to control bleeding at the base of the resection site. Was discharged with Douglas catheter in place and due to failing voiding trial, was placed on a SCIC program which he conducted for a while until he could no longer manage due to discomfort and difficulty draining his bladder because of clots intermittently He also had one transfer from [facility] to [place] [facility] due to my out-of-town status and underwent what sounds to be a difficult partial resection to control bleeding; it was described as severe. Since that time he has been managed with a large bore hematuria catheter with ongoing intermittent bleeding and clots. He is considered an extremely high risk for severe life-threatening bleeding with recurrent instrumentation based on the previous findings. For that reason, Oncology was consulted and initiated systemic therapy with pembrolizumab and follow-up outpatient cystoscopy did NOT show any noticeable local control and it actually appeared that the tumor was larger. Recent consultation with Radiation oncology was conducted looking for any type of palliative measures due to all of the above issues. He is considered a high risk for radiation based on his prior treatment for BELL TIER, but was willing to consider that risk as a reluctantly acceptable given the limited options otherwise. He is not considered a candidate for extirpative therapy. This is based on his severely debilitated state and very poor pulmonary function. Radiation oncology CT scan simulation was performed on 12/12/19. I did review that CT scan and compared with the August CT scan. There has been significant change with increase in tumor size and now what is a clearly an extravesical component. Dilation of the venous drainage from this area consistent with the highly friable nature of this tumor. His last visit in my office was on 11/23/19. He continued to decline clinically, sleeping up to 20 hours a day but thankfully had not required catheter irrigation at that time for a while. A 20 Green[place] catheter was replaced as part of routine management. Unfortunately that did not last and he presented to the emergency department last night with increasing hematuria and catheter occlusion despite the large bore hematuria catheter that was chronically in place. Management with manual irrigation was conducted in the emergency department with some improvement. He was placed on CBI and was admitted for evaluation and treatment. STONE PROTOCOL CT scan (personally reviewed): Air in the bladder consistent with instrumentation. There is evidence of increased RIGHT SIDED HYDRONEPHROSIS consistent with invasion of the ureter from the bladder tumor. I was consulted to assist with local management of this problem. Upon evaluation upon the floor his urine was much better than expected with CBI running it was relatively clear. As the CBI was backed down to an off position urine became more red. Restarted at a lower rate and maintained acceptable status. He has been typed and screened. I expect that if this continues he will require transfusion. Certainly if he undergoes surgery that would be likely required. I reviewed with him in detail his options as follows: 1. Continue conservative management initially with manual irrigation, CBI, blood transfusion as needed, continuation of radiation therapy as the least invasive of all options for managing this tumor 2. Cystoscopy, clot evacuation, transurethral resection of bladder tumor here. If this is done prior to any other intervention endovascularly as described below there is a significant chance of uncontrolled bleeding based on his prior vascularity of the tumor at 2 resections, increased size since initial resection, and obvious increased vascularity on the CT scan. 3. Consider catheterization of the internal iliac artery on the right with endo-coil placement for embolization of the vessels feeding the tumor with potentially follow-up TURBT. This would probably make more sense before TURBT given the findings above. I can check with Dr. Stout to see if he is comfortable with that kind of procedure and if not then consider transfer to [place] if that became necessary for interventional radiology. 4. Palliative care only, hospice consultation and no further attempt at bladder tumor management for control or bleeding. No decisions were made today beyond continuing conservative therapy for now given that after manual irrigation his urine has been relatively easy to keep clear with CBI. I will speak with his family as well. Review of Systems Const: Reports: fatigue, malaise and daytime sleepiness; Denies: fever(s) or chills Eyes: Denies: change in vision or eye discomfort ENMT: Denies: throat pain or odynophagia Card: Reports: swelling of feet/ankles; Denies: chest pain or palpitations Resp: Reports: dyspnea and wheezing GI: Reports: abdominal pain, diarrhea (Alternating with constipation), constipation and other (Painful defecation) : Reports: hematuria and other (Chronic urinary retention with indwelling Douglas catheter); Denies: flank pain Musc: Reports: joint pain, muscle weakness and decrease in muscle mass Skin/Breast: Denies: rash or erythema Neuro: Reports: difficulty walking; Denies: Slurred speech present or seizure-like activity Psych: Reports: depression and sleeping more Endo: Reports: tired all the time; Denies: cold intolerance Oj/Lymph: Reports: easy bruising and easy bleeding; Denies: tender lymph nodes All/Imm: Reports: throat swelling; Denies: urticaria Meds/Allergies Home Medications and Allergies Home Medications Medication Instructions Recorded Confirmed Last Taken Type albuterol sulfate 90 mcg/actuation 2 puff INHALATION Q6H PRN 06/20/19 11/23/19 09/02/19 08:00 History aerosol inhaler alfuzosin 10 mg tablet,extended 10 mg PO DAILY 06/20/19 11/23/19 09/02/19 08:00 History release 24 hr arformoterol 15 mcg/2 mL solution 2 ml INHALATION BID 06/20/19 11/23/19 09/02/19 08:00 History for nebulization atorvastatin 20 mg tablet 20 mg PO DAILY 06/20/19 11/23/19 09/01/19 20:00 History budesonide 0.5 mg/2 mL suspension 0.25 mg INHALATION BID 06/20/19 11/23/19 09/02/19 08:00 History for nebulization cholecalciferol (vitamin D3) 50 50 mcg PO DAILY 06/20/19 11/23/19 09/02/19 08:00 History mcg (2,000 unit) capsule finasteride 5 mg tablet 5 mg PO DAILY 06/20/19 11/23/19 09/02/19 08:00 History metformin 500 mg tablet 500 mg PO BID 06/20/19 11/23/19 09/01/19 20:00 History pantoprazole 40 mg PO DAILY #30 tab 07/09/19 11/23/19 09/02/19 08:00 Rx furosemide 40 mg tablet 40 mg PO BID tab 07/14/19 11/23/19 09/02/19 08:00 History calcium carbonate 500 mg calcium 500 mg PO BID 08/03/19 11/23/19 09/02/19 08:00 History (1,250 mg) capsule ferrous sulfate 325 mg (65 mg 325 mg PO BID 08/03/19 11/23/19 09/02/19 08:00 History iron) tablet magnesium oxide 400 mg PO BID 08/03/19 11/23/19 09/02/19 08:00 History vitamin B complex 1 tab PO DAILY 08/03/19 11/23/19 09/02/19 08:00 History acetylcysteine (bulk) 1,000 each MISCELLANEOUS BID gm 08/10/19 11/23/19 08/31/19 History duloxetine 30 mg capsule,delayed 90 mg PO DAILY cap 10/05/19 11/23/19 Unknown History release pembrolizumab 25 mg/mL intravenous IVP 10/05/19 11/23/19 Unknown History solution levofloxacin 500 mg tablet 500 mg PO DAILY #10 tab 10/24/19 11/23/19 Unknown Rx revefenacin 175 mcg/3 mL solution 175 mcg INHALATION DAILY #90 ml 11/09/19 11/23/19 Unknown Rx for nebulization hydrocodone-acetaminophen 1 tab PO Q6H PRN 12/17/19 12/17/19 12/17/19 01:56 History Allergies Allergy/AdvReac Type Severity Reaction Status Date / Time adhesive tape Allergy ALGY-Rash Verified 11/23/19 10:16 perfume Allergy ALGY-Difficulty Verified 11/23/19 10:16 Breathing PFSH Acute PFSH: Medical History Afib 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 Stout on 08/08/19 for LLE PVD with balloon angioplasty Status post placement of cardiac pacemaker Family History Sister Diabetes Brother Diabetes CAD (coronary artery disease) Mother , AT AGE 81 Heart attack Father , AT AGE 82 Heart attack Social History Smoking and tobacco status: former smoker Quit status (tobacco): has quit using tobacco Year quit tobacco: 2008 Year 1.5 PPD Hx Alcohol intake: never Lives independently: Yes Household members: significant other Marital status: / Current occupational status: retired History of recent travel: No Current gender identity: Male Vitals/I&O/Wt Last Vital Signs Temp 98.2 F 12/16/19 22:16 Pulse 81 12/17/19 04:01 Resp 16 12/17/19 04:01 BP 113/57 12/17/19 04:01 Pulse Ox 100 12/17/19 04:01 12/16/19 12/16/19 12/17/19 14:59 22:59 06:59 Intake Total 8100 / 8100 Output Total 9000 / 9000 Balance -900 / -900 Weight last 48 hrs Weight 210 lb Physical Exam Const: COMMON NORMALS: no acute distress, alert and well nourished GENERAL APPEARANCE: well kempt and well developed ORIENTATION/CONSCIOUSNESS: not confused HENMT: COMMON NORMALS: normocephalic and atraumatic HEAD & SCALP: normocephalic and atraumatic Eye: COMMON NORMALS: conjunctivae normal and no scleral icterus CONJUNCTIVA: Yes conjunctivae normal Neck/C-Spine: COMMON NORMALS: full ROM GENERAL: Yes normal visual inspection Lymph: LYMPHATIC: No no lymphadenopathy noted and No no lymphedema noted Resp: COMMON NORMALS: normal respiratory effort EFFORT & INSPECTION: No labored and No Actively coughing Cardio: RATE: not tachycardic : BLADDER/KIDNEY EXAM: Yes catheter in place SCROTUM: No scrotal swelling Extremity: COMMON NORMALS: negative for full ROM NARRATIVE EXTREMITY EXAM: Nonambulatory Neuro: SENSORIUM/ORIENTATION: Yes alert Psych: COMMON NORMALS: mental status grossly normal APPEARANCE: Yes grossly normal and Yes well kempt ATTITUDE: Yes calm and Yes engaged Skin: COMMON NORMALS: no rashes or lesions noted and no jaundice GENERAL SKIN EXAM: no rashes or lesions noted A&P Assessment and plan (1) Malignant neoplasm of lateral wall of bladder: Status: Acute (2) Clot retention of urine: Increased exacerbation of bleeding recently with onset of clot retention yesterday Status: Acute (3) Acute on chronic anemia: Status: Acute (4) Extrinsic ureteral obstruction: Fairly new onset of hydronephrosis likely from local invasion and obstruction of the intramural ureter on the right Status: Acute (5) CKD (chronic kidney disease): Creatinine this visit is 2.2. Status: Acute Qualifiers: Chronic kidney disease stage: stage 3 (moderate) Qualified Code(s): N18.3 - Chronic kidney disease, stage 3 (moderate) (6) Chronic hypoxemic respiratory failure: Status: Acute (7) Diabetic peripheral neuropathy associated with type 2 diabetes mellitus: Status: Acute (8) Diabetes: Status: Acute Consult Attestations Medical Necessity Statement: Patient is critically ill with severe potentially life-threatening bleeding from a nonresectable bladder tumor with local progression. I expect that he will require several days in the hospital at a minimum for management of this difficult problem. Time Spent in Patient Care: (>than 50% of time spent in counselling and/or direct pt care on unit). 90 minutes Coding Level of Care Code Acute Stock Control Supervisor for g Fwd Exam Comprehensive Diagnoses Malignant neoplasm of lateral wall of bladder C67.2 Clot retention of urine R33.8 Acute on chronic anemia D64.9 Extrinsic ureteral obstruction N13.5 CKD (chronic kidney disease) N18.3 Chronic kidney disease stage: stage 3 (moderate) Chronic hypoxemic respiratory failure J96.11 Diabetic peripheral neuropathy associated with type 2 diabetes mellitus E11.42 Diabetes E11.9 Time Spent (min) 90 Comment Chart review, radiographic imaging review, history physical obtaining, counseling of patient
--- NOTE | 2019-12-17 07:55 | P.MISC_ITS ---
Miscellaneous Note Purpose of Documentation: I reviewed with his daughter Courtney the options outlined in the consult note. She would like to speak with him just to help clarify his wishes moving forward. We did agree that if there was a catastrophic bleed that could not be adequately controlled at taking him to the operating room with not be a good idea. It is likely that he will have significant tumor erosion into large pelvic vessels which could be the precipitating event for the above. We also talked about more subacute ongoing bleeding under which conditions the CBI could not be stopped and if that did continue then consider the more palliative issues such as interventional radiology embolization, possible po stembolization resection, continued radiation therapy etc. She expressed good understanding and will be conversing with him today.
[2019-12-17] MEDS: alfuzosin 10 mg ER Tablet PO (09:28)
[2019-12-17] MEDS: levoFLOXacin 500 mg Tablet PO (09:28)
[2019-12-17] MEDS: finasteride 5 mg Tablet PO (09:28)
[2019-12-17] MEDS: atorvastatin 40 mg Tablet 20 MG PO (09:28)
[2019-12-17] MEDS: pantoprazole DR 40 mg Tablet PO (09:28)
[2019-12-17] MEDS: sodium chloride 0.9% (100 ml) 200 ML (11:29)
--- NOTE | 2019-12-17 12:54 | PC.CHAP ---
Pastoral Care Encounter/Spiritual Assessment Type of Contact [] Declined career technical education instructor visit [] Patient/Family/Request visit [] Outpatient visit [] Follow-up visit [] Physician referral [] Code/Alert [X] Routine visit [] Staff referral [] Actively dying [] Patient sleeping [] Family support [] [] Out of room [] Palliative care [] [] Receiving care in room [] Pre-surgical visit [] Trauma [] Long length of stay [] ICU visit [] Other: Relational/Emotional Strength [] Patient feels connected with others/family/visitors/staff [] Distress [] Loneliness/isolation [] Abandonment Spirituality of Patient [] Person of Miranda [] Attends Methodist of their Miranda [] Believes in Prayer [] Reads Bible or Congregation materials [] There are Spiritual issues to be addressed Mattress Renovator Interventions [] Prayer [] Active listening [] Non-anxious presence [] Spiritual/emotional support [] Crisis/trauma care [] Spiritual counseling [] Bereavement support [] Provided bereavement packet [] Provided Bible/devotional materials [] Provided toy/stuffed animal, coloring book to patient or family member [] Provided Communion [] Anointing/Glade [] Salvation [] Completed spiritual assessment [] Other: Impact on Illness or Injury [] Angry [] Fearful [] Anxious [] Often cries [] Exhaustion [] Unable to work [] Unable to attend taoism [] Unable to walk/stand [] Unable to read [] Unable to drive [] Unable to eat/drink [] Unable to sleep [] Unable to be with family [] Patient intubated [] Other: Summary Time spent with patient
--- NOTE | 2019-12-17 16:27 | PM.PN ---
Vitals/I&O/Wt Last Vital Signs Temp 98.2 F 12/17/19 16:14 Pulse 70 12/17/19 16:14 Resp 20 H 12/17/19 16:14 BP 119/54 12/17/19 16:14 Pulse Ox 97 12/17/19 16:14 12/17/19 12/17/19 12/17/19 06:59 14:59 22:59 Intake Total 70978 / 58688 5710 / 5710 Output Total 68214 / 00225 5000 / 5000 Balance -1300 / -1300 710 / 710 Weight last 48 hrs Weight 95.254 kg Data : 12/16/19 22:31 12/16/19 22:31 A&P Assessment and plan (1) Clot retention of urine: Status: Acute (2) Malignant neoplasm of lateral wall of bladder: Status: Acute (3) Type 2 diabetes mellitus with diabetic polyneuropathy: Status: Chronic Qualifiers: Diabetes mellitus terminal makeup operator insulin use: without fpc use Qualified Code(s): E11.42 - Type 2 diabetes mellitus with diabetic polyneuropathy (4) Chronic hypoxemic respiratory failure: Status: Acute (5) COPD (chronic obstructive pulmonary disease): Status: Chronic Qualifiers: COPD type: unspecified COPD Qualified Code(s): J44.9 - Chronic obstructive pulmonary disease, unspecified (6) Diabetic peripheral neuropathy associated with type 2 diabetes mellitus: Status: Acute (7) CKD (chronic kidney disease): Status: Acute Qualifiers: Chronic kidney disease stage: stage 3 (moderate) Qualified Code(s): N18.3 - Chronic kidney disease, stage 3 (moderate) (8) ZEHRA (obstructive sleep apnea): Status: Acute (9) Non-pressure chronic ulcer of other part of right foot limited to breakdown of skin: Status: Acute (10) Hydronephrosis of right kidney: Status: Acute (11) Peripheral arterial disease: Status: Chronic (12) Diastolic heart failure: Status: Acute Additional A&P Information Clot retention of urine:Advanced malignant cancer of lateral wall of the bladder with persistent gross hematuria and clot formation: Right hydrouretronephrosis due to localized spread: Appreciate Dr. Osborn's recommendations. As per his discussions with patient and daughter Courtney for now plan is to manage conservatively with CBI. Family deciding about possible hospice vs embolization. Currently not on any anticoagulation No active signs of UTI. Home medication states he is supposed on levofloxacin but not really sure if patient is on that right now or not. On review of old urine culture patient has staph epidermidis which was resistant to levofloxacin. We will stop levofloxacin at present because of ongoing acute on chronic kidney disease. Will restart home medication like alfuzosin and finasteride. Dilaudid and Nichols for pain. Acute on chronic kidney disease stage II progressing to 3 Hyperkalemia 5.3 with creatinine 2.2, baseline creatinine seems to be around 1.5-1.8 Most likely due to post obstructive renal disease along with dehydration and levofloxacin. Medical reconciliation done for nephrotoxic drugs. Continue to monitor BMP daily. Severe peripheral vascular disease: Follows with Dr. Stout. Patient is on statin. Will continue. Patient is supposed to be on Plavix but looks like have been withheld as an outpatient because of chronic hematuria. Diastolic dysfunction: Last echo from June 2019 shows an EF of 61% grade 2 diastolic dysfunction. Patient is on Lasix at home which is been withheld right now. We will continue to monitor for fluid overload. At present patient is 500 cc negative. Acute on chronic blood loss anemia due to hematuria: Baseline hemoglobin around 8. 2 units PRBC already ordered. Restarted on home dose of iron supplementation. Obstructive sleep apnea: CPAP overnight Chronic hypoxic respiratory failure currently saturating well on 3 to nasal cannula DuoNeb's every 6 hours, budesonide twice daily. Continue chronic medication like duloxetine. DNR/DNI Clear liquid cardiac diet. No DVT prophylaxis due to ongoing hematuria. SCDs. Attestations Medical Necessity Statement*: Acute on chronic anemia, malignant neoplasm of bladder, hematuria, CBI acute on chronic kidney disease Time Spent in Patient Care: Greater than 35 minutes Coding Level of Care Code Acute Sports Recruiter for [facility] Fwd Diagnoses Clot retention of urine R33.8 Malignant neoplasm of lateral wall of bladder C67.2 Type 2 diabetes mellitus with diabetic polyneuropathy E11.42 Diabetes mellitus terminal makeup operator insulin use: without terminal makeup operator use Chronic hypoxemic respiratory failure J96.11 COPD (chronic obstructive pulmonary disease) J44.9 COPD type: unspecified COPD Diabetic peripheral neuropathy associated with type 2 diabetes mellitus E11.42 CKD (chronic kidney disease) N18.3 Chronic kidney disease stage: stage 3 (moderate) ZEHRA (obstructive sleep apnea) G47.33 Non-pressure chronic ulcer of other part of right foot limited to breakdown of skin L97.511 Hydronephrosis of right kidney N13.30 Peripheral arterial disease I73.9 Diastolic heart failure I50.30
[2019-12-17] MEDS: ferrous sulfate EC 325 mg Tablet PO (17:56)
--- NOTE | 2019-12-17 19:08 | PC.NURSE ---
note Pts CBI has improved this evening, color is pink with sm clots at times with occasional big clot. Pt stated his pain has improved with his legs which I placed on pillow with heel boots. Pt completed his 2nd unit of prbc and is waiting for lab to draw his blood. pt tolerated it well with no reactions. Earlier Inés helped me irrigate pts [place] when is stopped flowing. Dr Osborn is aware. I gave report to Erik on nights regarding using the coude if unable to irrigate the [place]
[2019-12-17 19:39] LABS: Hematocrit 26.9 % (42.0-52.0)
[2019-12-17] MEDS: budesonide 0.5 mg/2 mL Neb INHALATION (20:20)
[2019-12-17] MEDS: ipratropium-albuterol 3 mL Neb INHALATION (20:21)
[2019-12-18] VITALS (15 sets, daily range): BP systolic 92–124; BP diastolic 46–64; PULSE 66–88; RESP 16–81; TEMP 36.9–37.2; O2SAT 85–98
[2019-12-18] MEDS: HYDROmorphone 1 mg/mL INJ 1 mL IVP ×2 (01:18→09:17)
[2019-12-18] MEDS: ipratropium-albuterol 3 mL Neb INHALATION ×4 (02:04→20:38)
[2019-12-18 04:17] LABS: Basophils % 0.4 %; Eosinophils % 0.1 %; Hemoglobin 8.2 g/dL (11.7-16.6); Lymphocytes # 1.7 10^3/uL (0.8-4.8); Lymphocytes % 16.1 %; Mean Corpuscular HGB Conc 30.4 g/dL (30.0-36.0); Mean Corpuscular Hemoglobin 26.6 pg (28.0-34.0); Mean Corpuscular Volume 87.7 fL (80-94); Mean Platelet Volume 8.7 fL (7.4-10.4); Neutrophils # 7.6 10^3/uL (1.8-7.7); Neutrophils % 72.9 %; Nucleated Red Blood Cells % 0 %; Platelet Count 220 10^3/cmm (130-400); Red Blood Count 3.08 10^6/uL (4.1-5.3); Red Cell Distribution Width 15.7 % (12.1-15.1); White Blood Count 10.4 10^3/uL (4.0-10.0)
[2019-12-18 04:39] LABS: Anion Gap 17.4 (5-19); Blood Urea Nitrogen 32 mg/dL (8-23); Calcium 10.2 mg/dL (8.5-10.5); Carbon Dioxide 27 mmol/L (22-29); Chloride 95 mmol/L (98-107); Glucose 107 mg/dL (65-115); Osmolality Calculated 276 mOsm/kg (285-295); Potassium 5.4 mmol/L (3.5-5.1); Sodium 134 mmol/L (136-145)
[2019-12-18] MEDS: budesonide 0.5 mg/2 mL Neb INHALATION ×2 (08:18→20:37)
[2019-12-18] MEDS: ferrous sulfate EC 325 mg Tablet PO ×2 (08:19→17:14)
[2019-12-18] MEDS: HYDROcodone-acetaminophen 10-325 mg Tablet 1 TAB PO ×2 (08:19→21:19)
[2019-12-18] MEDS: alfuzosin 10 mg ER Tablet PO (08:20)
[2019-12-18] MEDS: finasteride 5 mg Tablet PO (08:21)
[2019-12-18] MEDS: duloxetine 30 mg Capsule PO (08:21)
[2019-12-18] MEDS: atorvastatin 40 mg Tablet 20 MG PO (08:21)
[2019-12-18] MEDS: pantoprazole DR 40 mg Tablet PO (08:22)
--- NOTE | 2019-12-18 09:05 | P.PN_ITS ---
Subjective Subjective: Interval history: Urology follow-up: Still requiring brisk CBI but decreasing manual irrigation required. Hemoglobin hematocrit stable. No fever or chills. Complaining of significant increase in neuropathy pain which is chronic for him. He believes that he is not getting his usual home medications for his neuropathy. We will pursue that information. I believe a family member is bring his home medications. For now we will continue the CBI with hopes of being able to wean it. Manual irrigation as needed. If no significant improvement may consider bedside cystoscopy tomorrow and if persistent clot consider change to a Couvelaire catheter. Medications: Reviewed: Yes Vitals/I&O/Wt Last Vital Signs Temp 98.4 F 12/18/19 07:12 Pulse 73 12/18/19 08:25 Resp 18 12/18/19 08:25 BP 124/64 12/18/19 07:12 Pulse Ox 93 12/18/19 08:25 12/17/19 12/18/19 12/18/19 22:59 06:59 14:59 Intake Total 600 / 6310 600 / 600 Balance 600 / 1310 600 / 600 Weight last 48 hrs Weight 210 lb Physical Exam Const: COMMON NORMALS: no acute distress, alert and well nourished GENERAL APPEARANCE: well kempt and well developed ORIENTATION/CONSCIOUSNESS: not confused HENMT: COMMON NORMALS: normocephalic and atraumatic HEAD & SCALP: normocephalic and atraumatic Eye: COMMON NORMALS: conjunctivae normal and no scleral icterus CONJUNCTIVA: Yes conjunctivae normal Neck/C-Spine: COMMON NORMALS: full ROM GENERAL: Yes normal visual inspection Resp: EFFORT & INSPECTION: No labored OTHER: O2 per nasal cannula. Some coughing up of phlegm : OTHER: CBI running. Urine mostly clear with pink tinge. Neuro: COMMON NORMALS: no focal motor deficits SENSORIUM/ORIENTATION: Yes alert Psych: COMMON NORMALS: mental status grossly normal APPEARANCE: Yes grossly normal and Yes well kempt ATTITUDE: Yes calm and Yes engaged Skin: COMMON NORMALS: no rashes or lesions noted GENERAL SKIN EXAM: no rashes or lesions noted Data : 12/18/19 03:10 12/18/19 03:10 A&P Assessment and plan (1) Malignant neoplasm of lateral wall of bladder: Reduce requirement for manual irrigation but still requiring CBI fairly briskly. Continue CBI, with manual irrigation as needed. Consider bedside cystoscopy tomorrow if no further improvement and inability to wean back on CBI. Status: Acute (2) Clot retention of urine: Status: Acute (3) Extrinsic ureteral obstruction: Status: Acute Attestations Medical Necessity Statement*: See attending Coding Level of Care Code Acute Substitute School Nurse for [facility] Fwd Diagnoses Malignant neoplasm of lateral wall of bladder C67.2 Clot retention of urine R33.8 Extrinsic ureteral obstruction N13.5
[2019-12-18] MEDS: duloxetine 30 mg Capsule 90 MG PO (11:35)
[2019-12-18] MEDS: gabapentin 100 mg Capsule PO ×3 (11:36→21:20)
--- NOTE | 2019-12-18 14:29 | PM.PN ---
Subjective Subjective: Interval history: No acute events overnight. On examination today patient's urine looking a lot more clear. Still requiring CBI. Complaining of numbness and pain in all his limbs. He is states he thinks he is not at his home dose of his nerve medications. Reconciled his home medications. There is a discrepancy in the medications. He states he is on 90 mg of Cymbalta while in the system at 30 mg daily. Medications: Reviewed: Yes Vitals/I&O/Wt Last Vital Signs Temp 98.5 F 12/18/19 12:00 Pulse 73 12/18/19 12:00 Resp 18 12/18/19 12:00 BP 92/46 12/18/19 12:00 Pulse Ox 93 12/18/19 08:25 12/17/19 12/18/19 12/18/19 22:59 06:59 14:59 Intake Total 600 / 6310 600 / 600 Balance 600 / 1310 600 / 600 Weight last 48 hrs Weight 95.254 kg Physical Exam Narrative: EXAM NARRATIVE: Patient lying comfortably in his bed without any active discomfort Elderly frail male S1, S2 no tachycardia Abdomen soft nontender nondistended bowel sounds present no CVA tenderness Douglas catheter draining blood-tinged urine without any clots Lower extremity without any signs of edema gangrene ulcer Neurologically nonfocal exam EOMI, PERRLA Appropriate mood and affect Alert oriented x3 GCS 15 Data : 12/18/19 03:10 12/18/19 03:10 A&P Assessment and plan (1) Clot retention of urine: Status: Acute (2) Malignant neoplasm of lateral wall of bladder: Status: Acute (3) Type 2 diabetes mellitus with diabetic polyneuropathy: Status: Chronic Qualifiers: Diabetes mellitus retirement insulin use: without retirement use Qualified Code(s): E11.42 - Type 2 diabetes mellitus with diabetic polyneuropathy (4) Chronic hypoxemic respiratory failure: Status: Acute (5) COPD (chronic obstructive pulmonary disease): Status: Chronic Qualifiers: COPD type: unspecified COPD Qualified Code(s): J44.9 - Chronic obstructive pulmonary disease, unspecified (6) Diabetic peripheral neuropathy associated with type 2 diabetes mellitus: Status: Acute (7) CKD (chronic kidney disease): Status: Acute Qualifiers: Chronic kidney disease stage: stage 3 (moderate) Qualified Code(s): N18.3 - Chronic kidney disease, stage 3 (moderate) (8) ZEHRA (obstructive sleep apnea): Status: Acute (9) Non-pressure chronic ulcer of other part of right foot limited to breakdown of skin: Status: Acute (10) Hydronephrosis of right kidney: Status: Acute (11) Peripheral arterial disease: Status: Chronic (12) Diastolic heart failure: Status: Acute Additional A&P Information Clot retention of urine:Advanced malignant cancer of lateral wall of the bladder with persistent gross hematuria and clot formation: Right hydrouretronephrosis due to localized spread: Appreciate Dr. Osborn's recommendations. As per his discussions with patient and daughter Courtney for now plan is to manage conservatively with CBI. Family deciding about possible hospice vs embolization. As per my discussion with Dr. Osborn if patient continues to require CBI tomorrow will most likely do a bedside flex cystoscopy for possible clot removal. Currently not on any anticoagulation No active signs of UTI. Home medication states he is supposed on levofloxacin but not really sure if patient is on that right now or not. On review of old urine culture patient has staph epidermidis which was resistant to levofloxacin. We will stop levofloxacin at present because of ongoing acute on chronic kidney disease. Will restart home medication like alfuzosin and finasteride. Dilaudid and [place] for pain. Peripheral neuropathy: There was a discrepancy medication list. We will start him on home dose of Cymbalta at 90 mg daily. We will also add gabapentin 100 mg 3 times daily. Acute on chronic kidney disease stage II progressing to 3 Still having hyperkalemia. Creatinine slightly better. Baseline creatinine seems to be around 1.5-1.8 Most likely due to post obstructive renal disease along with dehydration and levofloxacin. Medical reconciliation done for nephrotoxic drugs. Will avoid IV fluids because of history of grade 2 diastolic dysfunction. We will continue to monitor BMP daily. Calcium is already high, D50 with insulin 10 units for hyperkalemia. Severe peripheral vascular disease: Follows with Dr. Stout. Patient is on statin. Will continue. Patient is supposed to be on Plavix but looks like have been withheld as an outpatient because of chronic hematuria. Diastolic dysfunction: Last echo from June 2019 shows an EF of 61% grade 2 diastolic dysfunction. Patient is on Lasix at home which is been withheld right now. We will continue to monitor for fluid overload. At present patient is 500 cc negative. Acute on chronic blood loss anemia due to hematuria: Baseline hemoglobin around 8. 2 units PRBC already ordered. Restarted on home dose of iron supplementation. Obstructive sleep apnea: CPAP overnight Chronic hypoxic respiratory failure currently saturating well on 3 to nasal cannula DuoNeb's every 6 hours, budesonide twice daily. Continue chronic medication like duloxetine. DNR/DNI Clear liquid cardiac diet. No DVT prophylaxis due to ongoing hematuria. SCDs. Updated daughter at length regarding patient's status. Also discussed regarding goals of care. She states for now patient will be DNR/DNI. She states if required patient and and Ms. Valdez, both are okay with him having coiling procedure for embolization. Attestations Medical Necessity Statement*: Malignant neoplasm of bladder with localized spread causing right-sided hydronephrosis, hematuria, blood loss anemia Time Spent in Patient Care: Greater than 35 minutes (>than 50% of time spent in counselling and/or direct pt care on unit). 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
[2019-12-18] MEDS: dextrose 50% syringe 50 mL IVP (14:57)
[2019-12-18] MEDS: insulin regular-human 10 UNIT in SYRINGE 1 EACH IVP (15:10)
[2019-12-18] MEDS: sennosides-docusate Tablet 1 TAB PO (21:20)
[2019-12-19] VITALS (10 sets, daily range): BP systolic 92–136; BP diastolic 50–70; PULSE 67–78; RESP 16–24; TEMP 36.5–37.1; O2SAT 89–98
--- NOTE | 2019-12-19 01:19 | W.ED.MALEGU ---
HPI - Male Genitourinary General: Chief complaint: Urogenital-Male Stated complaint: cath problems Time Seen by Provider: 12/17/19 00:37 History of Present Illness: HPI Narrative: 79-year-old male with a history of bladder cancer. He has a chronic Douglas in place. It quit draining. He had tried to flush it at home and got quite a bit of clot through the tubing, but his Douglas still would not drain. He began to feel distended and very tender. He had some blood clotting from around the Douglas at the urethra as well. Complaint: other Onset (ago): hour(s) Duration: constant Location: penis, right inguinal region, left inguinal region and abdomen Severity: moderate Quality: aching and stabbing Relieving factors: urination Exacerbating factors: none Context: other (See above) Associated symptoms: Reports hematuria, nausea and urinary retention; Deny swelling or vomiting Review of Systems Const: Denies: fever(s) or chills Eyes: Denies: change in vision ENMT: Denies: swelling of lips/tongue Card: Denies: chest pain or palpitations Resp: Denies: dyspnea, productive cough or wheezing GI: Reports: abdominal pain and nausea; Denies: vomiting : Reports: hematuria PFSH ED PFSH: Medical History (Updated 12/19/19 @ 04:39 by Dany Fierro DO) Afib 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 Not a candidate for extirpative therapy. Prior severe bleeding with TURBT x2. Undergoing radiation therapy as an attempt at palliative therapy. Non-pressure chronic ulcer of other part of right foot with fat layer exposed Obesity ZEHRA (obstructive sleep apnea) Pacemaker Prostate cancer s/p radiation therapy PVD (peripheral vascular disease) Type 2 diabetes mellitus with diabetic polyneuropathy Surgical History H/O eye surgery detached retina H/O prior ablation treatment H/O rotator cuff surgery H/O total knee replacement Bilateral History of appendectomy History of back surgery Hx of CABG S/P peripheral artery angioplasty done by Dr. Stout on 08/08/19 for LLE PVD with balloon angioplasty Status post placement of cardiac pacemaker Family History Sister Diabetes Brother Diabetes CAD (coronary artery disease) Mother , AT AGE 81 Heart attack Father , AT AGE 82 Heart attack Social History Smoking and tobacco status: former smoker Quit status (tobacco): has quit using tobacco Year quit tobacco: 2008 Year 1.5 PPD Hx Alcohol intake: never Lives independently: Yes Household members: significant other Marital status: / Current occupational status: retired History of recent travel: No Current gender identity: Male Physical Exam Const: GENERAL APPEARANCE: well developed ORIENTATION/CONSCIOUSNESS: Yes oriented to person, Yes oriented to place and Yes oriented to time HENMT: COMMON NORMALS: normocephalic, external ears normal and Normal external nose present HEAD & SCALP: normocephalic FACE & SINUS: normal facial exam NOSE: Normal external nose present and No nasal discharge present EXTERNAL EAR: Yes external ears normal MOUTH: tongue normal THROAT: posterior oropharynx normal; no peritonsillar mass Eye: COMMON NORMALS: Equal, round and reactive pupils present, EOMs intact bilaterally and conjunctivae normal EYELID: eyelids normal CONJUNCTIVA: Yes conjunctivae normal PUPIL: Yes Equal, round and reactive pupils present Neck/C-Spine: GENERAL: No tracheal deviation Chest: COMMONS NORMALS: normal inspection of the chest CHEST: No tenderness Resp: COMMON NORMALS: clear to auscultation bilaterally EFFORT & INSPECTION: No tachypneic, No respiratory distress, No retractions, No uses accessory muscles and No tracheal deviation AUSCULTATION: clear to auscultation bilaterally, no rhonchi, no wheezes and lung sounds not diminished Cardio: HEART SOUNDS: no murmurs PERIPHERAL PULSES: radial pulses present GI: INSPECTION: No abdominal distension AUSCULTATION: No Hyperactive bowel sounds present and No Hypoactive bowel sounds present PALPATION: Yes Tenderness to palpation present (GI) Details: LLQ and RLQ, Yes Guarding due to palpation present (GI) and No Rigid due to palpation PERCUSSION: no dullness to percussion and no tympanic to percussion Neuro: SENSORIUM/ORIENTATION: Yes oriented to person, Yes oriented to place and Yes oriented to time Psych: COMMON NORMALS: mental status grossly normal Skin: COMMON NORMALS: no rashes or lesions noted GENERAL SKIN EXAM: no rashes or lesions noted Course Consultations: Consultation #1: [place]lin Consultation #2: syed Vital Signs: Vital signs: Vital Signs Temperature 98.4 F 12/18/19 23:43 Pulse Rate 75 12/19/19 02:52 Respiratory Rate 16 12/19/19 02:44 Blood Pressure 109/63 12/18/19 23:43 Pulse Oximetry 89 L 12/19/19 02:44 MDM - Male MDM Narrative: Medical decision making narrative: 79-year-old male presents with a nondraining Douglas catheter, bladder distention. He had made several attempts to flush the Douglas at home with no improvement. He is placed on continuous bladder irrigation in the ER. Multiple large clots have been removed. His creatinine is increased. He has mild hyperkalemia. His hemoglobin is 8. He will be admitted to the hospitalist service. Urology has been consulted from the ER, and will see in consult as well. Lab Data: Labs: Lab Results 12/16/19 12/16/19 Range/Units 22:31 22:31 WBC 12.7 H (4.0-10.0) 10^3/ uL RBC 3.17 L (4.1-5.3) 10^6/u L Hgb 8.1 L (11.7-16.6) g/dL Hct 27.4 L (42.0-52.0) % MCV 86.4 (80-94) fL MCH 25.6 L (28.0-34.0) pg MCHC 29.6 L (30.0-36.0) g/dL RDW 15.9 H (12.1-15.1) % Plt Count 233 (130-400) 10^3/c mm MPV 7.7 (7.4-10.4) fL Neut % (Auto) 82.9 % Lymph % (Auto) 9.3 % [place] % (Auto) 6.7 % Eos % (Auto) 0.0 % Baso % (Auto) 0.5 % Neut # (Auto) 10.5 H (1.8-7.7) 10^3/u L Lymph # (Auto) 1.2 (0.8-4.8) 10^3/u L [place] # (Auto) 0.9 (0.2-0.9) 10^3/u L Eos # (Auto) 0.0 (0.0-0.8) 10^3/u L Baso # (Auto) 0.1 (0.0-0.1) 10^3/u L Nucleated RBC % (a uto) 0 % Nucleated RBCs # 0.0 /100WBC Sodium 134 L (136-145) mmol/L Potassium 5.3 H (3.5-5.1) mmol/L Chloride 96 L (98-107) mmol/L Carbon Dioxide 24 (22-29) mmol/L Anion Gap 19.3 H (5-19) BUN 39 H (8-23) mg/dL Creatinine 2.2 H (0.7-1.2) mg/dL Glucose 172 H (65-115) mg/dL Calculated Osmolal ity 280 L (285-295) mOsm/k g Calcium 11.1 H (8.5-10.5) mg/dL Total Bilirubin 0.3 (0.15-1.2) mg/dL AST 15 (0-40) U/L ALT 14 (0-41) U/L Alkaline Phosphata se 113 (40-130) IU/L Total Protein 7.3 (6.6-8.7) g/dL Albumin 3.7 (3.5-5.2) g/dL Globulin 3.6 (1.3-4.6) g/dL Discharge Plan Discharge Patient Disposition: Admitted As Inpatient Admit Provider: Herminio Smith Clinical Impression: Clot retention of urine, Acute on chronic anemia, Malignant neoplasm of lateral wall of bladder Condition: Stable Referrals: Caroline [Outside] Interventions: ED Discharge Assessment Last Done: 12/17/19 05:11 ED Charges Last Done: 12/17/19 05:11 Discharge Date/Time: 12/17/19 05:38 Coding Level of Care Code ED [employer] Storage Architect for g Fwd Exam Comprehensive
[2019-12-19] MEDS: ipratropium-albuterol 3 mL Neb INHALATION ×4 (02:44→21:08)
[2019-12-19 05:15] LABS: Basophils % 0.4 %; Eosinophils # 0.5 10^3/uL (0.0-0.8); Eosinophils % 6.2 %; Hematocrit 25.1 % (42.0-52.0); Hemoglobin 7.6 g/dL (11.7-16.6); Lymphocytes # 1.1 10^3/uL (0.8-4.8); Mean Corpuscular HGB Conc 30.3 g/dL (30.0-36.0); Mean Corpuscular Hemoglobin 26.6 pg (28.0-34.0); Mean Corpuscular Volume 87.8 fL (80-94); Mean Platelet Volume 7.8 fL (7.4-10.4); Monocytes # 0.8 10^3/uL (0.2-0.9); Monocytes % 10.1 %; Neutrophils # 5.2 10^3/uL (1.8-7.7); Neutrophils % 68.4 %; Nucleated Red Blood Cells % 0 %; Platelet Count 177 10^3/cmm (130-400); Red Blood Count 2.86 10^6/uL (4.1-5.3); Red Cell Distribution Width 15.7 % (12.1-15.1); White Blood Count 7.6 10^3/uL (4.0-10.0)
[2019-12-19 05:32] LABS: Alanine Aminotransferase 15 U/L (0-41); Albumin Level 3.1 g/dL (3.5-5.2); Alkaline Phosphatase 93 IU/L (40-130); Anion Gap 13.6 (5-19); Aspartate Amino Transferase 17 U/L (0-40); Blood Urea Nitrogen 40 mg/dL (8-23); Calcium 10.1 mg/dL (8.5-10.5); Carbon Dioxide 27 mmol/L (22-29); Chloride 97 mmol/L (98-107); Glucose 101 mg/dL (65-115); Osmolality Calculated 274 mOsm/kg (285-295); Potassium 4.6 mmol/L (3.5-5.1); Sodium 133 mmol/L (136-145); Total Bilirubin 0.3 mg/dL (0.15-1.2); Total Protein 6.1 g/dL (6.6-8.7)
[2019-12-19] MEDS: polyethylene glycol 3350 Pkt 17 gm PO (08:03)
[2019-12-19] MEDS: finasteride 5 mg Tablet PO (08:04)
[2019-12-19] MEDS: pantoprazole DR 40 mg Tablet PO (08:05)
[2019-12-19] MEDS: ferrous sulfate EC 325 mg Tablet PO ×2 (08:05→17:34)
[2019-12-19] MEDS: gabapentin 100 mg Capsule PO ×3 (08:05→21:46)
[2019-12-19] MEDS: atorvastatin 40 mg Tablet 20 MG PO (08:05)
[2019-12-19] MEDS: duloxetine 30 mg Capsule 90 MG PO (08:06)
[2019-12-19] MEDS: alfuzosin 10 mg ER Tablet PO (08:07)
[2019-12-19] MEDS: budesonide 0.5 mg/2 mL Neb INHALATION ×2 (09:04→21:08)
--- NOTE | 2019-12-19 09:08 | PC.CHAP ---
Pastoral Care Encounter/Spiritual Assessment Type of Contact [] Declined physical therapy aide visit [] Patient/Family/Request visit [] Outpatient visit [] Follow-up visit [] Physician referral [] Code/Alert [x] Routine visit [] Staff referral [] Actively dying [] Patient sleeping [] Family support [] [] Out of room [] Palliative care [] [] Receiving care in room [] Pre-surgical visit [] Trauma [] Long length of stay [] ICU visit [] Other: Relational/Emotional Strength [] Patient feels connected with others/family/visitors/staff [] Distress [] Loneliness/isolation [] Abandonment Spirituality of Patient [] Person of Miranda [] Attends [employer] of their Miranda [] Believes in Prayer [] Reads Bible or Adventism materials [] There are Spiritual issues to be addressed Drill Sergeant Interventions [x] Prayer [x] Active listening [x] Non-anxious presence [x] Spiritual/emotional support [] Crisis/trauma care [] Spiritual counseling [] Bereavement support [] Provided bereavement packet [] Provided Bible/devotional materials [] Provided toy/stuffed animal, coloring book to patient or family member [] Provided Communion [] Anointing/[place] [] Salvation [x] Completed spiritual assessment [] Other: Impact on Illness or Injury [] Angry [] Fearful [] Anxious [] Often cries [] Exhaustion [] Unable to work [] Unable to attend episcopal [] Unable to walk/stand [] Unable to read [] Unable to drive [] Unable to eat/drink [] Unable to sleep [] Unable to be with family [] Patient intubated [] Other: Summary Patient trying to rest. Time spent with patient 5 min
--- NOTE | 2019-12-19 11:24 | P.PN_ITS ---
Subjective Subjective: Interval history: No acute events overnight. On examination today patient's urine looking a lot more clear. Still requiring CBI. Nerve pain is better today. Denies of any nausea, vomiting, headache. Vitals and labs noted. Medications: Reviewed: Yes Vitals/I&O/Wt Last Vital Signs Temp 98.2 F 12/19/19 07:44 Pulse 73 12/19/19 09:06 Resp 18 12/19/19 09:06 BP 92/54 12/19/19 07:44 Pulse Ox 93 12/19/19 09:06 12/18/19 12/19/19 12/19/19 22:59 06:59 14:59 Intake Total 750.1 / 1590.1 240 / 240 Balance 750.1 / 1590.1 240 / 240 Physical Exam Narrative: EXAM NARRATIVE: Patient lying comfortably in his bed without any active discomfort Elderly frail male S1, S2 no tachycardia Abdomen soft nontender nondistended bowel sounds present no CVA tenderness Douglas catheter draining blood-tinged urine without any clots Lower extremity without any signs of edema gangrene ulcer Neurologically nonfocal exam EOMI, PERRLA Appropriate mood and affect Alert oriented x3 GCS 15 Data : 12/19/19 04:15 12/19/19 04:15 A&P Assessment and plan (1) Clot retention of urine: Status: Acute (2) Malignant neoplasm of lateral wall of bladder: Status: Acute (3) Type 2 diabetes mellitus with diabetic polyneuropathy: Status: Chronic Qualifiers: Diabetes mellitus remote computer terminal operator insulin use: without remote computer terminal operator use Qualified Code(s): E11.42 - Type 2 diabetes mellitus with diabetic polyneuropathy (4) Chronic hypoxemic respiratory failure: Status: Acute (5) COPD (chronic obstructive pulmonary disease): Status: Chronic Qualifiers: COPD type: unspecified COPD Qualified Code(s): J44.9 - Chronic obstructive pulmonary disease, unspecified (6) Diabetic peripheral neuropathy associated with type 2 diabetes mellitus: Status: Acute (7) CKD (chronic kidney disease): Status: Acute Qualifiers: Chronic kidney disease stage: stage 3 (moderate) Qualified Code(s): N18.3 - Chronic kidney disease, stage 3 (moderate) (8) ZEHRA (obstructive sleep apnea): Status: Acute (9) Non-pressure chronic ulcer of other part of right foot limited to breakdown of skin: Status: Acute (10) Hydronephrosis of right kidney: Status: Acute (11) Peripheral arterial disease: Status: Chronic (12) Diastolic heart failure: Status: Acute Additional A&P Information Clot retention of urine: Advanced malignant cancer of lateral wall of the bladder with persistent gross hematuria and clot formation: Right hydrouretronephrosis due to localized spread: Appreciate Dr. Osborn's recommendations. As per his discussions with patient and daughter Courtney for now plan is to manage conservatively with CBI. Assessment by discussion with Dr. Osborn if patient is continuing to require CBI will most likely change the catheter to facilitate better CBI. As per my discussion with daughter Ms. Valdez both patient and daughter are okay with him going for embolization if needed. Currently not on any anticoagulation No active signs of UTI. Home medication states he is supposed on levofloxacin but not really sure if patient is on that right now or not. On review of old urine culture patient has staph epidermidis which was resistant to levofloxacin. We will stop levofloxacin at present because of ongoing acute on chronic kidney disease. Continue with alfuzosin and finasteride. Dilaudid and [place] for pain. Peripheral neuropathy: Continue with Cymbalta 90 mg daily, gabapentin 100 mg every 8 hours. Acute on chronic kidney disease stage II progressing to 3 Baseline creatinine 1.5-1.8. Creatinine 2 today. Hyper kalemia has resolved. Most likely due to post obstructive renal disease along with dehydration and levofloxacin. Medical reconciliation done for nephrotoxic drugs. Will avoid IV fluids because of history of grade 2 diastolic dysfunction. We will continue to monitor BMP daily. Acute on chronic blood loss anemia due to hematuria: Baseline hemoglobin around 8. Hemoglobin 7.6 today. Baseline 8. Patient is already received 2 units of PRBC during this admission. Check hemoglobin again at 3 PM if trending down will transfuse 1 more unit of PRBC. Continue with oral iron supplementation. Severe peripheral vascular disease: Follows with Dr. Stout. Patient is on statin. Will continue. Patient is supposed to be on Plavix but looks like have been withheld as an outpatient because of chronic hematuria. Diastolic dysfunction: Last echo from June 2019 shows an EF of 61% grade 2 diastolic dysfunction. Patient is on Lasix at home which is been withheld right now. We will continue to monitor for fluid overload. At present patient is 500 cc negative. Obstructive sleep apnea: CPAP overnight Chronic hypoxic respiratory failure currently saturating well on 3 to nasal cannula DuoNeb's every 6 hours, budesonide twice daily. Continue chronic medication like duloxetine. DNR/DNI Clear liquid cardiac diet. No DVT prophylaxis due to ongoing hematuria. SCDs. Attestations Medical Necessity Statement*: Advanced malignancy of urinary bladder with localized spread, clot retention, acute on chronic blood loss anemia because of hematuria, CBI Time Spent in Patient Care: Greater than 35 minutes (>than 50% of time spent in counselling and/or direct pt care on unit) . Coding Level of Care Code Acute Cut Off Machine Operator for Chg Fwd Diagnoses Clot retention of urine R33.8 Malignant neoplasm of lateral wall of bladder C67.2 Type 2 diabetes mellitus with diabetic polyneuropathy E11.42 Diabetes mellitus jail insulin use: without remote computer terminal operator use Chronic hypoxemic respiratory failure J96.11 COPD (chronic obstructive pulmonary disease) J44.9 COPD type: unspecified COPD Diabetic peripheral neuropathy associated with type 2 diabetes mellitus E11.42 CKD (chronic kidney disease) N18.3 Chronic kidney disease stage: stage 3 (moderate) ZEHRA (obstructive sleep apnea) G47.33 Non-pressure chronic ulcer of other part of right foot limited to breakdown of skin L97.511 Hydronephrosis of right kidney N13.30 Peripheral arterial disease I73.9 Diastolic heart failure I50.30
--- NOTE | 2019-12-19 15:32 | PC.RESP ---
Pulmonary Rehab information sent to patient.
[2019-12-19] MEDS: HYDROcodone-acetaminophen 10-325 mg Tablet 1 TAB PO (15:48)
--- NOTE | 2019-12-19 16:52 | PM.PN ---
Subjective Subjective: Interval history: Urology follow-up Spoke with Dr. Stout this weekend regarding the potential for embolization technique. He felt that that would be possible here and has procured the equipment necessary for that in the case of proceeding to embolization of the vesicle arteries off of the right internal spermatic. Thankfully the patient's urine has continued to clear and the CBI has been able to be weaned down significantly. Currently it is yellow with light CBI running. This may allow us to forego any intervention and potentially continue radiation therapy as early as tomorrow. I reviewed with Dr. Stout and he is willing to be available as needed for this. This is good news. We will continue to try to taper back on the CBI and if he does well then consider discharge after persistence of hematuria resolution and no recurrence We will advance his diet to diabetic tonight. Medications: Reviewed: Yes Vitals/I&O/Wt Last Vital Signs Temp 97.7 F 12/19/19 15:36 Pulse 67 12/19/19 15:36 Resp 16 12/19/19 15:36 BP 108/50 12/19/19 15:36 Pulse Ox 95 12/19/19 13:54 12/19/19 12/19/19 12/19/19 06:59 14:59 22:59 Intake Total 960 / 960 Balance 960 / 960 Physical Exam Const: COMMON NORMALS: no acute distress, alert and well nourished GENERAL APPEARANCE: well kempt and well developed ORIENTATION/CONSCIOUSNESS: not confused HENMT: COMMON NORMALS: normocephalic and atraumatic HEAD & SCALP: normocephalic and atraumatic Resp: EFFORT & INSPECTION: No labored and No Actively coughing OTHER: O2 per nasal cannula Neuro: SENSORIUM/ORIENTATION: Yes alert Psych: COMMON NORMALS: mental status grossly normal APPEARANCE: Yes grossly normal and Yes well kempt ATTITUDE: Yes calm and Yes engaged Data : 12/19/19 04:15 12/19/19 04:15 A&P Assessment and plan (1) Clot retention of urine: Substantial improvement in his hematuria today with light CBI and lowering rate throughout the day. Had made plans for potential embolization sometime this week but that may be able to be held off if his urine remains in this same vein. Appreciate Dr. Stout's willingness to work with us on this matter. Status: Acute (2) Malignant neoplasm of lateral wall of bladder: Nonresectable. Status: Acute Attestations Medical Necessity Statement*: Still requiring CBI. Coding Level of Care Code Acute System Integration Engineer for [facility] Fwd Diagnoses Clot retention of urine R33.8 Malignant neoplasm of lateral wall of bladder C67.2
[2019-12-19 17:11] LABS: Basophils % 0.3 %; Eosinophils # 0.2 10^3/uL (0.0-0.8); Eosinophils % 1.7 %; Hematocrit 24.8 % (42.0-52.0); Hemoglobin 7.7 g/dL (11.7-16.6); Lymphocytes # 0.8 10^3/uL (0.8-4.8); Lymphocytes % 8.6 %; Mean Corpuscular Hemoglobin 27.1 pg (28.0-34.0); Mean Corpuscular Volume 87.3 fL (80-94); Mean Platelet Volume 7.7 fL (7.4-10.4); Monocytes # 0.7 10^3/uL (0.2-0.9); Monocytes % 7.7 %; Neutrophils # 7.8 10^3/uL (1.8-7.7); Neutrophils % 81.2 %; Nucleated Red Blood Cells % 0 %; Platelet Count 184 10^3/cmm (130-400); Red Blood Count 2.84 10^6/uL (4.1-5.3); Red Cell Distribution Width 15.8 % (12.1-15.1); White Blood Count 9.6 10^3/uL (4.0-10.0)
[2019-12-20] VITALS (16 sets, daily range): BP systolic 115–147; BP diastolic 56–78; PULSE 62–82; RESP 16–24; TEMP 36.6–37.1; O2SAT 88–98
[2019-12-20] MEDS: ipratropium-albuterol 3 mL Neb INHALATION ×4 (02:58→20:38)
[2019-12-20] MEDS: HYDROmorphone 1 mg/mL INJ 1 mL IVP ×2 (03:15→19:53)
[2019-12-20 04:29] LABS: Basophils % 0.2 %; Eosinophils % 0.2 %; Hematocrit 27.8 % (42.0-52.0); Hemoglobin 8.3 g/dL (11.7-16.6); Lymphocytes # 1.1 10^3/uL (0.8-4.8); Lymphocytes % 10.1 %; Mean Corpuscular HGB Conc 29.9 g/dL (30.0-36.0); Mean Corpuscular Hemoglobin 25.9 pg (28.0-34.0); Mean Corpuscular Volume 86.6 fL (80-94); Monocytes # 0.7 10^3/uL (0.2-0.9); Monocytes % 6.5 %; Neutrophils # 8.5 10^3/uL (1.8-7.7); Neutrophils % 82.5 %; Nucleated Red Blood Cells % 0 %; Platelet Count 230 10^3/cmm (130-400); Red Blood Count 3.21 10^6/uL (4.1-5.3); Red Cell Distribution Width 15.7 % (12.1-15.1); White Blood Count 10.4 10^3/uL (4.0-10.0)
[2019-12-20 05:25] LABS: Alanine Aminotransferase 23 U/L (0-41); Albumin Level 3.1 g/dL (3.5-5.2); Alkaline Phosphatase 101 IU/L (40-130); Anion Gap 15.7 (5-19); Aspartate Amino Transferase 23 U/L (0-40); Blood Urea Nitrogen 38 mg/dL (8-23); Carbon Dioxide 25 mmol/L (22-29); Chloride 95 mmol/L (98-107); Creatinine Clr Calc Pharmacy 35.2428; Globulin 3.5 g/dL (1.3-4.6); Glucose 143 mg/dL (65-115); Osmolality Calculated 272 mOsm/kg (285-295); Potassium 4.7 mmol/L (3.5-5.1); Sodium 131 mmol/L (136-145); Total Bilirubin 0.4 mg/dL (0.15-1.2); Total Protein 6.6 g/dL (6.6-8.7)
--- NOTE | 2019-12-20 07:24 | PM.PN ---
Subjective Subjective: Interval history: Urology follow-up: Urine looks much clearer today. CBI still running. Turned off while in the room. Have nursing staff follow closely and restart if necessary. If urine stays clear without CBI we will consider discharge later today or tomorrow. More to follow on afternoon rounds After decreasing his CBI this morning his urine became redder. One irrigation manually revealed a few small clots but not many. He did undergo his radiation treatment to the right bladder wall tumor. This afternoon his urine is cleared again more appropriately. I talked to Dr. Stout on several occasions regarding options for potential embolization. We had a tentative plan for tomorrow but with improvement in his urine appearance I think it would make sense to postpone that. We are pursuing options for embolization though if it appears that current conservative course fails. Vitals/I&O/Wt Last Vital Signs Temp 98.4 F 12/20/19 04:00 Pulse 70 12/20/19 04:00 Resp 24 H 12/20/19 04:00 BP 115/56 12/20/19 04:00 Pulse Ox 97 12/20/19 04:00 12/19/19 12/20/19 12/20/19 22:59 06:59 14:59 Intake Total 360 / 1320 100 / 1420 Output Total 1999 Balance -1640 / -680 100 / -580 Physical Exam Const: COMMON NORMALS: no acute distress, alert and well nourished GENERAL APPEARANCE: well kempt and well developed ORIENTATION/CONSCIOUSNESS: not confused HENMT: COMMON NORMALS: normocephalic and atraumatic HEAD & SCALP: normocephalic and atraumatic Neck/C-Spine: GENERAL: Yes normal visual inspection Resp: EFFORT & INSPECTION: No labored and No Actively coughing OTHER: O2 per nasal cannula. Some lip pursing. No laboring : OTHER: Catheter is functioning well. Urine is light pink it worse. With low rates of CBI he has been pretty stable from that perspective but have not been able to successfully wean it off entirely. Neuro: SENSORIUM/ORIENTATION: Yes alert Psych: COMMON NORMALS: mental status grossly normal APPEARANCE: Yes grossly normal and Yes well kempt ATTITUDE: Yes calm and Yes engaged Data : 12/20/19 03:16 12/20/19 03:16 A&P Assessment and plan (1) Malignant neoplasm of lateral wall of bladder: Status: Acute (2) Clot retention of urine: Status: Acute (3) Hydronephrosis of right kidney: Status: Acute (4) Extrinsic ureteral obstruction: Status: Acute Attestations Medical Necessity Statement*: Unable to wean the CBI off yet. Coding Level of Care Code Acute Pickling Solution Maker for g Fwd Diagnoses Malignant neoplasm of lateral wall of bladder C67.2 Clot retention of urine R33.8 Hydronephrosis of right kidney N13.30 Extrinsic ureteral obstruction N13.5
[2019-12-20] MEDS: duloxetine 30 mg Capsule 90 MG PO (08:37)
[2019-12-20] MEDS: pantoprazole DR 40 mg Tablet PO (08:37)
[2019-12-20] MEDS: gabapentin 100 mg Capsule PO ×3 (08:37→22:04)
[2019-12-20] MEDS: atorvastatin 40 mg Tablet 20 MG PO (08:37)
[2019-12-20] MEDS: finasteride 5 mg Tablet PO (08:37)
[2019-12-20] MEDS: ferrous sulfate EC 325 mg Tablet PO ×2 (08:37→17:35)
[2019-12-20] MEDS: alfuzosin 10 mg ER Tablet PO (08:42)
[2019-12-20] MEDS: polyethylene glycol 3350 Pkt 17 gm PO (08:42)
[2019-12-20] MEDS: budesonide 0.5 mg/2 mL Neb INHALATION ×2 (09:08→20:38)
--- NOTE | 2019-12-20 10:31 | PC.SOCIAL ---
Patient received Important Message from Medicare. Original is in the chart and Copy gave to patient.
--- NOTE | 2019-12-20 10:33 | PC.SOCIAL ---
*IMM* Patient received Important Message from Medicare. Original is in the chart and Copy gave to patient.
--- NOTE | 2019-12-20 16:04 | PM.PN ---
Subjective Subjective: Interval history: No acute events overnight. Patient's CBI was discontinued today morning as the ER clear. During my examination patient's urine returned red again. Catheter was flushed again and 2 clots were removed. Case was discussed with Dr. Osborn. Most likely will have to see his catheter and restart CBI. Medications: Reviewed: Yes Vitals/I&O/Wt Last Vital Signs Temp 98.4 F 12/20/19 15:17 Pulse 68 12/20/19 15:17 Resp 18 12/20/19 15:17 BP 117/62 12/20/19 15:17 Pulse Ox 95 12/20/19 15:17 12/20/19 12/20/19 12/20/19 06:59 14:59 22:59 Intake Total 100 / 1420 720 / 720 Balance 100 / -580 720 / 720 Physical Exam Narrative: EXAM NARRATIVE: Patient lying comfortably in his bed without any active discomfort Elderly frail male S1, S2 no tachycardia Abdomen soft nontender nondistended bowel sounds present no CVA tenderness Douglas catheter draining blood-tinged urine without any clots Lower extremity without any signs of edema gangrene ulcer Neurologically nonfocal exam EOMI, PERRLA Appropriate mood and affect Alert oriented x3 GCS 15 Data : 12/20/19 03:16 12/20/19 03:16 A&P Assessment and plan (1) Clot retention of urine: Status: Acute (2) Malignant neoplasm of lateral wall of bladder: Status: Acute (3) Type 2 diabetes mellitus with diabetic polyneuropathy: Status: Chronic Qualifiers: Diabetes mellitus terminal carman insulin use: without [place] [facility] use Qualified Code(s): E11.42 - Type 2 diabetes mellitus with diabetic polyneuropathy (4) Chronic hypoxemic respiratory failure: Status: Acute (5) COPD (chronic obstructive pulmonary disease): Status: Chronic Qualifiers: COPD type: unspecified COPD Qualified Code(s): J44.9 - Chronic obstructive pulmonary disease, unspecified (6) Diabetic peripheral neuropathy associated with type 2 diabetes mellitus: Status: Acute (7) CKD (chronic kidney disease): Status: Acute Qualifiers: Chronic kidney disease stage: stage 3 (moderate) Qualified Code(s): N18.3 - Chronic kidney disease, stage 3 (moderate) (8) ZEHRA (obstructive sleep apnea): Status: Acute (9) Non-pressure chronic ulcer of other part of right foot limited to breakdown of skin: Status: Acute (10) Hydronephrosis of right kidney: Status: Acute (11) Peripheral arterial disease: Status: Chronic (12) Diastolic heart failure: Status: Acute Additional A&P Information Clot retention of urine: Advanced malignant cancer of lateral wall of the bladder with persistent gross hematuria and clot formation: Right hydrouretronephrosis due to localized spread: Appreciate Dr. Osborn's recommendations. We will discuss further plan with Dr. Osborn. Continue CBI for now. Currently not on any anticoagulation No active signs of UTI. Home medication states he is supposed on levofloxacin but not really sure if patient is on that right now or not. On review of old urine culture patient has staph epidermidis which was resistant to levofloxacin. We will stop levofloxacin at present because of ongoing acute on chronic kidney disease. Continue with alfuzosin and finasteride. Dilaudid and [place] for pain. Peripheral neuropathy: Continue with Cymbalta 90 mg daily, gabapentin 100 mg every 8 hours. Acute on chronic kidney disease stage II progressing to 3 Baseline creatinine 1.5-1.8. Creatinine at baseline. Hyper kalemia has resolved. Most likely due to post obstructive renal disease along with dehydration and levofloxacin. Medical reconciliation done for nephrotoxic drugs. Will avoid IV fluids because of history of grade 2 diastolic dysfunction. We will continue to monitor BMP daily. Acute on chronic blood loss anemia due to hematuria: Baseline hemoglobin around 8. Hemoglobin at baseline. 8.3 today. Patient is already received 2 units of PRBC during this admission. Continue with oral iron supplementation. Severe peripheral vascular disease: Follows with Dr. Stout. Patient is on statin. Will continue. Patient is supposed to be on Plavix but looks like have been withheld as an outpatient because of chronic hematuria. Diastolic dysfunction: Last echo from June 2019 shows an EF of 61% grade 2 diastolic dysfunction. Patient is on Lasix at home which is been withheld right now. We will continue to monitor for fluid overload. At present patient is 500 cc negative. Obstructive sleep apnea: CPAP overnight Chronic hypoxic respiratory failure currently saturating well on 3 to nasal cannula DuoNeb's every 6 hours, budesonide twice daily. Patient wants to be started back on his home nebulizers. He has them with him in the back. We will ask respiratory therapist to start him back on his home respiratory treatment. DNR/DNI Clear liquid cardiac diet. No DVT prophylaxis due to ongoing hematuria. SCDs. Attestations Medical Necessity Statement*: Blood loss anemia, hematuria, malignant cancer of lateral wall of bladder. Time Spent in Patient Care: Greater than 35 minutes (>than 50% of time spent in counselling and/or direct pt care on unit). Coding Level of Care Code Acute Insulation Cutter for g Fwd Diagnoses Clot retention of urine R33.8 Malignant neoplasm of lateral wall of bladder C67.2 Type 2 diabetes mellitus with diabetic polyneuropathy E11.42 Diabetes mellitus [place] [facility] insulin use: without terminal carman use Chronic hypoxemic respiratory failure J96.11 COPD (chronic obstructive pulmonary disease) J44.9 COPD type: unspecified COPD Diabetic peripheral neuropathy associated with type 2 diabetes mellitus E11.42 CKD (chronic kidney disease) N18.3 Chronic kidney disease stage: stage 3 (moderate) ZEHRA (obstructive sleep apnea) G47.33 Non-pressure chronic ulcer of other part of right foot limited to breakdown of skin L97.511 Hydronephrosis of right kidney N13.30 Peripheral arterial disease I73.9 Diastolic heart failure I50.30
[2019-12-20] MEDS: HYDROcodone-acetaminophen 10-325 mg Tablet 1 TAB PO ×2 (16:10→22:04)
[2019-12-20] MEDS: lidocaine 2% Urojet 20 mL TOPICAL (22:16)
[2019-12-21] VITALS (18 sets, daily range): BP systolic 93–146; BP diastolic 44–63; PULSE 48–82; RESP 16–20; TEMP 36.6–37.9; O2SAT 90–98
[2019-12-21] MEDS: ipratropium-albuterol 3 mL Neb INHALATION ×4 (02:34→20:49)
[2019-12-21] MEDS: HYDROcodone-acetaminophen 10-325 mg Tablet 1 TAB PO ×3 (06:22→21:25)
--- NOTE | 2019-12-21 08:15 | PM.MISC ---
Miscellaneous Note Purpose of Documentation: Increased bleeding last night. Switched out catheters to [place] catheter which helped evacuate some clots but not completely. I think there is more active bleeding as well. I tried to manually irrigate and put out a few clots but appears it is more just active bleeding but possibly still a bladder full of old clot. Options reviewed: 1. To the OR for clot evacuation when time available. 2. If go to the OR consider transurethral resection but risks associated with significant bleeding possibly uncontrolled bleeding are not insignificant 3. Hospice with supportive care and comfort care only 4. Potential embolization. I do not think that we are ready for that here yet but it would be may be possible to get transfer approval for that to 1 of the interventional radiologist in [place]. No decision yet. He will talk to his family to make a decision. I will speak with him as well. In the meantime we will work hard to keep catheter functioning and then make a decision moving for this morning.
[2019-12-21 08:49] LABS: Basophils % 0.4 %; Eosinophils # 0.7 10^3/uL (0.0-0.8); Eosinophils % 7.3 %; Hematocrit 25.4 % (42.0-52.0); Hemoglobin 7.7 g/dL (11.7-16.6); Lymphocytes # 0.8 10^3/uL (0.8-4.8); Lymphocytes % 8.9 %; Mean Corpuscular HGB Conc 30.3 g/dL (30.0-36.0); Mean Corpuscular Hemoglobin 26.7 pg (28.0-34.0); Mean Corpuscular Volume 88.2 fL (80-94); Mean Platelet Volume 7.7 fL (7.4-10.4); Monocytes # 0.7 10^3/uL (0.2-0.9); Monocytes % 7.9 %; Neutrophils # 6.8 10^3/uL (1.8-7.7); Neutrophils % 74.5 %; Nucleated Red Blood Cells % 0 %; Platelet Count 206 10^3/cmm (130-400); Red Blood Count 2.88 10^6/uL (4.1-5.3); Red Cell Distribution Width 15.7 % (12.1-15.1); White Blood Count 9.2 10^3/uL (4.0-10.0)
[2019-12-21 09:05] LABS: Alanine Aminotransferase 28 U/L (0-41); Albumin Level 3.1 g/dL (3.5-5.2); Alkaline Phosphatase 104 IU/L (40-130); Anion Gap 13.8 (5-19); Aspartate Amino Transferase 25 U/L (0-40); Blood Urea Nitrogen 46 mg/dL (8-23); Calcium 9.8 mg/dL (8.5-10.5); Carbon Dioxide 27 mmol/L (22-29); Chloride 97 mmol/L (98-107); Globulin 3.5 g/dL (1.3-4.6); Glucose 112 mg/dL (65-115); Osmolality Calculated 275 mOsm/kg (285-295); Potassium 4.8 mmol/L (3.5-5.1); Sodium 133 mmol/L (136-145); Total Bilirubin 0.3 mg/dL (0.15-1.2); Total Protein 6.6 g/dL (6.6-8.7)
[2019-12-21] MEDS: budesonide 0.5 mg/2 mL Neb INHALATION ×2 (09:20→20:49)
--- NOTE | 2019-12-21 09:28 | PM.MISC ---
Miscellaneous Note Purpose of Documentation: I spoke with his daughter Courtney. She had a conversation with him this morning and he stated he made up his mind and prefers to be put on hospice rather than go through surgery embolization etc. We will cancel surgery, advance his diet, and pursue choices related to hospice care. Discussed with Dr. Wilder.
--- NOTE | 2019-12-21 09:30 | PC.NURSE ---
Per this patient's primary nurse, ROHITH Miller, Dr. Osborn has approved for the patient's family member, Eduardo Evans, to visit today to assist in progressing the patient's plan of care. I spoke with DARRIUS Brewer, Production Line Welder, and provided the patient's information, the room number, and visitor information to alleviate any issues with allowing the visitor access post COVID-19 screening.
--- NOTE | 2019-12-21 11:09 | PM.PN ---
Subjective Subjective: Interval history: No acute events overnight. Patient started having bloody urine again. CBI was started. Patient had discussion with Dr. Osborn today regarding further goals of care and plan of treatment. Options for patient were to either go back to the OR for cystoscopy and embolization versus hospice. Patient decided to go hospice route. On examination patient states he is comfortable denies of having any pain, nausea, vomiting and states his breathing is at his baseline. Medications: Reviewed: Yes Vitals/I&O/Wt Last Vital Signs Temp 98.5 F 12/21/19 07:43 Pulse 77 12/21/19 09:21 Resp 18 12/21/19 09:21 BP 93/58 12/21/19 07:43 Pulse Ox 93 12/21/19 09:21 12/20/19 12/21/19 12/21/19 22:59 06:59 14:59 Intake Total 240 / 960 200 / 1160 Balance 240 / 960 200 / 1160 Physical Exam Narrative: EXAM NARRATIVE: Patient lying comfortably in his bed without any active discomfort Elderly frail male S1, S2 no tachycardia Abdomen soft nontender nondistended bowel sounds present no CVA tenderness Douglas catheter draining blood-tinged urine without any clots Lower extremity without any signs of edema gangrene ulcer Neurologically nonfocal exam EOMI, PERRLA Appropriate mood and affect Alert oriented x3 GCS 15 Data : 12/21/19 08:33 12/21/19 08:33 A&P Assessment and plan (1) Clot retention of urine: Status: Acute (2) Malignant neoplasm of lateral wall of bladder: Status: Acute (3) Type 2 diabetes mellitus with diabetic polyneuropathy: Status: Chronic Qualifiers: Diabetes mellitus manager long term care insulin use: without retirement use Qualified Code(s): E11.42 - Type 2 diabetes mellitus with diabetic polyneuropathy (4) Chronic hypoxemic respiratory failure: Status: Acute (5) COPD (chronic obstructive pulmonary disease): Status: Chronic Qualifiers: COPD type: unspecified COPD Qualified Code(s): J44.9 - Chronic obstructive pulmonary disease, unspecified (6) Diabetic peripheral neuropathy associated with type 2 diabetes mellitus: Status: Acute (7) CKD (chronic kidney disease): Status: Acute Qualifiers: Chronic kidney disease stage: stage 3 (moderate) Qualified Code(s): N18.3 - Chronic kidney disease, stage 3 (moderate) (8) ZEHRA (obstructive sleep apnea): Status: Acute (9) Non-pressure chronic ulcer of other part of right foot limited to breakdown of skin: Status: Acute (10) Hydronephrosis of right kidney: Status: Acute (11) Peripheral arterial disease: Status: Chronic (12) Diastolic heart failure: Status: Acute (13) Hospice care: Status: Acute Additional A&P Information Clot retention of urine: Advanced malignant cancer of lateral wall of the bladder with persistent gross hematuria and clot formation: Right hydrouretronephrosis due to localized spread: Appreciate Dr. Osborn's recommendations. Due to continuing hematuria even after stopping CBI patient today has decided to go for hospice route because of advanced malignant cancer of lateral wall of bladder with localized spread. Given this goals of care will start patient on morphine 2 mg IV every 4 hours along with [place] 10 mg every 6 hours as needed which he is already getting. We will confirm with care coordination regarding hospice care. Patient's hemoglobin today 7.7. We will transfuse him 1 unit of PRBC. No further lab checks. Hospice care DNR/DNI Clear liquid cardiac diet. No DVT prophylaxis due to ongoing hematuria. SCDs. Attestations Medical Necessity Statement*: Hospice care, advanced malignant cancer of lateral wall of the bladder Time Spent in Patient Care: Greater than 35 minutes (>than 50% of time spent in counselling and/or direct pt care on unit). Coding Level of Care Code Acute Student Support Advisor for [employer] Diagnoses Clot retention of urine R33.8 Malignant neoplasm of lateral wall of bladder C67.2 Type 2 diabetes mellitus with diabetic polyneuropathy E11.42 Diabetes mellitus manager long term care insulin use: without manager long term care use Chronic hypoxemic respiratory failure J96.11 COPD (chronic obstructive pulmonary disease) J44.9 COPD type: unspecified COPD Diabetic peripheral neuropathy associated with type 2 diabetes mellitus E11.42 CKD (chronic kidney disease) N18.3 Chronic kidney disease stage: stage 3 (moderate) ZEHRA (obstructive sleep apnea) G47.33 Non-pressure chronic ulcer of other part of right foot limited to breakdown of skin L97.511 Hydronephrosis of right kidney N13.30 Peripheral arterial disease I73.9 Diastolic heart failure I50.30 Hospice care Z51.5
[2019-12-21] MEDS: sodium chloride 0.9% (100 ml) 100 ML 50 ML (13:39)
[2019-12-21] MEDS: gabapentin 100 mg Capsule PO ×2 (14:07→21:25)
[2019-12-21] MEDS: morphine 4 mg/mL SDV 1 mL 2 MG IVP (15:46)
[2019-12-21] MEDS: sodium chloride 0.9% 1,000 ML 50 ML IV (15:48)
[2019-12-21] MEDS: ferrous sulfate EC 325 mg Tablet PO (17:10)
[2019-12-22] VITALS (11 sets, daily range): BP systolic 97–118; BP diastolic 52–65; PULSE 53–79; RESP 16–20; TEMP 36.5–37.7; O2SAT 92–94
[2019-12-22] MEDS: morphine 4 mg/mL SDV 1 mL 2 MG IVP ×3 (00:26→11:28)
[2019-12-22] MEDS: ipratropium-albuterol 3 mL Neb INHALATION ×2 (02:53→08:23)
[2019-12-22] MEDS: finasteride 5 mg Tablet PO (08:04)
[2019-12-22] MEDS: gabapentin 100 mg Capsule PO (08:04)
[2019-12-22] MEDS: duloxetine 30 mg Capsule 90 MG PO (08:04)
[2019-12-22] MEDS: ferrous sulfate EC 325 mg Tablet PO (08:04)
[2019-12-22] MEDS: atorvastatin 40 mg Tablet 20 MG PO (08:04)
[2019-12-22] MEDS: polyethylene glycol 3350 Pkt 17 gm PO (08:06)
[2019-12-22] MEDS: pantoprazole DR 40 mg Tablet PO (08:14)
[2019-12-22] MEDS: alfuzosin 10 mg ER Tablet PO (08:14)
[2019-12-22] MEDS: budesonide 0.5 mg/2 mL Neb INHALATION (08:23)
--- NOTE | 2019-12-22 09:45 | PC.SOCIAL ---
IMM Updated Page 2 of IMM updated and given to patient. Initialed, dated, and timed and placed back in chart. Copy provided to patient.
[2019-12-22] MEDS: HYDROcodone-acetaminophen 10-325 mg Tablet 1 TAB PO (09:55)
--- NOTE | 2019-12-22 10:19 | PM.DCS ---
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 Not a candidate for extirpative therapy. Prior severe bleeding with TURBT x2. Undergoing radiation therapy as an attempt at palliative therapy. (3) Type 2 diabetes mellitus with diabetic polyneuropathy: Status: Chronic Qualifiers: Diabetes mellitus longterm insulin use: without equipment operator intermodal yard use Qualified Code(s): E11.42 - Type 2 diabetes mellitus with diabetic polyneuropathy (4) Chronic hypoxemic respiratory failure: Status: Acute (5) COPD (chronic obstructive pulmonary disease): Status: Chronic Problem details: oxygen dependent, 3-5 L at baseline Qualifiers: COPD type: unspecified COPD Qualified Code(s): J44.9 - Chronic obstructive pulmonary disease, unspecified (6) Diabetic peripheral neuropathy associated with type 2 diabetes mellitus: Status: Acute (7) CKD (chronic kidney disease): Status: Acute Qualifiers: Chronic kidney disease stage: stage 3 (moderate) Qualified Code(s): N18.3 - Chronic kidney disease, stage 3 (moderate) (8) ZEHRA (obstructive sleep apnea): Status: Acute (9) Non-pressure chronic ulcer of other part of right foot limited to breakdown of skin: Status: Acute (10) Hydronephrosis of right kidney: Status: Acute (11) Peripheral arterial disease: Status: Chronic (12) Diastolic heart failure: Status: Acute (13) Hospice care: Status: Acute Reason for Visit Reason for Visit: cath problems Discharge Data Data Completed and Pending: Completed Studies During Hospitalization Category Date Time Status CT kidney stone [id number] Urgent Cat Scan 12/17/19 02:51 Completed Labs from last 24 hours 12/21/19 08:33 Blood Type O Positive Rho(D) Type Positive Antibody Screen Negative Crossmatch See Detail Vitals: Last Vital Signs Temp 97.7 F 12/22/19 07:47 Pulse 70 12/22/19 08:36 Resp 18 12/22/19 08:24 BP 115/52 12/22/19 07:47 Pulse Ox 93 12/22/19 08:24 Discharge Plan Discharge Patient Disposition: Hospice - Home Condition: Fair Prescriptions: Continued albuterol sulfate [ProAir HFA] 90 mcg/actuation HFA aerosol inhaler 2 puff INHALATION Q6H PRN (Reason: shortness of breath) RF: 0 Brovana 15 mcg/2 mL solution for nebulization 2 ml INHALATION BID RF: 0 budesonide [Pulmicort] 0.5 mg/2 mL suspension for nebulization 0.25 mg INHALATION BID RF: 0 alfuzosin 10 mg tablet extended release 24 hr 10 mg PO DAILY RF: 0 finasteride [Proscar] 5 mg tablet 5 mg PO DAILY RF: 0 duloxetine 30 mg capsule,delayed release(DR/EC) 30 mg PO TID RF: 0 Yupelri 175 mcg/3 mL solution for nebulization 175 mcg INHALATION DAILY Qty: 90 RF: 3 hydrocodone-acetaminophen 10-325 mg tablet 1 tab PO Q6H PRN (Reason: Pain) RF: 0 pantoprazole 40 mg Tablet,Delayed Release (Dr/Ec) 40 mg PO DAILY Qty: 30 RF: 3 Discontinued metformin 500 mg tablet 500 mg PO BID RF: 0 atorvastatin 20 mg tablet 20 mg PO DAILY RF: 0 cholecalciferol (vitamin D3) [Vitamin D3] 50 mcg (2,000 unit) capsule 2,000 mcg PO DAILY RF: 0 furosemide 40 mg tablet 40 mg PO BID RF: 0 magnesium oxide 400 mg magnesium tablet 400 mg PO DAILY RF: 0 calcium carbonate 500 mg calcium (1,250 mg) capsule 500 mg PO BID RF: 0 ferrous sulfate 325 mg (65 mg iron) tablet 325 mg PO BID RF: 0 vitamin B complex [B Complex-Vitamin B12] Tablet 1 tab PO DAILY RF: 0 acetylcysteine (bulk) Powder 1,000 each miscellaneous BID RF: 0 Keytruda 25 mg/mL solution IVP RF: 0 levofloxacin [Levaquin] 500 mg tablet 500 mg PO DAILY Qty: 10 RF: 0 pantoprazole 40 mg tablet,delayed release (DR/EC) PO DAILY RF: 0 Discharge Orders: Discharge Order (Routine); Ordered 12/22/19 Ordered By: Priya Johansen Referrals: [facility] [Outside] Discharge Diet: Usual diet Discharge Activity: Resume usual activity Discharge Attestations Time Spent in Discharge Care*: less than 30 min Quality Metrics Clinical Quality Measures During this hospital stay, did patient experience: None Coding Level of Care Code Acute Gyro Mechanic for Chg Fwd Diagnoses Clot retention of urine R33.8 Malignant neoplasm of lateral wall of bladder C67.2 Type 2 diabetes mellitus with diabetic polyneuropathy E11.42 Diabetes mellitus longterm insulin use: without longterm use Chronic hypoxemic respiratory failure J96.11 COPD (chronic obstructive pulmonary disease) J44.9 COPD type: unspecified COPD Diabetic peripheral neuropathy associated with type 2 diabetes mellitus E11.42 CKD (chronic kidney disease) N18.3 Chronic kidney disease stage: stage 3 (moderate) ZEHRA (obstructive sleep apnea) G47.33 Non-pressure chronic ulcer of other part of right foot limited to breakdown of skin L97.511 Hydronephrosis of right kidney N13.30 Peripheral arterial disease I73.9 Diastolic heart failure I50.30 Hospice care Z51.5
--- NOTE | 2019-12-22 11:39 | PM.DCS ---
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 Not a candidate for extirpative therapy. Prior severe bleeding with TURBT x2. Undergoing radiation therapy as an attempt at palliative therapy. (3) Type 2 diabetes mellitus with diabetic polyneuropathy: Status: Chronic Qualifiers: Diabetes mellitus half-way insulin use: without watermaster use Qualified Code(s): E11.42 - Type 2 diabetes mellitus with diabetic polyneuropathy (4) Chronic hypoxemic respiratory failure: Status: Acute (5) COPD (chronic obstructive pulmonary disease): Status: Chronic Problem details: oxygen dependent, 3-5 L at baseline Qualifiers: COPD type: unspecified COPD Qualified Code(s): J44.9 - Chronic obstructive pulmonary disease, unspecified (6) Diabetic peripheral neuropathy associated with type 2 diabetes mellitus: Status: Acute (7) CKD (chronic kidney disease): Status: Acute Qualifiers: Chronic kidney disease stage: stage 3 (moderate) Qualified Code(s): N18.3 - Chronic kidney disease, stage 3 (moderate) (8) ZEHRA (obstructive sleep apnea): Status: Acute (9) Non-pressure chronic ulcer of other part of right foot limited to breakdown of skin: Status: Acute (10) Hydronephrosis of right kidney: Status: Acute (11) Peripheral arterial disease: Status: Chronic (12) Diastolic heart failure: Status: Acute (13) Hospice care: Status: Acute Reason for Visit Reason for Visit: cath problems Hospital Course Discharge Summary: Henrik Kraus is a 79 year old male who has history of coronary disease, chronic kidney disease stage II, oxygen dependent COPD uses 3 L, diabetes, atrial fibrillation status post ablation previously was on Eliquis, high-grade invasive malignant neoplasm of lateral wall of the bladder, prostate cancer, diagnosed 09/19/2019 who is been undergoing immunotherapy with pembrolizumab and was planned for palliative RT. There has been significant change with increase in tumor size and now what is a clearly an extravesical component. He presented on 12/16 for increasing hematuria and catheter occlusion despite the large bore hematuria catheter that was chronically in place. He was placed on CBI and was admitted for evaluation and treatment. He was seen by urology. After extensive discussion with the family regarding risks and benefits, presented plans included 1. conservative management initially with manual irrigation, CBI, blood transfusion as needed, continuation of radiation therapy. 2. Cystoscopy, clot evacuation, transurethral resection of bladder tumor. if done before any endovascular procedures, then significant chance of uncontrolled bleeding due to advanced disease. 3. catheterization of the internal iliac artery on the right with endo-coil placement for embolization of the vessels feeding the tumor with potentially follow-up TURBT and 4. Palliative care only. Of the presented options, patient opted to go for hospice care only. In keeping with his wishes CBI was then stopped. He continues to have hematuria however is not currently in any pain. Douglas has been retained at time of discharge for patient comfort. Hospice has been contacted and patient is being transitioned to discharge to home with home hospice. Oxygen has been arranged for the same. Patient states he is comfortable denies of having any pain, nausea, vomiting and states his breathing is at his baseline. Only his medications for COPD and pain have been continued at this present time. It may be changed per hospice after discharge home. 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: no focal neuro deficits Discharge Data Data Completed and Pending: Completed Studies During Hospitalization Category Date Time Status CT kidney stone 7 [id number] Urgent Cat Scan 12/17/19 02:51 Completed Labs from last 24 hours 12/21/19 08:33 Blood Type O Positive Rho(D) Type Positive Antibody Screen Negative Crossmatch See Detail Vitals: Last Vital Signs Temp 98.4 F 12/22/19 11:12 Pulse 70 12/22/19 11:12 Resp 18 12/22/19 11:28 BP 97/56 12/22/19 11:12 Pulse Ox 94 12/22/19 11:12 Discharge Plan Discharge Patient Disposition: Hospice - Home Condition: Fair Prescriptions: Continued albuterol sulfate [ProAir HFA] 90 mcg/actuation HFA aerosol inhaler 2 puff INHALATION Q6H PRN (Reason: shortness of breath) RF: 0 Brovana 15 mcg/2 mL solution for nebulization 2 ml INHALATION BID RF: 0 budesonide [Pulmicort] 0.5 mg/2 mL suspension for nebulization 0.25 mg INHALATION BID RF: 0 alfuzosin 10 mg tablet extended release 24 hr 10 mg PO DAILY RF: 0 finasteride [Proscar] 5 mg tablet 5 mg PO DAILY RF: 0 duloxetine 30 mg capsule,delayed release(DR/EC) 30 mg PO TID RF: 0 Yupelri 175 mcg/3 mL solution for nebulization 175 mcg INHALATION DAILY Qty: 90 RF: 3 hydrocodone-acetaminophen 10-325 mg tablet 1 tab PO Q6H PRN (Reason: Pain) RF: 0 pantoprazole 40 mg Tablet,Delayed Release (Dr/Ec) 40 mg PO DAILY Qty: 30 RF: 3 Discontinued metformin 500 mg tablet 500 mg PO BID RF: 0 atorvastatin 20 mg tablet 20 mg PO DAILY RF: 0 cholecalciferol (vitamin D3) [Vitamin D3] 50 mcg (2,000 unit) capsule 2,000 mcg PO DAILY RF: 0 furosemide 40 mg tablet 40 mg PO BID RF: 0 magnesium oxide 400 mg magnesium tablet 400 mg PO DAILY RF: 0 calcium carbonate 500 mg calcium (1,250 mg) capsule 500 mg PO BID RF: 0 ferrous sulfate 325 mg (65 mg iron) tablet 325 mg PO BID RF: 0 vitamin B complex [B Complex-Vitamin B12] Tablet 1 tab PO DAILY RF: 0 acetylcysteine (bulk) Powder 1,000 each miscellaneous BID RF: 0 Keytruda 25 mg/mL solution IVP RF: 0 levofloxacin [Levaquin] 500 mg tablet 500 mg PO DAILY Qty: 10 RF: 0 pantoprazole 40 mg tablet,delayed release (DR/EC) PO DAILY RF: 0 Discharge Orders: Discharge Order (Routine); Ordered 12/22/19 Ordered By: Priya Johansen Referrals: [facility] [place] [Outside] [facility] [Outside] Discharge Diet: Usual diet Discharge Activity: Resume usual activity Patient Instructions: Hospice Care, Heart Failure (DC), Hydronephrosis (DC), Peripheral Vascular Angioplasty (DC) Discharge Attestations Time Spent in Discharge Care*: less than 30 min Quality Metrics Clinical Quality Measures During this hospital stay, did patient experience: None Coding Level of Care Code Acute Curtain Cutter for Chg Fwd Diagnoses Clot retention of urine R33.8 Malignant neoplasm of lateral wall of bladder C67.2 Type 2 diabetes mellitus with diabetic polyneuropathy E11.42 Diabetes mellitus watermaster insulin use: without half-way use Chronic hypoxemic respiratory failure J96.11 COPD (chronic obstructive pulmonary disease) J44.9 COPD type: unspecified COPD Diabetic peripheral neuropathy associated with type 2 diabetes mellitus E11.42 CKD (chronic kidney disease) N18.3 Chronic kidney disease stage: stage 3 (moderate) ZEHRA (obstructive sleep apnea) G47.33 Non-pressure chronic ulcer of other part of right foot limited to breakdown of skin L97.511 Hydronephrosis of right kidney N13.30 Peripheral arterial disease I73.9 Diastolic heart failure I50.30 Hospice care Z51.5
== END 2019-12-22 12:52 | disposition hospice, home (50) | DRG 696 ==
LOC: ER 12-17 00:37 → MEDSURG 12-17 04:53
PROVIDERS: Nurse Practitioner Family; Student in an Organized Health Care Education/Training Program; Admitting Provider Internal Medicine; PCP Family Medicine; Visit Provider Student in an Organized Health Care Education/Training Program
DX: R33.8 Other retention of urine (principal); J96.11 Chronic respiratory failure with hypoxia; N13.30 Unspecified hydronephrosis; D62 Acute posthemorrhagic anemia; N17.9 Acute kidney failure, unspecified; I50.32 Chronic diastolic (congestive) heart failure; G47.33 Obstructive sleep apnea (adult) (pediatric); Z66 Do not resuscitate; Z51.5 Encounter for palliative care; C67.2 Malignant neoplasm of lateral wall of bladder; E11.42 Type 2 diabetes mellitus with diabetic polyneuropathy; L97.511 Non-pressure chronic ulcer of other part of right foot limited to breakdown of skin; N18.3 Chronic kidney disease, stage 3 (moderate); D63.1 Anemia in chronic kidney disease; E11.22 Type 2 diabetes mellitus with diabetic chronic kidney disease; J44.9 Chronic obstructive pulmonary disease, unspecified; I73.9 Peripheral vascular disease, unspecified; I25.10 Atherosclerotic heart disease of native coronary artery without angina pectoris; I48.91 Unspecified atrial fibrillation; Z99.81 Dependence on supplemental oxygen; Z79.84 Long term (current) use of oral hypoglycemic drugs; E78.5 Hyperlipidemia, unspecified; Z95.0 Presence of cardiac pacemaker; E11.51 Type 2 diabetes mellitus with diabetic peripheral angiopathy without gangrene; Z87.891 Personal history of nicotine dependence; Z92.3 Personal history of irradiation; Z85.46 Personal history of malignant neoplasm of prostate; R31.9 Hematuria, unspecified; Z96.653 Presence of artificial knee joint, bilateral; Z95.1 Presence of aortocoronary bypass graft
CPT/HCPCS: 12345; 36415; 36430; 74176; 80048; 80053; 85014; 85018; 85025; 86850; 86900; 86920; 93005; 94640; 96375; 99283; J1170; J1815; J2270; J7030; J7626; P9016

== ENCOUNTER 2019-12-22 06:46 | Outpatient (RCR) | payer OTHER, MEDICARE, SELFPAY | END 2020-01-13 23:59 | disposition home or self-care (01) | LOC: ONCMED 06:46 | PROVIDERS: PCP Family Medicine; Visit Provider Radiology Radiation Oncology | DX: C67.2 Malignant neoplasm of lateral wall of bladder (principal); C61 Malignant neoplasm of prostate | CPT/HCPCS: 77300; 77301; 77338; 77386 ==